=== PATIENT | female | born 1940 | race Caucasian/White ===

== ENCOUNTER 2019-11-30 09:51 | Outpatient (CLI) | payer MEDICARE, OTHER, SELFPAY ==
--- NOTE | ~2019-11-30 | DEXA_ITS ---
Bone Density Report Name: Bree Rocha Age: 79 Sex: Female Ethnicity: White Date of : 1940 Indication: postmenopausal; parental hip fracture; height loss; hysterectomy; Referring Provider: MACY FUENTES Study: Bone densitometry was performed. Exam Date: November 30, 2019 Accession number: [id number] Bone Density: Region BMD T-score Z-score Classification AP Spine (L1-L4) 0.929 -1.1 1.5 Osteopenia Femoral Neck (Left) 0.658 -1.7 0.5 Osteopenia Total Hip (Left) 0.799 -1.2 0.8 Osteopenia Total Hip Bilateral Avg 0.802 -1.2 0.8 Osteopenia Femoral Neck (Right) 0.688 -1.4 0.8 Osteopenia Total Hip (Right) 0.804 -1.1 0.8 Osteopenia World Health Organization criteria for BMD impression classify patients as: Normal (T-score at or above -1.0), Osteopenia (T-score between -1.0 and -2.5), or Osteoporosis (T-score at or below -2.5). 10-year Fracture Risk(1): Major Osteoporotic Fracture 24% Hip Fracture 14% Reported Risk Factors: [place] (), Neck BMD=0.658, BMI=27.4, parental fracture (1) FRAX(R) Version 3.08. Fracture probability calculated for an untreated patient. Fracture probability may be lower if the patient has received treatment. Clinical Information Provided by Patient: Parent has had a hip fracture Has used the following medications: Vitamin D, Calcium Has the following medical conditions: Hysterectomy Patient maximum height was 66 Menopause Age: 58 Drinks caffeinated beverages Onset of menses at age 12 Number of children 1 Impression: The patient has low bone mass, based on the Left Femoral Neck T-score. The patient has an estimated ten-year risk of hip fracture of 14% and an estimated ten-year risk of major fracture of 24%, based on the WHO FRAX algorithm. The patient has risk factors, including: parental hip fracture. Discussion: BONE DENSITY IS LOW AT ONE OR MORE SKELETAL SITES. THE PATIENT'S BMD AND CLINICAL RISK FACTORS CONTRIBUTE TO THIS PATIENT'S HIGH RISK OF FRACTURE. This patient's lowest T-score is low at one or more skeletal sites. It meets the World Health Organization's (WHO) criteria for ?low bone mass? (T-score between -1.0 and -2.5). The patient's 10-year risk of hip fracture and 10 year risk of a major osteoporotic fracture as calculated by FRAX exceeds the threshold where pharmacological therapy is recommended by the National Osteoporosis Foundation (NOF). However, all treatment decisions require clinical judgment and consideration of individual patient factors, including patient preferences, comorbidities, previous drug use, risk factors not captured in the FRAX model (e.g., frailty, falls, vitamin D deficiency, increased bone turnover, interval significant decline in bone density) and possible under or overestimation of fracture risk by FRAX. The patient should follow a
== END 2019-11-30 09:52 | disposition home or self-care (01) ==
PROVIDERS: PCP Internal Medicine; Visit Provider Internal Medicine
DX: Z78.0 Asymptomatic menopausal state (principal); M85.89 Other specified disorders of bone density and structure, multiple sites
CPT/HCPCS: 77080

== ENCOUNTER 2020-01-18 14:49 | Outpatient (NON) | payer MEDICARE, OTHER, SELFPAY ==
[2020-01-20 05:35] LABS: Pan-SARS RNA: POSITIVE (NEGATIVE); SARS-CoV-2 RNA: POSITIVE (NEGATIVE)
== END 2020-01-18 14:50 ==
PROVIDERS: PCP Internal Medicine; Visit Provider Internal Medicine
DX: U07.1 COVID-19 (principal); R68.89 Other general symptoms and signs
CPT/HCPCS: 87635; C9803; U0002

== ENCOUNTER 2020-02-09 08:00 | Outpatient (NON) | payer MEDICARE, OTHER, SELFPAY ==
[2020-02-09 20:59] LABS: SARS-CoV-2 RNA PCR Positive
== END 2020-02-09 08:01 ==
PROVIDERS: PCP Internal Medicine; Visit Provider Internal Medicine
DX: U07.1 COVID-19 (principal)
CPT/HCPCS: 87635; C9803; U0003

== ENCOUNTER 2020-11-17 09:34 | Outpatient (CLI) | payer MEDICARE, OTHER, SELFPAY ==
--- NOTE | ~2020-11-17 | US_ITS ---
EXAMINATION: US soft tissue UE RT EXAM DATE: 11/17/2020 10:06 INDICATION: Right arm lump. Lipoma. TECHNIQUE: Multiple grayscale and Doppler images of the symptomatic right upper arm region were obtai jesusita (by a technologist who performed the scan) and subsequently reviewed. There is no prior study fo r comparison. FINDINGS: Scanning in the right arm/shoulder area of concern with palpable lump demonstrates a well-circumscrib ed mass isoechoic to surrounding subcutaneous fat. This is most likely an encapsulated lipoma. The un derlying shoulder, musculature is unremarkable. IMPRESSION: 1. 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 Reviewed, dictated and finalized at location B. L MACHINE OPERATOR
== END 2020-11-17 09:35 | disposition home or self-care (01) ==
PROVIDERS: PCP Internal Medicine; Visit Provider Nurse Practitioner
DX: D17.20 Benign lipomatous neoplasm of skin and subcutaneous tissue of unspecified limb (principal); M79.89 Other specified soft tissue disorders
CPT/HCPCS: 76882

== ENCOUNTER 2020-11-24 13:47 | Outpatient (CLI) | payer MEDICARE, OTHER, SELFPAY ==
--- NOTE | 2020-11-24 14:32 | ECG_ITS ---
Measurements Intervals [place] Rate: 67 P: 77 FL: 144 QRS: 48 QRSD: 94 T: 51 QT: 408 QTc: 433 Interpretive Statements SINUS RHYTHM CANNOT RULE OUT SEPTAL INFARCT, AGE INDETERMINATE ABNORMAL ECG Electronically Signed On 11-24-2020 14:51:25 [employer] by Flo Sawyer D.O.
== END 2020-11-24 13:48 | disposition home or self-care (01) ==
LOC: ANHCARD 13:56
PROVIDERS: PCP Internal Medicine; Visit Provider Podiatrist Foot & Ankle Surgery
DX: R03.0 Elevated blood-pressure reading, without diagnosis of hypertension (principal); R94.31 Abnormal electrocardiogram [ECG] [EKG]
CPT/HCPCS: 93005

== ENCOUNTER 2020-12-02 10:04 | Outpatient (CLI) | payer MEDICARE, OTHER, SELFPAY ==
--- NOTE | ~2020-12-02 | MM_ITS ---
EXAMINATION: MM screening calderon BI w domenica HISTORY: Screening TECHNIQUE: Craniocaudal and mediolateral oblique 3-D tomosynthesis images were obtained and synthetic 2-D images were generated. CAD analysis was submitted and interpreted. COMPARISON: No prior mammogram is available for comparison at this institution. BREAST PARENCHYMAL COMPOSITION: The breasts are heterogeneously dense, which may obscure small masses . FINDINGS: There is distortion of both breasts, consistent with previous breast reduction surgery. The re is no evidence of suspicious mass, calcification, or architectural distortion to suggest malignanc y in either breast. There has been no suspicious interval change. IMPRESSION: 1. No mammographic evidence of malignancy. 2. Recommend routine screening mammography in one year. BI-RADS Category 2: Benign finding(s). Reviewed, dictated and finalized at location A. GENCY MEDICAL TECHNICIAN BASIC
== END 2020-12-02 10:05 | disposition home or self-care (01) ==
PROVIDERS: PCP Internal Medicine; Visit Provider Nurse Practitioner
DX: Z12.31 Encounter for screening mammogram for malignant neoplasm of breast (principal)
CPT/HCPCS: 77063; 77067

== ENCOUNTER → 2021-07-10 08:57 | Outpatient (CLI) | payer MEDICARE, OTHER, SELFPAY ==
[2021-07-10 17:28] LABS: SARS-CoV-2 RNA PCR Negative
== END ==
PROVIDERS: PCP Internal Medicine; Visit Provider Internal Medicine
DX: R68.89 Other general symptoms and signs (principal); Z20.822 Contact with and (suspected) exposure to COVID-19
CPT/HCPCS: C9803; U0003; U0005

== ENCOUNTER 2022-03-30 15:07 | Outpatient (CLI) | payer MEDICARE, OTHER, SELFPAY ==
--- NOTE | ~2022-03-30 | XR_ITS ---
XR hand RT min 3V DATE: 03/30/2022 15:29 INDICATION: Swelling of left fifth digit for 2 months TECHNIQUE: 3 views COMPARISON: None FINDINGS: There is osteopenia. There is polyarticular osteoarthritis, including triscaphe joint, with mild involvement of metacarpop halangeal joints and to a greater extent interphalangeal joints, most prominent at the distal interph alangeal joints of the second and third and fifth digits. No fracture, dislocation, periosteal reaction or bone destruction. IMPRESSION: Polyarticular osteoarthritis Osteopenia Reviewed, dictated and finalized at location A.
--- NOTE | ~2022-03-30 | XR_ITS ---
XR hand LT min 3V DATE: 03/30/2022 15:28 INDICATION: Swelling of fifth digit for 2 months. Stiffness and hand. TECHNIQUE: 3 views COMPARISON: None FINDINGS: Through fifth metacarpophalangeal and the interphalangeal joints. No fracture or dislocation, periosteal reaction or bone destruction is detected. IMPRESSION: Polyarticular arthritis Osteopenia Reviewed, dictated and finalized at location A.
[2022-03-30 15:49] LABS: CRP < 0.5 mg/dL (<1.0)
== END 2022-03-30 15:08 | disposition home or self-care (01) ==
PROVIDERS: PCP Internal Medicine; Visit Provider Internal Medicine
DX: M79.89 Other specified soft tissue disorders (principal); M19.041 Primary osteoarthritis, right hand; M19.042 Primary osteoarthritis, left hand; M85.841 Other specified disorders of bone density and structure, right hand; M85.842 Other specified disorders of bone density and structure, left hand
CPT/HCPCS: 36415; 73130; 86140

== ENCOUNTER → 2022-06-07 13:53 | Outpatient (CLI) | payer MEDICARE, OTHER, SELFPAY ==
--- NOTE | ~2022-06-07 | DEXA_ITS ---
Bone Density Report Name: KORI DINERO Age: 82 Sex: Female Ethnicity: White Date of : 1940 Indication: postmenopausal; screening for osteoporosis; hysterectomy; Referring Provider: Artemio Antony Study: Bone densitometry was performed. Exam Date: June 07, 2022 Accession number: [id number] Bone Density: Region BMD T-score Z-score Classification AP Spine (L1-L4) 1.077 0.3 3.0 Normal Femoral Neck (Left) 0.688 -1.4 0.9 Osteopenia Total Hip (Left) 0.824 -1.0 1.2 Normal Femoral Neck (Right) 0.718 -1.2 1.2 Osteopenia Total Hip (Right) 0.810 -1.1 1.0 Osteopenia Total Hip Mean 0.817 -1.1 1.1 Osteopenia World Health Organization criteria for BMD impression classify patients as: Normal (T-score at or above -1.0), Osteopenia (T-score between -1.0 and -2.5), or Osteoporosis (T-score at or below -2.5). 10-year Fracture Risk: FRAX not reported because: Treated for osteoporosis Clinical Information Provided by Patient: Is being treated for osteoporosis Has used the following medications: Boniva (i.e. ibandronate), Vitamin D, Calcium Has the following medical conditions: Hysterectomy Patient maximum height was 66 Menopause Age: 56 Drinks caffeinated beverages Onset of menses at age 12 Number of children 1 Impression: The patient has low bone mass, based on the Left Femoral Neck T-score. Discussion: It is important to ask patients whether they are taking their medications and to encourage continued and appropriate compliance with their osteoporosis therapies to reduce fracture risk. It is also important to review their risk factors and encourage appropriate calcium and vitamin D intakes, exercise, fall prevention and other lifestyle measures. Follow-Up: Consider a repeat BMD and Vertebral Fracture Assessment (VFA) exam in 2 years or sooner if medically necessary, to reassess this patient's status. Reported by: YOGESH on 06/07/2022 3:10:00 PM. Reviewed, dictated and finalized at location AZaida NO
== END ==
PROVIDERS: Visit Provider Internal Medicine
DX: Z78.0 Asymptomatic menopausal state (principal); M85.852 Other specified disorders of bone density and structure, left thigh; M85.851 Other specified disorders of bone density and structure, right thigh
CPT/HCPCS: 77080

== ENCOUNTER 2022-07-21 16:09 | Inpatient (IN) | payer MEDICARE, OTHER, SELFPAY ==
--- NOTE | ~2022-07-21 | CT_ITS ---
EXAMINATION: CT abdomen pelvis w con DATE: 07/21/2022 20:09 INDICATION: left lower abdominal pain TECHNIQUE: Computed tomography (CT) of the abdomen and pelvis was performed with 100 mL Omnipaque-350 intravenous contrast. Automated exposure control and iterative reconstruction technique were employe d. The dose-length product was 467.52 mGy-cm. COMPARISON: None. FINDINGS: Lower thorax: Scattered sub-5 mm pulmonary nodules. Senescent change. Bibasilar scar/atelectasis. Liver: Normal. Biliary/Gallbladder: Gallbladder is normal. No bile duct dilation. Pancreas: No mass or duct dilation. Spleen: Normal. Adrenals:No mass. Kidneys: No mass, stone, or hydronephrosis. GI tract: Moderate distal esophageal and gastric wall edema. No small or large bowel dilation. Normal appendix. Scattered diverticuli. Long segment mid sigmoid wall edema with surrounding inflammatory c hange. Somewhat incompletely defined 1 cm fluid density area projecting over the wall of the sigmoid, with surrounding inflammatory change and enhancement. Mesentery/Peritoneum: No ascites, mass, or free air. Retroperitoneum: No mass. Atherosclerotic abdominal aortic and/or arterial calcifications. Pelvis: Pelvic organs are within normal limits. Soft Tissues: Soft tissues and body wall unremarkable. Bones: No acute osseous finding. IMPRESSION: 1. Long segment sigmoid wall edema and inflammation which may represent diverticulitis with a possibl e intramural abscess, noting that infectious, inflammatory, or ischemic colitis could appear similar. 2. Multiple pulmonary nodules which require no additional follow-up, unless the patient is at high r isk for lung cancer, in which case consider optional CT of the chest at 12 months, per [facility] delines. 3. Esophagitis/gastritis. Reviewed, dictated and finalized at location K. IMPRESSION: 1. Long segment sigmoid wall edema and inflammation which may represent diverti culitis with a possible intramural abscess, noting that infectious, inflammator y, or ischemic colitis could appear similar. 2. Multiple pulmonary nodules which require no additional follow-up, unless th e patient is at high risk for lung cancer, in which case consider optional CT o f the chest at 12 months, per Fleischner guidelines. 3. Esophagitis/gastritis.
[2022-07-21 16:17] VITALS: BP 156/82; PULSE 101; RESP 20; TEMP 36.4; O2SAT 98
[2022-07-21 17:24] LABS: Basophils Percent Auto 0.3 % (0.2-1.2); Eosinophils Absolute Auto 0.1 K/mm3 (0-0.3); Eosinophils Percent Auto 0.5 % (0-4.4); Hematocrit 41.2 % (37.0-47.0); Hemoglobin 13.8 g/dL (12.0-15.0); Immature Granulocyte Absolute 0.05 K/mm3 (0.00-0.031); Immature Granulocyte Percent A 0.4 % (0-0.5); Lymphocytes Absolute Auto 1.81 K/mm3 (0.9-3.2); Lymphocytes Percent Auto 15.2 % (18.3-44.2); Mean Corpuscular HGB Conc 33.5 g/dl (32-36); Mean Corpuscular Hemoglobin 29.8 pg (26-34); Mean Platelet Volume 9.7 fl (7.4-10.4); Monocytes Absolute Auto 0.7 K/mm3 (0.1-0.6); Monocytes Percent Auto 6.1 % (2.6-8.5); Neutrophils Absolute Auto 9.2 K/mm3 (1.3-6.7); Neutrophils Percent Auto 77.5 % (45.5-73.1); Platelet Count Result 304 k/mm3 (150-375); Red Blood Count 4.63 M/mm3 (4.2-5.4); Red Cell Distribution Width 13.2 % (11.5-14.5); White Blood Count 11.9 K/mm3 (4.5-10.0)
[2022-07-21 17:29] LABS: Add Urine Microscopic? YES; Appearance Urine Cloudy (Clear); Bilirubin Urine Negative (Negative); Blood Urine Negative (Negative); Color Urine Yellow (Yellow); Glucose Urine UA Negative (Negative); Ketones Urine Negative (Negative); Leukocyte Esterase Ur Negative LEU/UL (Negative); Mucus Urine Rare /lpf; Nitrate Urine Negative (Negative); Protein Urine 1+ mg/dL (Negative); Specific Grav Ur 1.024 (1.001-1.035); Squamous Epithelial Cell Urine Occasional /hpf (Few); Urobilinogen Urine Negative mg/dL (<2.0); WBC Urine 0-3 /hpf
[2022-07-21 17:34] LABS: Lactic Acid Reflex 1.5 mmol/L (0.7-2.0)
[2022-07-21 17:35] LABS: Alanine Aminotransferase 19 U/L (6-35); Albumin Level 4.7 g/dL (3.5-5.1); Alkaline Phosphatase 82 U/L (38-126); Anion Gap 14 mmol/L (8-16); Aspartate Amino Transferase 25 U/L (14-36); Bilirubin,Total 0.7 mg/dL (0.2-1.3); Blood Urea Nitrogen 16 mg/dL (7-17); Calcium 9.5 mg/dL (8.4-10.2); Carbon Dioxide 29 mmol/L (22-30); Chloride 98 mmol/L (98-107); Estimated CRCL calculation 49 ml/min; Estimated Glomerular Filt Rate > 60; Glucose 115 mg/dL (65-110); Lipase 50 U/L (23-300); Potassium 4.5 mmol/L (3.4-5.0); Sodium 141 mmol/L (137-145)
--- NOTE | 2022-07-21 19:21 | ED.ABDPAIN ---
HPI - Abdominal Pain General Chief Complaint: Abdominal Pain Stated Complaint: abd/groin pain Time Seen by Provider: 07/21/22 16:39 Source: patient and RN notes reviewed Mode of arrival: ambulatory Limitations: no limitations History of Present Illness HPI narrative: This is an 82 year old female who presents for evaluation of left pelvic and left lower abdominal pain. She reports intermittent sharp pain that has been occurring for at least 1 month. She had pain just prior to coming to ER, but her pain has currently resolved. Her pain will last a couple minutes and it will resolve spontaneously. She has nausea with severe pain. She is unsure of any exacerbating and alleviating factors regarding her pain. She is unable to get an appointment with her PCP until august. Related Data Home Medications Medication Instructions Recorded Confirmed calcium carbonate 600 mg calcium 600 mg PO BID 11/10/19 04/25/22 (1,500 mg) tablet (Calcium) cholecalciferol (vitamin D3) 25 2,000 unit PO DAILY 11/10/19 04/25/22 mcg (1,000 unit) tablet loratadine 10 mg tablet 10 mg PO DAILY 11/10/19 04/25/22 rosuvastatin 5 mg tablet 5 mg PO DAILY PRN 03/30/22 04/25/22 naproxen sodium 275 mg tablet 275 mg PO Q8H PRN 05/01/22 vitamin B complex (B 1 tablet PO DAILY 05/01/22 Complex-Vitamin B12 tablet) Allergies Allergy/AdvReac Type Severity Reaction Status Date / Time Inhaled Anesthetics (Halogen Allergy Unknown Sneezing Verified 05/01/22 08:31 Based) SHELLFISH AdvReac Mild A LITTLE Uncoded 04/25/22 09:01 ITCH Review of Systems Review of Systems: All systems reviewed & are unremarkable except as noted in HPI and below Constitutional: Constitutional: Denies chills, Denies fatigue and Denies fever(s) Gastrointestinal: Gastrointestinal: Reports abdominal pain, Denies diarrhea, Reports nausea and Denies vomiting Genitourinary: Genitourinary: Denies nocturia, Denies dysuria and Denies flank pain Musculoskeletal: Musculoskeletal: Denies back pain PMFSH Past Medical History Medical History Acquired hallux valgus of left foot Bunion of great toe of right foot Hallux 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 Vitamin D deficiency, unspecified Surgical History Surgical History Status post breast reduction Social History Social History Smoking status: Never smoker Alcohol intake: current Drinks per week: 5 Alcohol use details: social Substance use: never Substance use type: does not use Exam Const: General: healthy appearing, no acute distress and alert Nutritional Appearance: well nourished Orientation/consciousness: patient oriented x3 Limitations: no limitations HENMT: Head: normal to inspection Eyes: EOM: EOMs intact bilaterally Resp: Effort & Inspection: normal respiratory effort Auscultation: clear to auscultation bilaterally Cardio: Rate: regular rate Rhythm: regular rhythm Heart sounds: no murmurs Other: strong bilateral palpable pedal pulses GI: GI Palp: Yes Soft to palpation, Yes Tenderness to palpation present (GI) (LQ), No Guarding due to palpation present (GI) and No Rigid due to palpation Auscultation: normal bowel sounds Back/Spine/Pelvis: Back: no CVA tenderness Skin: General skin exam: normal color Rashes: no rashes Wounds: no wounds Neuro: General: patient oriented x3, moves all extremities and CN's II-XI intact bilaterally Extrem: General: normal to inspection Psych: Mental Status: mental status grossly normal Attitude: cooperative Course Reevaluation(s) Reevaluation #1: I Discussed with patient and family diagnosis. She will be admitted for IV antibiotics. Date: 07/21/22 Time: 21:00 Consultations Consultation #1: I Discussed case with Dr. Kahn and he agrees to co
--- NOTE | 2022-07-21 20:52 | PM.IMHP ---
H&P: HPI History of Present Illness Date/Time: 07/21/22 20:52 Chief Complaint: abdominal pain Narrative: This is an 82-year-old female with past medical history significant for osteoporosis, seasonal allergies, degenerative joint disease,presents to the emergency room due to left lower quadrant pain according to patient she has been having pain for about a month but worsened the last day or so is in the left lower quadrant she denied any nausea or vomiting with did she had a small bowel movement which is not her usual denies any phlegm or blood and it no fevers no rigors no chills has been tolerating her meals well however not much of an appetite in the last day or so. Preliminary workup was significant for CT of abdomen and pelvis shows: IMPRESSION: 1. Long segment sigmoid wall edema and inflammation which may represent diverticulitis with a possible intramural abscess, noting that infectious, inflammatory, or ischemic colitis could appear similar. 2.? Multiple pulmonary nodules which require no additional follow-up, unless the patient is at high risk for lung cancer, in which case consider optional CT of the chest at 12 months, per Fleischner guidelines. 3. Esophagitis/gastritis. Review of Systems Review of Systems: abdominal pain Constitutional: Constitutional: Denies chills, Denies fever(s), Denies malaise, Denies night sweats and Denies weakness Eyes: Eyes: Denies change in vision ENT: Denies dysphagia, Denies vertigo, Denies dizziness and Denies odynophagia Cardiovascular: Cardiovascular: Denies chest pain, Denies syncope, Denies irregular heart rhythm, Denies lightheadedness and Denies palpitations Respiratory: Respiratory: Denies chest congestion, Denies cough, Denies pain on inspiration and Denies dyspnea Gastrointestinal: Gastrointestinal: Reports abdominal pain, Denies dyspepsia, Denies heartburn, Denies nausea and Denies vomiting Genitourinary: Genitourinary: Denies dysuria Musculoskeletal: Musculoskeletal: Denies myalgias Integumentary/Breasts: Skin/Breast: Denies rash Neurologic: Denies vertigo, Denies dizziness, Denies focal weakness and Denies Sensory deficit (Neuro) Psychiatric: Psychiatric: Reports no additional psychiatric complaints and Reports as per HPI Endocrine: Endocrine: Denies cold intolerance, Denies flushing, Denies heat intolerance, Denies polyphagia, Denies polydipsia and Denies palpitations Hematologic/Lymphatic: Hematologic/Lymphatic: Reports no additional hematologic/lymphatic complaints and Reports as per HPI Allergic/Immunologic: Allergic/Immunologic: Reports no additional allergic/immunologic complaints and Reports as per HPI [facility] Past Medical History Medical History (Updated 07/22/22 @ 15:06 by Kathryn Garcia PA-C) Acquired hallux valgus of left foot Bunion of great toe of right foot Hallux 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 Vitamin D deficiency, unspecified Surgical History Surgical History (Updated 07/22/22 @ 13:00 by Darryl Campuzano DO) History of bladder suspension procedure History of vaginal hysterectomy Status post breast reduction Social History Social History Smoking status: Never smoker Alcohol intake: current Drinks per week: 4 Alcohol use details: social Substance use: never Substance use type: does not use Spiritual care concerns: No Meds Home Medications and Allergies Home Medications Medication Instructions Recorded Confirmed Type calcium carbonate 600 mg calcium 600 mg PO BID 11/10/19 07/21/22 History (1,500 mg) tablet (Calcium) cholecalciferol (vitamin D3) 25 2,000 unit PO DAILY 11/10/19 07/21/22 History mcg (1,000 unit) tablet loratadine 10 mg tablet 10 mg PO DAILY 11/10/19 07/21/22 History ibandronate 150 mg tablet (Boniva) 150 mg PO MONTHLY PRN bone health 04/03/22 07/21/22 Rx #4 tabs naproxen sodium 275 mg tablet 275 mg PO
[2022-07-21] MEDS: SODIUM CHLORIDE 0.9% IV 1,000 ML 999 ML IV CONT (20:59)
--- NOTE | 2022-07-21 22:17 | ADMGEN ---
This patient, Bree Rocha, was admitted to Medical Room 348-01. Patient/family oriented to hospital policies and general routines including ID bracelet, bed and alarms, visiting hours, pain management, procedures, bathroom and other care routines, personal items, smoking policy, room service/diet, and visiting hours. Information on how to activate the Rapid Response Team has been discussed. Patient/Family are encouraged to report perceived risks to care and to ask questions if they do not understand what they are told or what they should do.
[2022-07-21 22:27] VITALS: BMI 26.3
[2022-07-21 22:29] VITALS: BP 151/73; PULSE 71; RESP 18; TEMP 36.6; O2SAT 99
[2022-07-21 22:44] VITALS: BP 151/73; PULSE 71; RESP 18; O2SAT 99
[2022-07-22 00:03] VITALS: BMI 26.3
[2022-07-22] MEDS: SODIUM CHLORIDE 0.9% IV 1,000 ML 125 ML IV CONT ×2 (01:46→16:43)
[2022-07-22 01:59] VITALS: PULSE 71; RESP 18; O2SAT 99
[2022-07-22 05:28] VITALS: BP 150/58; PULSE 78; RESP 18; TEMP 36.6; O2SAT 96
[2022-07-22 06:44] LABS: Basophils Percent Auto 0.5 % (0.2-1.2); Eosinophils Absolute Auto 0.2 K/mm3 (0-0.3); Eosinophils Percent Auto 2.2 % (0-4.4); Hematocrit 34.5 % (37.0-47.0); Hemoglobin 11.6 g/dL (12.0-15.0); Immature Granulocyte Absolute 0.02 K/mm3 (0.00-0.031); Immature Granulocyte Percent A 0.2 % (0-0.5); Lymphocytes Absolute Auto 2.02 K/mm3 (0.9-3.2); Lymphocytes Percent Auto 24.9 % (18.3-44.2); Mean Corpuscular HGB Conc 33.6 g/dl (32-36); Mean Corpuscular Hemoglobin 29.2 pg (26-34); Mean Corpuscular Volume 86.9 fl (80-100); Mean Platelet Volume 9.8 fl (7.4-10.4); Monocytes Absolute Auto 0.8 K/mm3 (0.1-0.6); Monocytes Percent Auto 9.9 % (2.6-8.5); Neutrophils Percent Auto 62.3 % (45.5-73.1); Platelet Count Result 247 k/mm3 (150-375); Red Blood Count 3.97 M/mm3 (4.2-5.4); Red Cell Distribution Width 13.1 % (11.5-14.5); White Blood Count 8.1 K/mm3 (4.5-10.0)
[2022-07-22 07:02] LABS: Alanine Aminotransferase 16 U/L (6-35); Albumin Level 3.8 g/dL (3.5-5.1); Alkaline Phosphatase 62 U/L (38-126); Anion Gap 10 mmol/L (8-16); Aspartate Amino Transferase 20 U/L (14-36); Bilirubin,Total 1.1 mg/dL (0.2-1.3); Blood Urea Nitrogen 12 mg/dL (7-17); Calcium 8.4 mg/dL (8.4-10.2); Carbon Dioxide 28 mmol/L (22-30); Chloride 101 mmol/L (98-107); Estimated CRCL calculation 45 ml/min; Estimated Glomerular Filt Rate > 60; Glucose 114 mg/dL (65-110); Potassium 3.9 mmol/L (3.4-5.0); Sodium 139 mmol/L (137-145)
[2022-07-22] MEDS: PANTOPRAZOLE SODIUM IV 40 MG VIAL IV PUSH (09:57)
--- NOTE | 2022-07-22 12:57 | PM.CNGS ---
Assessment and Plan Assessment and plan (1) Diverticulitis large intestine: Qualifiers: Diverticulitis complication: with abscess Code(s): K57.32 - Diverticulitis of large intestine without perforation or abscess without bleeding Status: Acute Assessment and Plan: I have reviewed the CT and discussed the findings with the patient. She has evidence of diverticulitis and there is questionable 1 cm intramural abscess. At this size, this would not likely need percutaneous drainage. Her white blood count has normalized and her pain is improved. She should be able to try clear liquids today. Will repeat labs tomorrow. Continue IV Zosyn. Discussed that surgery would be reserved for failure of medical treatment and worsening signs or symptoms to suggest perforation or sepsis. History of Present Illness Consult details Consult date: 07/22/22 Reason for consult: other ( Diverticulitis) Narrative: this is an 82-year-old woman who presented to the emergency department yesterday with left lower quadrant pain that had been worsening over the past day. She states that she has had pain intermittently for the past month. Prior to this she had never experiencing pains like this in the past. She denies a prior history of diverticulitis. She states that she normally eats very healthy and tries to minimize processed foods. She thinks her last colonoscopy was about 10 years ago or longer. Her pain is currently improved. She denies any fevers or any change in bowel habits. Her CT in the emergency department showed evidence of diverticulitis with a possible 1 cm intramural abscess. She was then admitted for further treatment. Review of Systems Review of Systems: All systems reviewed & are unremarkable except as noted in HPI and below Constitutional: Constitutional: Denies chills and Denies fever(s) Eyes: Eyes: Denies change in vision ENT: Denies hearing loss, Denies neck pain and Denies sore throat Cardiovascular: Cardiovascular: Denies chest pain and Denies dyspnea Respiratory: Respiratory: Denies cough, Denies dyspnea and Denies wheezing Gastrointestinal: Gastrointestinal: Reports as per HPI Genitourinary: Genitourinary: Denies hematuria and Denies dysuria Musculoskeletal: Musculoskeletal: Denies arthralgias, Denies joint swelling and Denies neck pain Allergic/Immunologic: Allergic/Immunologic: Denies wheezing PMFSH Past Medical History Medical History (Updated 07/22/22 @ 06:43 by Sher Garces MD) Acquired hallux valgus of left foot Bunion of great toe of right foot Hallux 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 Vitamin D deficiency, unspecified Surgical History Surgical History (Updated 07/22/22 @ 13:00 by Darryl Campuzano DO) History of bladder suspension procedure History of vaginal hysterectomy Status post breast reduction Social History Social History Smoking status: Never smoker Alcohol intake: current Drinks per week: 4 Alcohol use details: social Substance use: never Substance use type: does not use Spiritual care concerns: No Meds Home Medications and Allergies Home Medications Medication Instructions Recorded Confirmed Type calcium carbonate 600 mg calcium 600 mg PO BID 11/10/19 07/21/22 History (1,500 mg) tablet (Calcium) cholecalciferol (vitamin D3) 25 2,000 unit PO DAILY 11/10/19 07/21/22 History mcg (1,000 unit) tablet loratadine 10 mg tablet 10 mg PO DAILY 11/10/19 07/21/22 History ibandronate 150 mg tablet (Boniva) 150 mg PO MONTHLY PRN bone health 04/03/22 07/21/22 Rx #4 tabs naproxen sodium 275 mg tablet 275 mg PO Q8H PRN muscle spams/ 05/01/22 07/21/22 History bone pain vitamin B complex (B 1 tablet PO DAILY 05/01/22 07/21/22 History Complex-Vitamin B12 tablet) Allergies Allergy/AdvReac Type Severity Reaction Status Date / Time Inhaled Ane
--- NOTE | 2022-07-22 15:00 | PM.IMPN ---
Progress Note: A&P Assessment and Plan (1) Diverticulitis large intestine: Qualifiers: Diverticulitis complication: with abscess Code(s): K57.32 - Diverticulitis of large intestine without perforation or abscess without bleeding Status: Acute Assessment and Plan: Patient presented with left lower quadrant pain ongoing for several weeks. CT of the abdomen/pelvis showed long segment sigmoid wall edema and inflammation which may represent diverticulitis with possible intramural abscess Patient seen and evaluated by General surgery. No indications for surgical intervention at this time. Continue IV Zosyn Advanced to clear liquid diet. Continue to advance diet per General surgery recommendations Continue IV fluids until tolerating diet. Leukocytosis has resolved. Patient is afebrile. She will need outpatient colonoscopy on resolution of acute diverticulitis (2) Gastritis: Code(s): K29.70 - Gastritis, unspecified, without bleeding Status: Acute Assessment and Plan: Gastritis and esophagitis noted on CT of the abdomen/pelvis Begin Protonix 40 mg b.i.d. (3) Pulmonary nodule: Code(s): R91.1 - Solitary pulmonary nodule Status: Acute Assessment and Plan: CT of the abdomen/pelvis showed multiple pulmonary nodules which require no additional follow-up unless patient is at risk for lung cancer. She is a never smoker. Family history of lung cancer is unknown. Subjective Date/time seen: 07/22/22 15:00 Interval history: Date of service: 07/22/2022 Bree Rocha is a healthy 82-year-old female who is seen in follow-up for diverticulitis with questionable intramural abscess. The patient is feeling very well today. Her abdominal pain has resolved entirely. She was previously endorsing left lower quadrant discomfort but this has resolved today. She is passing flatus. States her last bowel movement was yesterday. Denies melena or hematochezia. No fever, chills, nausea, vomiting. She has not had anything to eat today besides a couple of ice chips. She denies shortness breath, cough, chest pain. Denies urinary symptoms. Review of Systems Review of Systems: All systems reviewed & are unremarkable except as noted in HPI and below Exam Narrative: General: Well-nourished, well-appearing 82-year-old female, sitting up in bed, comfortable, NARD Neuro: awake, alert and oriented x4, speech clear, no focal neuro deficits noted HEENMT: normocephalic, atraumatic, EOMI, sclerae anicteric, moist oral mucosa Respiratory: clear to auscultation bilaterally, nonlabored breathing Cardio: regular rate, regular rhythm with S1-S2 Abdomen: nondistended, normoactive bowel sounds, soft, nontender to palpation Extremities: no edema, erythema, or tenderness to palpation, DP pulses 2+ bilaterally Skin: no rashes or lesions, warm and dry Psych: appropriate mood and affect, judgment and insight intact Objective Data Vital Signs Vital Signs: Vital Signs - 24 hr 07/21/22 16:17 07/21/22 22:29 07/21/22 22:44 Temperature 97.6 F 97.8 F Pulse Rate 101 H 71 71 Respiratory Rate 20 18 18 Blood Pressure 156/82 H 151/73 H 151/73 H Pulse Oximetry 98 99 99 Oxygen Delivery Room Air 07/22/22 01:59 07/22/22 05:28 Temperature 97.8 F Pulse Rate 71 78 Respiratory Rate 18 18 Blood Pressure 150/58 H Pulse Oximetry 99 96 Oxygen Delivery Room Air Intake/Output Intake/Output: Intake & Output 07/19/22 07/20/22 07/21/22 07/22/22 23:59 23:59 23:59 23:59 Intake Total 1050 100 Output Total 200 Balance 1050 -100 Meds/Results Medications: Active Medications Generic Name Dose Route Start Last Admin Trade Name Freq PRN Reason Stop Dose Admin Piperacillin/Tazobactam/Dextrose 3.375 gm in 50 mls @ 100 mls/hr 07/22/22 06:00 07/22/22 14:00 Zosyn 3.375 Gm/D5w 50ml Pm IVPB Infused Q6H LISSETTE Infusion Acetaminophen 1,000 mg in 100 mls @ 400 mls/h
[2022-07-22 17:00] VITALS: BP 142/59; PULSE 81; RESP 16; TEMP 36.3; O2SAT 99
[2022-07-22 20:00] VITALS: PULSE 85; RESP 18; O2SAT 99
[2022-07-22] MEDS: PANTOPRAZOLE 40 MG TABLET PO (20:38)
[2022-07-22 21:27] VITALS: BP 158/66; PULSE 85; RESP 18; TEMP 37; O2SAT 99
[2022-07-23 04:13] VITALS: BP 142/60; PULSE 78; RESP 18; TEMP 36.6; O2SAT 98
[2022-07-23] MEDS: SODIUM CHLORIDE 0.9% IV 1,000 ML 125 ML IV CONT (04:18)
[2022-07-23 05:41] LABS: Hematocrit 34.5 % (37.0-47.0); Hemoglobin 11.5 g/dL (12.0-15.0); Mean Corpuscular HGB Conc 33.3 g/dl (32-36); Mean Corpuscular Hemoglobin 29.6 pg (26-34); Mean Corpuscular Volume 88.9 fl (80-100); Mean Platelet Volume 9.9 fl (7.4-10.4); Platelet Count Result 237 k/mm3 (150-375); Red Blood Count 3.88 M/mm3 (4.2-5.4); Red Cell Distribution Width 13.1 % (11.5-14.5); White Blood Count 6.7 K/mm3 (4.5-10.0)
[2022-07-23 05:52] LABS: Anion Gap 7 mmol/L (8-16); Blood Urea Nitrogen 7 mg/dL (7-17); Calcium 7.9 mg/dL (8.4-10.2); Carbon Dioxide 25 mmol/L (22-30); Chloride 108 mmol/L (98-107); Estimated CRCL calculation 51 ml/min; Estimated Glomerular Filt Rate > 60; Glucose 99 mg/dL (65-110); Potassium 3.9 mmol/L (3.4-5.0); Sodium 140 mmol/L (137-145)
[2022-07-23] MEDS: PANTOPRAZOLE 40 MG TABLET PO ×2 (09:11→20:51)
--- NOTE | 2022-07-23 13:25 | PM.IMPN ---
Progress Note: A&P Assessment and Plan (1) Diverticulitis large intestine: Qualifiers: Diverticulitis complication: with abscess Code(s): K57.32 - Diverticulitis of large intestine without perforation or abscess without bleeding Status: Acute Assessment and Plan: Patient presented with left lower quadrant pain ongoing for several weeks. CT of the abdomen/pelvis showed long segment sigmoid wall edema and inflammation which may represent diverticulitis with possible intramural abscess Patient seen and evaluated by General surgery. No indications for surgical intervention at this time. Continue IV Zosyn Tolerating a clear liquid diet without difficulty. Continue to advance diet per General surgery recommendations Continue IV fluids until tolerating diet. Leukocytosis has resolved. Patient is afebrile. She will need outpatient colonoscopy on resolution of acute diverticulitis (2) Gastritis: Code(s): K29.70 - Gastritis, unspecified, without bleeding Status: Acute Assessment and Plan: Gastritis and esophagitis noted on CT of the abdomen/pelvis Begin Protonix 40 mg b.i.d. (3) Pulmonary nodule: Code(s): R91.1 - Solitary pulmonary nodule Status: Acute Assessment and Plan: CT of the abdomen/pelvis showed multiple pulmonary nodules which require no additional follow-up unless patient is at risk for lung cancer. She is a never smoker. Family history of lung cancer is unknown. Time Spent With Patient Time with patient: 15 - 25 minutes Subjective Date/time seen: 07/23/22 1140 This pt. was examined at the bedside today in interval assessment and is doing well and feeling better overall. She endorses no N/V/D, and she is tolerating the clear liquids without difficulty. She has no CP, dyspnea, and complete resolution of pain. She is receiving Zosyn for her continued infection. She has no other symptoms or complaints to voice at this time. Surgery is managing and I anticipate will advance her diet today. If they do and she tolerates, then she could possibly discharge with oral abx tomorrow. Review of Systems Review of Systems: All systems reviewed & are unremarkable except as noted in HPI and below Exam Narrative: General: Well-nourished, well-appearing 82-year-old female, sitting up in bed, comfortable, NARD Neuro: awake, alert and oriented x4, speech clear, no focal neuro deficits noted HEENMT: normocephalic, atraumatic, EOMI, sclerae anicteric, moist oral mucosa Respiratory: clear to auscultation bilaterally, nonlabored breathing Cardio: regular rate, regular rhythm with S1-S2 Abdomen: nondistended, normoactive bowel sounds, soft, nontender to palpation Extremities: no edema, erythema, or tenderness to palpation, DP pulses 2+ bilaterally Skin: no rashes or lesions, warm and dry Psych: appropriate mood and affect, judgment and insight intact Objective Data Vital Signs Vital Signs: Vital Signs - 24 hr 07/22/22 17:00 07/22/22 21:27 07/22/22 20:00 Temperature 97.3 F L 98.6 F Pulse Rate 81 85 85 Respiratory Rate 16 18 18 Blood Pressure 142/59 H 158/66 H Pulse Oximetry 99 99 99 Oxygen Delivery Room Air 07/23/22 04:13 Temperature 97.9 F Pulse Rate 78 Respiratory Rate 18 Blood Pressure 142/60 H Pulse Oximetry 98 Oxygen Delivery Intake/Output Intake/Output: Intake & Output 07/20/22 07/21/22 07/22/22 07/23/22 23:59 23:59 23:59 23:59 Intake Total 1050 1750 1560 Output Total 950 700 Balance 1050 800 860 Meds/Results Medications: Active Medications Generic Name Dose Route Start Last Admin Trade Name Freq PRN Reason Stop Dose Admin Acetaminophen 650 mg 07/22/22 15:08 Acetaminophen 325 Mg Tablet PO Q4H PRN Pain 1-3 Piperacillin/Tazobactam/Dextrose 3.375 gm in 50 mls @ 100 mls/hr 07/22/22 06:00 07/23/22 13:20 Zosyn 3.375 Gm/D5w 50ml Pm IVPB 100 mls/hr Q6H LISSETTE Administration Sodium
--- NOTE | 2022-07-23 13:58 | PM.PNGS ---
Progress Note: A&P Assessment and Plan (1) Diverticulitis large intestine: Qualifiers: Diverticulitis complication: with abscess Code(s): K57.32 - Diverticulitis of large intestine without perforation or abscess without bleeding Status: Acute Assessment and Plan: Clinically improving. WBC count normal and afebrile. Will advance to full liquids. Continue IV Zosyn Plan I have discussed the patient's case and plan of care with Dr. Campuzano. Subjective Subjective Date/Time Seen: 07/23/22 13:00 Patient reports: no new complaints, feels better, pain is less, tolerating liquids well, flatus, no bowel movement and afebrile Interval history: Reports feeling better today. Denies any abdominal pain at the time of my exam. Denies any nausea or bloating. She reports having some abdominal cramping and bloating after eating clear liquids for dinner last night, but this subsided after passing gas and has not returned. No other complaints at this time. She is tolerating activity and walking in the room and in the halls. Review of Systems Review of Systems: All systems reviewed & are unremarkable except as noted in HPI and below Exam Const: General: alert; No acute distress Orientation/consciousness: patient oriented x3 GI: Inspection: non-distended GI Palp: Yes Soft to palpation, Yes Tenderness to palpation present (GI) (very mild TTP in LLQ), No Guarding due to palpation present (GI) and No Rebound tenderness present Auscultation: normal bowel sounds Neuro: General: moves all extremities and no focal motor deficits Extrem: General: normal to inspection Objective Data Vital Signs Vital Signs: Vital Signs - 24 hr 07/22/22 17:00 07/22/22 21:27 07/22/22 20:00 Temperature 97.3 F L 98.6 F Pulse Rate 81 85 85 Respiratory Rate 16 18 18 Blood Pressure 142/59 H 158/66 H Pulse Oximetry 99 99 99 Oxygen Delivery Room Air 07/23/22 04:13 Temperature 97.9 F Pulse Rate 78 Respiratory Rate 18 Blood Pressure 142/60 H Pulse Oximetry 98 Oxygen Delivery Intake/Output Intake/Output: Intake & Output 07/20/22 07/21/22 07/22/22 07/23/22 23:59 23:59 23:59 23:59 Intake Total 1050 1750 1560 Output Total 950 700 Balance 1050 800 860 Meds/Results Medications: Active Medications Generic Name Dose Route Start Last Admin Trade Name Freq PRN Reason Stop Dose Admin Acetaminophen 650 mg 07/22/22 15:08 Acetaminophen 325 Mg Tablet PO Q4H PRN Pain 1-3 Piperacillin/Tazobactam/Dextrose 3.375 gm in 50 mls @ 100 mls/hr 07/22/22 06:00 07/23/22 13:20 Zosyn 3.375 Gm/D5w 50ml Pm IVPB 100 mls/hr Q6H LISSETTE Administration Sodium Chloride 1,000 mls @ 75 mls/hr 07/21/22 21:00 07/23/22 04:18 Normal Saline Iv IV CONT 125 mls/hr .[id number] LISSETTE Administration Ondansetron HCl 4 mg 07/21/22 20:56 Ondansetron Inj 4 Mg/2 Ml Vial IV PUSH Q4H PRN Nausea Pantoprazole Sodium 40 mg 07/22/22 21:00 07/23/22 09:11 Pantoprazole 40 Mg Tablet PO 40 mg Q12HR LISSETTE Administration Radiology Results: ITS Impressions Abdomen/Pelvis CT 07/21/22 20:14 IMPRESSION: 1. Long segment sigmoid wall edema and inflammation which may represent diverticulitis with a possible intramural abscess, noting that infectious, inflammatory, or ischemic colitis could appear similar. 2. Multiple pulmonary nodules which require no additional follow-up, unless the patient is at high risk for lung cancer, in which case consider optional CT of the chest at 12 months, per Fleischner guidelines. 3. Esophagitis/gastritis. Labs Labs: Laboratory Results - last 24 hr 07/23/22 07/23/22 05:33 05:33 WBC 6.7 RBC 3.88 L Hgb 11.5 L Hct 34.5 L MCV 88.9 MCH 29.6 MCHC 33.3 RDW 13.1 Plt Count 237 MPV 9.9 Sodium 140 Potassium 3.9 Chloride 108 H Carbon Dioxide 25 Anion Gap 7 L BUN 7 D Creatinine 0.70 Estim Creat Clear Calc
[2022-07-23 14:55] VITALS: BP 139/65; PULSE 77; RESP 16; TEMP 36.3; O2SAT 99
[2022-07-23] MEDS: polyethylene glycoL 3350 17 GM POWD.PACK PO (19:02)
[2022-07-23 20:00] VITALS: PULSE 81; RESP 18; O2SAT 98
[2022-07-23 21:35] VITALS: BP 139/61; PULSE 81; RESP 18; TEMP 36.6; O2SAT 98
[2022-07-24 04:21] VITALS: BP 155/67; PULSE 86; RESP 18; TEMP 36.6; O2SAT 97
[2022-07-24 05:48] LABS: Hematocrit 32.9 % (37.0-47.0); Hemoglobin 11.2 g/dL (12.0-15.0); Mean Corpuscular Hemoglobin 30.1 pg (26-34); Mean Corpuscular Volume 88.4 fl (80-100); Mean Platelet Volume 10.1 fl (7.4-10.4); Platelet Count Result 237 k/mm3 (150-375); Red Blood Count 3.72 M/mm3 (4.2-5.4); Red Cell Distribution Width 13.2 % (11.5-14.5); White Blood Count 5.7 K/mm3 (4.5-10.0)
[2022-07-24 06:01] LABS: Anion Gap 8 mmol/L (8-16); Blood Urea Nitrogen 5 mg/dL (7-17); Calcium 8.2 mg/dL (8.4-10.2); Carbon Dioxide 24 mmol/L (22-30); Chloride 109 mmol/L (98-107); Estimated CRCL calculation 59 ml/min; Estimated Glomerular Filt Rate > 60; Glucose 97 mg/dL (65-110); Potassium 3.7 mmol/L (3.4-5.0); Sodium 141 mmol/L (137-145)
[2022-07-24] MEDS: PANTOPRAZOLE 40 MG TABLET PO (09:44)
--- NOTE | 2022-07-24 11:04 | PM.PNGS ---
Progress Note: A&P Assessment and Plan (1) Diverticulitis large intestine: Qualifiers: Diverticulitis complication: with abscess Code(s): K57.32 - Diverticulitis of large intestine without perforation or abscess without bleeding Status: Acute Assessment and Plan: Continues to improve. Advance to a low-fiber diet. We will consult the dietitian to educate the patient on a low-fiber diet after discharge. Okay from our standpoint to discharge the patient later today and transition to oral antibiotics if she is tolerating her diet. No follow-up needed with surgery unless having issues. Plan I have discussed the patient's case and plan of care with Dr. Campuzano. Subjective Subjective Date/Time Seen: 07/24/22 10:34 Patient reports: no new complaints, feels better, pain is less, tolerating liquids well, flatus, bowel movement (This morning) and afebrile Interval history: Patient continues to improve daily. She reports feeling better again today. Denies any significant abdominal pain at this time. She does report having some cramping abdominal pain after taking the MiraLax yesterday. No Nausea or vomiting. She is still passing gas and had 1 formed bowel movement this morning. No other complaints at this time. Review of Systems Review of Systems: All systems reviewed & are unremarkable except as noted in HPI and below Exam Const: General: alert; No acute distress Orientation/consciousness: patient oriented x3 GI: Inspection: non-distended GI Palp: Yes Soft to palpation, No Tenderness to palpation present (GI), No Guarding due to palpation present (GI) and No Rebound tenderness present Auscultation: normal bowel sounds Objective Data Vital Signs Vital Signs: Vital Signs - 24 hr 07/23/22 14:55 07/23/22 21:35 07/23/22 20:00 Temperature 97.4 F L 97.9 F Pulse Rate 77 81 81 Respiratory Rate 16 18 18 Blood Pressure 139/65 139/61 Pulse Oximetry 99 98 98 Oxygen Delivery Room Air 07/24/22 04:21 Temperature 98 F Pulse Rate 86 Respiratory Rate 18 Blood Pressure 155/67 H Pulse Oximetry 97 Oxygen Delivery Intake/Output Intake/Output: Intake & Output 07/21/22 07/22/22 07/23/22 07/24/22 23:59 23:59 23:59 23:59 Intake Total 1050 1750 2810 540 Output Total 950 1700 1700 Balance 4775 921 5530 -1160 Meds/Results Medications: Active Medications Generic Name Dose Route Start Last Admin Trade Name Gaviota PRN Reason Stop Dose Admin Acetaminophen 650 mg 07/22/22 15:08 Acetaminophen 325 Mg Tablet PO Q4H PRN Pain 1-3 Piperacillin/Tazobactam/Dextrose 3.375 gm in 50 mls @ 100 mls/hr 07/22/22 06:00 07/24/22 06:20 Zosyn 3.375 Gm/D5w 50ml Pm IVPB Infused Q6H LISSETTE Infusion Ondansetron HCl 4 mg 07/21/22 20:56 Ondansetron Inj 4 Mg/2 Ml Vial IV PUSH Q4H PRN Nausea Pantoprazole Sodium 40 mg 07/22/22 21:00 07/24/22 09:44 Pantoprazole 40 Mg Tablet PO 40 mg Q12HR LISSETTE Administration Polyethylene Glycol 17 gm 07/23/22 14:08 07/23/22 19:02 Polyethylene Glycol 3350 17 Gm Powd.Pack PO 17 gm QAM PRN Administration Constipation Radiology Results: ITS Impressions Abdomen/Pelvis CT 07/21/22 20:14 IMPRESSION: 1. Long segment sigmoid wall edema and inflammation which may represent diverticulitis with a possible intramural abscess, noting that infectious, inflammatory, or ischemic colitis could appear similar. 2. Multiple pulmonary nodules which require no additional follow-up, unless the patient is at high risk for lung cancer, in which case consider optional CT of the chest at 12 months, per Fleischner guidelines. 3. Esophagitis/gastritis. Labs Labs: Laboratory Results - last 24 hr 07/24/22 07/24/22 05:39 05:39 WBC 5.7 RBC 3.72 L Hgb 11.2 L Hct 32.9 L MCV 88.4 MCH 30.1 MCHC 34.0 RDW 13.2 Plt Count 237 MPV 10.1 Sodium 141 Potassium 3.7 Chloride 109 H Carbon Diox
[2022-07-24 13:31] VITALS: O2SAT 95
--- NOTE | 2022-07-24 13:59 | PM.DS ---
DS: Admitting Diagnosis Discharge Date 07/24/2022 1515 Admitting Diagnosis Diverticulitis of large intestine without perforation or abscess without bleeding Left lower quadrant pain DS: Discharge Diagnosis Discharge Diagnosis (1) Diverticulitis large intestine: Qualifiers: Diverticulitis complication: with abscess Code(s): K57.32 - Diverticulitis of large intestine without perforation or abscess without bleeding Status: Acute Assessment and Plan: admit to regular medical floor started on antibiotics 07/21/22 CT abdomen and pelvis reviewed surgery consult increased to low fat diet. (2) Left lower quadrant abdominal pain: Code(s): R10.32 - Left lower quadrant pain Status: Acute Assessment and Plan: likely secondary to diverticulitis supportive care (3) Pulmonary nodule: Code(s): R91.1 - Solitary pulmonary nodule Status: Acute Assessment and Plan: Incidental finding on CT scan. Patient is a non-smoker. DS: Summary Hospital Course Reason for hospitalization: abdominal pain Hospital Course: Bree Rocha is an 82-year-old female with osteoporosis, seasonal allergies, degenerative joint disease presented to the emergency room due to left lower quadrant pain?that had been ongoning for approximately a month. The pain worsened the day prior to admission. She denied nausea or vomiting. She had a small bowel movement prior to going to the ED, She denied any phlegm or blood. No fevers, rigors,or chills. She has been tolerating her meals well, however, she has not had much of an appetite in the last day or so.?Preliminary workup showed CT of abdomen and pelvis with long segment sigmoid wall edema and inflammation suggesting diverticulitis with a possible intramural abscess, noting that infectious, inflammatory, or ischemic colitis could appear similar, multiple pulmonary nodules which require no additional follow-up, unless the patient is at high risk for lung cancer, in which case consider optional CT of the chest at 12 months, per Fleischner guidelines, and esophagitis/gastritis. The patient was admitted to the medical floor and general surgery was consulted. WBC on admission was 11.9, which resolved with antibiotic therapy. The questionable intramural abscess was approximately 1 cm and at that size percutaneous drainage was thought not to be needed. She was treated with IV zosyn and clear liquid diet. Her diet was advanced slowly to low residue diet on 07/24/22 with good tolerance. Analytical Consultant was consulted for education. Her LLQ pain improved and she was transitioned to Augmentin 875/125 mg PO twice daily for 8 more days. She had a bowel movement on the day of discharged that was formed. She was discharged on low fat diet for 2 weeks and then high fiber following. She was also counseled to have a colonoscopy outpatient when feeling better. CT abd/pelvis also demonstrated evidence of esophagitis/gastritis. She was started on PPI therapy, which was continued at discharge. She may also benefit from outpatient EGD. The patient has never smoked. Multiple pulmonary nodules were noted on CT scan. Given her low risk of lung cancer, further monitoring may not be necessary, however, I will defer to her PCP for further discussion and management. Status at Discharge Cognitive/behavioral status at discharge: Alert and oriented x4, cooperative. Functional status at discharge: independent ambulation Overall status at discharge: patient is progressing back to baseline Time Spent with Patient Time attestation: Total time spent providing and/or coordinating discharge services: Time spent: Less than 30 minutes Exam Narrative: General:? Well-nourished, well-appearing 82-year-old female, sitting up in bed, comfortable, NARD Neuro: awake, alert and oriented x4, speech clear, no focal neuro deficits noted HEENMT:? normocephalic, atraumatic, EOMI, sclerae anicteric, moist ora
[2022-07-24 14:00] VITALS: BP 127/55; PULSE 73; RESP 16; TEMP 36.2; O2SAT 99
== END 2022-07-24 17:30 | disposition home or self-care (01) | DRG 392 ==
LOC: ANHED 17:25 → ANH3MED 21:26
PROVIDERS: Nurse Practitioner Family; Physician Assistant; Admitting Provider Internal Medicine; Emergency Provider General Practice; PCP Nurse Practitioner; Visit Provider Nurse Practitioner Family
DX: K57.20 Diverticulitis of large intestine with perforation and abscess without bleeding (principal); K29.70 Gastritis, unspecified, without bleeding; K20.90 Esophagitis, unspecified without bleeding; I83.819 Varicose veins of unspecified lower extremity with pain; E55.9 Vitamin D deficiency, unspecified; R91.1 Solitary pulmonary nodule
CPT/HCPCS: 36415; 74177; 80048; 80053; 81001; 83605; 83690; 85025; 85027; 86140; 96361; 96365; 96375; 99285; A9270; C9113; G0378; J2543; J7030; Q9967

== ENCOUNTER 2022-08-27 00:52 | Day surgery (SDC) | payer MEDICARE, OTHER, SELFPAY ==
[2022-08-21 10:05] VITALS: BMI 26.8
[2022-08-27 09:40] VITALS: BP 161/62; PULSE 82; RESP 16; TEMP 36.3; O2SAT 99; BMI 27.1
--- NOTE | 2022-08-27 09:53 | PM.HPGS ---
History of Present Illness History of Present Illness Consent: Risks, benefits, and alternatives have been discussed and questions answered. Patient agrees to proceed with procedure. Chief complaint: Hx of colon polyps Narrative: Bree Rocha is a 82 year old female Presents for colonoscopy. Patient has a very distant history of colon polyps. Apparently identified some time prior to 2007. Patient reports that 1 month ago was hospitalized with left lower quadrant pain that was diagnosed as diverticulitis. Pain lasted for an month to that point. Finally improved after a course of antibiotics. Patient presents today for follow-up screening colonoscopy. Patient reports her current weight appetite bowel movements are normal per she no longer has abdominal pain. Family history is noncontributory. Review of Systems Review of Systems: Review of systems noncontributory. [facility] Past Medical History Medical History (Updated 08/09/22 @ 09:11 by Denzel Hui APRN) Acquired hallux valgus of left foot Bladder prolapse Bunion of great toe of right foot Hallux 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 Vitamin D deficiency, unspecified Surgical History Surgical History History of bladder suspension procedure History of vaginal hysterectomy Status post breast reduction Social History Social History (Updated 08/09/22 @ 08:46 by Shanna Parnell MA) Smoking status: Former smoker Alcohol intake: current Drinks per week: 5 Alcohol use details: social Substance use: never Substance use type: does not use Lack of Transportation: No Lack of Food: Never True Current Housing: I Have Housing Concerned About Future Housing: No Difficulty Paying Gas/Electric Bills: No Difficulty Paying for Meds: No Currently Unemployed: No Education: Associate Degree Difficulty w/ Childcare or Family Care: No Living arrangements: with family Spiritual care concerns: No Meds Home Medications and Allergies Home Medications Medication Instructions Recorded Confirmed Type calcium carbonate 600 mg calcium 600 mg PO BID 11/10/19 08/27/22 History (1,500 mg) tablet (Calcium) cholecalciferol (vitamin D3) 25 2,000 unit PO DAILY 11/10/19 08/27/22 History mcg (1,000 unit) tablet loratadine 10 mg tablet 10 mg PO DAILY 11/10/19 08/27/22 History ibandronate 150 mg tablet (Boniva) 150 mg PO MONTHLY PRN bone health 04/03/22 08/27/22 Rx #4 tabs vitamin B complex (B 1 tablet PO DAILY 05/01/22 08/27/22 History Complex-Vitamin B12 tablet) naproxen sodium 275 mg tablet 275 mg PO Q8H PRN muscle spams/ 07/24/22 08/27/22 Rx bone pain #7 tabs pantoprazole 40 mg tablet,delayed 40 mg PO DAILY 30 days #30 tabs 07/24/22 08/27/22 Rx release Allergies Allergy/AdvReac Type Severity Reaction Status Date / Time shellfish derived Allergy Mild Itching Verified 08/27/22 09:46 Vital Signs Vital Signs - 24 hr 08/27/22 09:40 Temperature 97.3 F L Pulse Rate 82 Respiratory Rate 16 Blood Pressure 161/62 H Pulse Oximetry 99 Oxygen Delivery Room Air Exam Narrative: Physical exam reveals patient to be alert. Vital signs stable. HEENT exam is unremarkable. Patient is anicteric. Lungs are clear to auscultation and percussion. Heart is without murmur or extra sounds. Abdomen bowel sounds are present soft nontender with no organomegaly. Digital external rectal exam is normal. Assessment and Plan Assessment and plan (1) History of colon polyps: Code(s): Z86.010 - Personal history of colonic polyps Status: Acute Assessment and Plan: Patient has had a very distant history of colon polyps. Recent colonoscopy has been relatively unremarkable in this regard. Surveillance colonoscopy advised at this time will be performed. Further recommendations may be given after endoscopy. (2) Diverticulitis large intestin
[2022-08-27] MEDS: LACTATED RINGERS 1,000 ML 150 ML IV CONT (09:59)
--- NOTE | 2022-08-27 10:46 | WPDANESEPPF ---
Anes - Initial Pre Proc Eval Procedure: Operation Date: 08/27/22 11:00 Proposed Procedures p Screening Colonoscopy - Rufino Guzman MD Date/Time: 08/27/22 10:46 Surgeon: Rufino Guzman MD Pre Op Diagnosis: Hx of colon polyps Patient Data Age: 82 Gender: F Height: 1.65 m Weight: 73.8 kg Last Vital Signs Temp 97.3 F L 08/27/22 09:40 Pulse 82 08/27/22 09:40 Resp 16 08/27/22 09:40 BP 161/62 H 08/27/22 09:40 Pulse Ox 99 08/27/22 09:40 O2 Del Method Room Air 08/27/22 09:40 Allergies Allergy/AdvReac Type Severity Reaction Status Date / Time shellfish derived Allergy Mild Itching Verified 08/27/22 09:46 Home Medications Medication Instructions Recorded Confirmed Type calcium carbonate 600 mg calcium 600 mg PO BID 11/10/19 08/27/22 History (1,500 mg) tablet (Calcium) cholecalciferol (vitamin D3) 25 2,000 unit PO DAILY 11/10/19 08/27/22 History mcg (1,000 unit) tablet loratadine 10 mg tablet 10 mg PO DAILY 11/10/19 08/27/22 History ibandronate 150 mg tablet (Boniva) 150 mg PO MONTHLY PRN bone health 04/03/22 08/27/22 Rx #4 tabs vitamin B complex (B 1 tablet PO DAILY 05/01/22 08/27/22 History Complex-Vitamin B12 tablet) naproxen sodium 275 mg tablet 275 mg PO Q8H PRN muscle spams/ 07/24/22 08/27/22 Rx bone pain #7 tabs pantoprazole 40 mg tablet,delayed 40 mg PO DAILY 30 days #30 tabs 07/24/22 08/27/22 Rx release Patient hx anesthesia problems: none Family hx anesthesia problems: none Results Review: All pre-operative results and documents have been reviewed as part of the pre-operative evaluation. 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 Vitamin D deficiency, unspecified Surgical History Surgical History History of bladder suspension procedure History of vaginal hysterectomy Status post breast reduction Social History Social History (Updated 08/09/22 @ 08:46 by Shanna Parnell MA) Smoking status: Former smoker Alcohol intake: current Drinks per week: 5 Alcohol use details: social Substance use: never Substance use type: does not use Lack of Transportation: No Lack of Food: Never True Current Housing: I Have Housing Concerned About Future Housing: No Difficulty Paying Gas/Electric Bills: No Difficulty Paying for Meds: No Currently Unemployed: No Education: Associate Degree Difficulty w/ Childcare or Family Care: No Living arrangements: with family Spiritual care concerns: No Anes - Eval Final PreProcedure Day of Procedure 08/27/22 10:46 Patient weight: normal Heart: regular rate and rhythm Lungs: clear to auscultation Airway: Mallampati scale class II Neurological: alert and oriented Last oral intake: >/= 8 hours ASA classification: II Emergent: no Anesthetic plan: proceed Anesthesia type and monitoring: general GIVS and standard monitoring Results Review: All pre-operative results and documents have been reviewed as part of the pre-operative evaluation. Informed Consent: The patient's anesthetic plan and its attendant risks and benefits were discussed with the patient/family/POA. Questions were solicited and answers provided to the satisfaction of the patient/family/POA.
[2022-08-27 11:14] VITALS: BP 132/63; PULSE 81; RESP 16; O2SAT 97
[2022-08-27 11:24] VITALS: BP 129/70; PULSE 79; RESP 16; O2SAT 99
[2022-08-27 11:32] VITALS: BP 138/71; PULSE 79; RESP 16; O2SAT 98
== END 2022-08-27 11:48 | disposition home or self-care (01) ==
PROVIDERS: PCP Nurse Practitioner; Visit Provider Internal Medicine Gastroenterology
PROC: 0DJD8ZZ Inspection of Lower Intestinal Tract, Via Natural or Artificial Opening Endoscopic (ICD-10-PCS; CPT 45378; principal; 2022-08-27 11:00)
DX: K63.5 Polyp of colon (principal); K64.8 Other hemorrhoids; E55.9 Vitamin D deficiency, unspecified; Z87.19 Personal history of other diseases of the digestive system
CPT/HCPCS: 45385; 88305; J2704; J7120

== ENCOUNTER 2022-10-08 15:51 | Inpatient (IN) | payer MEDICARE, OTHER, SELFPAY ==
[2022-10-08] VITALS (12 sets, daily range): BP systolic 143–181; BP diastolic 63–73; PULSE 92–107; RESP 18–32; TEMP 36.7–37.6; O2SAT 93–96; BMI 26.9
--- NOTE | ~2022-10-08 | XR_ITS ---
EXAMINATION: XR chest 2V DATE: 10/15/2022 09:25 INDICATION: Cough. TECHNIQUE: Frontal and lateral views of the chest were obtained. COMPARISON: Chest single view 10/13/2022, chest CT 10/08/2022 FINDINGS: There are small pleural effusions. There are patchy airspace opacities in the mid and lower lung zones. There are small nodules in right upper lung zone. No pneumothorax. The heart size is nor mal. IMPRESSION: 1. Diffuse lung disease with mild improvement on the right, consistent with pneumonia. 2. Small pleural effusions. Reviewed, dictated and finalized at location A. CIPLE INDUSTRIAL HYGIENIST IMPRESSION: 1. Diffuse lung disease with mild improvement on the right, consistent with pne umonia. 2. Small pleural effusions.
--- NOTE | ~2022-10-08 | XR_ITS ---
EXAMINATION: XR chest 1V portable DATE: 10/13/2022 06:36 INDICATION: Pneumonia. TECHNIQUE: A single frontal view of the chest was obtained. COMPARISON: Chest 2 views 10/12/2022, chest CT 10/08/2022 FINDINGS: There are patchy airspace opacities in all lung zones bilaterally. There are small pleural effusions. No pneumothorax. The heart size is normal. IMPRESSION: 1. Diffuse lung disease with worsening in right midlung zone, consistent with pneumonia. 2. Small pleural effusions. Reviewed, dictated and finalized at location A. NE PIPEFITTER IMPRESSION: 1. Diffuse lung disease with worsening in right midlung zone, consistent with p neumonia. 2. Small pleural effusions.
--- NOTE | ~2022-10-08 | CT_ITS ---
EXAMINATION: CT diagnostic chest w con DATE: 10/08/2022 18:06 INDICATION: Concern for multilobar pneumonia TECHNIQUE: Computed tomography (CT) of the chest was performed with 100 mL Omnipaque-350 intravenous contrast. Automated exposure control and iterative reconstruction technique were employed. The dose-l ength product was 149.56 mGy-cm. COMPARISON: X-ray chest, same date. FINDINGS: CHEST: Thoracic aorta: No significant dilation or calcification. Lung parenchyma and airways: There is respiratory motion, particularly in the lower lungs. Segmental consolidation in the right middle lobe and left medial lower lobe. Scattered bilateral patchy groundg lass opacities most pronounced in the upper and mid peripheral lungs. Thoracic inlet, axillae and chest wall: No thyroid or soft tissue mass. No axillary lymphadenopathy. Mediastinum: Mediastinal and bilateral hilar lymphadenopathy. Heart and pericardium: Normal heart size. No pericardial effusion. Coronary artery calcifications: Mild. Pleura: No effusion or mass. Upper abdomen: Diffuse fatty infiltration of the liver. Thoracic bones: No acute osseous finding in the chest. IMPRESSION: Pulmonary opacities consistent with atypical/viral infection. Right middle lobe and left medial lower lobe consolidation may reflect atelectasis or additional sites of infection. Mediastinal and hilar l ymphadenopathy. Hepatic steatosis. Reviewed, dictated and finalized at location K. E EXAMINER IMPRESSION: Pulmonary opacities consistent with atypical/viral infection. Right middle lobe and left medial lower lobe consolidation may reflect atelectasis or additional sites of infection. Mediastinal and hilar lymphadenopathy. Hepatic steatosis.
--- NOTE | ~2022-10-08 | XR_ITS ---
Clinical Indication: Pneumonia AP and lateral views of the chest: Comparison: 10/08/2022 Findings: Patchy bilateral airspace disease is unchanged. Minimal pleural effusions are present.. Ca rdiomediastinal silhouette is within normal limits. Bones and soft tissues are unremarkable. Impression: Stable patchy bilateral airspace disease. Correlate for pneumonia versus possibly chronic pulmonary d isease. Minimal pleural effusions. Reviewed, dictated and finalized at location . IGURATION RELEASE MANAGER Impression: Stable patchy bilateral airspace disease. Correlate for pneumonia versus possib ly chronic pulmonary disease. Minimal pleural effusions.
--- NOTE | ~2022-10-08 | XR_ITS ---
EXAMINATION: XR chest 2V Exam Date/Time: 10/08/2022 16:48 TRIMMING DEPARTMENT BLOCKER HISTORY: viral uri symptoms. FAMILY HAS BEEN SICK THE LAST 2-3 WKS Comparison: 01/10/2009. RESULT: Lines, tubes, and devices: None. Lungs and pleura: Increased reticular and reticulonodular opacities, with more focal and somewhat no dular areas of subsegmental opacities in the mid and lower lungs. Cardiomediastinal silhouette: Stable. Other: No acute osseous or upper abdominal finding. IMPRESSION: Pulmonary opacities may represent bronchiolitis, with focal areas of atelectasis or consolidation, pr esumably secondary to atypical/viral infection. Recommend radiographic follow-up after appropriate th erapy and time interval to ensure resolution. Reviewed, dictated and finalized at location K. MING DEPARTMENT BLOCKER IMPRESSION: Pulmonary opacities may represent bronchiolitis, with focal areas of atelectasi s or consolidation, presumably secondary to atypical/viral infection. Recommend radiographic follow-up after appropriate therapy and time interval to ensure r esolution.
--- NOTE | ~2022-10-08 | US_ITS ---
EXAMINATION: US venous doppler [facility] DATE: 10/12/2022 15:52 INDICATION: Respiratory abnormality. Lung disease with small pleural effusions on chest radiograph. TECHNIQUE: Grayscale ultrasound images without and with compression and Doppler ultrasound images of the bilateral lower extremity veins were obtained. COMPARISON: None. FINDINGS: The visualized portions of right common femoral vein, profunda (deep) femoral vein, femoral vein, pop liteal vein, posterior tibial veins, peroneal veins, gastrocnemius vein and greater saphenous vein ou tflow are patent. The visualized portions of left common femoral vein, profunda femoral vein, femoral vein, popliteal v ein, posterior tibial veins, peroneal veins, gastrocnemius vein and greater saphenous vein outflow ar e patent. IMPRESSION: 1. No deep venous thrombosis in either lower limb. Reviewed, dictated and finalized at location A. EL HANDLE ASSEMBLER
--- NOTE | 2022-10-08 16:17 | ECG_ITS ---
Measurements Intervals [place] Rate: 99 P: 62 AR: 112 QRS: 50 QRSD: 94 T: 63 QT: 346 QTc: 444 Interpretive Statements SINUS RHYTHM WITH SHORT AR INTERVAL POSSIBLE LEFT ATRIAL ENLARGEMENT SEPTAL MYOCARDIAL INFARCTION, PROBABLY OLD ST ABNORMALITY INFEROLATERAL LEADS CONSIDER MYOCARDIAL ISCHEMIA ABNORMAL ECG COMPARED TO ECG 11/24/2020 14:40:48 ST ABNORMALITIES ARE NOW PRESENT Electronically Signed On 10-08-2022 17:08:40 RAILROAD DINING CAR STEWARD/STEWARDESS by Leland Bell M.D.
[2022-10-08 16:44] LABS: Basophils Absolute Auto 0.1 K/mm3 (0.0-0.1); Basophils Percent Auto 0.5 % (0.2-1.2); Eosinophils Percent Auto 0.1 % (0-4.4); Hematocrit 38.7 % (37.0-47.0); Hemoglobin 12.9 g/dL (12.0-15.0); Immature Granulocyte Percent A 0.8 % (0-0.5); Lymphocytes Absolute Auto 0.87 K/mm3 (0.9-3.2); Lymphocytes Percent Auto 6.9 % (18.3-44.2); Mean Corpuscular HGB Conc 33.3 g/dl (32-36); Mean Platelet Volume 9.8 fl (7.4-10.4); Monocytes Absolute Auto 1.2 K/mm3 (0.1-0.6); Monocytes Percent Auto 9.8 % (2.6-8.5); Neutrophils Absolute Auto 10.3 K/mm3 (1.3-6.7); Neutrophils Percent Auto 81.9 % (45.5-73.1); Platelet Count Result 379 k/mm3 (150-375); Red Blood Count 4.45 M/mm3 (4.2-5.4); Red Cell Distribution Width 14.1 % (11.5-14.5); White Blood Count 12.6 K/mm3 (4.5-10.0)
[2022-10-08 16:54] LABS: Alanine Aminotransferase 34 U/L (6-35); Alkaline Phosphatase 152 U/L (38-126); Anion Gap 9 mmol/L (8-16); Aspartate Amino Transferase 32 U/L (14-36); Bilirubin,Total 1.4 mg/dL (0.2-1.3); Blood Urea Nitrogen 14 mg/dL (7-17); Calcium 8.7 mg/dL (8.4-10.2); Carbon Dioxide 31 mmol/L (22-30); Chloride 97 mmol/L (98-107); Estimated CRCL calculation 56 ml/min; Estimated Glomerular Filt Rate > 60; Glucose 118 mg/dL (65-110); Potassium 3.6 mmol/L (3.4-5.0); Sodium 137 mmol/L (137-145)
[2022-10-08 16:55] LABS: INR 1.3; Prothrombin Time 15.3 Seconds (11.1-14.7)
[2022-10-08 16:56] LABS: Partial Thromboplastin Time 34.1 SECONDS (22.3-36.8)
[2022-10-08 17:10] LABS: Troponin I 0.066 ng/mL (0.000-0.034)
[2022-10-08 17:18] LABS: Influenza A QL RT-PCR Negative (Negative); Influenza B QL RT-PCR Negative (Negative); SARS-CoV-2 RNA PCR Negative
--- NOTE | 2022-10-08 17:18 | ED.GENADULT ---
HPI - General Adult General Chief complaint: Upper Respiratory Infection Stated complaint: upper respiratory infection symptoms Time Seen by Provider: 10/08/22 16:43 History of Present Illness HPI narrative: 82-year-old female without past medical history presented with cough, chest pain in the setting of vigorous coughing. Per patient she and her recently returned from a trip in [facility] 5 days ago, where antimalarials were not recommended. Towards the end of her trip she has been having cough, subjective fever chills, chest pain only in the setting of vigorous coughing, shortness of breath. Her also has similar upper respiratory symptoms. She denied chest pain without coughing, exertional, radiation, nausea, vomiting, abdominal pain, dysuria, diarrhea. Past medical history: Denied Past surgical history: Hysterectomy Medications: Denied Allergies: No known drug allergies Social: Denied smoking, alcohol, recreational drugs Related Data Home Medications Medication Instructions Recorded Confirmed calcium carbonate 600 mg calcium 600 mg PO BID 11/10/19 08/27/22 (1,500 mg) tablet (Calcium) cholecalciferol (vitamin D3) 25 2,000 unit PO DAILY 11/10/19 08/27/22 mcg (1,000 unit) tablet loratadine 10 mg tablet 10 mg PO DAILY 11/10/19 08/27/22 vitamin B complex (B 1 tablet PO DAILY 05/01/22 08/27/22 Complex-Vitamin B12 tablet) Allergies Allergy/AdvReac Type Severity Reaction Status Date / Time shellfish derived Allergy Mild Itching Verified 10/08/22 17:17 Review of Systems Review of Systems: See HPI [facility] Past Medical History Medical History Acquired hallux valgus of left foot Bladder prolapse Bunion of great toe of right foot Hallux 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 Vitamin D deficiency, unspecified Surgical History Surgical History History of bladder suspension procedure History of vaginal hysterectomy Status post breast reduction Social History Social History Smoking status: Former smoker Alcohol intake: current Drinks per week: 5 Alcohol use details: social Substance use: never Substance use type: does not use Lack of Transportation: No Lack of Food: Never True Current Housing: I Have Housing Concerned About Future Housing: No Difficulty Paying Gas/Electric Bills: No Difficulty Paying for Meds: No Currently Unemployed: No Education: Associate Degree Difficulty w/ Childcare or Family Care: No Spiritual care concerns: No Comments See HPI Exam Narrative: APPEARANCE: Alert, calm and cooperative, no acute distress, phonating, sitting comfortably during visit, intermittent vigorous coughing HEAD: atraumatic EYES: Pupils equal round an reactive to light, extra ocular movements intact, no conjunctival injection NOSE: Normal no drainage NECK: Supple, without meningismus RESPIRATORY: Lungs clear to auscultation bilaterally, no wheezes/rales/rhonchi, breathing comfortably CARDIOVASCULAR: Tachycardia, regular rhythm, no visible jugular venous distension; POCUS hyperdynamic LV, no evidence of right heart strain, no pericardial effusion, IVC completely collapsed, B-lines bilaterally more pronounced on the left side ABDOMINAL: Soft, nontender, nondistended, no guarding, no rebound/peritoneal signs, no costovertebral tenderness to palpation BACK: no midline tenderness to palpation, no step offs EXTREMITIES: No edema, palpable peripheral pulses, warm, well perfused, no tenderness to bilateral calves. NEURO: Alert, moving all extremities symmetrically SKIN:: Warm, dry. Normal color PSYCHIATRIC: Normal affect/mood Course Reevaluation(s) Reevaluation #1: Patient reassessed. Continues to report chest pain only in the setting of vigorous coughing. EKG completed, improvement of ST depress
[2022-10-08 17:20] LABS: NT Pro B Type Natriuretic Pept 1300 pg/mL (5-100)
[2022-10-08] MEDS: SODIUM CHLORIDE 0.9% IV 2,100 ML/1,000 ML BAG 999 ML IV CONT (17:34)
--- NOTE | 2022-10-08 17:47 | ECG_ITS ---
Measurements Intervals [place] Rate: 97 P: 73 [place]: 137 QRS: 49 QRSD: 88 T: 75 QT: 270 QTc: 344 Interpretive Statements SINUS RHYTHM WITH OCCASIONAL SUPRAVENTRICULAR PREMATURE COMPLEXES POSSIBLE LEFT ATRIAL ENLARGEMENT SEPTAL MYOCARDIAL INFARCTION , PROBABLY OLD INFEROLATERAL ST ABNORMALITY, CONSIDER MYOCARDIAL ISCHEMIA ABNORMAL ECG COMPARED TO ECG 10/08/2022 16:32:44 NO SIGNIFICANT CHANGES Electronically Signed On 10-09-2022 17:37:40 QUILL FIXER by Leland Bell M.D.
[2022-10-08 17:58] LABS: INR 1.3; Prothrombin Time 15.4 Seconds (11.1-14.7)
[2022-10-08 17:59] LABS: Partial Thromboplastin Time 33.3 SECONDS (22.3-36.8)
[2022-10-08 18:55] LABS: Lactic Acid Reflex 1.4 mmol/L (0.7-2.0)
[2022-10-08 19:46] LABS: Add Urine Microscopic? YES; Appearance Urine Clear (Clear); Bilirubin Urine Negative (Negative); Blood Urine 1+ (Negative); Glucose Urine UA Negative (Negative); Ketones Urine 1+ mg/dL (Negative); Leukocyte Esterase Ur Negative LEU/UL (Negative); Nitrate Urine Negative (Negative); Protein Urine 2+ mg/dL (Negative); Specific Grav Ur <= 1.005 (1.001-1.035); Urobilinogen Urine 0.2 mg/dL (<2.0)
[2022-10-08 19:48] LABS: Color Urine Yellow (Yellow)
[2022-10-08 19:54] LABS: Mucus Urine Rare /lpf; Squamous Epithelial Cell Urine Rare /hpf (Few); WBC Urine 0-3 /hpf
[2022-10-08 20:08] LABS: CRP 22.3 mg/dL (<1.0); Troponin I 0.071 ng/mL (0.000-0.034)
[2022-10-08] MEDS: ASPIRIN 81 MG CHEWABLE TABLET 324 MG PO (20:21)
--- NOTE | 2022-10-08 20:28 | PC.NURSE ---
Attempted to call report to IMU, receiving RN is busy and will call back when available.
[2022-10-08 20:34] LABS: Procalcitonin 0.5 ng/mL
--- NOTE | 2022-10-08 21:30 | PM.IMHP ---
H&P: HPI History of Present Illness Date/Time: 10/08/22 20:01 Chief Complaint: Weakness, cough, dizziness and chest pain Narrative: 82-year-old female with a past medical history of GERD and osteoporosis, allergic rhinitis and gastritis who presented to the ER from home via private vehicle due to weakness, cough, dizziness and chest pain. The patient had recently returned from a [facility] cruise from September 13 through October 03. She reports that her became ill after someone coughed on him during the cruise. He got better after 7 days or so. But a couple of days before the end of the cruise the patient herself began having upper respiratory symptoms including nasal congestion, rhinorrhea and subjective fever. She had generalized malaise and fatigue. Over time she developed cough that was productive of clear to yellow sputum. She has some mild sore throat that she relates to postnasal drip. Over the last 3 days she has developed soft mushy stools only occurring once or twice a day. She has had marked decreased appetite reports that all food tastes bad. She has had occasional posttussive emesis. Her urine has been darker in color but she denies any changes in frequency or urgency. She has chronic bladder prolapse despite having prior bladder suspension surgery. She reports mucousy drainage from her eyes and dried yellow material is noted on her eyelashes. She reports that she was so sick that when she flew home she laid across a row seat to get some rest on the airplane. She did receive her 1st 2 COVID vaccines but got no other COVID vaccines as she thinks that she developed some swelling in the 1st interphalangeal joints of her hands following the vaccine and thinks that it is due to an allergy. When she was told that she could have viral pneumonia or myocarditis her and her stated that they would not take Remdesivir even if she had COVID. The patient's COVID and influenza PCR was negative in the ER. She denies any prior history of cardiac disease. She reports he had a stress test over 20 years ago that was negative. She states that she still follows with a logistics tech ?just to be careful.? She does not think she has ever had an echocardiogram. She denies any lower extremity swelling. She denies any orthopnea prior to onset of her current symptoms. She has been short of breath with exertion. She denies any true chest pain but states that her right lower ribs her with cough and she had some tenderness in her left chest with palpation that is worse with deep breathing and coughing. The patient never had any hypoxia documented in the ER. She was placed on oxygen for comfort. She is otherwise relatively healthy. Review of Systems Review of Systems: 12 systems were reviewed with pertinent positives and negatives per HPI. Except as documented in the HPI, all other systems were reviewed and are negative. [facility] Past Medical History Medical History (Updated 10/09/22 @ 01:59 by Renee Wetzel DO) Acquired hallux valgus of left foot Bladder prolapse Intolerant to pessary she states that pessary made her vomit. Bunion of great toe of right foot Gastritis Hallux limitus of right foot Mixed hyperlipidemia Osteopenia Varicose veins of leg with pain Vitamin D deficiency, unspecified Surgical History Surgical History (Updated 10/09/22 @ 02:07 by Renee Wetzel DO) History of bladder suspension procedure With subsequent failure of procedure with recurrent bladder prolapse History of colonoscopy with polypectomy (2015) History of vaginal hysterectomy Status post bilateral LASIK surgery Status post breast reduction (~2006) Family History Family History (Updated 10/09/22 @ 02:08 by Renee Wetzel DO) Mother , Age greater than 90 CLL (chronic lymphocytic leukemia) Father , 85 years old CHF (congestive heart failure) Social History Social History (Updated 10/09/22 @ 0
--- NOTE | 2022-10-08 22:01 | ADMGEN ---
This patient, Bree Rocha, was admitted to IMU Room 206-01. Patient/family oriented to hospital policies and general routines including ID bracelet, bed and alarms, visiting hours, pain management, procedures, bathroom and other care routines, personal items, smoking policy, room service/diet, and visiting hours. Information on how to activate the Rapid Response Team has been discussed. Patient/Family are encouraged to report perceived risks to care and to ask questions if they do not understand what they are told or what they should do.
[2022-10-08 23:05] LABS: Troponin I 0.062 ng/mL (0.000-0.034)
[2022-10-09] VITALS (14 sets, daily range): BP systolic 129–160; BP diastolic 49–77; PULSE 60–98; RESP 16–22; TEMP 36.6–37.3; O2SAT 92–96; BMI 27.6
--- NOTE | 2022-10-09 | ECHO_ITS ---
Patient Info Name: Bree Rocha Age: 82 years : 1940 Gender: Female Ht: 65 in Wt: 166 lbs BSA: 1.88 m2 HR: 91 bpm BP: 142 / 77 mmHg Heart Rhythm: Sinus Rhythm Exam Date: 10/09/2022 1:34 PM Exam Location: [facility] Pulmonary Patient Status: Inpatient Admit Date: 10/08/2022 Staff Ordering Physician: Arelis Khanna Prosthetic Aide: Jonathan Armstrong, RORY, RT Attending Provider: Williams Huerta MD Referring Physician: Clemencia BULLOCK; Exam Type: CA echo doppler color flow Study Info Indications R07.9 - Chest pain, unspecified Complete two-dimensional, color flow and Doppler transthoracic echocardiogram is performed. Strain analysis performed. Summary 1. Complete two-dimensional, color flow and Doppler transthoracic echocardiogram is performed. 2. Left ventricular chamber dimension is normal. 3. Left ventricular systolic function is normal, estimated at 60-65%. 4. There is mildly increased left ventricular wall thickness. 5. The left ventricular diastolic function is grade II diastolic dysfunction. 6. Global longitudinal strain is mildly elevated at -16 %. 7. There is no aortic valve stenosis. 8. There is mild mitral valve regurgitation. 9. There is mild tricuspid valve regurgitation. 10. Moderate pulmonary hypertension, estimated pulmonary arterial systolic pressure is 47 mmHg. Left Ventricle Left ventricular chamber dimension is normal. Left ventricular systolic function is normal, estimated at 60-65%. There is mildly increased left ventricular wall thickness. The left ventricular diastolic function is grade II diastolic dysfunction. Global longitudinal strain is mildly elevated at -16 %. Right Ventricle Right ventricular chamber dimension is normal. Right ventricular systolic function is normal. Left Atria Left atrial chamber dimension is mildly enlarged. Right Atria Right atrial chamber dimension is normal. Aortic Valve The aortic valve is trileaflet. There is mild aortic valve sclerosis. There is no aortic valve stenosis. There is trace aortic valve regurgitation. Pulmonic Valve The pulmonic valve is not well visualized. There is mild pulmonic regurgitation. Mitral Valve The mitral valve has normal leaflets. There is mild mitral valve regurgitation. The mitral valve annulus is mildly calcified. Tricuspid Valve The tricuspid valve leaflets are normal. There is mild tricuspid valve regurgitation. Moderate pulmonary hypertension, estimated pulmonary arterial systolic pressure is 47 mmHg. Pericardium/Pleural The pericardium appears normal. There is no pericardial effusion. Inferior Vena Cava Normal inferior vena cava with >50% collapse upon inspiration consistent with normal right atrial pressure, 5 mmHg. Aorta The aortic root size at the sinus of Valsalva is normal. There is mild aortic atherosclerosis. Left Ventricular Outflow Tract Name Value Normal LVOT 2D LVOT Diameter 2.0 cm LVOT Doppler LVOT Peak Gradient 5 mmHg LVOT Mean Gradient 3 mmHg LVOT VTI 22 cm
[2022-10-09] MEDS: CIPROFLOXACIN HCL 0.3% OP SOLN 2.5 ML BTL 1 DROP EACH EYE ×5 (03:49→20:29)
[2022-10-09 05:09] LABS: Basophils Percent Auto 0.3 % (0.2-1.2); Eosinophils Percent Auto 0.4 % (0-4.4); Hematocrit 32.3 % (37.0-47.0); Hemoglobin 10.8 g/dL (12.0-15.0); Lymphocytes Absolute Auto 1.53 K/mm3 (0.9-3.2); Lymphocytes Percent Auto 14.9 % (18.3-44.2); Mean Corpuscular HGB Conc 33.4 g/dl (32-36); Mean Corpuscular Hemoglobin 28.6 pg (26-34); Mean Corpuscular Volume 85.4 fl (80-100); Mean Platelet Volume 9.7 fl (7.4-10.4); Monocytes Absolute Auto 1.2 K/mm3 (0.1-0.6); Monocytes Percent Auto 11.9 % (2.6-8.5); Neutrophils Absolute Auto 7.3 K/mm3 (1.3-6.7); Neutrophils Percent Auto 71.5 % (45.5-73.1); Platelet Count Result 344 k/mm3 (150-375); Red Blood Count 3.78 M/mm3 (4.2-5.4); Red Cell Distribution Width 13.9 % (11.5-14.5); White Blood Count 10.3 K/mm3 (4.5-10.0)
[2022-10-09 05:19] LABS: INR 1.3; Prothrombin Time 15.9 Seconds (11.1-14.7)
[2022-10-09 05:20] LABS: Partial Thromboplastin Time 36.7 SECONDS (22.3-36.8)
[2022-10-09 05:25] LABS: Alanine Aminotransferase 25 U/L (6-35); Albumin Level 3.1 g/dL (3.5-5.1); Alkaline Phosphatase 128 U/L (38-126); Anion Gap 8 mmol/L (8-16); Aspartate Amino Transferase 22 U/L (14-36); Bilirubin,Total 0.7 mg/dL (0.2-1.3); Blood Urea Nitrogen 11 mg/dL (7-17); Calcium 7.7 mg/dL (8.4-10.2); Carbon Dioxide 28 mmol/L (22-30); Chloride 100 mmol/L (98-107); Estimated CRCL calculation 63 ml/min; Estimated Glomerular Filt Rate > 60; Glucose 105 mg/dL (65-110); Lactate Dehydrogenase 158 U/L (120-246); Sodium 136 mmol/L (137-145)
[2022-10-09 05:34] LABS: CRP 23.6 mg/dL (<1.0)
[2022-10-09] MEDS: ENOXAPARIN 40 MG/0.4 ML SYRINGE SUB-Q (09:43)
--- NOTE | 2022-10-09 11:38 | PM.CNCAR ---
Assessment and Plan Assessment and plan (1) Elevated troponin: Code(s): R77.8 - Other specified abnormalities of plasma proteins <Arelis MoyaPRINCESS humphrey - Last Filed: 10/09/22 16:22> Status: Acute <Arelis KhannaPRINCESS - Last Filed: 10/09/22 16:22> Assessment and Plan: Did have a mild troponin elevation. Trend 0.062, 0.071, and 0.062. This trend does not suggest ACS/plaque rupture. Would not pursue an ischemic evaluation at this time, perhaps when she has further recovery from her viral illness. Chest pain atypical and likely related to viral illness and frequent cough. Echo showing normal LVSF with grade II diastolic dysfunction. Repeat EKG. Will start low dose ASA. Check lipid panel. Supportive care for her viral illness. <Arelis SellersZaida PRINCESS Khanna - Last Filed: 10/09/22 16:22> (2) Myocarditis: Qualifiers: Chronicity: acute Myocarditis type: unspecified Qualified Code(s): I40.9 - Acute myocarditis, unspecified <Arelis MoyaPRINCESS humphrey - Last Filed: 10/09/22 16:22> Code(s): I51.4 - Myocarditis, unspecified <Arelis Sharita PRINCESS Khanna - Last Filed: 10/09/22 16:22> Status: Acute <Arelis MoyaPRINCESS humphrey - Last Filed: 10/09/22 16:22> Assessment and Plan: Possible myocarditis given recent and ongoing viral infection, chest pain, elevated troponin, and elevated CPK, ESR. Did not have any ST elevation noted on EKG but did have some subtle ST depression in leads V4-V6. Currently not complaining of any chest pain even with deep breathing or coughing. No pericardial effusion seen on chest CT. No hemodynamic compromise. LV on echo today was normal. Supportive care for now with close monitoring for worsening of symptoms. <PRINCESS Castelan - Last Filed: 10/09/22 16:22> Assessment and Plan: Attending Addendum: I agree with the above documentation and plan of care as outlined. <Leland Bell MD - Last Filed: 10/09/22 17:06> History of Present Illness History of Present Illness Consult date/time: 10/09/22 11:38 <PRINCESS Castelan - Last Filed: 10/09/22 16:22> Requesting physician: Renee Wetzel DO <PRINCESS Castelan - Last Filed: 10/09/22 16:22> Consult reason: chest pain <PRINCESS Castelan - Last Filed: 10/09/22 16:22> Reason For Visit: myocarditis <PRINCESS Castelan - Last Filed: 10/09/22 16:22> Narrative: This is an 82 year old female with no cardiac history who presents to the hospital with complaints of cough and weakness. Patient reports she did not have any chest pain prior to her presentation to the hospital. Did develop some mild right sided and retrosternal chest pain with significant coughing. Patient and her returned from a cruise from [facility] to [facility] and soon after patient began to experience cough. She has tested negative for COVID and influenza. Her workup included a sampling of troponin levels which were mildly elevated and flat. Her EKG showed sinus rhythm with some subtle lateral ST depression. Currently, she is free from any chest pain. Denies any history os exertional angina, shortness of breath, edema, orthopnea or paroxysmal nocturnal dyspnea. <PRINCESS Castelan - Last Filed: 10/09/22 16:22> Review of Systems Constitutional: Constitutional: Reports body ache(s), Denies chills, Reports fever(s), Denies headache(s) and Reports malaise <PRINCESS Castelan - Last Filed: 10/09/22 16:22> Eyes: Eyes: Denies change in vision <PRINCESS Castelan - Last Filed: 10/09/22 16:22> ENT: Reports Normal hearing present, Denies dizziness, Denies headache(s) and Denies hearing loss <PRINCESS Castelan Last Filed: 10/09/22 16:22> Cardiovascular: Cardiovascular: Reports chest pain, Denies chest pain at rest, Denies chest pain with activity, Denies syncope, Denies leg edema, Denies palpitations, Denies dyspnea and Denies dyspnea on exertion <Arelis Khanna,
--- NOTE | 2022-10-09 12:13 | PM.IMPN ---
Progress Note: A&P Assessment and Plan (1) Viral pneumonia: Code(s): J12.9 - Viral pneumonia, unspecified Status: Acute Assessment and Plan: Supportive care COVID, RSV and flu negative Initial concern for the MERS-CoV virus due to recent travel, this was negative, confirmed with lab (2) Elevated troponin: Code(s): R77.8 - Other specified abnormalities of plasma proteins Status: Acute Assessment and Plan: Appreciate cardiology consultation, start low-dose aspirin Echo showed EF of 60-65% with grade 2 diastolic dysfunction, no significant valvular abnormalities nor pulmonary hypertension noted (3) Hepatic steatosis: Code(s): K76.0 - Fatty (change of) liver, not elsewhere classified Status: Acute Assessment and Plan: Check lipid panel, consider liver US (4) Hypokalemia: Code(s): E87.6 - Hypokalemia Status: Acute Assessment and Plan: replete and recheck (5) Elevated erythrocyte sedimentation rate: Code(s): R70.0 - Elevated erythrocyte sedimentation rate Status: Acute Assessment and Plan: trend every 48h, likely elevated d/t viral syndrome, cannot r/u myocarditis (6) Elevated C-reactive protein (CRP): Code(s): R79.82 - Elevated C-reactive protein (CRP) Status: Acute Assessment and Plan: as above Plan DVT prophylaxis with lovenox GI prophylaxis not indicated Code status full code Subjective Date/time seen: 10/09/22 12:13 Interval history: No overnight events noted. No chest pain or shortness of breath. No nausea, vomiting or diarrhea. No fevers or chills. Review of Systems Review of Systems: 12 point review of systems was assessed and was negative except as noted in the HPI Exam Narrative: General: No acute distress, alert and oriented per baseline HEENT: Atraumatic, normocephalic, mucous membranes moist CV: Regular rate and rhythm, S1, S2 Lungs: Clear to auscultation bilaterally, no rales or crackles noted, no wheezes, good air entry Abdomen: Soft, nontender, nondistended Extremities: Normal to inspection Skin: No rashes noted, no lesions or wounds seen Psych: Euthymic, normal affect Objective Data Vital Signs Vital Signs: Vital Signs - 24 hr 10/08/22 16:18 10/08/22 16:45 10/08/22 16:58 Temperature 99.7 F H Pulse Rate 102 H 107 H 99 Respiratory Rate 18 31 H 26 H Blood Pressure 181/67 H 160/73 H Pulse Oximetry 93 Oxygen Delivery Room Air Oxygen Flow Rate 10/08/22 17:00 10/08/22 17:35 10/08/22 17:45 Temperature Pulse Rate 98 96 100 Respiratory Rate 31 H 28 H 31 H Blood Pressure Pulse Oximetry Oxygen Delivery Oxygen Flow Rate 10/08/22 17:47 10/08/22 17:48 10/08/22 19:16 Temperature 98.2 F Pulse Rate 98 97 102 H Respiratory Rate 23 H 30 H 23 H Blood Pressure 152/69 H 153/63 H 162/69 H Pulse Oximetry 94 Oxygen Delivery Oxygen Flow Rate 10/08/22 20:19 10/08/22 21:37 10/08/22 22:00 Temperature 98.1 F Pulse Rate 95 95 92 Respiratory Rate 32 H 20 Blood Pressure 160/71 H 143/63 H Pulse Oximetry 93 96 Oxygen Delivery Oxygen Flow Rate 10/08/22 22:00 10/09/22 00:00 10/09/22 00:00 Temperature 97.8 F Pulse Rate 94 98 92 Respiratory Rate 18 Blood Pressure 129/71 Pulse Oximetry 94 93 Oxygen Delivery Nasal Cannula Oxygen Flow Rate 2 10/09/22 00:00 10/09/22 02:00 10/09/22 04:00 Temperature 99.2 F Pulse Rate 98 94 91 Respiratory Rate 18 16 Blood Pressure 146/62 H Pulse Oximetry 93 96 Oxygen Delivery Room Air Oxygen Flow Rate 10/09/22 04:00 10/09/22 04:00 10/09/22 06:00 Temperature Pulse Rate 90 90 92 Respiratory Rate 16 Blood Pressure Pulse Oximetry 96 Oxygen Delivery Room Air Oxygen Flow Rate 10/09/22 08:00 10/09/22 08:00 10/09/22 08:00 Temperature 98.3 F Pulse Rate 93 82 Respiratory Rate 18 Blood Pressure 160/55 H Pulse Oximetry 95 Ox
[2022-10-09] MEDS: POTASSIUM CHLORIDE 20 MEQ TABLET 40 MEQ PO (13:15)
[2022-10-09 13:27] LABS: CRP 23.2 mg/dL (<1.0)
[2022-10-09 14:18] LABS: Erythrocyte Sedimentation Rate 51 mm/hr (0-20)
[2022-10-09] MEDS: POTASSIUM CHLORIDE 20 MEQ PACKET (FOR LIQUID) PO (15:16)
[2022-10-09 18:09] LABS: Cholesterol 114 mg/dL (0-200); HDL Direct 24 mg/dL; Triglycerides 102 mg/dL (<150)
[2022-10-09 18:20] LABS: LDL Cholesterol Direct 57 mg/dL
[2022-10-10] VITALS (17 sets, daily range): BP systolic 102–159; BP diastolic 55–85; PULSE 78–96; RESP 18–22; TEMP 36.1–37.3; O2SAT 92–100
[2022-10-10] MEDS: CIPROFLOXACIN HCL 0.3% OP SOLN 2.5 ML BTL 1 DROP EACH EYE ×5 (05:57→21:28)
[2022-10-10] MEDS: ASPIRIN 81 MG ENTERIC TABLET PO (09:38)
[2022-10-10] MEDS: ENOXAPARIN 40 MG/0.4 ML SYRINGE SUB-Q (09:38)
--- NOTE | 2022-10-10 11:00 | PM.IMPN ---
Progress Note: A&P Assessment and Plan (1) Viral pneumonia: Code(s): J12.9 - Viral pneumonia, unspecified Status: Acute Assessment and Plan: Supportive care COVID, RSV and flu negative Initial concern for the MERS-CoV virus due to recent travel, this was negative, confirmed with lab CT chest with pulmonary opacities consistent with atypical cells of viral infection. Right middle lobe and left medial lower lobe consolidation may reflect atelectasis or additional side of infection. Mediastinal and hilar lymphadenopathy noted. Procalcitonin was 0.5. Will recheck labs and procalcitonin and CRP today CT chest reviewed Will consult Pulmonary Will add doxycycline for atypical coverage Will continue COVID precaution at this time Will order respiratory pathogen panel if we do a sent out Will recheck CRP and monitor (2) Elevated troponin: Code(s): R77.8 - Other specified abnormalities of plasma proteins Status: Acute Assessment and Plan: Mildly elevated troponin on admission 0.066 with flat trajectory. EKG with nonspecific ST-T changes. Appreciate cardiology consultation, start low-dose aspirin Echo showed EF of 60-65% with grade 2 diastolic dysfunction, no significant valvular abnormalities nor pulmonary hypertension noted (3) Hepatic steatosis: Code(s): K76.0 - Fatty (change of) liver, not elsewhere classified Status: Acute Assessment and Plan: LDL 57., consider liver US Follow-up as an outpatient basis (4) Hypokalemia: Code(s): E87.6 - Hypokalemia Status: Acute Assessment and Plan: replete and recheck (5) Elevated erythrocyte sedimentation rate: Code(s): R70.0 - Elevated erythrocyte sedimentation rate Status: Acute Assessment and Plan: trend every 48h, likely elevated d/t viral syndrome, cannot r/u myocarditis (6) Elevated C-reactive protein (CRP): Code(s): R79.82 - Elevated C-reactive protein (CRP) Status: Acute Assessment and Plan: as above Plan DVT prophylaxis with lovenox GI prophylaxis not indicated Code status full code Subjective Date/time seen: 10/10/22 11:00 Interval history: No overnight events noted. Feels a bit better today. Still has cough with expectoration. Denies any chest pain. No leg swelling. Remains afebrile. Traveled in a cruise recently through [facility] to [facility] Review of Systems Review of Systems: All systems reviewed & are unremarkable except as noted in HPI and below Exam Narrative: General: No acute distress, alert and oriented per baseline HEENT: Atraumatic, normocephalic, mucous membranes moist CV: Regular rate and rhythm, S1, S2 Lungs: Clear to auscultation bilaterally, no rales or crackles noted, no wheezes, good air entry Abdomen: Soft, nontender, nondistended Extremities: Normal to inspection Skin: No rashes noted, no lesions or wounds seen Psych: Euthymic, normal affect Objective Data Vital Signs Vital Signs: Vital Signs - 24 hr 10/09/22 12:00 10/09/22 12:00 10/09/22 12:00 Temperature 98.5 F Pulse Rate 90 92 Respiratory Rate 20 Blood Pressure 142/77 H Pulse Oximetry 94 Oxygen Delivery Room Air Oxygen Flow Rate 10/09/22 14:00 10/09/22 16:00 10/09/22 16:00 Temperature Pulse Rate 94 91 Respiratory Rate Blood Pressure Pulse Oximetry Oxygen Delivery Room Air Oxygen Flow Rate 10/09/22 16:00 10/09/22 18:00 10/09/22 20:17 Temperature 98.0 F 98.7 F Pulse Rate 60 88 88 Respiratory Rate 20 22 H Blood Pressure 146/51 H 149/49 H Pulse Oximetry 95 94 Oxygen Delivery Oxygen Flow Rate 10/09/22 20:00 10/09/22 20:00 10/09/22 22:00 Temperature Pulse Rate 96 96 92 Respiratory Rate 22 H Blood Pressure Pulse Oximetry 94 Oxygen Delivery Room Air Oxygen Flow Rate 10/09/22 23:37 10/10/22 00:00 10/10/22 00:00 Temperature 97.8 F Pulse Rate 84 85 85 Respirato
[2022-10-10 11:35] LABS: Basophils Absolute Auto 0.1 K/mm3 (0.0-0.1); Basophils Percent Auto 0.6 % (0.2-1.2); Eosinophils Absolute Auto 0.1 K/mm3 (0-0.3); Hematocrit 33.7 % (37.0-47.0); Immature Granulocyte Absolute 0.24 K/mm3 (0.00-0.031); Immature Granulocyte Percent A 2.2 % (0-0.5); Lymphocytes Absolute Auto 1.78 K/mm3 (0.9-3.2); Lymphocytes Percent Auto 16.4 % (18.3-44.2); Mean Corpuscular HGB Conc 32.6 g/dl (32-36); Mean Corpuscular Hemoglobin 28.7 pg (26-34); Mean Platelet Volume 9.3 fl (7.4-10.4); Monocytes Absolute Auto 1.5 K/mm3 (0.1-0.6); Monocytes Percent Auto 13.8 % (2.6-8.5); Neutrophils Absolute Auto 7.2 K/mm3 (1.3-6.7); Platelet Count Result 397 k/mm3 (150-375); Red Blood Count 3.83 M/mm3 (4.2-5.4); Red Cell Distribution Width 14.2 % (11.5-14.5); White Blood Count 10.8 K/mm3 (4.5-10.0)
[2022-10-10 11:58] LABS: Alanine Aminotransferase 40 U/L (6-35); Albumin Level 3.3 g/dL (3.5-5.1); Alkaline Phosphatase 122 U/L (38-126); Anion Gap 6 mmol/L (8-16); Aspartate Amino Transferase 59 U/L (14-36); Bilirubin,Total 0.5 mg/dL (0.2-1.3); Blood Urea Nitrogen 13 mg/dL (7-17); CRP 19.4 mg/dL (<1.0); Calcium 8.3 mg/dL (8.4-10.2); Carbon Dioxide 32 mmol/L (22-30); Chloride 98 mmol/L (98-107); Creatine Kinase 42 U/L (30-135); Estimated CRCL calculation 84 ml/min; Estimated Glomerular Filt Rate > 60; Glucose 105 mg/dL (65-110); Magnesium 2.2 mg/dL (1.6-2.3); Potassium 3.7 mmol/L (3.4-5.0); Sodium 136 mmol/L (137-145)
[2022-10-10 12:16] LABS: Procalcitonin 0.4 ng/mL
[2022-10-10] MEDS: DOXYCYCLINE 100 MG/NS 100 ML 100 MG/100 ML BAG IVPB ×2 (12:50→21:28)
[2022-10-10 13:49] LABS: Influenza A QL RT-PCR Negative (Negative); Influenza B QL RT-PCR Negative (Negative); RSV RNA, RT-PCR Negative (Negative); SARS-CoV-2 RNA PCR Negative
--- NOTE | 2022-10-10 14:16 | PM.CNPUL ---
Assessment and Plan Assessment and plan (1) Pneumonia: Code(s): J18.9 - Pneumonia, unspecified organism Status: Acute Assessment and Plan: 82-year-old female with no prior history of lung disease presented with upper respiratory infection, and fatigue following trip abroad. Patient's also had upper respiratory infection approximately 2 weeks ago. On physical exam patient has some rhonchi. She is still on room air and the chest CT is suggestive of atypical pneumonia most likely viral. She has been tested negative for common virus like influenza RSV and COVID on 2 occasions since admission to the hospital. Plan: await sputum culture, MRSA screening. Continue with doxycycline for now. For chest congestion I have added nebulized albuterol and nebulized Pulmicort. continue with DVT prophylaxis. Case was discussed with the hospitalist. (2) Elevated C-reactive protein (CRP): Code(s): R79.82 - Elevated C-reactive protein (CRP) Status: Acute History of Present Illness History of Present Illness Consult date: 10/10/22 Chief complaint: myocarditis Narrative: This 82-year-old female presented with cough and chest congestion of approximately 8 days duration. The patient was in her usual state of health until approximately 8 days ago when she returned from a cruise to [facility]. during the trip her got sick with upper respiratory system symptoms. The patient developed similar symptoms approximately 7 days later. Over the last week or so she has had fatigue, some night sweats chest congestion with sputum yellow color. She has no fever hemoptysis or wheezing. Workup with a chest CT showed no evidence of pulmonary embolism. She had diffuse patchy ground-glass opacities bilaterally suggestive of possible atypical pneumonia. The patient remains on room air she continues to have cough specially when taking deep breaths. PCR testing for influenza RSV and COVID negative on admission and also on repeat testing today. Patient has no prior history of lung disease. She was also evaluated by Cardiology Services for elevated troponin. Review of Systems Review of Systems: All system review is negative except as noted in HPI and below. [facility] Past Medical History Medical History (Updated 10/09/22 @ 16:42 by Rae Odonnell DO) Acquired hallux valgus of left foot Bladder prolapse Intolerant to pessary she states that pessary made her vomit. Bunion of great toe of right foot Gastritis Hallux limitus of right foot Hepatic steatosis Mixed hyperlipidemia Osteopenia Varicose veins of leg with pain Vitamin D deficiency, unspecified Surgical History Surgical History (Updated 10/09/22 @ 02:07 by Renee Wetzel DO) History of bladder suspension procedure With subsequent failure of procedure with recurrent bladder prolapse History of colonoscopy with polypectomy (2016) History of vaginal hysterectomy Status post bilateral LASIK surgery Status post breast reduction (~2006) Family History Family History (Updated 10/09/22 @ 02:08 by Renee Wetzel DO) Mother , Age greater than 90 CLL (chronic lymphocytic leukemia) Father , 85 years old CHF (congestive heart failure) Social History Social History (Updated 10/09/22 @ 02:09 by Renee Wetzel DO) Social History: Code status: Full code Surrogate decision maker: Smoking status: Never smoker Alcohol intake: current Drinks per week: 5 Alcohol use details: social Substance use: never Substance use type: does not use Lack of Transportation: No Lack of Food: Never True Current Housing: I Have Housing Concerned About Future Housing: No Difficulty Paying Gas/Electric Bills: No Difficulty Paying for Meds: No Currently Unemployed: No Education: High School Diploma/GED Difficulty w/ Childcare or Family Care: No Spiritual care concerns: No Meds Home Medicatio
[2022-10-10] MEDS: BUDESONIDE RESPULE NEB 0.5 MG/2 ML AMP INHALATION (20:34)
[2022-10-11] VITALS (15 sets, daily range): BP systolic 131–156; BP diastolic 52–69; PULSE 74–87; RESP 18–24; TEMP 36.3–36.8; O2SAT 92–97
[2022-10-11] MEDS: CIPROFLOXACIN HCL 0.3% OP SOLN 2.5 ML BTL 1 DROP EACH EYE ×5 (05:47→20:58)
[2022-10-11 08:37] LABS: Basophils Absolute Auto 0.1 K/mm3 (0.0-0.1); Basophils Percent Auto 0.6 % (0.2-1.2); Eosinophils Absolute Auto 0.1 K/mm3 (0-0.3); Eosinophils Percent Auto 0.8 % (0-4.4); Hematocrit 31.8 % (37.0-47.0); Hemoglobin 10.8 g/dL (12.0-15.0); Immature Granulocyte Absolute 0.39 K/mm3 (0.00-0.031); Immature Granulocyte Percent A 3.8 % (0-0.5); Lymphocytes Absolute Auto 1.31 K/mm3 (0.9-3.2); Lymphocytes Percent Auto 12.9 % (18.3-44.2); Mean Corpuscular Hemoglobin 28.8 pg (26-34); Mean Corpuscular Volume 84.8 fl (80-100); Mean Platelet Volume 9.3 fl (7.4-10.4); Monocytes Absolute Auto 1.3 K/mm3 (0.1-0.6); Monocytes Percent Auto 12.8 % (2.6-8.5); Neutrophils Percent Auto 69.1 % (45.5-73.1); Platelet Count Result 395 k/mm3 (150-375); Red Blood Count 3.75 M/mm3 (4.2-5.4); Red Cell Distribution Width 13.8 % (11.5-14.5); White Blood Count 10.2 K/mm3 (4.5-10.0)
[2022-10-11 08:46] LABS: Alanine Aminotransferase 42 U/L (6-35); Albumin Level 3.2 g/dL (3.5-5.1); Alkaline Phosphatase 131 U/L (38-126); Anion Gap 6 mmol/L (8-16); Aspartate Amino Transferase 42 U/L (14-36); Bilirubin,Total 0.7 mg/dL (0.2-1.3); Blood Urea Nitrogen 13 mg/dL (7-17); Calcium 8.3 mg/dL (8.4-10.2); Carbon Dioxide 32 mmol/L (22-30); Chloride 99 mmol/L (98-107); Estimated CRCL calculation 75 ml/min; Estimated Glomerular Filt Rate > 60; Glucose 117 mg/dL (65-110); Magnesium 1.9 mg/dL (1.6-2.3); Potassium 3.2 mmol/L (3.4-5.0); Sodium 137 mmol/L (137-145)
[2022-10-11] MEDS: ENOXAPARIN 40 MG/0.4 ML SYRINGE SUB-Q (09:16)
[2022-10-11] MEDS: ASPIRIN 81 MG ENTERIC TABLET PO (09:17)
[2022-10-11] MEDS: DOXYCYCLINE 100 MG/NS 100 ML 100 MG/100 ML BAG IVPB ×2 (09:17→20:57)
[2022-10-11] MEDS: BUDESONIDE RESPULE NEB 0.5 MG/2 ML AMP INHALATION ×2 (09:30→21:12)
--- NOTE | 2022-10-11 12:49 | PM.PNPUL ---
Progress Note: A&P Assessment and Plan (1) Pneumonia: Code(s): J18.9 - Pneumonia, unspecified organism Status: Acute Assessment and Plan: [age] female presented with cough and shortness of breath. She was diagnosed with atypical pneumonia for which she has been on doxycycline. The patient's symptoms were mainly cough with sputum production. Her cough has improved over the last 24 hours while on nebulized short-acting bronchodilators and nebulized Pulmicort. Repeat COVID test negative. Isolation has been discontinued. Plan: continue with current treatment. Repeat chest x-rays in a.m., anticipate DC home if she continues to improve overnight. Subjective Date/time seen: 10/11/22 12:49 Patient stated she is doing little better today. She has less cough. She remains on room air. Afebrile Review of Systems Review of Systems: all system review is negative except as noted in HPI and below Exam Narrative: GENERAL APPEARANCE: Well developed, well nourished, alert and cooperative, and appears to be in no acute distress while on room air SKIN: Inspection of the skin reveals no rashes, ulcerations or petechiae. HEENT: Sclerae anicteric and conjunctivae pink and moist. Extraocular movements were intact and pupils were equal, round, and reactive to light. The oral mucosa, hard and soft palate, tongue and posterior pharynx were normal. NECK: Supple. There was no thyroid enlargement, and no tenderness, or masses were felt. CHEST: Normal AP diameter and normal contour without any kyphoscoliosis. LUNGS: Auscultation of the lungs a few rhonchi bilaterally no wheezing CARDIAC: There was a regular rate and rhythm without any murmurs.. ABDOMEN: Soft and nontender with normal bowel sounds. There was no organomegaly. LYMPH NODES: No lymphadenopathy was appreciated in the neck. EXTREMITIES: No cyanosis, clubbing or edema. NEUROLOGIC: Alert and oriented x 3. Normal affect. Objective Data Vital Signs Vital Signs: Vital Signs - 24 hr 10/10/22 14:00 10/10/22 16:00 10/10/22 16:00 Temperature Pulse Rate 87 93 Respiratory Rate Blood Pressure Pulse Oximetry 94 Oxygen Delivery Nasal Cannula Oxygen Flow Rate 2 10/10/22 16:00 10/10/22 18:00 10/10/22 20:24 Temperature 37.2 C 36.1 C L Pulse Rate 87 96 78 Respiratory Rate 20 20 Blood Pressure 135/57 L 159/65 H Pulse Oximetry 95 96 Oxygen Delivery Oxygen Flow Rate 10/10/22 20:42 10/10/22 20:52 10/10/22 20:00 Temperature Pulse Rate 89 93 88 Respiratory Rate 22 H 22 H Blood Pressure Pulse Oximetry Oxygen Delivery Oxygen Flow Rate 10/10/22 20:00 10/10/22 22:00 10/10/22 23:59 Temperature 36.3 C L Pulse Rate 93 79 92 Respiratory Rate 22 H 22 H Blood Pressure 151/73 H Pulse Oximetry 96 93 Oxygen Delivery Room Air Oxygen Flow Rate 10/11/22 00:00 10/11/22 00:00 10/11/22 02:00 Temperature Pulse Rate 80 79 78 Respiratory Rate Blood Pressure Pulse Oximetry 92 Oxygen Delivery Room Air Oxygen Flow Rate 10/11/22 04:00 10/11/22 04:00 10/11/22 04:49 Temperature 36.3 C L Pulse Rate 74 79 75 Respiratory Rate 20 Blood Pressure 149/69 H Pulse Oximetry 92 94 Oxygen Delivery Room Air Oxygen Flow Rate 10/11/22 06:00 10/11/22 08:00 10/11/22 09:30 Temperature Pulse Rate 75 75 81 Respiratory Rate 20 18 Blood Pressure Pulse Oximetry 94 Oxygen Delivery Room Air Oxygen Flow Rate 10/11/22 08:00 10/11/22 08:00 10/11/22 10:00 Temperature 36.6 C Pulse Rate 81 79 83 Respiratory Rate 20 Blood Pressure 131/61 Pulse Oximetry 94 Oxygen Delivery Oxygen Flow Rate 10/11/22 12:00 Temperature 36.4 C L Pulse Rate 82 Respiratory Rate 24 H Blood Pressure 131/52 L Pulse Oximetry 93 Oxygen Delivery Oxygen Flow Rate Intake/Output Intake/Output: Intake & Output 10/08/22 10/09/22 10/10/22 10/11/22 23:59 23:59 23:59 23:59 I
[2022-10-11] MEDS: POTASSIUM CHLORIDE 20 MEQ TABLET 40 MEQ PO (14:31)
[2022-10-11] MEDS: POTASSIUM CHLORIDE 20 MEQ PACKET (FOR LIQUID) 40 MEQ PO (14:40)
--- NOTE | 2022-10-11 18:24 | PM.IMPN ---
Progress Note: A&P Assessment and Plan (1) Viral pneumonia: Code(s): J12.9 - Viral pneumonia, unspecified Status: Acute Assessment and Plan: Supportive care COVID, RSV and flu negative Initial concern for the MERS-CoV virus due to recent travel, this was negative, confirmed with lab CT chest with pulmonary opacities consistent with atypical cells of viral infection. Right middle lobe and left medial lower lobe consolidation may reflect atelectasis or additional side of infection. Mediastinal and hilar lymphadenopathy noted. Procalcitonin was 0.5. Will recheck labs and procalcitonin and CRP today CT chest reviewed Consulted Pulmonary Added doxycycline for atypical coverage Repeat COVID test came back negative again Respiratory pathogen panel if we do a sent out CRP improving (2) Elevated troponin: Code(s): R77.8 - Other specified abnormalities of plasma proteins Status: Acute Assessment and Plan: Mildly elevated troponin on admission 0.066 with flat trajectory. EKG with nonspecific ST-T changes. Appreciate cardiology consultation, start low-dose aspirin Echo showed EF of 60-65% with grade 2 diastolic dysfunction, no significant valvular abnormalities nor pulmonary hypertension noted (3) Hepatic steatosis: Code(s): K76.0 - Fatty (change of) liver, not elsewhere classified Status: Acute Assessment and Plan: LDL 57., consider liver US Follow-up as an outpatient basis (4) Hypokalemia: Code(s): E87.6 - Hypokalemia Status: Acute Assessment and Plan: replete and recheck (5) Elevated erythrocyte sedimentation rate: Code(s): R70.0 - Elevated erythrocyte sedimentation rate Status: Acute Assessment and Plan: trend every 48h, likely elevated d/t viral syndrome, cannot r/u myocarditis (6) Elevated C-reactive protein (CRP): Code(s): R79.82 - Elevated C-reactive protein (CRP) Status: Acute Assessment and Plan: as above Plan DVT prophylaxis with lovenox GI prophylaxis not indicated Code status full code Subjective Date/time seen: 10/11/22 18:24 Interval history: No overnight events. patient still has cough with expectoration. no chest pain. remains afebrile and denies any shortness of breath Review of Systems Review of Systems: All systems reviewed & are unremarkable except as noted in HPI and below Exam Narrative: General: No acute distress, alert and oriented per baseline HEENT: Atraumatic, normocephalic, mucous membranes moist CV: Regular rate and rhythm, S1, S2 Lungs: Clear to auscultation bilaterally, no rales or crackles noted, no wheezes, good air entry Abdomen: Soft, nontender, nondistended Extremities: Normal to inspection Skin: No rashes noted, no lesions or wounds seen Psych: Euthymic, normal affect Objective Data Vital Signs Vital Signs: Vital Signs - 24 hr 10/10/22 20:24 10/10/22 20:42 10/10/22 20:52 Temperature 96.9 F L Pulse Rate 78 89 93 Respiratory Rate 20 22 H 22 H Blood Pressure 159/65 H Pulse Oximetry 96 Oxygen Delivery 10/10/22 20:00 10/10/22 20:00 10/10/22 22:00 Temperature Pulse Rate 88 93 79 Respiratory Rate 22 H Blood Pressure Pulse Oximetry 96 Oxygen Delivery Room Air 10/10/22 23:59 10/11/22 00:00 10/11/22 00:00 Temperature 97.3 F L Pulse Rate 92 80 79 Respiratory Rate 22 H Blood Pressure 151/73 H Pulse Oximetry 93 92 Oxygen Delivery Room Air 10/11/22 02:00 10/11/22 04:00 10/11/22 04:00 Temperature Pulse Rate 78 74 79 Respiratory Rate Blood Pressure Pulse Oximetry 92 Oxygen Delivery Room Air 10/11/22 04:49 10/11/22 06:00 10/11/22 08:00 Temperature 97.4 F L Pulse Rate 75 75 75 Respiratory Rate 20 20 Blood Pressure 149/69 H Pulse Oximetry 94 94 Oxygen Delivery Room Air 10/11/22 09:30 10/11/22 08:00 10/11/22 08:00 Temperature 98 F Pulse Rate 81 81 79 Respiratory R
[2022-10-12] VITALS (11 sets, daily range): BP systolic 130–161; BP diastolic 59–94; PULSE 70–90; RESP 18–20; TEMP 35.9–36.7; O2SAT 93–97
[2022-10-12] MEDS: BUDESONIDE RESPULE NEB 0.5 MG/2 ML AMP INHALATION ×2 (09:03→21:24)
[2022-10-12] MEDS: ENOXAPARIN 40 MG/0.4 ML SYRINGE SUB-Q (09:26)
[2022-10-12] MEDS: CIPROFLOXACIN HCL 0.3% OP SOLN 2.5 ML BTL 1 DROP EACH EYE ×3 (09:26→21:43)
[2022-10-12] MEDS: ASPIRIN 81 MG ENTERIC TABLET PO (09:26)
[2022-10-12] MEDS: DOXYCYCLINE 100 MG/NS 100 ML 100 MG/100 ML BAG IVPB (09:26)
--- NOTE | 2022-10-12 10:51 | PM.PNPUL ---
Progress Note: A&P Assessment and Plan (1) Pneumonia: Code(s): J18.9 - Pneumonia, unspecified organism Status: Acute Assessment and Plan: [age] female presented with cough and shortness of breath. She was diagnosed with atypical pneumonia for which she has been on doxycycline. The patient's symptoms were mainly cough with sputum production. Her cough has improved on nebulized short-acting bronchodilators and nebulized Pulmicort. Repeat COVID test negative. Isolation has been discontinued. MRSA screening a negative. On physical exam she has a few rare rhonchi than before. Sputum is now clear. Plan: continue with current treatment. Two-view chest x-ray pending. Will consider DC home depending upon the results of chest x-ray. Subjective Date/time seen: 10/12/22 10:51 Had increased chest congestion last night and had to go back on supplemental oxygen. Currently having less cough done last night, sputum clear now. No shortness of breath. Currently on room air. Review of Systems Review of Systems: All systems reviewed & are unremarkable except as noted in HPI and below Exam Narrative: GENERAL APPEARANCE: Well developed, well nourished, alert and cooperative, and appears to be in no acute distress while on room air SKIN: Inspection of the skin reveals no rashes, ulcerations or petechiae. HEENT: Sclerae anicteric and conjunctivae pink and moist. Extraocular movements were intact and pupils were equal, round, and reactive to light. The oral mucosa, hard and soft palate, tongue and posterior pharynx were normal. NECK: Supple. There was no thyroid enlargement, and no tenderness, or masses were felt. CHEST: Normal AP diameter and normal contour without any kyphoscoliosis. LUNGS: Auscultation of the lungs a few rhonchi bilaterally no wheezing CARDIAC: There was a regular rate and rhythm without any murmurs.. ABDOMEN: Soft and nontender with normal bowel sounds. There was no organomegaly. LYMPH NODES: No lymphadenopathy was appreciated in the neck. EXTREMITIES: No cyanosis, clubbing or edema. NEUROLOGIC: Alert and oriented x 3. Normal affect. Objective Data Vital Signs Vital Signs: Vital Signs - 24 hr 10/11/22 12:00 10/11/22 12:00 10/11/22 12:00 Temperature 36.4 C L Pulse Rate 82 81 82 Respiratory Rate 24 H 24 H Blood Pressure 131/52 L Pulse Oximetry 93 93 Oxygen Delivery Room Air Oxygen Flow Rate 10/11/22 14:00 10/11/22 16:00 10/11/22 16:00 Temperature 36.8 C Pulse Rate 81 79 84 Respiratory Rate 24 H Blood Pressure 156/56 H Pulse Oximetry 95 Oxygen Delivery Oxygen Flow Rate 10/11/22 20:00 10/11/22 20:00 10/11/22 21:19 Temperature Pulse Rate 87 87 86 Respiratory Rate 24 H 20 Blood Pressure Pulse Oximetry 95 Oxygen Delivery Room Air Oxygen Flow Rate 10/11/22 21:28 10/12/22 00:00 10/11/22 20:00 Temperature 36.7 C 36.7 C Pulse Rate 82 90 Respiratory Rate 18 20 Blood Pressure 161/94 H Pulse Oximetry 97 Oxygen Delivery Oxygen Flow Rate 10/11/22 20:15 10/12/22 00:00 10/12/22 04:00 Temperature Pulse Rate 79 77 Respiratory Rate Blood Pressure Pulse Oximetry 97 Oxygen Delivery Oxygen Flow Rate 10/12/22 08:00 10/12/22 08:00 10/12/22 08:00 Temperature 36.2 C L Pulse Rate 77 70 Respiratory Rate 20 Blood Pressure 130/59 L Pulse Oximetry 93 95 Oxygen Delivery Nasal Cannula Oxygen Flow Rate 2 10/12/22 08:58 10/12/22 09:05 10/12/22 09:10 Temperature Pulse Rate 74 74 75 Respiratory Rate 18 18 Blood Pressure Pulse Oximetry 96 Oxygen Delivery Room Air Oxygen Flow Rate Intake/Output Intake/Output: Intake & Output 10/09/22 10/10/22 10/11/22 10/12/22 23:59 23:59 23:59 23:59 Intake Total 1020 2300 1940 1030 Output Total 1700 1400 2450 700 Balance -680 900 -510 330 Meds/Results Medications: Active Medications Generic Name Dose Route Start La
[2022-10-12] MEDS: FUROSEMIDE INJ 40 MG/4 ML VIAL 20 MG IV PUSH (12:18)
[2022-10-12 12:31] LABS: NT Pro B Type Natriuretic Pept 607 pg/mL (5-100)
--- NOTE | 2022-10-12 18:21 | PM.IMPN ---
Progress Note: A&P Assessment and Plan (1) Viral pneumonia: Code(s): J12.9 - Viral pneumonia, unspecified Status: Acute Assessment and Plan: Supportive care COVID, RSV and flu negative Initial concern for the MERS-CoV virus due to recent travel, this was negative, confirmed with lab CT chest with pulmonary opacities consistent with atypical cells of viral infection. Right middle lobe and left medial lower lobe consolidation may reflect atelectasis or additional side of infection. Mediastinal and hilar lymphadenopathy noted. Procalcitonin was 0.5. CT chest reviewed Consulted Pulmonary Added doxycycline for atypical coverage has been switched to Levaquin by Pulmonary Repeat COVID test came back negative again Respiratory pathogen panel if we do a sent out CRP improving (2) Elevated troponin: Code(s): R77.8 - Other specified abnormalities of plasma proteins Status: Acute Assessment and Plan: Mildly elevated troponin on admission 0.066 with flat trajectory. EKG with nonspecific ST-T changes. Appreciate cardiology consultation, start low-dose aspirin Echo showed EF of 60-65% with grade 2 diastolic dysfunction, no significant valvular abnormalities nor pulmonary hypertension noted (3) Hepatic steatosis: Code(s): K76.0 - Fatty (change of) liver, not elsewhere classified Status: Acute Assessment and Plan: LDL 57., consider liver US Follow-up as an outpatient basis (4) Hypokalemia: Code(s): E87.6 - Hypokalemia Status: Acute Assessment and Plan: replete and recheck (5) Elevated erythrocyte sedimentation rate: Code(s): R70.0 - Elevated erythrocyte sedimentation rate Status: Acute Assessment and Plan: trend every 48h, likely elevated d/t viral syndrome, cannot r/u myocarditis (6) Elevated C-reactive protein (CRP): Code(s): R79.82 - Elevated C-reactive protein (CRP) Status: Acute Assessment and Plan: as above Plan DVT prophylaxis with lovenox GI prophylaxis not indicated Code status full code Subjective Date/time seen: 10/12/22 18:21 Interval history: No new complaints. Still has cough with expectoration. Off oxygen. Was placed on last night. No chest pain Review of Systems Review of Systems: All systems reviewed & are unremarkable except as noted in HPI and below Exam Narrative: General: No acute distress, alert and oriented per baseline HEENT: Atraumatic, normocephalic, mucous membranes moist CV: Regular rate and rhythm, S1, S2 Lungs: Clear to auscultation bilaterally, no rales or crackles noted, no wheezes, good air entry Abdomen: Soft, nontender, nondistended Extremities: Normal to inspection Skin: No rashes noted, no lesions or wounds seen Psych: Euthymic, normal affect Objective Data Vital Signs Vital Signs: Vital Signs - 24 hr 10/11/22 20:00 10/11/22 20:00 10/11/22 21:19 Temperature Pulse Rate 87 87 86 Respiratory Rate 24 H 20 Blood Pressure Pulse Oximetry 95 Oxygen Delivery Room Air Oxygen Flow Rate 10/11/22 21:28 10/12/22 00:00 10/11/22 20:00 Temperature 98.0 F 98.0 F Pulse Rate 82 90 Respiratory Rate 18 20 Blood Pressure 161/94 H Pulse Oximetry 97 Oxygen Delivery Oxygen Flow Rate 10/11/22 20:15 10/12/22 00:00 10/12/22 04:00 Temperature Pulse Rate 79 77 Respiratory Rate Blood Pressure Pulse Oximetry 97 Oxygen Delivery Oxygen Flow Rate 10/12/22 08:00 10/12/22 08:00 10/12/22 08:00 Temperature 97.1 F L Pulse Rate 77 70 Respiratory Rate 20 Blood Pressure 130/59 L Pulse Oximetry 93 95 Oxygen Delivery Nasal Cannula Oxygen Flow Rate 2 10/12/22 08:58 10/12/22 09:05 10/12/22 09:10 Temperature Pulse Rate 74 74 75 Respiratory Rate 18 18 Blood Pressure Pulse Oximetry 96 Oxygen Delivery Room Air Oxygen Flow Rate 10/12/22 12:00 10/12/22 16:00 10/12/22 16:00 Temper
[2022-10-12 19:09] LABS: Legionella pneumophila Ag Ur Not Detected (Not Detected)
[2022-10-13] VITALS (14 sets, daily range): BP systolic 133–156; BP diastolic 50–62; PULSE 67–84; RESP 16–20; TEMP 36.2–36.6; O2SAT 87–99
[2022-10-13 04:59] LABS: Hematocrit 31.1 % (37.0-47.0); Hemoglobin 10.2 g/dL (12.0-15.0); Mean Corpuscular HGB Conc 32.8 g/dl (32-36); Mean Corpuscular Hemoglobin 28.6 pg (26-34); Mean Corpuscular Volume 87.1 fl (80-100); Mean Platelet Volume 9.1 fl (7.4-10.4); Platelet Count Result 380 k/mm3 (150-375); Red Blood Count 3.57 M/mm3 (4.2-5.4); Red Cell Distribution Width 14.1 % (11.5-14.5); White Blood Count 10.7 K/mm3 (4.5-10.0)
[2022-10-13 05:09] LABS: Alanine Aminotransferase 56 U/L (6-35); Albumin Level 2.9 g/dL (3.5-5.1); Alkaline Phosphatase 110 U/L (38-126); Anion Gap 4 mmol/L (8-16); Aspartate Amino Transferase 49 U/L (14-36); Bilirubin,Total 0.3 mg/dL (0.2-1.3); Blood Urea Nitrogen 12 mg/dL (7-17); Calcium 8.4 mg/dL (8.4-10.2); Carbon Dioxide 32 mmol/L (22-30); Chloride 98 mmol/L (98-107); Estimated CRCL calculation 63 ml/min; Estimated Glomerular Filt Rate > 60; Glucose 106 mg/dL (65-110); Magnesium 1.9 mg/dL (1.6-2.3); Potassium 3.7 mmol/L (3.4-5.0); Sodium 134 mmol/L (137-145)
[2022-10-13] MEDS: CIPROFLOXACIN HCL 0.3% OP SOLN 2.5 ML BTL 1 DROP EACH EYE ×4 (05:19→20:59)
[2022-10-13 05:23] LABS: Band Neutrophils Percent 3 % (0-6); Lymphocytes Absolute Manual 1.92 K/mm3 (1.1-4.5); Metamyelocytes Percent 2 %; Monocytes Absolute Manual 0.85 K/mm3 (0.1-0.90); Monocytes Percent Manual 8 % (3-9); Neutrophils Percent Manual 69 % (46-73); Platelet Estimate Adequate (Adequate); Total Cells Counted 100
[2022-10-13] MEDS: BUDESONIDE RESPULE NEB 0.5 MG/2 ML AMP INHALATION ×2 (07:41→20:19)
[2022-10-13] MEDS: ENOXAPARIN 40 MG/0.4 ML SYRINGE SUB-Q (08:15)
[2022-10-13] MEDS: ASPIRIN 81 MG ENTERIC TABLET PO (08:15)
--- NOTE | 2022-10-13 14:31 | PM.IMPN ---
Progress Note: A&P Assessment and Plan (1) Viral pneumonia: Code(s): J12.9 - Viral pneumonia, unspecified Status: Acute Assessment and Plan: Supportive care COVID, RSV and flu negative Initial concern for the MERS-CoV virus due to recent travel, this was negative, confirmed with lab CT chest with pulmonary opacities consistent with atypical cells of viral infection. Right middle lobe and left medial lower lobe consolidation may reflect atelectasis or additional side of infection. Mediastinal and hilar lymphadenopathy noted. Procalcitonin was 0.5. CT chest reviewed Consulted Pulmonary Added doxycycline for atypical coverage has been switched to Levaquin by Pulmonary Repeat COVID test came back negative again Respiratory pathogen panel if we do a sent out CRP improving Recheck labs in a.m.. Continue IV Levaquin for next 24-48 hour and she clinical response. (2) Elevated troponin: Code(s): R77.8 - Other specified abnormalities of plasma proteins Status: Acute Assessment and Plan: Mildly elevated troponin on admission 0.066 with flat trajectory. EKG with nonspecific ST-T changes. Appreciate cardiology consultation, start low-dose aspirin Echo showed EF of 60-65% with grade 2 diastolic dysfunction, no significant valvular abnormalities nor pulmonary hypertension noted (3) Hepatic steatosis: Code(s): K76.0 - Fatty (change of) liver, not elsewhere classified Status: Acute Assessment and Plan: LDL 57., consider liver US Follow-up as an outpatient basis (4) Hypokalemia: Code(s): E87.6 - Hypokalemia Status: Acute Assessment and Plan: replete and recheck (5) Elevated erythrocyte sedimentation rate: Code(s): R70.0 - Elevated erythrocyte sedimentation rate Status: Acute Assessment and Plan: trend every 48h, likely elevated d/t viral syndrome, cannot r/u myocarditis (6) Elevated C-reactive protein (CRP): Code(s): R79.82 - Elevated C-reactive protein (CRP) Status: Acute Assessment and Plan: as above Plan DVT prophylaxis with lovenox GI prophylaxis not indicated Code status full code Subjective Date/time seen: 10/13/22 14:31 Interval history: No overnight events. Still has cough with expectoration some yellowishness today. Feeling better less cough. Denies shortness of breath. No leg swelling. Review of Systems Review of Systems: All systems reviewed & are unremarkable except as noted in HPI and below Exam Narrative: General: No acute distress, alert and oriented per baseline HEENT: Atraumatic, normocephalic, mucous membranes moist CV: Regular rate and rhythm, S1, S2 Lungs: Clear to auscultation bilaterally, no rales or crackles noted, no wheezes, good air entry Abdomen: Soft, nontender, nondistended Extremities: Normal to inspection Skin: No rashes noted, no lesions or wounds seen Psych: Euthymic, normal affect Objective Data Vital Signs Vital Signs: Vital Signs - 24 hr 10/12/22 16:00 10/12/22 16:00 10/12/22 20:00 Temperature 96.6 F L Pulse Rate 79 78 85 Respiratory Rate 20 20 Blood Pressure 142/59 H Pulse Oximetry 94 94 Oxygen Delivery Room Air Oxygen Flow Rate 10/12/22 21:25 10/12/22 21:25 10/12/22 20:00 Temperature Pulse Rate 85 90 Respiratory Rate 18 Blood Pressure Pulse Oximetry 95 Oxygen Delivery Room Air Oxygen Flow Rate 10/13/22 00:19 10/13/22 00:00 10/12/22 23:27 Temperature 97.2 F L Pulse Rate 84 81 84 Respiratory Rate 20 20 Blood Pressure 156/62 H Pulse Oximetry 94 94 Oxygen Delivery Room Air Oxygen Flow Rate 10/13/22 00:20 10/13/22 04:00 10/13/22 07:35 Temperature Pulse Rate 82 74 Respiratory Rate 20 Blood Pressure Pulse Oximetry 87 L 97 Oxygen Delivery Nasal Cannula Nasal Cannula Oxygen Flow Rate 2 2 10/13/22 07:41 10/13/22 07:41 10/13/22 07:53 Temperature Pulse Rate 68 73 R
[2022-10-14] VITALS (13 sets, daily range): BP systolic 114–134; BP diastolic 48–96; PULSE 70–87; RESP 16–18; TEMP 36.3–36.4; O2SAT 93–96
[2022-10-14] MEDS: CIPROFLOXACIN HCL 0.3% OP SOLN 2.5 ML BTL 1 DROP EACH EYE ×3 (04:01→21:25)
[2022-10-14 04:52] LABS: Basophils Absolute Auto 0.1 K/mm3 (0.0-0.1); Basophils Percent Auto 0.7 % (0.2-1.2); Eosinophils Absolute Auto 0.2 K/mm3 (0-0.3); Eosinophils Percent Auto 2.1 % (0-4.4); Hematocrit 31.3 % (37.0-47.0); Hemoglobin 10.2 g/dL (12.0-15.0); Immature Granulocyte Percent A 5.5 % (0-0.5); Lymphocytes Absolute Auto 1.94 K/mm3 (0.9-3.2); Lymphocytes Percent Auto 17.8 % (18.3-44.2); Mean Corpuscular HGB Conc 32.6 g/dl (32-36); Mean Corpuscular Hemoglobin 28.3 pg (26-34); Mean Corpuscular Volume 86.7 fl (80-100); Mean Platelet Volume 8.9 fl (7.4-10.4); Monocytes Absolute Auto 0.8 K/mm3 (0.1-0.6); Monocytes Percent Auto 7.6 % (2.6-8.5); Neutrophils Absolute Auto 7.2 K/mm3 (1.3-6.7); Neutrophils Percent Auto 66.3 % (45.5-73.1); Platelet Count Result 376 k/mm3 (150-375); Red Blood Count 3.61 M/mm3 (4.2-5.4); Red Cell Distribution Width 13.9 % (11.5-14.5); White Blood Count 10.9 K/mm3 (4.5-10.0)
[2022-10-14 05:16] LABS: Alanine Aminotransferase 56 U/L (6-35); Alkaline Phosphatase 102 U/L (38-126); Anion Gap 3 mmol/L (8-16); Aspartate Amino Transferase 45 U/L (14-36); Bilirubin,Total 0.3 mg/dL (0.2-1.3); Blood Urea Nitrogen 11 mg/dL (7-17); CRP 4.7 mg/dL (<1.0); Calcium 8.3 mg/dL (8.4-10.2); Carbon Dioxide 31 mmol/L (22-30); Chloride 98 mmol/L (98-107); Estimated CRCL calculation 63 ml/min; Estimated Glomerular Filt Rate > 60; Glucose 104 mg/dL (65-110); Sodium 132 mmol/L (137-145)
[2022-10-14] MEDS: ASPIRIN 81 MG ENTERIC TABLET PO (08:33)
[2022-10-14] MEDS: ENOXAPARIN 40 MG/0.4 ML SYRINGE SUB-Q (08:33)
[2022-10-14] MEDS: BUDESONIDE RESPULE NEB 0.5 MG/2 ML AMP INHALATION ×2 (09:37→20:30)
--- NOTE | 2022-10-14 12:51 | PM.IMPN ---
Progress Note: A&P Assessment and Plan (1) Viral pneumonia: Code(s): J12.9 - Viral pneumonia, unspecified Status: Acute Assessment and Plan: Supportive care COVID, RSV and flu negative Initial concern for the MERS-CoV virus due to recent travel, this was negative, confirmed with lab CT chest with pulmonary opacities consistent with atypical cells of viral infection. Right middle lobe and left medial lower lobe consolidation may reflect atelectasis or additional side of infection. Mediastinal and hilar lymphadenopathy noted. Procalcitonin was 0.5. CT chest reviewed Consulted Pulmonary Added doxycycline for atypical coverage has been switched to Levaquin by Pulmonary Repeat COVID test came back negative again Respiratory pathogen panel if we do a sent out CRP improving Continue IV Levaquin for next 24-48 hour and she clinical response. Clinical improvement will recheck chest x-ray in (2) Elevated troponin: Code(s): R77.8 - Other specified abnormalities of plasma proteins Status: Acute Assessment and Plan: Mildly elevated troponin on admission 0.066 with flat trajectory. EKG with nonspecific ST-T changes. Appreciate cardiology consultation, start low-dose aspirin Echo showed EF of 60-65% with grade 2 diastolic dysfunction, no significant valvular abnormalities nor pulmonary hypertension noted (3) Hepatic steatosis: Code(s): K76.0 - Fatty (change of) liver, not elsewhere classified Status: Acute Assessment and Plan: LDL 57., consider liver US Follow-up as an outpatient basis (4) Hypokalemia: Code(s): E87.6 - Hypokalemia Status: Acute Assessment and Plan: replete and recheck (5) Elevated erythrocyte sedimentation rate: Code(s): R70.0 - Elevated erythrocyte sedimentation rate Status: Acute Assessment and Plan: trend every 48h, likely elevated d/t viral syndrome, cannot r/u myocarditis (6) Elevated C-reactive protein (CRP): Code(s): R79.82 - Elevated C-reactive protein (CRP) Status: Acute Assessment and Plan: as above Plan DVT prophylaxis with lovenox GI prophylaxis not indicated Code status full code Subjective Date/time seen: 10/14/22 12:51 Interval history: Feeling better. Remains. Needing oxygen on and off. Particularly at nighttime. Cough with clear expectoration. Review of Systems Review of Systems: All systems reviewed & are unremarkable except as noted in HPI and below Exam Narrative: General: No acute distress, alert and oriented per baseline HEENT: Atraumatic, normocephalic, mucous membranes moist CV: Regular rate and rhythm, S1, S2 Lungs: Clear to auscultation bilaterally, no rales or crackles noted, no wheezes, good air entry Abdomen: Soft, nontender, nondistended Extremities: Normal to inspection Skin: No rashes noted, no lesions or wounds seen Psych: Euthymic, normal affect Objective Data Vital Signs Vital Signs: Vital Signs - 24 hr 10/13/22 16:00 10/13/22 16:00 10/13/22 20:19 Temperature 97.2 F L Pulse Rate 71 76 Respiratory Rate 16 Blood Pressure 133/60 Pulse Oximetry 98 99 Oxygen Delivery Room Air Oxygen Flow Rate 10/13/22 20:19 10/13/22 20:37 10/13/22 20:00 Temperature 98 F Pulse Rate 84 80 77 Respiratory Rate 18 18 Blood Pressure 140/50 L Pulse Oximetry 96 Oxygen Delivery Oxygen Flow Rate 10/13/22 20:00 10/13/22 23:58 10/14/22 04:00 Temperature Pulse Rate 77 84 87 Respiratory Rate 18 Blood Pressure Pulse Oximetry 96 Oxygen Delivery Nasal Cannula Oxygen Flow Rate 2 10/14/22 07:32 10/14/22 08:00 10/14/22 09:00 Temperature 97.4 F L Pulse Rate 70 71 Respiratory Rate 16 Blood Pressure 115/48 L Pulse Oximetry 96 93 Oxygen Delivery Room Air Oxygen Flow Rate 10/14/22 09:38 10/14/22 09:46 10/14/22 12:00 Temperature Pulse Rate 72 75 78 Respiratory Rate 18 18 Blood Pr
[2022-10-14] MEDS: ACETAMINOPHEN 325 MG TABLET 650 MG PO ×2 (17:57→23:15)
[2022-10-15] VITALS (10 sets, daily range): BP systolic 123–125; BP diastolic 55–70; PULSE 65–88; RESP 16–18; TEMP 36.4–36.6; O2SAT 95–96
[2022-10-15] MEDS: ACETAMINOPHEN 325 MG TABLET 650 MG PO (05:15)
[2022-10-15] MEDS: CIPROFLOXACIN HCL 0.3% OP SOLN 2.5 ML BTL 1 DROP EACH EYE ×2 (05:15→09:11)
[2022-10-15 06:00] LABS: Basophils Absolute Auto 0.1 K/mm3 (0.0-0.1); Eosinophils Absolute Auto 0.3 K/mm3 (0-0.3); Eosinophils Percent Auto 2.9 % (0-4.4); Hematocrit 35.4 % (37.0-47.0); Hemoglobin 11.5 g/dL (12.0-15.0); Immature Granulocyte Absolute 0.66 K/mm3 (0.00-0.031); Immature Granulocyte Percent A 6.7 % (0-0.5); Lymphocytes Absolute Auto 2.22 K/mm3 (0.9-3.2); Lymphocytes Percent Auto 22.6 % (18.3-44.2); Mean Corpuscular HGB Conc 32.5 g/dl (32-36); Mean Corpuscular Hemoglobin 28.5 pg (26-34); Mean Corpuscular Volume 87.8 fl (80-100); Mean Platelet Volume 8.9 fl (7.4-10.4); Monocytes Absolute Auto 0.8 K/mm3 (0.1-0.6); Monocytes Percent Auto 7.6 % (2.6-8.5); Neutrophils Absolute Auto 5.8 K/mm3 (1.3-6.7); Neutrophils Percent Auto 59.2 % (45.5-73.1); Platelet Count Result 435 k/mm3 (150-375); Red Blood Count 4.03 M/mm3 (4.2-5.4); Red Cell Distribution Width 13.9 % (11.5-14.5); White Blood Count 9.8 K/mm3 (4.5-10.0)
[2022-10-15 06:07] LABS: Alanine Aminotransferase 59 U/L (6-35); Albumin Level 3.4 g/dL (3.5-5.1); Alkaline Phosphatase 107 U/L (38-126); Anion Gap 5 mmol/L (8-16); Aspartate Amino Transferase 49 U/L (14-36); Bilirubin,Total 0.3 mg/dL (0.2-1.3); Blood Urea Nitrogen 12 mg/dL (7-17); Calcium 8.6 mg/dL (8.4-10.2); Carbon Dioxide 31 mmol/L (22-30); Chloride 104 mmol/L (98-107); Estimated CRCL calculation 63 ml/min; Estimated Glomerular Filt Rate > 60; Glucose 106 mg/dL (65-110); Magnesium 2.2 mg/dL (1.6-2.3); Potassium 4.3 mmol/L (3.4-5.0); Sodium 140 mmol/L (137-145)
[2022-10-15] MEDS: BUDESONIDE RESPULE NEB 0.5 MG/2 ML AMP INHALATION (07:54)
[2022-10-15] MEDS: ENOXAPARIN 40 MG/0.4 ML SYRINGE SUB-Q (09:11)
[2022-10-15] MEDS: ASPIRIN 81 MG ENTERIC TABLET PO (09:11)
--- NOTE | 2022-10-15 09:23 | PCNFU ---
Nutrition Follow-Up Complete: Inadequate oral intake related to loss of appetite, acute illness as evidenced by poor intake and pt report of -5 lb weight loss/1 week Goal:Meet estimated nutrition needs. Pt is meeting goal. Continue with same goal. Pt current nutrition is heart healthy, Ensure Enlive TID w/meals. Nutrition recommendation: Continue with current plan of care. Last recorded weight is 74.8 kg - stable at this time. Bowel Motility: no recorded BM Labs Reviewed: Hgb:11.5, HCT:35.4, Alb:3.4, Cr:0.6 Meds Noted: lovenox Skin: WNL Additional Notes: Pt on a heart healthy diet, intake charted at 75-100%, Ensure Enlive TID in place per recommendation. Continue with current plan of care. Monitoring intakes, weights, labs, plan of care Follow up in 7 days
--- NOTE | 2022-10-15 10:44 | PM.PNPUL ---
Progress Note: A&P Assessment and Plan (1) Pneumonia: Code(s): J18.9 - Pneumonia, unspecified organism Status: Acute Assessment and Plan: 10/15/2022: Patient continues to improve and says the cough is much better. Her shortness of breath is better. She is afebrile. White blood cell count 9.8, chest x-ray today demonstrated improved right lung infiltrate. Patient had an apnea link last night on 2 L nasal cannula that average saturation 97%, low saturation 92%, time with saturation less than or equal to 88% was 0 minutes. Currently she is on room air with saturations 96%. Patient states she feels well and is ready for discharge. From a pulmonary perspective patient is ready for discharge on these pulmonary medications: Levaquin 750 mg PO Q D X 6 days Home O2 for per formal home O2 assessment which I have ordered. If she requires no oxygen at rest or with ambulation would not send her home with oxygen at night and would repeat an overnight oximetry on room air as an outpatient. Patient should have a repeat chest x-ray in 6 weeks to reassess her infiltrates. Discussed with Dr. Hernández, call with questions Subjective Date/time seen: 10/15/22 10:44 Interval history: 10/15/2022: Patient continues to improve and says the cough is much better. Her shortness of breath is better. She is afebrile. White blood cell count 9.8, chest x-ray today demonstrated improved right lung infiltrate. Patient had an apnea link last night on 2 L nasal cannula that average saturation 97%, low saturation 92%, time with saturation less than or equal to 88% was 0 minutes. Currently she is on room air with saturations 96%. DATA: 10/15/2022 EXAMINATION: XR chest 2V INDICATION: Cough. TECHNIQUE: Frontal and lateral views of the chest were obtained. COMPARISON: Chest single view 10/13/2022, chest CT 10/08/2022 FINDINGS: There are small pleural effusions. There are patchy airspace opacities in the mid and lower lung zones. There are small nodules in right upper lung zone. No pneumothorax. The heart size is normal. IMPRESSION: 1. Diffuse lung disease with mild improvement on the right, consistent with pneumonia. 2. Small pleural effusions. 10/08/2022 EXAMINATION: CT diagnostic chest w con INDICATION: Concern for multilobar pneumonia COMPARISON: X-ray chest, same date. FINDINGS: CHEST: Thoracic aorta: No significant dilation or calcification. Lung parenchyma and airways: There is respiratory motion, particularly in the lower lungs. Segmental consolidation in the right middle lobe and left medial lower lobe. Scattered bilateral patchy groundglass opacities most pronounced in the upper and mid peripheral lungs. Thoracic inlet, axillae and chest wall: No thyroid or soft tissue mass. No axillary lymphadenopathy. Mediastinum: Mediastinal and bilateral hilar lymphadenopathy. Heart and pericardium: Normal heart size. No pericardial effusion. Coronary artery calcifications: Mild. Pleura: No effusion or mass. Upper abdomen: Diffuse fatty infiltration of the liver. Thoracic bones: No acute osseous finding in the chest. IMPRESSION: Pulmonary opacities consistent with atypical/viral infection. Right middle lobe and left medial lower lobe consolidation may reflect atelectasis or additional sites of infection. Mediastinal and hilar lymphadenopathy. Hepatic steatosis. Review of Systems Constitutional: Constitutional: Reports no additional constitutional complaints Eyes: Eyes: Reports no additional eye complaints ENT: Reports system reviewed and no additional complaints, except as documented Cardiovascular: Cardiovascular: Reports no additional cardiovascular complaints Respiratory: Respiratory: Reports no additional respiratory complaints Gastrointestinal: Gastrointestinal: Reports no additional gastrointestinal complaints Musculoskeletal: Musculoskeletal: Reports no additional musculoskeletal complai
--- NOTE | 2022-10-15 13:18 | PM.DS ---
DS: Admitting Diagnosis Discharge Date 10/15/2022 Admitting Diagnosis shortness of breath/cough DS: Discharge Diagnosis Discharge Diagnosis (1) Viral pneumonia: Code(s): J12.9 - Viral pneumonia, unspecified Status: Acute (2) Elevated troponin: Code(s): R77.8 - Other specified abnormalities of plasma proteins Status: Acute (3) Hepatic steatosis: Code(s): K76.0 - Fatty (change of) liver, not elsewhere classified Status: Acute (4) Hypokalemia: Code(s): E87.6 - Hypokalemia Status: Acute (5) Elevated erythrocyte sedimentation rate: Code(s): R70.0 - Elevated erythrocyte sedimentation rate Status: Acute (6) Elevated C-reactive protein (CRP): Code(s): R79.82 - Elevated C-reactive protein (CRP) Status: Acute Plan DVT prophylaxis with lovenox GI prophylaxis not indicated Code status full code DS: Summary Hospital Course Hospital Course: # Multifocal pneumonia: suspected viral versus atypical. Supportive care COVID, RSV and flu negative . Initial concern for the MERS-CoV virus due to recent travel, this was negative, confirmed with lab . Repeat COVID test done which came back negative. CT scan pattern was very similar to COVID infection however COVID test came back negative x2. CT chest with pulmonary opacities consistent with atypical cells of viral infection.? Right middle lobe and left medial lower lobe consolidation may reflect atelectasis or additional side of infection.? Mediastinal and hilar lymphadenopathy noted. Procalcitonin was 0.5.? Pulmonary was consulted. Doxycycline was added for atypical coverage. Her cough and shortness of breath remained persistent and eventually was switched to levofloxacin by Pulmonary. CRP started improving. Will continue Levaquin for 6 more days at discharge. Continue on Pulmicort and albuterol p.r.n. at discharge Repeat chest x-ray in 4 6 weeks and follow-up with PCP. No underlying chronic lung problem # elevated troponin: Mildly elevated troponin on admission 0.066 with flat trajectory. EKG with nonspecific ST-T changes. Appreciate cardiology consultation, start low-dose aspirin Echo showed EF of 60-65% with grade 2 diastolic dysfunction, no significant valvular abnormalities nor pulmonary hypertension noted # hepatic steatosis: LDL 57., consider liver US Follow-up as an outpatient basis # hypokalemia: replete and recheck # elevated ESR: trend every 48h, likely elevated d/t viral syndrome, cannot r/u myocarditis # elevated CRP: as above #DVT prophylaxis with lovenox #Code status full code Time Spent with Patient Time attestation: Total time spent providing and/or coordinating discharge services: 35 min Exam Narrative: General: No acute distress, alert and oriented per baseline HEENT: Atraumatic, normocephalic, mucous membranes moist CV: Regular rate and rhythm, S1, S2 Lungs: Clear to auscultation bilaterally, no rales or crackles noted, no wheezes, good air entry Abdomen: Soft, nontender, nondistended Extremities: Normal to inspection Skin: No rashes noted, no lesions or wounds seen Psych: Euthymic, normal affect DS: Data Data Completed and Pending Completed studies during hospitalization: Exam Type: ? ? CA echo doppler color flow Study Info Indications ? ? R07.9 - Chest pain,? unspecified Complete two-dimensional, color flow and Doppler transthoracic echocardiogram is performed. ? Strain analysis performed. Account #: ? ? [id number] Summary ? 1. Complete two-dimensional, color flow and Doppler transthoracic echocardiogram is performed. ? 2. Left ventricular chamber dimension is normal. ? 3. Left ventricular systolic function is normal, estimated at 60-65%. ? 4. There is mildly increased left ventricular wall thickness. ? 5. The left ventricular diastolic function is grade II diastolic dysfunction. ? 6. Global longitudinal strain is mildly elevated at -
--- NOTE | 2022-10-15 14:12 | HOMEO2EVAL ---
Evaluation was performed at [facility] Home Oxygen Evaluation RC: Home Oxygen (O2) Evaluation Start: 10/15/22 09:43 Freq: ONCE Status: Active Protocol: RPE Activity Type Activity Date Activity User E-sign Co-sign Detail Recorded Client Recorded Date Recorded By Document 10/15/22 14:00 KRM [id number] 10/15/22 14:12 KRM Document 10/15/22 14:08 KRM [id number] 10/15/22 14:12 KRM 10/15/22 10/15/22 14:00 14:08 Home O2 Evaluation [Oxygen] -Test Phase Resting Exercise -Oxygen Delivery Room Air Room Air [Pulse Oximetry] -Pulse Oximetry (90-100 %) 96 95 [Pulse Rate] -Pulse Rate (60-100 beats/min) 88 88 [Evaluation] -Activity Tolerance Excellent [Exercise] -Ambulation Distance (feet) 100 -Ambulation Distance (meters) 30.47 [Comments] -Home Oxygen Evaluation Comments NO HOME O2 NEEDED. [Charges] -Treatment Charges O2 Evaluation - Inpatient
--- NOTE | 2022-10-15 14:12 | PCRCNOTE ---
NO HOME O2 NEEDED. PER DR. LOMAX NOTE IF PT. DOES NOT QUALIFY FOR O2 AT REST OR WITH ACTIVITY DO NOT SEND HOME WITH O2 NOC. PT. NEEDS OUTPATIENT OVERNIGHT O2 EVALUATION REPEATED.
[2022-10-17 00:37] LABS: Pneumococcal Antigen Urine Not Detected (Not Detected)
== END 2022-10-15 16:45 | disposition home or self-care (01) | DRG 871 ==
LOC: ANHED 19:07 → ANHIMU 20:08
PROVIDERS: Emergency Medicine; Internal Medicine; Internal Medicine Pulmonary Disease; Nurse Practitioner; Physician Assistant; Admitting Provider Chiropractor; Emergency Provider Emergency Medicine; PCP Nurse Practitioner; Visit Provider Internal Medicine
DX: A41.9 Sepsis, unspecified organism (principal); I40.9 Acute myocarditis, unspecified; J12.9 Viral pneumonia, unspecified; E55.9 Vitamin D deficiency, unspecified; E87.6 Hypokalemia; E78.2 Mixed hyperlipidemia; I83.90 Asymptomatic varicose veins of unspecified lower extremity; K76.0 Fatty (change of) liver, not elsewhere classified; K21.9 Gastro-esophageal reflux disease without esophagitis; M81.0 Age-related osteoporosis without current pathological fracture; M85.80 Other specified disorders of bone density and structure, unspecified site; N81.10 Cystocele, unspecified; R77.8 Other specified abnormalities of plasma proteins; R07.9 Chest pain, unspecified; R70.0 Elevated erythrocyte sedimentation rate; R79.82 Elevated C-reactive protein (CRP); Z28.311 Partially vaccinated for COVID-19; Z90.710 Acquired absence of both cervix and uterus; Z20.822 Contact with and (suspected) exposure to COVID-19; Z87.891 Personal history of nicotine dependence
CPT/HCPCS: 36415; 71045; 71046; 71260; 80053; 80061; 81001; 82550; 82728; 83605; 83615; 83735; 83880; 84145; 84484; 85025; 85610; 85652; 85730; 86140; 86738; 87040; 87070; 87081; 87205; 87254; 87449; 87636; 87637; 87899; 93005; 93306; 93970; 94618; 94640; 94762; 96365; 96367; 96372; 99285; A9270; G0378; J0456; J0696; J1650; J1940; J1956; J7030; Q9967

== ENCOUNTER 2022-11-26 15:18 | Outpatient (CLI) | payer MEDICARE, OTHER, SELFPAY ==
--- NOTE | ~2022-11-26 | XR_ITS ---
EXAMINATION: XR chest 2V DATE: 11/26/2022 15:38 INDICATION: Viral pneumonia follow-up TECHNIQUE: PA and lateral views of the chest are obtained. COMPARISON: 10/15/2022 FINDINGS: Subtle airspace opacities persist but have improved since the prior examination. No pleural effusion or pneumothorax. The cardiomediastinal silhouette is normal. There is moderate thoracic spo ndylosis. IMPRESSION: 1. Persistent but improved diffuse lung disease, consistent with resolving pneumonia. Reviewed, dictated and finalized at location B. [facility] COORDINATOR IMPRESSION: 1. Persistent but improved diffuse lung disease, consistent with resolving pneu monia.
[2022-11-26 16:42] LABS: Alanine Aminotransferase 21 U/L (6-35); Albumin Level 4.4 g/dL (3.5-5.1); Alkaline Phosphatase 73 U/L (38-126); Anion Gap 5 mmol/L (8-16); Aspartate Amino Transferase 30 U/L (14-36); Bilirubin,Total 0.5 mg/dL (0.2-1.3); Blood Urea Nitrogen 15 mg/dL (7-17); Calcium 9.2 mg/dL (8.4-10.2); Carbon Dioxide 30 mmol/L (22-30); Chloride 103 mmol/L (98-107); Cholesterol 214 mg/dL (0-200); Estimated Glomerular Filt Rate > 60; Glucose 86 mg/dL (65-110); HDL Direct 55 mg/dL; Potassium 4.2 mmol/L (3.4-5.0); Sodium 138 mmol/L (137-145); Triglycerides 134 mg/dL (<150)
[2022-11-26 16:53] LABS: LDL Cholesterol Direct 104 mg/dL
[2022-11-26 17:13] LABS: Vitamin D 25 Hydroxy 36.8 ng/mL
== END 2022-11-26 15:19 | disposition home or self-care (01) ==
PROVIDERS: PCP Internal Medicine; Visit Provider Internal Medicine
DX: J12.9 Viral pneumonia, unspecified (principal); Z51.81 Encounter for therapeutic drug level monitoring; Z79.899 Other long term (current) drug therapy; E78.5 Hyperlipidemia, unspecified; E55.9 Vitamin D deficiency, unspecified
CPT/HCPCS: 36415; 71046; 80053; 80061; 82306

== ENCOUNTER 2023-07-18 13:50 | Outpatient (CLI) | payer MEDICARE, OTHER, SELFPAY ==
[2023-07-18 14:20] LABS: Hematocrit 42.4 % (37.0-47.0); Mean Corpuscular Hemoglobin 29.6 pg (26-34); Mean Corpuscular Volume 89.6 fl (80-100); Mean Platelet Volume 10.5 fl (7.4-10.4); Platelet Count Result 243 k/mm3 (150-375); Red Blood Count 4.73 M/mm3 (4.2-5.4); Red Cell Distribution Width 13.7 % (11.5-14.5); White Blood Count 6.7 K/mm3 (4.5-10.0)
[2023-07-18 15:49] LABS: Alanine Aminotransferase 19 U/L (6-35); Albumin Level 4.4 g/dL (3.5-5.1); Alkaline Phosphatase 70 U/L (38-126); Anion Gap 7 mmol/L (8-16); Aspartate Amino Transferase 28 U/L (14-36); Bilirubin,Total 0.8 mg/dL (0.2-1.3); Blood Urea Nitrogen 19 mg/dL (7-17); Calcium 9.7 mg/dL (8.4-10.2); Carbon Dioxide 29 mmol/L (22-30); Chloride 102 mmol/L (98-107); Estimated Glomerular Filt Rate > 60; Glucose 87 mg/dL (65-110); Potassium 4.7 mmol/L (3.4-5.0); Sodium 138 mmol/L (137-145)
[2023-07-18 16:01] LABS: Free T4 Free Thyroxine 0.91 ng/mL (0.78-2.19); Vitamin D 25 Hydroxy 45.1 ng/mL
== END 2023-07-18 13:51 | disposition home or self-care (01) ==
PROVIDERS: PCP Nurse Practitioner; Visit Provider Nurse Practitioner
DX: L65.9 Nonscarring hair loss, unspecified (principal); E55.9 Vitamin D deficiency, unspecified
CPT/HCPCS: 36415; 80053; 82306; 84439; 84443; 85027

== ENCOUNTER 2023-12-11 15:19 | Outpatient (CLI) | payer MEDICARE, OTHER, SELFPAY ==
[2023-12-11 15:49] LABS: Rheumatoid Factor 15.2 IU/ML (<12)
[2023-12-11 16:00] LABS: Erythrocyte Sedimentation Rate 19 mm/hr (0-20)
== END 2023-12-11 15:20 | disposition home or self-care (01) ==
LOC: ANHLAB 15:24
PROVIDERS: PCP Nurse Practitioner; Visit Provider Nurse Practitioner
DX: M25.541 Pain in joints of right hand (principal); M25.542 Pain in joints of left hand
CPT/HCPCS: 36415; 85652; 86430

== ENCOUNTER 2024-05-03 19:33 | Inpatient (IN) | payer MEDICARE, OTHER, SELFPAY ==
--- NOTE | ~2024-05-03 | XR_ITS ---
EXAMINATION: XR chest 1V portable DATE: 05/03/2024 20:05 INDICATION: Chest pain and increasing cough TECHNIQUE: frontal view of the chest was obtained. COMPARISON: Chest radiograph dated 11/26/[address] dated 10/08/2022 FINDINGS: There are new airspace opacities in the left lower lung suspicious for pneumonia. No pleural effusion or pneumothorax. The cardiomediastinal silhouette is normal. IMPRESSION: 1. Opacities in the left lower lung consistent with pneumonia. Reviewed, dictated and finalized at location A.
--- NOTE | 2024-05-03 19:36 | ECG_ITS ---
Test Date: 2024-05-03 19:48:11 Measurements Intervals [place] Rate: 91 P: 77 CO: 134 QRS: 63 QRSD: 96 T: 64 QT: 340 QTc: 420 Interpretive Statements SINUS RHYTHM POSSIBLE LEFT ATRIAL ENLARGEMENT ANTEROSEPTAL MYOCARDIAL INFARCTION , OF INDETERMINATE AGE BORDERLINE ST-T WAVE ABNORMALITY- DIFFUSE LEADS BASELINE ARTIFACT- I, II, III, AVR, AVL, AVF ABNORMAL ECG No previous ECG available for comparison Electronically Signed On 05-03-2024 20:20:38 CDT by Flo Sawyer D.O.
[2024-05-03 19:37] VITALS: BP 151/69; PULSE 98; RESP 18; TEMP 36.3; O2SAT 95; O2SAT 97
[2024-05-03] MEDS: SODIUM CHLORIDE 0.9% IV 1,000 ML 999 ML IV CONT (20:17)
[2024-05-03] MEDS: guaiFENesin/DEXTROMETHORPHAN 10 ML UDC PO (20:18)
[2024-05-03] MEDS: ACETAMINOPHEN 500 MG TABLET 1000 MG PO (20:18)
[2024-05-03 20:32] LABS: Influenza A QL RT-PCR Negative (Negative); Influenza B QL RT-PCR Negative (Negative); SARS-CoV-2 RNA PCR Negative (Negative)
[2024-05-03 20:34] LABS: Basophils Percent Auto 0.3 % (0.2-1.2); Eosinophils Absolute Auto 0.1 K/mm3 (0-0.3); Eosinophils Percent Auto 0.8 % (0-4.4); Hematocrit 39.7 % (37.0-47.0); Hemoglobin 13.2 g/dL (12.0-15.0); Immature Granulocyte Absolute 0.12 K/mm3 (0.00-0.031); Immature Granulocyte Percent A 0.9 % (0-0.5); Lymphocytes Absolute Auto 1.58 K/mm3 (0.9-3.2); Lymphocytes Percent Auto 11.4 % (18.3-44.2); Mean Corpuscular HGB Conc 33.2 g/dl (32-36); Mean Corpuscular Hemoglobin 29.4 pg (26-34); Mean Corpuscular Volume 88.4 fl (80-100); Mean Platelet Volume 9.6 fl (7.4-10.4); Monocytes Absolute Auto 1.2 K/mm3 (0.1-0.6); Monocytes Percent Auto 8.8 % (2.6-8.5); Neutrophils Absolute Auto 10.8 K/mm3 (1.3-6.7); Neutrophils Percent Auto 77.8 % (45.5-73.1); Platelet Count Result 342 k/mm3 (150-375); Red Blood Count 4.49 M/mm3 (4.2-5.4); Red Cell Distribution Width 13.4 % (11.5-14.5); White Blood Count 13.9 K/mm3 (4.5-10.0)
[2024-05-03 20:42] LABS: Alanine Aminotransferase 32 U/L (6-35); Albumin Level 4.3 g/dL (3.5-5.1); Alkaline Phosphatase 133 U/L (38-126); Anion Gap 11 mmol/L (4-12); Aspartate Amino Transferase 36 U/L (14-36); Bilirubin,Total 0.7 mg/dL (0.2-1.3); Blood Urea Nitrogen 11 mg/dL (7-17); Calcium 8.7 mg/dL (8.4-10.2); Carbon Dioxide 30 mmol/L (22-30); Chloride 95 mmol/L (98-107); Estimated CRCL calculation 50 ml/min; Estimated Glomerular Filt Rate > 60; Glucose 156 mg/dL (65-110); Potassium 3.6 mmol/L (3.4-5.0); Sodium 136 mmol/L (137-145)
[2024-05-03 20:43] LABS: Lactic Acid Reflex 1.3 mmol/L (0.7-2.0)
[2024-05-03 20:54] LABS: NT Pro B Type Natriuretic Pept 263 pg/mL (19.9-100); Troponin I < 0.012 ng/mL (0.000-0.034)
--- NOTE | 2024-05-03 21:28 | ED.GENADULT ---
HPI - General Adult General Chief complaint: Upper Respiratory Infection Stated complaint: sick for 10 days Time Seen by Provider: 05/03/24 19:38 History of Present Illness HPI narrative: This is an 83-year-old female presenting for 10 days of URI symptoms. Initially she just had viral symptoms with a cough. However she had developed a burning sided chest pain 2 days ago. Other sxs include n/v/d. No sick contacts at home. No travel history. Related Data Home Medications Medication Instructions Recorded Confirmed calcium carbonate (Calcium 600) 600 mg PO BID 11/10/19 12/11/23 cholecalciferol (vitamin D3) 25 2,000 unit PO DAILY 11/10/19 12/11/23 mcg (1,000 unit) tablet vitamin B complex (B 1 tablet PO DAILY 05/01/22 12/11/23 Complex-Vitamin B12 tablet) loratadine 10 mg tablet 10 mg PO DAILY PRN 10/31/22 12/11/23 Allergies Allergy/AdvReac Type Severity Reaction Status Date / Time shellfish derived Allergy Mild Itching Verified 05/03/24 19:33 PMFSH Past Medical History Medical History Acquired hallux valgus of left foot Bladder prolapse Intolerant to pessary she states that pessary made her vomit. Bunion of great toe of right foot Gastritis Hallux limitus of right foot Hepatic steatosis Mixed hyperlipidemia Osteopenia Varicose veins of leg with pain Vitamin D deficiency, unspecified Surgical History Surgical History History of bladder suspension procedure With subsequent failure of procedure with recurrent bladder prolapse History of colonoscopy with polypectomy (2015) History of vaginal hysterectomy Status post bilateral LASIK surgery Status post breast reduction (~2006) Family History Family History Mother , Age greater than 90 CLL (chronic lymphocytic leukemia) Father , 85 years old CHF (congestive heart failure) Social History Social History Social History: Code status: Full code Surrogate decision maker: Smoking status: Never smoker Alcohol intake: current Drinks per week: 4 Alcohol use details: social Substance use: never Substance use type: does not use Lack of Transportation: No Lack of Food: Never True Current Housing: I Have Housing Concerned About Future Housing: No Difficulty Paying Gas/Electric Bills: No Difficulty Paying for Meds: No Currently Unemployed: No Education: High School Diploma/GED Difficulty w/ Childcare or Family Care: No Living arrangements: with family Spiritual care concerns: No Exam Narrative: APPEARANCE: Patient appears uncomfortable Head: atraumatic. EYES: EOMI, NOSE: Atraumatic NECK: Trachea midline RESPIRATORY: Rhonchi in the left lower lobe, cough on inspiration CARDIOVASCULAR: RRR, no peripheral edema ABDOMINAL: Non-distended MUSCULOSKELETAl: No obvious deformities NEURO: Alert. Moving 4/4 extremities SKIN:: Warm, dry. Normal color PSYCHIATRIC: Normal affect Course Vital Signs Vital signs: Vital Signs Temperature 97.4 F L 05/03/24 19:37 Pulse Rate 98 05/03/24 19:37 Respiratory Rate 18 05/03/24 19:37 Blood Pressure 151/69 H 05/03/24 19:37 Pulse Oximetry 97 05/03/24 19:37 Oxygen Delivery Room Air 05/03/24 19:37 Temperature 97.4 F L 05/03/24 19:37 Pulse Rate 98 05/03/24 19:37 Respiratory Rate 18 05/03/24 19:37 Blood Pressure 151/69 H 05/03/24 19:37 Pulse Oximetry 95 05/03/24 19:37 Oxygen Delivery Room Air 05/03/24 19:37 Medical Decision Making MDM Narrative Medical decision making narrative: -Course: 83-year-old female presenting with 10 days of cough and illness. Rhonchi in the left lower lobe. Pneumonia confirmed with chest x-ray. White count 13.9. Vital signs stable however patient is elderl
[2024-05-03 22:43] VITALS: BP 126/50; PULSE 79; RESP 16; TEMP 36.3; O2SAT 94
--- NOTE | 2024-05-03 23:05 | ECG_ITS ---
Test Date: 2024-05-03 23:04:38 Measurements Intervals [place] Rate: 80 P: 73 RI: 144 QRS: 61 QRSD: 89 T: 57 QT: 379 QTc: 439 Interpretive Statements SINUS RHYTHM POSSIBLE LEFT ATRIAL ENLARGEMENT ANTEROSEPTAL MYOCARDIAL INFARCTION , OF INDETERMINATE AGE BORDERLINE ST ABNORMALITY- INF/LAT LEADS BASELINE ARTIFACT- I, II, III, AVR, AVL, AVF ABNORMAL ECG Compared to ECG 05/03/2024 19:48:11 No significant changes Electronically Signed On 05-04-2024 06:32:30 CDT by Flo Sawyer D.O.
[2024-05-03 23:30] VITALS: BP 108/89; PULSE 59; RESP 18; TEMP 36.9; O2SAT 97; BMI 21.2
[2024-05-03 23:32] LABS: Troponin I < 0.012 ng/mL (0.000-0.034)
--- NOTE | 2024-05-04 03:04 | PM.IMHP ---
H&P: HPI History of Present Illness Date/Time: 05/04/24 03:04 Chief Complaint: Increasing cough, left-sided chest pain Narrative: 83-year-old female with past medical history of osteoporosis, seasonal allergic rhinitis, gastritis, mixed hyperlipidemia, hepatic steatosis and prior post viral pneumonia 09/2022 presented to the ER with worsening upper respiratory symptoms. Patient has been having 10 days of upper respiratory symptoms. Symptoms initially started with postnasal drip, nonproductive cough and sore throat. Within a couple of days the patient had a increasing cough that was nonproductive of copious amounts of clear sputum. She had some associated cough induced emesis. She had tried taking aspirin and Tums to help with associated nausea. The 1st few days of illness she also had a couple of days of grossly watery diarrhea. She reports that yesterday she also had 1 episode of watery diarrhea. Both episodes the stool was brown. She became more concerned when 2 days ago she developed burning left-sided chest pain worse with deep breathing. She reports subjective fever feeling warm on a couple of different days but never checked her temperature. She never had any associated chills. She has been afebrile since presentation. White count in the ER was mildly elevated at 13.9, sodium was mildly low at 136 BMP was minimally elevated to 63. She has not been having any orthopnea paroxysmal nocturnal dyspnea or lower extremity swelling. Review of Systems Review of Systems: 12 systems were reviewed with pertinent positives and negatives per HPI. Except as documented in the HPI, all other systems were reviewed and are negative. She has chronic bladder prolapse with associated frequency. She denies dysuria. She has not had any hematuria. [facility] Past Medical History Medical History Acquired hallux valgus of left foot Bladder prolapse Intolerant to pessary she states that pessary made her vomit. Bunion of great toe of right foot Gastritis Hallux limitus of right foot Hepatic steatosis Mixed hyperlipidemia Osteopenia Varicose veins of leg with pain Vitamin D deficiency, unspecified Surgical History Surgical History History of bladder suspension procedure With subsequent failure of procedure with recurrent bladder prolapse History of colonoscopy with polypectomy (2015) History of vaginal hysterectomy Status post bilateral LASIK surgery Status post breast reduction (~2006) Family History Family History Mother , Age greater than 90 CLL (chronic lymphocytic leukemia) Father , 85 years old CHF (congestive heart failure) Social History Social History Social History: Code status: Full code Surrogate decision maker: Smoking status: Never smoker Alcohol intake: current Drinks per week: 5 Alcohol use details: social Substance use: never Substance use type: does not use Do You Feel Safe in your Home?: Yes Lack of Transportation: No Lack of Food: Never True Current Housing: I Have Housing Concerned About Future Housing: No Difficulty Paying Gas/Electric Bills: No Difficulty Paying for Meds: No Currently Unemployed: No Education: High School Diploma/GED Difficulty w/ Childcare or Family Care: No Living arrangements: with family Spiritual care concerns: No Meds Home Medications and Allergies Home Medications Medication Instructions Recorded Confirmed Type calcium carbonate (Calcium 600) 600 mg PO BID 11/10/19 05/03/24 History cholecalciferol (vitamin D3) 25 2,000 unit PO DAILY 11/10/19 05/03/24 History mcg (1,000 unit) tablet vitamin B complex (B 1 tablet PO DAILY 05/01/22 05/03/24 History Complex-Vitamin B12 tablet) dipesh
[2024-05-04] MEDS: DOXYCYCLINE 100 MG/NS 100 ML 100 MG/100 ML BAG IVPB ×2 (04:36→16:20)
[2024-05-04 06:00] VITALS: BP 143/59; PULSE 84; RESP 16; TEMP 37; O2SAT 100
[2024-05-04] MEDS: CALCIUM CARBONATE (OSCAL) 500 MG TABLET PO ×2 (08:55→16:21)
[2024-05-04] MEDS: CHOLECALCIFEROL 1,000 UNITS TABLET 2000 UNITS PO (08:55)
[2024-05-04] MEDS: guaiFENesin 600 MG/DEXTROMETHORPHAN 30 MG SR TAB 12 HR 1 TAB PO ×2 (08:55→21:03)
--- NOTE | 2024-05-04 09:06 | P.PNCROSS_ITS ---
Event Note Event Note Event Note: Patient still coughing. Advised to continue guaifenesin dextromethorphan. Con tinue ceftriaxone and doxycycline. Patient still complains of burning and rib pain when she coughs especially on the left side. Check white count tomorrow. Full code. Lovenox.
--- NOTE | 2024-05-04 13:26 | PC.NURSE ---
Patient refused lovenox administration. made aware. SCD's ordered
[2024-05-04 14:00] VITALS: BP 134/61; PULSE 84; RESP 16; TEMP 37.2; O2SAT 98
[2024-05-04 14:29] VITALS: O2SAT 94
[2024-05-04 17:43] LABS: MRSA (PCR) NOT DETECTED (NOT DETECTE)
[2024-05-04 22:00] VITALS: BP 131/52; PULSE 89; RESP 12; TEMP 36.6; O2SAT 97
[2024-05-04 23:52] VITALS: BP 105/56; PULSE 64; RESP 14; TEMP 36.1; O2SAT 96
[2024-05-05] MEDS: DOXYCYCLINE 100 MG/NS 100 ML 100 MG/100 ML BAG IVPB ×2 (02:57→14:55)
[2024-05-05 06:00] VITALS: BP 146/86; PULSE 90; RESP 18; TEMP 36.6; O2SAT 98
[2024-05-05 06:24] LABS: Hematocrit 35.1 % (37.0-47.0); Hemoglobin 11.8 g/dL (12.0-15.0); Mean Corpuscular HGB Conc 33.6 g/dl (32-36); Mean Corpuscular Hemoglobin 29.9 pg (26-34); Mean Corpuscular Volume 88.9 fl (80-100); Mean Platelet Volume 9.8 fl (7.4-10.4); Platelet Count Result 309 k/mm3 (150-375); Red Blood Count 3.95 M/mm3 (4.2-5.4); Red Cell Distribution Width 13.2 % (11.5-14.5); White Blood Count 13.1 K/mm3 (4.5-10.0)
[2024-05-05 06:35] LABS: Anion Gap 10 mmol/L (4-12); Blood Urea Nitrogen 6 mg/dL (7-17); Calcium 8.7 mg/dL (8.4-10.2); Carbon Dioxide 28 mmol/L (22-30); Chloride 97 mmol/L (98-107); Estimated CRCL calculation 55 ml/min; Estimated Glomerular Filt Rate > 60; Glucose 129 mg/dL (65-110); Potassium 3.8 mmol/L (3.4-5.0); Sodium 135 mmol/L (137-145)
[2024-05-05] MEDS: guaiFENesin 600 MG/DEXTROMETHORPHAN 30 MG SR TAB 12 HR 1 TAB PO ×2 (09:44→19:29)
[2024-05-05] MEDS: CHOLECALCIFEROL 1,000 UNITS TABLET 2000 UNITS PO (09:44)
[2024-05-05] MEDS: CALCIUM CARBONATE (OSCAL) 500 MG TABLET PO ×2 (09:44→17:26)
--- NOTE | 2024-05-05 11:32 | PM.IMPN ---
Progress Note: A&P Assessment and Plan (1) Pneumonia: Qualifiers: Laterality: left Lung location: lower lobe of lung Pneumonia type: due to unspecified organism Qualified Code(s): J18.9 - Pneumonia, unspecified organism Code(s): J18.9 - Pneumonia, unspecified organism Status: Acute Plan H&P via Renee Wetzel MD 83-year-old female with past medical history of osteoporosis, seasonal allergic rhinitis, gastritis, mixed hyperlipidemia, hepatic steatosis and prior post viral pneumonia 09/2022 presented to the ER with worsening upper respiratory symptoms. Patient has been having 10 days of upper respiratory symptoms. Symptoms initially started with postnasal drip, nonproductive cough and sore throat. Within a couple of days the patient had a increasing cough that was nonproductive of copious amounts of clear sputum. She had some associated cough induced emesis. She had tried taking aspirin and Tums to help with associated nausea. The 1st few days of illness she also had a couple of days of grossly watery diarrhea. She reports that yesterday she also had 1 episode of watery diarrhea. Both episodes the stool was brown. She became more concerned when 2 days ago she developed burning left-sided chest pain worse with deep breathing. She reports subjective fever feeling warm on a couple of different days but never checked her temperature. She never had any associated chills. She has been afebrile since presentation. White count in the ER was mildly elevated at 13.9, sodium was mildly low at 136 BMP was minimally elevated to 63. She has not been having any orthopnea paroxysmal nocturnal dyspnea or lower extremity swelling. ----- May 05: Patient's shortness of breath and cough of slightly improved. Still has pleuritic chest pain. WBC slightly improved only. Recheck tomorrow along with procalcitonin. Pending pneumococcal and Legionella antigen. MRSA PCR in the nares not detected F/E/N: saline lock IV, replace lytes as needed, heart healthy diet GI prophylaxis: Not indicated DVT prophylaxis: Patient refuse Lovenox, continue SCDs Lines: Peripheral IV Code Status: Patient wishes to be full code Dispo: Anticipate discharge to home Note to the patient: The Cures Act makes medical notes like these available to patients in the interest of transparency. Please be advised this is a medical document. It is intended for mbzh-ic-vabn communication. It is written in medical language and may contain unfamiliar abbreviations or verbiage. Components may appear blunt or direct. Medical documents are intended to carry relevant information, facts as evident, and the clinical opinion of the practitioner at the time of the encounter. This note was generated by a speech recognition system and may contain inherent errors or omissions not intended by the user. Grammatical errors, random word insertions, deletions, pronoun errors and incomplete sentences are occasional consequences of this technology due to software limitations. Not all errors are caught or corrected. If there are questions or concerns about the content of this note or information contained within the body of this dictation they should be addressed directly with author for clarification. The file time of this note does not necessarily represent the time the patient was seen. Subjective Date/time seen: 05/05/24 11:32 Interval history: Still has cough albeit improved. Still has sharp pain on the left lower ribcage when taking a deep breath. Denies fever. Denies chest pain otherwise. Review of Systems Review of Systems: All systems reviewed & are unremarkable except as noted in HPI and below (Subjective) Exam Const: General: comfortable and no acute distress Eyes: Pupils: Equal, round and reactive pupils present Neck: Neck: supple Resp: Effort & Inspection: normal respiratory effort Auscultation: clear to auscultation bilaterally
[2024-05-05 16:00] VITALS: BP 138/44; PULSE 84; RESP 16; TEMP 36.9; O2SAT 96
[2024-05-05 19:38] VITALS: BP 139/58; PULSE 77; RESP 16; TEMP 37; O2SAT 96
[2024-05-06] MEDS: DOXYCYCLINE 100 MG/NS 100 ML 100 MG/100 ML BAG IVPB (03:08)
[2024-05-06] MEDS: NAPROXEN SODIUM 275 MG TABLET PO (03:09)
[2024-05-06] MEDS: CALCIUM CARBONATE (TUMS) 500 MG (200 MG ELEMENTAL) PO (03:09)
[2024-05-06 05:28] VITALS: BP 140/58; PULSE 78; RESP 18; TEMP 36.2; O2SAT 95
[2024-05-06 06:02] LABS: Basophils Percent Auto 0.4 % (0.2-1.2); Eosinophils Absolute Auto 0.2 K/mm3 (0-0.3); Eosinophils Percent Auto 2.1 % (0-4.4); Hematocrit 34.4 % (37.0-47.0); Hemoglobin 11.5 g/dL (12.0-15.0); Immature Granulocyte Absolute 0.19 K/mm3 (0.00-0.031); Immature Granulocyte Percent A 1.7 % (0-0.5); Lymphocytes Absolute Auto 1.95 K/mm3 (0.9-3.2); Lymphocytes Percent Auto 17.5 % (18.3-44.2); Mean Corpuscular HGB Conc 33.4 g/dl (32-36); Mean Corpuscular Hemoglobin 29.5 pg (26-34); Mean Corpuscular Volume 88.2 fl (80-100); Mean Platelet Volume 9.3 fl (7.4-10.4); Monocytes Percent Auto 8.7 % (2.6-8.5); Neutrophils Absolute Auto 7.8 K/mm3 (1.3-6.7); Neutrophils Percent Auto 69.6 % (45.5-73.1); Platelet Count Result 292 k/mm3 (150-375); Red Cell Distribution Width 13.2 % (11.5-14.5); White Blood Count 11.2 K/mm3 (4.5-10.0)
[2024-05-06 06:17] LABS: Anion Gap 7 mmol/L (4-12); Blood Urea Nitrogen 9 mg/dL (7-17); Calcium 8.5 mg/dL (8.4-10.2); Carbon Dioxide 29 mmol/L (22-30); Chloride 100 mmol/L (98-107); Estimated CRCL calculation 65 ml/min; Estimated Glomerular Filt Rate > 60; Glucose 101 mg/dL (65-110); Potassium 3.9 mmol/L (3.4-5.0); Sodium 136 mmol/L (137-145)
[2024-05-06 06:35] LABS: Procalcitonin 0.1 ng/mL
[2024-05-06] MEDS: CALCIUM CARBONATE (OSCAL) 500 MG TABLET PO (08:14)
[2024-05-06] MEDS: guaiFENesin 600 MG/DEXTROMETHORPHAN 30 MG SR TAB 12 HR 1 TAB PO (08:14)
[2024-05-06] MEDS: CHOLECALCIFEROL 1,000 UNITS TABLET 2000 UNITS PO (08:14)
--- NOTE | 2024-05-06 11:35 | PM.DS ---
DS: Admitting Diagnosis Discharge Date May 06, 2024 Admitting Diagnosis Cough DS: Discharge Diagnosis Discharge Diagnosis (1) Pneumonia: Qualifiers: Laterality: left Lung location: lower lobe of lung Pneumonia type: due to unspecified organism Qualified Code(s): J18.9 - Pneumonia, unspecified organism Code(s): J18.9 - Pneumonia, unspecified organism Status: Acute DS: Summary Hospital Course Hospital Course: H&P via Renee Wetzel MD 83-year-old female with past medical history of osteoporosis, seasonal allergic rhinitis, gastritis, mixed hyperlipidemia, hepatic steatosis and prior post viral pneumonia 09/2022 presented to the ER with worsening upper respiratory symptoms. Patient has been having 10 days of upper respiratory symptoms. Symptoms initially started with postnasal drip, nonproductive cough and sore throat. Within a couple of days the patient had a increasing cough that was nonproductive of copious amounts of clear sputum. She had some associated cough induced emesis. She had tried taking aspirin and Tums to help with associated nausea. The 1st few days of illness she also had a couple of days of grossly watery diarrhea. She reports that yesterday she also had 1 episode of watery diarrhea. Both episodes the stool was brown. She became more concerned when 2 days ago she developed burning left-sided chest pain worse with deep breathing. She reports subjective fever feeling warm on a couple of different days but never checked her temperature. She never had any associated chills. She has been afebrile since presentation. White count in the ER was mildly elevated at 13.9, sodium was mildly low at 136 BMP was minimally elevated to 63. She has not been having any orthopnea paroxysmal nocturnal dyspnea or lower extremity swelling. ----- May 06. Patient's shortness of breath, cough, pleuritic chest pain on the left side have greatly improved. She believe she is ready for discharge to home. White blood cell count is improved and procalcitonin is negative. Patient's condition has improved and she is stable for discharge home on 05/06/2024. She received ceftriaxone and doxycycline for 3 days. Prescription made for Augmentin [id number] 1 tab p.o. b.i.d. for another 5 doses. Patient educated on warning signs of recurrent infection and to return to the ER if so. Adverse effects, risk and benefits of medication discussed to which she understood and agreed. Patient advised follow the PCP within 1 week post discharge. MRSA in the nares negative. She has already received 2 pneumonia vaccines. Pending pneumococcal and Legionella antigen. Patient was full code. ----- Note to the patient: The 21st Century Cures Act makes medical notes like these available to patients in the interest of transparency. Please be advised this is a medical document. It is intended for mhih-my-gayh communication. It is written in medical language and may contain unfamiliar abbreviations or verbiage. Components may appear blunt or direct. Medical documents are intended to carry relevant information, facts as evident, and the clinical opinion of the practitioner at the time of the encounter. This note was generated by a speech recognition system and may contain inherent errors or omissions not intended by the user. Grammatical errors, random word insertions, deletions, pronoun errors and incomplete sentences are occasional consequences of this technology due to software limitations. Not all errors are caught or corrected. If there are questions or concerns about the content of this note or information contained within the body of this dictation they should be addressed directly with author for clarification. The file time of this note does not necessarily represent the time the patient was seen. Time Spent with Patient Time attestation: Total time spent providing and/or coordinating discharge services: Exam Const: Gen
[2024-05-08 20:18] LABS: Pneumococcal Antigen Urine NOT DETECTED
[2024-05-12 02:58] LABS: Legionella pneumophila Ag Ur NOT DETECTED
== END 2024-05-06 12:50 | disposition home or self-care (01) | DRG 194 ==
LOC: ANHED 21:36 → ANH3MED 22:50
PROVIDERS: Admitting Provider Internal Medicine; Emergency Provider Emergency Medicine; PCP Family Medicine; Visit Provider General Practice
DX: J18.9 Pneumonia, unspecified organism (principal); E87.1 Hypo-osmolality and hyponatremia; K76.0 Fatty (change of) liver, not elsewhere classified; E78.2 Mixed hyperlipidemia; M81.0 Age-related osteoporosis without current pathological fracture; I83.90 Asymptomatic varicose veins of unspecified lower extremity; E55.9 Vitamin D deficiency, unspecified; Z20.822 Contact with and (suspected) exposure to COVID-19; Z90.710 Acquired absence of both cervix and uterus
CPT/HCPCS: 36415; 71045; 80048; 80053; 83605; 83735; 83880; 84145; 84484; 85025; 85027; 87040; 87449; 87636; 87641; 87899; 93005; 96361; 96374; 96375; 99285; A9270; G0378; J0696; J7030

== ENCOUNTER 2024-05-25 12:20 | Outpatient (CLI) | payer MEDICARE, OTHER, SELFPAY ==
[2024-05-25 13:00] LABS: Basophils Percent Auto 0.5 % (0.2-1.2); Eosinophils Absolute Auto 0.2 K/mm3 (0-0.3); Eosinophils Percent Auto 3.7 % (0-4.4); Hematocrit 41.3 % (37.0-47.0); Hemoglobin 13.6 g/dL (12.0-15.0); Immature Granulocyte Absolute 0.02 K/mm3 (0.00-0.031); Immature Granulocyte Percent A 0.3 % (0-0.5); Lymphocytes Absolute Auto 1.72 K/mm3 (0.9-3.2); Mean Corpuscular HGB Conc 32.9 g/dl (32-36); Mean Corpuscular Hemoglobin 29.4 pg (26-34); Mean Corpuscular Volume 89.4 fl (80-100); Mean Platelet Volume 10.4 fl (7.4-10.4); Monocytes Absolute Auto 0.6 K/mm3 (0.1-0.6); Monocytes Percent Auto 9.8 % (2.6-8.5); Neutrophils Absolute Auto 3.5 K/mm3 (1.3-6.7); Neutrophils Percent Auto 57.7 % (45.5-73.1); Platelet Count Result 250 k/mm3 (150-375); Red Blood Count 4.62 M/mm3 (4.2-5.4); Red Cell Distribution Width 14.6 % (11.5-14.5); White Blood Count 6.1 K/mm3 (4.5-10.0)
[2024-05-25 13:17] LABS: Alanine Aminotransferase 17 U/L (6-35); Albumin Level 4.4 g/dL (3.5-5.1); Alkaline Phosphatase 80 U/L (38-126); Anion Gap 10 mmol/L (4-12); Aspartate Amino Transferase 24 U/L (14-36); Bilirubin,Total 0.8 mg/dL (0.2-1.3); Blood Urea Nitrogen 13 mg/dL (7-17); Calcium 9.4 mg/dL (8.4-10.2); Carbon Dioxide 29 mmol/L (22-30); Chloride 101 mmol/L (98-107); Cholesterol 190 mg/dL (0-200); Estimated Glomerular Filt Rate > 60; Glucose 110 mg/dL (65-110); HDL Direct 57 mg/dL; Potassium 4.3 mmol/L (3.4-5.0); Sodium 140 mmol/L (137-145); Triglycerides 115 mg/dL (<150)
[2024-05-25 13:27] LABS: Hemoglobin A1C 5.8 % (<5.7)
[2024-05-25 13:31] LABS: LDL Cholesterol Direct 91 mg/dL
[2024-05-25 13:39] LABS: Free T4 Free Thyroxine 1.04 ng/mL (0.78-2.19)
== END 2024-05-25 12:21 | disposition home or self-care (01) ==
LOC: ANHLAB 12:28
PROVIDERS: PCP Family Medicine; Visit Provider Nurse Practitioner Family
DX: M21.611 Bunion of right foot (principal); R70.0 Elevated erythrocyte sedimentation rate; R76.8 Other specified abnormal immunological findings in serum; R79.82 Elevated C-reactive protein (CRP); R07.0 Pain in throat; R91.1 Solitary pulmonary nodule; K76.0 Fatty (change of) liver, not elsewhere classified; Z79.899 Other long term (current) drug therapy; Z09 Encounter for follow-up examination after completed treatment for conditions other than malignant neoplasm
CPT/HCPCS: 36415; 80053; 80061; 83036; 84439; 84443; 85025

== ENCOUNTER 2024-06-17 14:57 | Outpatient (CLI) | payer MEDICARE, OTHER, SELFPAY | END 2024-06-17 14:58 | disposition home or self-care (01) | LOC: ANHLAB 15:02 | PROVIDERS: PCP Family Medicine; Visit Provider Family Medicine | DX: R70.0 Elevated erythrocyte sedimentation rate (principal); R79.82 Elevated C-reactive protein (CRP); R76.8 Other specified abnormal immunological findings in serum | CPT/HCPCS: 36415; 86038; 86039 ==

== ENCOUNTER 2025-01-11 11:22 | Outpatient (CLI) | payer MEDICARE, OTHER, SELFPAY ==
[2025-01-11 11:43] LABS: Mean Corpuscular HGB Conc 33.3 g/dl (32-36); Mean Corpuscular Hemoglobin 29.2 pg (26-34); Mean Corpuscular Volume 87.5 fl (80-100); Mean Platelet Volume 10.4 fl (7.4-10.4); Platelet Count Result 222 k/mm3 (150-375); White Blood Count 5.1 K/mm3 (4.5-10.0)
[2025-01-11 12:15] LABS: Vitamin D 25 Hydroxy 40.6 ng/mL
--- OUTSIDE RECORDS SUMMARY | 2025-01-11 12:52 | XMS_ITS | Clinical Summary ---
Author Organization [facility] Address [address] [place] [address] Care Team Providers Care Corporate Manager Name Role Phone Edwin Smith MD Primary Care Provider +1 [phone] Allergies Active Allergy Reactions Criticality Noted Date Comments Shellfish Rash Medium 09/12/2011 Medications cyanocobalamin (Vitamin B-12) 1,000 mcg tabletIndicatio ns:Prevention of Vitamin B12 Deficiency Take 1 tablet (1,000 mcg total) by mouth daily Active calcium carbonate-vitam in D3 (Caltrate with Vitamin D3) 1,500 mg (600mg elemental) -800 unit per tablet Take 1 tablet by mouth daily 3 Active cetirizine (ZyrTEC) 10 mg tablet Take 1 tablet (10 mg total) by mouth as needed 3 Active naproxen (NAPROSYN) 250 mg tablet Take 1 tablet (250 mg total) by mouth as needed 4 Active celecoxib (CeleBREX) 100 mg capsuleIndicati ons:Postoperati ve Acute Pain Take 100 mg by mouth 2 (two) times a day. 12/01/19 18 Discontinu ed( ) Active Problems Problem Noted Date Diagnosed Date Pain of toe of right foot 02/28/2024 Cocked-up toe, right 02/28/2024 Acquired absence of both cervix and uterus 12/31 Broncholithiasis 01/01/2024 Cervicalgia 01/01/2024 Depressive disorder 01/01/2024 Dysphagia, unspecified 01/01/2024 Finding of above normal blood pressure 4 Other emphysema 01/01/2024 Pulmonary nodule 01/01/2024 Sensorineural hearing loss 01/01/2024 Sinusitis 01/01/2024 Stress incontinence 01/01/2024 Osteoarthritis of knee 01/01/2024 Prolapse of vaginal wall 01/01/2024 Vitamin D deficiency 01/01/2024 Sciatica 08/23/2023 Osteoporosis 11/24/2020 Assessment & Plan (11/24/2020 1:26 PM ADULT SCHOOL COUNSELOR): Followed by her PCP and controlled on Boniva. 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 Patient reports pain to a small varicose vein to the anterior medial portion of her left lower extremity. Patient also has reticular veins throughout her left lower extremity. Patient is noncompliant with utilizing compression stockings. Plan: No surgical interventions indicated at this time. -discussed with the patient in length that undergoing stab phlebectomy to her small varicose vein of her left lower extremity we will not be covered with insurance. Patient has multiple reticular veins and spider veins throughout her left lower extremity and recommend evaluation for sclerotherapy. -recommend patient to continue utilizing compression stockings. -patient to follow-up on an as-needed basis. Assessment & Plan (11/24/2020 1:28 PM ADULT SCHOOL COUNSELOR): Patient had ablation of her left great saphenous vein which is ablated. She has a small varicose vein on her left leg below her knee as well as multiple spider veins all over her leg. These veins would be good for sclerotherapy but we do not do that in our office unfortunately. I had a long discussion with the patient that these veins are not going to cause her any problems her harm her any way but she can undergo sclerotherapy if she would like to for cosmetic purposes. I told her that she needs to continue wearing her compression stockings. We will refer her for sclerotherapy and she can call if she has any other questions or concerns. Carotid disease, bilateral 08/21/2017 Overview (11/21/2018): Overview: 2016 Mild by Life Line screening Pure hypercholesterolemia 08/21/2017 Overview (01/01/2024): Overview: 08/20/17 FLP TC 191, trig 114, HDL 55, LDL 119 Luis 10 yr ASCVD risk 25.4%. Overview: 08/20/17 FLP TC 191, trig 114, HDL 55, LDL 119 Luis 10 yr ASCVD risk 25.4%. 08/12/18 FLP TC 230, trig 71, HDL 72, LDL 150 Luis 10 yr ASCVD 24.2% 08/20/17 FLP TC 191, trig 114, HDL 55, LDL 119 Luis 10 yr ASCVD risk 25.4%. 08/12/18 FLP TC 230, trig 71, HDL 72, LDL 150 Luis 10 yr ASCVD 24.2% 08/26/19 FLP TC 219, trig 102, HDL 63, LDL 147 Luis 10 yr ASCVD risk 27.8%. Pt willing to start Crestor 5 mg. 08/05/20 FLP TC 175, trig 94, HDL 65, LDL 97 On atorvastatin 10 mg. Assessment & Plan (08/21/2023 4:17 PM ADULT SCHOOL COUNSELOR): Impression: Chronic and stable. Plan: Continue atorvastatin. Assessment & Plan (11/24/2020 1:26 PM ADULT SCHOOL COUNSELOR): Followed by her PCP and controlled on a statin. Carotid artery plaque, left 08/21/2017 Overview (01/01/2024): 2017 Mild by Life Line screening 2019 Carotid doppler- small amount of plaque within the left carotid bulb. Nl right internal carotid artery. See scanned report Knee pain 08/20/2017 Hyperlipidemia 06/25/2016 Cyst of finger 12/27/2015 Surgical History Surgery Date Site/Laterality Comments REDUCTION MAMMAPLASTY 10/14/2006 - 10/13/2007 N/A FOOT SURGERY 10/14/2020 - 10/13/2021 Right TONSILLECTOMY AND ADENOIDECTOMY 10/14/1947 - 10/13/1948 N/A LASIK 10/14/2006 - 10/13/2007 Bilateral Medical History Medical History Date Comments Varicose veins of left lower extremity 2016 Bilateral Vitamin D deficiency Bunion of great toe of right foot 2020 HL (hearing loss) Family History Medical History Relation Name Comments Heart disease Father Family history of cardiac disorder - (Added by TW Conv) Hypertension Father Family history of hypertension - (Added by TW Conv) Stroke Father Family history of cerebrovascular accident (CVA) - (Added by TW Conv) Arthritis Mother Family history of arthritis - (Added by TW Conv) Relation Name Status Comments Father Mother Social History Tobacco Use Types Packs/Day Years Used Date Smoking Tobacco: Never AUDIT-C Answer Date Recorded Q1: How often do you have a drink containing alc ohol? 2-3 times a week 04/13/2024 Q2: How many drinks containi ng alcohol do you have on a typical day when you are drinking? 1 or 2 04/13/2024 Q3: How often do you have si x or more drinks on one occasion? Never 04/13/2024 Personal Safety Answer Date Recorded Have you ever been in or are you currently in a harmful physical or emotional relationship or is someone making you feel afraid or unsafe? Denies 04/13/2024 Comments No Sex and Gender Information Value Date Recorded Sex Assigned at Not on file Legal Sex Female 7:12 AM ADULT SCHOOL COUNSELOR Gender Identity Not on file Sexual Orientation Not on file Obstetrics History Last Filed Vital Signs Vital Sign Reading Time Taken Comments Blood Pressure 150/90 04/13/2024 12:35 PM CDT Pulse 64 04/13/2024 12:35 PM CDT Temperature 36.2 C (97.2 F) 04/13/2024 12:35 PM CDT Respiratory Rate 16 04/13/2024 12:35 PM CDT Oxygen Saturation 99% 04/13/2024 12:35 PM CDT Inhaled Oxygen Concentration - - Weight 70.8 kg (156 lb) 09/14/2024 1:19 PM ADULT SCHOOL COUNSELOR Height 167.6 cm (5' 6 ) 09/14/2024 1:19 PM ADULT SCHOOL COUNSELOR Body Mass Index 25.18 09/14/2024 1:19 PM ADULT SCHOOL COUNSELOR Plan of Treatment Health Maintenance Due Date Last Done Comments Depression Screening 1940 Osteoporosis Screening-Bone Density Scan 1940 Well Visit 65+ 2006 Zoster Vaccine (2 of 3) 07/26/2009 05/31/2009 Covid-19 Vaccine (3 - 2023-2 5 season) 2024 04/24/2021, 04/03/2021 Fall Risk Assessment 04/13/2025 04/13/2024 DTaP/Tdap/Td Vaccine (3 - Td or Tdap) 08/12/2034 08/12/2024, 09/25/2013, 01/24/2010 Pneumococcal vaccine 65+ Completed 11/08/2015, 06/2015 Hepatitis B Screening Completed 05/08/2016 , 12/09/2015, 11/08/2015 Influenza Vaccine Completed 08/12/2024, , 07/21/2021, Additional history exists Insurance [address] [id number] MEDICARE MEDICARE [employer] MEDICARE [facility] MEDICARE FOR LIFE Care Teams Corporate Manager Relationship Specialty Start Date End Date Edwin Smith MD [address] [place] [address] PCP - General Family Practice 09/14/24
--- OUTSIDE RECORDS SUMMARY | 2025-01-11 12:52 | XMS_ITS | Clinical Summary ---
Author Organization [facility] Address [address] [place] [id number] Care Team Providers Care Mine Equipment Design Engineer Name Role Phone Unavailable Primary Care Provider Unavailabl e Social History Tobacco Use Types Packs/Day Years Used Date Smoking Tobacco: Never Assessed Comments Unknown Sex and Gender Information Value Date Recorded Sex Assigned at Not on file Legal Sex Female 2:48 PM FLOODPLAIN MANAGER Gender Identity Not on file Sexual Orientation Not on file Plan of Treatment Health Maintenance Due Date Last Done Comments DEXA Bone Density 1940 Hepatitis C Virus (HCV) Screening 1941 TdaP Immunization 1941 Pneumococcal Immunization (5 0+ years) (1 of 1 - PCV) 1991 Zoster Immunization (1 of 2) 1991 Respiratory Syncytial Virus (RSV) Immunization (Adult) (1 - 1-dose 75+ series) 2016 Influenza Immunization (#1) 2024 SARS-COV-2 Immunization ( - 2023- season) 2024 Hepatitis B Immunization Aged Out No longer eligible based on patient's age to complete this topic Meningococcal Immunization (ACWY) Aged Out No longer eligible based on patient's age to complete this topic Rotavirus Immunization Aged Out No lo nger eligible based on patient's age to complete this topic
--- OUTSIDE RECORDS SUMMARY | 2025-01-11 12:52 | XMS_ITS | Clinical Summary ---
Author Organization [facility] Address [address] [place] [address] Care Team Providers Care Ware Dresser Name Role Phone Unavailable Primary Care Provider Unavailabl e Social History Tobacco Use Types Packs/Day Years Used Date Smoking Tobacco: Never Assessed Comments Unknown Sex and Gender Information Value Date Recorded Sex Assigned at Not on file Legal Sex Female 7:15 PM CDT Gender Identity Not on file Sexual Orientation Not on file Plan of Treatment Health Maintenance Due Date Last Done Comments DTaP, Tdap and Td Vaccines ( 1 - Tdap) 1960 Zoster Vaccines (1 of 2) 1991 Dexa Scan (General) 2006 Pneumococcal Vaccine: 65+ Ye ars (1 of 1 - PCV) 2006 RSV Immunization or 60+ Years (1 - 1-dose 75+ series) 2016 COVID-19 Vaccine (2023-2 5 season) 2024 Influenza Adult (#1) 2024 Meningococcal B Vaccine Aged Out No l onger eligible based on patient's age to complete this topic Meningococcal Vaccine Aged Out No gustavo lorraine eligible based on patient's age to complete this topic RSV Immunizations Under 20 Months Aged Out No longer eligible based on patient's age to complete this topic
--- OUTSIDE RECORDS SUMMARY | 2025-01-11 12:52 | XMS_ITS | Clinical Summary ---
Author Organization [facility] Address [address] [place] [address] Care Team Providers Care Tilesetter Name Role Phone Shawn Girard MD Primary Care Provider +1- [phone] Source Comments [facility],non-owned Affiliates and Associated Physician Practices is amultiple site organization consisting of ambulatory clinics and hospital sitesin [place], [place], [place] and [place]. This disclosure is being madepursuant to the Care Everywhere program and may not contain all information available regarding this patient. Last updated 18.[facility] Allergies No known active allergies Medications * Be aware that medications may not be up to date on this document. Alwaysverify current medications with the patient. Medication Sig Dispensed Refills Start Date End Date Status calcium 500 mg TABS tablet Take 600 mg by mouth 2 times daily with morning and evening meal Active Vitamin D, Cholecalciferol, 1000 UNITS CAPS Take 1,000 mg by mouth Active cyanocobalamin (VITAMIN B-12) 1000 MCG tablet Take 1,000 mcg by mouth once daily Active naproxen sodium (ANAPROX) 275 MG tablet Take 275 mg by mouth 2 times daily Active Loratadine 10 MG Take 10 mg by mouth Active atorvastatin (LIPITOR) 10 MG tabletIndications:Pur e hypercholesterolemia, Carotid artery plaque, left Take 1 tablet by mouth once daily 90 tablet 4 08/08/2020 Active Active Problems Patient Care Coordination No te Formatting of this note migh t be different from the original. PCP is Dr. Nagi Vasquez at [facility] Problem Noted Date Diagnosed Date Pure hypercholesterolemia 08/21/2017 Overview (08/08/2020): 08/20/17 FLP TC 191, trig 114, HDL [...] 65, LDL 97 On atorvastatin 10 mg. Carotid artery plaque, left 08/21/2017 Overview (08/31/2019): 2017 Mild by Life Line screening 2019 Carotid doppler- small amount of plaque within the left carotid bulb. Nl right internal carotid artery. See scanned report Family History Medical History Relation Name Comments Cardiomyopathy Father Cancer - Other Mother Relation Name Status Comments Father Mother Social History Tobacco Use Types Packs/Day Years Used Date Smoking Tobacco: Never Smokeless Tobacco: Never Alcohol Use Standard Drinks/Week Comments Yes 0 (1 standard drink = 0.6 oz pur e alcohol) Sex and Gender Information Value Date Recorded Sex Assigned at Not on file Gender Identity Not on file Sexual Orientation Not on file Last Filed Vital Signs Vital Sign Reading Time Taken Comments Blood Pressure 132/68 08/08/2020 2:00 PM CDT Pulse 80 08/07/2019 1:33 PM CDT Temperature 26.7 C (80 F) 08/08/2020 2:00 PM CDT Respiratory Rate 12 08/08/2020 2:00 PM CDT Oxygen Saturation - - Inhaled Oxygen Concentration - - Weight 74.8 kg (165 lb) 08/08/2020 2:00 PM CDT Height 167.6 cm (5' 6 ) 08/08/2020 2:00 PM CDT Body Mass Index 26.63 08/08/2020 2:00 PM CDT Plan of Treatment Health Maintenance Due Date Last Done Comments BONE DENSITY TESTING 1940 MEDICARE AWV 12 MONTHS 1941 DTAP/TDAP/TD VACCINES (1 - Tdap) 1960 PNEUMOCOCCAL VACCINE 50+ (1 of 1 - PCV) 1991 ZOSTER VACCINE (1 of 2) 1991 Respiratory Syncytial Virus (RSV) Vaccine Pt: or over 60 yrs (1 - 1-dose 75+ series) 2016 COVID-19 VACCINE (2023-2 5 season) 2024 INFLUENZA VACCINE (#1) 2024 DEPRESSION SCREENING 10/14/2024 HEPATITIS B VACCINE Aged Out No longe r eligible based on patient's age to complete this topic HIB VACCINE Aged Out No longer eligi ble based on patient's age to complete this topic HPV VACCINE Aged Out No longer eligi ble based on patient's age to complete this topic MENINGOCOCCAL (Group B) VACC INE SHARED DECISION-MAKING Aged Out No longer eligibl e based on patient's age to complete this topic MENINGOCOCCAL GROUPS A/C/Y/W VACCINE Aged Out No longer eligible b ased on patient's age to complete this topic Care Teams Tilesetter Relationship Specialty Start Date End Date Shawn Girard MD [facility] [address] [place] [address] PCP - General 08/28/22
--- OUTSIDE RECORDS SUMMARY | 2025-01-11 12:52 | XMS_ITS | Referral Summary ---
Author Organization [facility] Address [address] [place] [address] Care Team Providers Care Aircraft Engine Technician Name Role Phone Edwin Smith MD Primary Care Provider +1 -[phone] Allergies Active Allergy Reactions Criticality Noted Date [...] 11/24/2020 Assessment & Plan (11/24/2020 1:26 PM PLASTIC OUTFITTER): Followed by her PCP and controlled on Boniva. Varicose veins of both lower extremities with pa in 11/16/2020 Assessment & Plan (08/21/2023 4:19 PM PLASTIC OUTFITTER): Impression: Patient has a history of EVLT [...] basis. Assessment & Plan (11/24/2020 1:28 PM PLASTIC OUTFITTER): Patient had ablation of her left great [...] mg. Assessment & Plan (08/21/2023 4:17 PM PLASTIC OUTFITTER): Impression: Chronic and stable. Plan: Continue atorvastatin. Assessment & Plan (11/24/2020 1:26 PM PLASTIC OUTFITTER): Followed by her PCP and controlled on a statin. Carotid artery plaque, left 08/21/2017 Overview (01/01/2024): 2017 Mild by Life Line screening 2019 Carotid doppler- small amount of plaque within the left carotid bulb. Nl right internal carotid artery. See scanned report Knee pain 08/20/2017 Hyperlipidemia 06/25/2016 Cyst of finger 12/27/2015 Social History Tobacco Use Types Packs/Day Years [...] on file Legal Sex Female 7:12 AM PLASTIC OUTFITTER Gender Identity Not on file Sexual Orientation [...] 70.8 kg (156 lb) 09/14/2024 1:19 PM PLASTIC OUTFITTER Height 167.6 cm (5' 6 ) 09/14/2024 1:19 PM PLASTIC OUTFITTER Body Mass Index 25.18 09/14/2024 1:19 PM PLASTIC OUTFITTER Plan of Treatment Not on file Insurance MEDICARE MEDICARE FOR LIFE MEDICARE FOR LIFE MEDICARE FOR LIFE Care Teams Aircraft Engine Technician Relationship Specialty Start Date End Date Edwin Smith MD [address] [place] [address] PCP - General Family Practice 09/14/24
[2025-01-11 13:10] LABS: Alanine Aminotransferase 20 U/L (6-35); Albumin Level 4.4 g/dL (3.5-5.1); Alkaline Phosphatase 76 U/L (38-126); Anion Gap 6 mmol/L (4-12); Aspartate Amino Transferase 31 U/L (14-36); Bilirubin,Total 0.9 mg/dL (0.2-1.3); Blood Urea Nitrogen 14 mg/dL (7-17); Calcium 9.4 mg/dL (8.4-10.2); Carbon Dioxide 27 mmol/L (22-30); Chloride 106 mmol/L (98-107); Estimated Glomerular Filt Rate > 60; Glucose 95 mg/dL (65-110); Potassium 4.5 mmol/L (3.4-5.0); Sodium 139 mmol/L (137-145)
[2025-01-11 13:55] LABS: Hemoglobin A1C 5.4 % (<5.7)
[2025-01-12 08:09] LABS: CRP, High Sensitivity 1.1 mg/L
[2025-01-15 11:58] LABS: Apolipoprotein B 90 mg/dL
== END 2025-01-11 11:23 | disposition home or self-care (01) ==
PROVIDERS: PCP Family Medicine; Visit Provider Family Medicine
DX: E78.2 Mixed hyperlipidemia (principal); Z79.899 Other long term (current) drug therapy; M85.80 Other specified disorders of bone density and structure, unspecified site; E55.9 Vitamin D deficiency, unspecified; K76.0 Fatty (change of) liver, not elsewhere classified; E87.6 Hypokalemia; Z00.00 Encounter for general adult medical examination without abnormal findings; R73.03 Prediabetes
CPT/HCPCS: 36415; 80053; 82172; 82306; 82607; 83036; 85027; 86141

== ENCOUNTER 2025-01-28 21:59 | Emergency (ER) | payer MEDICARE, OTHER, SELFPAY ==
--- OUTSIDE RECORDS SUMMARY | 2025-01-28 22:02 | XMS_ITS | Referral Summary ---
Author Organization [facility] Address [address] [place] [address] Care Team Providers Care Supervisor Pipeline Maintenance Name Role Phone Edwin Smith MD Primary Care Provider +1 -[phone] Allergies Active Allergy Reactions Criticality Noted Date [...] 11/24/2020 Assessment & Plan (11/24/2020 1:26 PM GREEN END DEPARTMENT SUPERVISOR): Followed by her PCP and controlled on Boniva. Varicose veins of both lower extremities with pa in 11/16/2020 Assessment & Plan (08/21/2023 4:19 PM GREEN END DEPARTMENT SUPERVISOR): Impression: Patient has a history of EVLT [...] basis. Assessment & Plan (11/24/2020 1:28 PM GREEN END DEPARTMENT SUPERVISOR): Patient had ablation of her left great [...] mg. Assessment & Plan (08/21/2023 4:17 PM GREEN END DEPARTMENT SUPERVISOR): Impression: Chronic and stable. Plan: Continue atorvastatin. Assessment & Plan (11/24/2020 1:26 PM GREEN END DEPARTMENT SUPERVISOR): Followed by her PCP and controlled on [...] on file Legal Sex Female 7:12 AM GREEN END DEPARTMENT SUPERVISOR Gender Identity Not on file Sexual Orientation [...] 70.8 kg (156 lb) 09/14/2024 1:19 PM GREEN END DEPARTMENT SUPERVISOR Height 167.6 cm (5' 6 ) 09/14/2024 1:19 PM GREEN END DEPARTMENT SUPERVISOR Body Mass Index 25.18 09/14/2024 1:19 PM GREEN END DEPARTMENT SUPERVISOR Plan of Treatment Not on file Insurance MEDICARE MEDICARE FOR LIFE MEDICARE FOR LIFE MEDICARE FOR LIFE Care Teams Supervisor Pipeline Maintenance Relationship Specialty Start Date End Date Edwin Smith MD [address] [place] [address] PCP - General Family Practice 09/14/24
--- OUTSIDE RECORDS SUMMARY | 2025-01-28 22:02 | XMS_ITS | Clinical Summary ---
Author Organization [facility] Address [address] [place] [address] Care Team Providers Care Landscape Account Manager Name Role Phone Edwin Smith MD Primary Care Provider [phone] -[phone] Allergies Active Allergy Reactions Criticality Noted Date [...] 11/24/2020 Assessment & Plan (11/24/2020 1:26 PM DIRECTOR CHEMISTRY): Followed by her PCP and controlled on Boniva. Varicose veins of both lower extremities with pa in 11/16/2020 Assessment & Plan (08/21/2023 4:19 PM DIRECTOR CHEMISTRY): Impression: Patient has a history of EVLT [...] basis. Assessment & Plan (11/24/2020 1:28 PM DIRECTOR CHEMISTRY): Patient had ablation of her left great [...] mg. Assessment & Plan (08/21/2023 4:17 PM DIRECTOR CHEMISTRY): Impression: Chronic and stable. Plan: Continue atorvastatin. Assessment & Plan (11/24/2020 1:26 PM DIRECTOR CHEMISTRY): Followed by her PCP and controlled on [...] on file Legal Sex Female 7:12 AM DIRECTOR CHEMISTRY Gender Identity Not on file Sexual Orientation [...] 70.8 kg (156 lb) 09/14/2024 1:19 PM DIRECTOR CHEMISTRY Height 167.6 cm (5' 6 ) 09/14/2024 1:19 PM DIRECTOR CHEMISTRY Body Mass Index 25.18 09/14/2024 1:19 PM DIRECTOR CHEMISTRY Plan of Treatment Health Maintenance Due Date [...] , 07/21/2021, Additional history exists Insurance [address] [id number] MEDICARE MEDICARE [employer] MEDICARE [facility] MEDICARE FOR LIFE Care Teams Landscape Account Manager Relationship Specialty Start Date End Date Edwin Smith MD [address] [place] [address] PCP - General Family Practice 09/14/24
--- OUTSIDE RECORDS SUMMARY | 2025-01-28 22:02 | XMS_ITS | Clinical Summary ---
Author Organization [facility] Address [address] [place] [id number] Care Team Providers Care Physician General Practice Name Role Phone Unavailable Primary Care Provider Unavailabl e Social History Tobacco Use Types Packs/Day Years Used Date Smoking Tobacco: Never Assessed Comments Unknown Sex and Gender Information Value Date Recorded Sex Assigned at Not on file Legal Sex Female 2:48 PM MECHANIC INDUSTRIAL TRUCK Gender Identity Not on file Sexual Orientation [...]
--- OUTSIDE RECORDS SUMMARY | 2025-01-28 22:02 | XMS_ITS | Clinical Summary ---
Author Organization [facility] Address [address] [place] [address] Care Team Providers Care Melangeur Operator Name Role Phone Unavailable Primary Care Provider [...] Td Vaccines ( 1 - Tdap) 1960 Pneumococcal Vaccine: 50+ Ye ars (1 of 1 - PCV) 1991 Zoster Vaccines (1 of 2) 1991 Dexa Scan (General) 2006 RSV Immunization or 60+ Years (1 - 1-dose 75+ series) 2016 COVID-19 Vaccine (2023-2 5 season) 2024 Meningococcal B Vaccine Aged Out No l onger eligible based on patient's age to complete this topic Meningococcal Vaccine Aged Out No gustavo lorraine eligible based on patient's age to complete this topic RSV Immunizations Under 20 Months Aged Out No longer eligible based on patient's age to complete this topic
--- OUTSIDE RECORDS SUMMARY | 2025-01-28 22:02 | XMS_ITS | Continuity of Care Document ---
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 It does not include entries that were removed or entered in error. Problem Status Onset Date Problem Type Date of Resolution Comments Source Hyperlipidemia Active 06/25/2016 Condition [facility] Depressive disorder Active Condition 00 [facility] Osteoarthritis of knee Active Condition [facility] Osteoporosis Active Condition [facility] Sensorineural hearing loss Active Condition [facility] Vitamin D deficiency Active Condition 0 [facility] Medications Combined list of outpatient medications from Department of Defense and Veterans Affairs facilities.Medications provided include 1) outpatient medications from the last 15 months, and 2) patient-reported medications. Medication Details Route Status Patient Instructions Prescription Expires Prescription Number Last Dispense Date Ordering Provider Order Date Order Qty Source amoxicillin -clav 875 mg-125 mg tablet 875 mg, Oral, every 12 hr, # 5 EA, 0 total refill(s ), Hard Stop Oral (given by mouth) Complet ed 05/09/2024 4 2023 5.0 Ambulat ory Pharmac y atorvastati n 10 mg tablet 10 mg, Oral, Daily, # 90 EA, 3 total refill(s ), Hard Stop Oral (given by mouth) Complet ed 08/25/2024 3 2023 90.0 Ambulat ory Pharmac y Caltrate 600 + D oral tablet 1 tab(s), Oral, BID, # 60 tab(s), 0 total refill(s ), Maintena nce Oral (given by mouth) Ordered 2022 60.0 [facility] cetirizine 10 mg oral tablet 1 tab(s), Oral, Daily, PRN allergy symptoms , # 90 tab(s), 3 total refill(s ), Betoa nce, Pharmacy : [facility] Oral (given by mouth) Ordered 4 2022 90.0 [facility] fexofenadin e 180 mg tablet See Instruct ions, # 60 EA, 0 total refill(s ), Hard Stop Complet ed 09/26/2024 4 2023 60.0 Ambulat ory Pharmac y hydrOXYzine hydrochlori de 25 mg tablet See Instruct ions, # 90 EA, 0 total refill(s ), Hard Stop Complet ed 11/25/2024 4 2024 90.0 Ambulat ory Pharmac y ibandronate 150 mg oral tablet TAKE ONE TABLET BY MOUTH EVERY MONTH NEEDED FOR [facility] DIRECTED BY PROVIDER , # 3 EA, 3 total refill(s ), Acute Complet ed 04/02/2023 2 2022 3.0 Ambulat ory Pharmac y meloxicam 15 mg oral tablet TAKE ONE TABLET BY MOUTH EVERY DAY *TAKE WITH A MEAL*, # 30 EA, 3 total refill(s ), Acute Complet ed 04/01/2023 2 2022 30.0 Ambulat ory Pharmac y montelukast 10 mg tablet 10 mg, Oral, Daily, # 30 EA, 0 total refill(s ), Soft Stop Oral (given by mouth) Ordered 5 2024 30.0 Ambulat ory Pharmac y naproxen 250 mg oral tablet 1 tab(s), Oral, BID, PRN fever/mi ld pain, # 60 tab(s), 3 total refill(s ), Acute, 07/06/24 12:00:00 AM CDT, Pharmacy : [facility] Oral (given by mouth) Complet ed 07/06/2024 4 2023 60.0 [facility] spironolact one 25 mg tablet 25 mg, Oral, BID, # 90 EA, 0 total refill(s ), Soft Stop Oral (given by mouth) Ordered 5 2024 90.0 Ambulat ory Pharmac y triamcinolo ne 0.5% cream [15g] See Instruct ions, # 15 g, 1 total refill(s ), Hard Stop Complet ed 12/10/2024 4 2024 15.0 Ambulat ory Pharmac y Vitamin B-12 1000 mcg oral tablet 1 tab(s), Oral, Daily, # 30 tab(s), 0 total refill(s ), Maintena nce Oral (given by mouth) Ordered 2022 30.0 [facility] Vitamin D3 25 mcg (1000 intl units) oral capsule 1 cap(s), Oral, Daily, # 90 cap(s), 0 total refill(s ), Maintena nce Oral (given by mouth) Ordered 2022 90.0 [facility]55[facility] Allergies, Adverse Reactions, Alerts Combined list of allergies from Department of Defense and Veterans Affairs facilities. It does not include entries that were removed or entered in error. Substance Category Reaction Severity Reaction type Status Date Reported Comments Source shellfish Propensity to adverse reactions to food Rash Active 1 Unknown Organization Immunizations Combined list of available immunizations from the Department of Defense and Veterans Affairs facilities. Immunization Series Date Given Administered By Site Reaction Lot Number CVX Code Drug Technical Service Rep Status Comments Source RSV vaccine, preF A-preF B, recombinant 2023 ETHANJPOCKLIN GTON Shoul sue, left (delt oid) [id number] [employer] complet ed RSV vaccine, preF A-preF B, recombina nt 08/20/24 Given [facility]55[facility] tetanus-dipht h toxoids (Td) adult/adol 2023 JOSHUARWASHIN GTON Shoul sue, right (delt oid) [id number] sanofi pasteur complet ed tetanus-d iphth toxoids (Td) adult/ado l 08/12/24 Given [facility]55C[facility] influenza virus vaccine, inactivated 2023 JOSHUARWASHIN GTON Shoul sue, left (delt oid) [id number] 135 sanofi pasteur complet ed influenza virus vaccine, inactivat ed 08/12/24 Given 0055C-[address] [facility] influenza, injectable, quadrivalent- pf 2020 zzLef t Arm [id number] 150 GlaxoSmithKli ne complet ed influenza , injectabl e, quadrival ent-pf 07/21/21 Given Ambulat ory Pharmac y COVID Vaccine Pfizer 2020 TRANSCR IBED 208 PFIZER complet ed COVID Vaccine Pfizer 04/24/21 Given Ambulat ory Pharmac y COVID-19 (PFIZER), MRNA, LNP-S, PF, 30 MCG/0.3 ML DOSE 2 2020 208 complet ed PFR; [id number]; 1 [facility] COVID-19 (PFIZER), MRNA, LNP-S, PF, 30 MCG/0.3 ML DOSE 1 2020 208 complet ed PFR; [id number]; 1 [facility] COVID Vaccine Pfizer 2020 TRANSCR IBED 208 PFIZER complet ed COVID Vaccine Pfizer 04/03/21 Given Ambulat ory Pharmac y influenza virus vaccine, inactivated 2019 zzRig ht Arm [id number] [employer] complet ed influenza virus vaccine, inactivat ed 08/05/20 Given Ambulat ory Pharmac y influenza, injectable, quadrivalent- pf 2018 zzLef t Arm [id number] 150 [employer] complet ed influenza , injectabl e, quadrival ent-pf 08/26/19 Given Ambulat ory Pharmac y influenza, injectable, quadrivalent- pf 2017 zzLef t Arm [id number] 150 [employer] complet ed influenza , injectabl e, quadrival ent-pf 07/25/18 Given Ambulat ory Pharmac y influenza, injectable, quadrivalent- pf 2016 zzLef t Arm [id number] 150 GlaxoSmithKli ne complet ed influenza , injectabl e, quadrival ent-pf 07/23/17 Given Ambulat ory Pharmac y influenza, injectable, quadrivalent 2015 zzRig ht Arm [id number] 158 [employer] complet ed influenza , injectabl e, quadrival ent 07/20/16 Given Ambulat ory Pharmac y hepatitis A-hepatitis B vaccine 2015 zzLef t Arm [id number] 104 GlaxoSmithKl ne complet ed hepatitis A-hepatit is B vaccine 05/08/16 Given Ambulat ory Pharmac y hepatitis A-hepatitis B vaccine 2015 [facility] [id number] 104 GlaxoSmithKli ne complet ed hepatitis A-hepatit is B vaccine 12/09/15 Given Ambulat ory Pharmac y pneumococcal polysaccharid e, 23 valent 2015 zzLef t Arm [id number] [employer] complet ed pneumococ nelson polysacch aride, 23 valent 11/08/15 Given Ambulat ory Pharmac y hepatitis A-hepatitis B vaccine 2015 [facility] [id number] GlaxoSmithKl ne complet ed hepatitis A-hepatit is B vaccine 11/08/15 Given Ambulat ory Pharmac y influenza, injectable, quadrivalent- pf 2014 z[facility]Lef t Arm [id number] [facility] , injectabl e, quadrival ent-pf 08/08/15 Given Ambulat ory Pharmac y pneumococcal 13-valent conjugate (PCV13) 2014 zzLef t Arm [id number] [employer] complet ed pneumococ nelson 13-valent conjugate (PCV13) 10/22/14 Given Ambulat ory Pharmac y influenza, seasonal, injectable-pf 2013 zzLef t Arm [id number] 140 [employer] complet ed influenza , seasonal, injectabl e-pf 07/10/14 Given Ambulat ory Pharmac y tetanus, diphtheria, acellular pertu is 2012 zzLef t Arm [id number] 115 GlaxoSmithKli ne complet ed tetanus, diphtheri a, acellular pertussis 09/25/13 Given Ambulat ory Pharmac y influenza, seasonal, injectable-pf 2012 zzLef t Arm [id number] 140 sanofi pasteur complet ed influenza , seasonal, injectabl e-pf 07/21/13 Given Ambulat ory Pharmac y influenza, seasonal, injectable-pf 2011 [facility] Arm [id number] 140 sanofi pasteur complet ed influenza , seasonal, injectabl e-pf 08/06/12 Given Ambulat ory Pharmac y influenza, seasonal, injectable 2010 [facility] [id number] 141 sanofi pasteur complet ed influenza , seasonal, injectabl e 06/22/11 Given Ambulat ory Pharmac y influenza virus vaccine,split 2009 zzLef t Arm [id number] 15 [employer] complet ed influenza virus vaccine,s plit 07/20/10 Given Ambulat ory Pharmac y tetanus-dipht h toxoids (Td) adult/adol 2009 zzLef t Arm [id number] 09 sanofi pasteur complet ed tetanus-d iphth toxoids (Td) adult/ado l 01/24/10 Given Ambulat ory Pharmac y zoster vaccine live 2008 zzLef t Arm [id number] 121 [employer] complet ed zoster vaccine live 05/31/09 Given Ambulat ory Pharmac y influenza virus vaccine,split 2005 zzLef t Arm [id number] 15 [employer] complet ed influenza virus vaccine,s plit 09/20/06 Given Ambulat ory Pharmac y influenza virus vaccine,split 2004 zzLef t Arm [id number] 15 sanofi pasteur complet ed influenza virus vaccine,s plit 08/31/05 Given Ambulat ory Pharmac y influenza virus vaccine,split 2003 [facility] Arm [id number] 15 sanofi pasteur complet ed influenza virus vaccine,s plit 10/12/04 Given Ambulat ory Pharmac y influenza virus vaccine, whole virus 2002 zzLef t Arm [id number] 16 sanofi pasteur complet ed influenza virus vaccine, whole virus 08/04/03 Given Ambulat ory Pharmac y influenza virus vaccine, whole virus 1998 [id number] 16 [employer] complet ed influenza virus vaccine, whole virus 07/29/99 Given Ambulat ory Pharmac y Results Combined list of recent chemistry, hematology and other laboratory results from Department of Defense and Veterans Affairs, ranging from 15 months to all on record, depending upon the facility. Order Name Results Value Reference Range Date Interpretation Specimen Comments Source Chemistry LDL 156 mg/dL 100 - 130 08/19 H Interpretive Data: AGES 0-19: Desirable: < 110 mg/dL Borderline High: 110-129 mg/dL High: >/= 130 mg/dL ADULTS: Desirable: <100 mg/dL Near/above optimal: 100-130 mg/dL Borderline High: 131-159 mg/dL High: 160-189 mg/dL Very High: 190 mg/dL [address] [place] [address] Chemistry HDL Cholesterol 71 mg/dL 40 - 59 08/19 H Interpretive Data: HDL (HIGH DENSITY LIPOPROTEIN) : ADULTS: Low: < 40 mg/dL High: >/= 60 mg/dL AGES 0 -19: Low: < 40 mg/dL Borderline Low: 40 - 45 mg/dL Acceptable: > 45 mg/dL [address] [place] [address] Chemistry Cholesterol Total 239 mg/dL 08/19 H Interpretive Data: According to the [place] [employer]: AGES 0-19: Desirable: < 170 mg/dL Borderline High: 170-199 mg/dL High Blood Cholesterol: >/= 200 mg/dL ADULTS: Desirable < 200 mg/dL Borderline High: 200-239 mg/dL High Blood Cholesterol: >/= 240 mg/dL [address] [place] [address] Chemistry Chol/HDL 3 mg/dL 08/[address] [place] [address] Chemistry Triglycerid es 92 mg/dL 7 - 149 08/19 N Interpretive Data: AGES 0-9: Desirable: < 75 mg/dL Borderline High: 75-99 mg/dL High: >/= 100 mg/dL AGES 10-19: Desirable: < 90 mg/dL Borderline High: 90-129 mg/dL High: >/= 130 mg/dL ADULTS: Desirable: < 150 mg/dL Borderline High: 150-199 mg/dL High: >/= 240 mg/dL Very High: >/= 500 mg/dL [address] [place] [address] Chemistry LDL/HDL 2 08/[address] [place] [address] Vital Signs Combined list of inpatient and outpatient Vital Signs from Department of Defense and Veterans Affairs, ranging from 12 months to all on record, depending upon the facility. Vital Sign Value Date Comments Source Respiratory Rate 16 br/min 08/19/2023 20:19:00 - [facility] Systolic Blood Pressure 125 mm[Hg] 08/19/2023 20:19:00 [facility] Diastolic Blood Pressure 68 mm[Hg] 08/19/2023 20:19:00 [facility] Blood Pressure Manual Automatic 08/19/2023 20:19:00 [facility] Peripheral Pulse Rate 69 bpm 08/19/2023 20:19:00 [facility] BP Site Left arm 08/19/2023 20:19:00 [facility] Temperature Oral 36.1 Mi 08/19/2023 20:19:00 [facility] Mean Arterial Pressure, Calc 87 mm[Hg] 08/19/2023 20:19:00 [facility] Encounters Combined list of: 1) Encounters from Department of Veterans Affairs facilities going backup to the last 18 months, not all [place] inpatient encounters are included; 2) Encounters from the Department of [facility] facilities going backup to 280 months. Location Location Details Encounter Type Encounter Number Reason For Visit Attending Provider ADM Date DC Date Status Disposition Source [facility] [id number] STUART THOMSON 08/12 Discharge Disposition: Home or Self Care [facility] [id number] STUART THOMSON 08/20 Discharge Disposition: Home or Self Care [facility] [place] Between Visit [id number] 01/25 Discharge Disposition: Home or Self Care [facility] Procedures Combined list of: 1) Procedures from Department of Veterans Affairs facilities going back up to thelast 18 months, not all [place] non-surgical procedures are included; 2) All procedures from the Department of [facility] facilities. Procedure Procedure Type Code Date Perfomer Comments Sourc e No data available for this section Ambulatory P harmacy Social History Combined list of available smoking, tobacco, and other social history from Department of [facility] and Veterans Affairs facilities. Social History Type Response Date Comment Sourc e Sex Representation Female (finding) 12/06/2022 Unknown Organization Sexual Orientation Ambula tory Pharmacy Gender identity Ambulator y Pharmacy Assessment and Plan Combined list of future care activities from Department of Defense and Veterans Affairs facilities (e.g., assessment and plan notes, appointments, orders, and referrals). Additional future care activities may be listed in the Plan of Care section. Result Assessment and Plan Date Source Assessment and Plan Extracted from:Title : Imms Note Author: YADIRA ZAHIDA R, EMT Date: 08/12/24 SCREENING CHECKLIST FOR CONTRAINDICATIONS TO VACCINES FOR A DULTS Patient here to receive vaccines recommended p er ACIP/CDC guideline standing orders . Patient read the following screening information and truthfully answered all of the required questions. Questions answered YES required further explanation, but are not necessarily a contraindication to vaccination. There were no contraindications to vaccines provided in clinic today. If the patient is receiving the RSV vaccine, the CDC recommends adults 60 years and older may receive a single dose of RSV vaccine, based on discussions between the patient and health care provider. 1. Are you sick today? N o 2 . Do you have allergies to medications, food, a vaccine ingredient, or latex? N o 3 . Have you ever had a serious reaction after receiving a vaccine? N o 4 . Do you have a long-term health problem with heart, lung, kidney, or metabolic disease (e.g., diabetes), asthma, a blood clotting disorder, no spleen, complement component deficiency, a cochlear implant, or a spinal fluid leak? Are you on long-term aspirin therapy? N o 5 . Do you have cancer, leukemia, HIV/AIDS, or any other immune system problem? N o 6 . D o you have a parent, brother, or sister with an immune system problem? N o 7 . I n the past 3 months, have you taken medications that affect your immune system, such as prednisone, other steroids, or anticancer drugs; drugs for the treatment of rheumatoid arthritis, Crohn s disease, or psoriasis; or have you had radiation treatments? Y es Prednisone 5day [id number] ended 8 . Have you had a seizure or a brain or other nervous system problem? N o 9 . During the past year, have you received a transfusion of blood or blood products or been given immune (gamma) globulin or an antiviral drug? N o 1 0. For women: Are you or is there a chance you could become during the next month? N o 1 1. Have you received any vaccinations in the past 4 weeks? N o 12. VIS was provided before r eceiving vaccines. Y es It was recommended that the patient remain in the clinic for 15 minutes for monitoring of potential unexpected side effects. The patient left WITHOUT apparent unexpected effects from the vaccine(s). If PPD was placed, the pt was informed on proper care of IPPD site and need for 48-72hr follow-up. Patient given proof of vaccination via p rinted record, patient can also access records via patient portal. P atient to follow-up with PCM/prescribing provider for further questions. Diagnosis: Encounter for immunization Comment: Ordered: RSV vaccine, preF A-preF B, recombinant (Abrysvo) [60 yr+ or 32-36 wks ] PF IM injection; 0.5 mL, IntraMuscular, Injection, Vaccine, First Dose: 08/12/2024 14:39:00 CDT, 08/12/2024 14:39:00 CDT by STUART HULL MD Tenivac (Td); 0.5 mL, IntraMuscular, Suspension-Injection, Vaccine, First Dose: 08/12/2024 14:39:00 CDT, 08/12/2024 14:39:00 CDT influenza vaccine (Fluzone High-Dose) [65 yr+] PF [id number] IM suspension; 0.5 mL, IntraMuscular, Suspension-Injection, Vaccine, First Dose: 08/12/2024 14:39:00 CDT, 08/12/2024 14:39:00 CDT Other status: Imadm Prq Id Subq/Im Njxs Ea Vaccine [id number]; 08/12/2024 14:38:00 CDT (Completed) by STUART HULL MD Diagnosis: Vaccination given Comment: Ordered: RSV vaccine, preF A-preF B, recombinant (Abrysvo) [60 yr+ or 32-36 wks ] PF IM injection; 0.5 mL, IntraMuscular, Injection, Vaccine, First Dose: 08/12/2024 14:39:00 CDT, 08/12/2024 14:39:00 CDT by STUART HULL MD End of Orders Extracted from:Title: [facility] - Left-sided sciatica Author: DAVID MORRELL MD Date: 08/19/23 1. S ciatica She reports a couple of weeks of left-sided back and leg pain that sounds consistent with sciatica. Pain is significantly improved with a normal exam. No gait problems, especially considering expected age related changes (zero problems with the get up and go test). -Offered PT but she would like to wait on this at this time -Continue conservative management with OTC pain mediations -No indication for imaging at this time Patient encouraged to return to clinic, present to UCC or ER for persistent worsening or development of other concerning symptoms. Patient cites understanding and agrees with plan of care. A total of 20 minutes was spent on this visit reviewing previous notes, counseling the patient on the listed diagnoses, reviewing/ordering tests, adjusting medications, and documenting the findings in this note. David Morrell MD [facility], [address], [facility] Internal Medicine Staff Physician 01/29/2025 [facility] Functional Status Combined list of recent functional and cognitive assessments recorded at Department of Defense and Veterans Affairs (VA).VA Functional [place] Measurement (FIM) Scale: 1 = Total Assistance (Subject = 0% +), 2 = Maximal Assistance (Subject = 25% +), 3 = Moderate Assistance (Subject = 50% +), 4 = Minimal Assistance (Subject = 75% +), 5 = Supervision, 6 = Modified [place] (Device), 7 = Complete [place] (Timely, Safely). Assessment Date/Time Source Assessment Type Assessment Skill Assessment Score Assessment Details No data available for this section
--- OUTSIDE RECORDS SUMMARY | 2025-01-28 22:02 | XMS_ITS | Continuity of Care Document ---
Author Organization [facility] Address [address] [place] [address] Phone Care Team Providers Care Coroner Name Role Phone Maco Slater MD, Ravindra Unavailable Unavailable Allergies, Adverse Reactions, Alerts Substance Reaction Status Criticality No Known Allergies Active No Inform ation Medications Medication Instructions Dosage Effective Dates (start - stop) Status Comments NAPROXEN (unknown strength) take 1 tablet by oral route 2 times every day with food Not Available - Active Procedures Procedure Date RADEX FOOT COMPL MINIMUM 3 VIEWS 2022 OFFICE/OUTPATIENT VISIT NEW Advance Directives Directive Yes / No Effective Date File Name Other Directive No N/A N/A WARNING:The information contained in this section is historical and is provided for information only and does not constitute a legal document or any assurance that the information is still accurate. Please verify the information with the barba of the legal document before using it for clinical purposes. Encounters Encounter Description Practice Location Reason(s) For Visit Diagnoses Date Provider Providers Copied on Encounter OFFICE/OUTPAT IENT VISIT NEW [facility] , [address], [place], [address], [phone] [facility] Pain in right footHallux rigidus, right foot 3 Maco Waite. [address], [place], [place], [id number] . tel: [phone] Referring Provider: Denzel Gallo, [address], [place], [address]. tel:[phone] Family History Family Member Type Diagnosis Age At Onset Sister Problem Kidney cancer Father Problem Hypertension Mother Problem (finding) Sister Problem Thyroid disorder Payers Payer name Insurance type Covered green party ID Dejon thorne(s) Medicare E2 OT [id number] For Life OT [id number] Social History Type Description Quantity Date Captured Comments Alcohol Use Details 4-5 drinks weekly Caffeine Use Details Unknown Tobacco Use Status Current non-smoker Smoking Status Never smoker Non-Smoking Tobacco Use Details : No Details Available : No Details Available Sex Female Vital Signs Date / Time: Height Weight BMI Pulse Rate Blood Pressure Temperature Respiratory Rate Body Surface Area Head Circumference Head Circ. Percentile Wt./Jeremias. Percentile BMI percentile Pulse Ox Inhaled Ox 7:28 AM 71.00 in 70.307 kg (155.00 lbs) 21.6 2 kg/m eter (2) Chief Complaint And Reason For Visit No Information Reason For Referral Reason For Referral No Information Plan Of Treatment Date Type Action Status Referral Ordered: RADEX FOOT COMPL MINIMUM 3 VIEWS RT ordered History Of Present Illness Encounter Date Complaint History Of Prese nt Illness No Information Functional Status Date Functional Assessmen t No Information Instructions Date Instruction Additional Infor mation No Information Assessments Type Assessment Date assessment Pain in right foot assessment Hallux rigidus, right foot Patient Care Teams Name Effective Dates (start - stop) Status Members No Information
--- OUTSIDE RECORDS SUMMARY | 2025-01-28 22:02 | XMS_ITS | Clinical Summary ---
Author Organization [facility] Address [address] [facility] [place] [address] Care Team Providers Care Practice Assistant Name Role Phone Shawn Girard MD Primary Care Provider [phone]- [phone] Source Comments [facility],non-owned Affiliates and Associated Physician Practices is amultiple site organization consisting of ambulatory clinics and hospital sitesin [place], [place], [place] and [place]. This disclosure is being madepursuant to the Care Everywhere program and may not contain all information available regarding this patient. Last updated 18.[facility] Allergies No known active allergies Medications * Be aware that medications may not be up to date on this document. Alwaysverify current medications with the patient. calcium 500 mg TABS tablet Take 600 mg by mouth 2 times daily with morning and evening meal Active Vitamin D, Cholecalciferol , 1000 UNITS CAPS Take 1,000 mg by mouth Active cyanocobalamin (VITAMIN B-12) 1000 MCG tablet Take 1,000 mcg by mouth once daily Active naproxen sodium (ANAPROX) 275 MG tablet Take 275 mg by mouth 2 times daily Active Loratadine 10 MG Take 10 mg by mouth Active atorvastatin (LIPITOR) 10 MG tabletIndicatio ns:Pure hypercholestero lemia,Carotid artery plaque, left Take 1 tablet by mouth once daily 90 tablet 4 08/08/2020 Active Active Problems Patient Care Coordination No te Formatting of this note migh t be different from the original. PCP is Dr. Nagi Vasquez at 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 Gender Identity Not on file Sexual Orientation [...] Last Done Comments BONE DENSITY TESTING 1941 DTAP/TDAP/TD VACCINES (1 - Tdap) 1960 PNEUMOCOCCAL VACCINE 50+ (1 of 1 - PCV) 1991 ZOSTER VACCINE (1 of 2) 1991 Respiratory Syncytial Virus (RSV) Vaccine Pt: or over 60 yrs (1 - 1-dose 75+ series) 2016 COVID-19 VACCINE (2023-2 5 season) 2024 DEPRESSION SCREENING 10/14/2024 INFLUENZA VACCINE (Season Ended) 2025 HEPATITIS B VACCINE Aged Out No longe [...] on patient's age to complete this topic Insurance MEDICARE [facility] MEDICARE Care Teams Practice Assistant Relationship Specialty Start Date End Date Shawn Girard MD [facility] [address] [place] [address] PCP - General 08/28/22
[2025-01-28 22:13] VITALS: BP 163/87; PULSE 85; RESP 17; TEMP 36.6; O2SAT 97
--- OUTSIDE RECORDS SUMMARY | 2025-01-29 06:50 | XMS_ITS | Clinical Summary ---
Author Organization [facility] Address [address] [place] [address] Care Team Providers Care Kst Operator Name Role Phone Unavailable Primary Care [...]
--- OUTSIDE RECORDS SUMMARY | 2025-01-29 06:50 | XMS_ITS | Clinical Summary ---
Author Organization [facility] Address [address] [place] [address] Care Team Providers Care Sterile Process Tech Name Role Phone Edwin Smith MD Primary Care Provider [phone] [phone] Allergies Active Allergy Reactions Criticality Noted Date [...] 11/24/2020 Assessment & Plan (11/24/2020 1:26 PM LIBRARIAN SCHOOL): Followed by her PCP and controlled on Boniva. Varicose veins of both lower extremities with pa in 11/16/2020 Assessment & Plan (08/21/2023 4:19 PM LIBRARIAN SCHOOL): Impression: Patient has a history of EVLT [...] basis. Assessment & Plan (11/24/2020 1:28 PM LIBRARIAN SCHOOL): Patient had ablation of her left great [...] mg. Assessment & Plan (08/21/2023 4:17 PM LIBRARIAN SCHOOL): Impression: Chronic and stable. Plan: Continue atorvastatin. Assessment & Plan (11/24/2020 1:26 PM LIBRARIAN SCHOOL): Followed by her PCP and controlled on [...] on file Legal Sex Female 7:12 AM LIBRARIAN SCHOOL Gender Identity Not on file Sexual Orientation [...] 70.8 kg (156 lb) 09/14/2024 1:19 PM LIBRARIAN SCHOOL Height 167.6 cm (5' 6 ) 09/14/2024 1:19 PM LIBRARIAN SCHOOL Body Mass Index 25.18 09/14/2024 1:19 PM LIBRARIAN SCHOOL Plan of Treatment Health Maintenance Due Date [...] , 07/21/2021, Additional history exists Insurance [address] [id number] MEDICARE MEDICARE [employer] MEDICARE [facility] MEDICARE FOR LIFE Care Teams Sterile Process Tech Relationship Specialty Start Date End Date Edwin Smith MD [address] [place] [address] PCP - General Family Practice 09/14/24
--- OUTSIDE RECORDS SUMMARY | 2025-01-29 06:50 | XMS_ITS | Continuity of Care Document ---
Author Name [facility] Organization [facility] Care Team Providers Care Clearing House Clerk Name Role Phone [facility] Unavailable Unavailable Problems Combined list of problems [...] by mouth) Ordered 2022 60.0 0055C[facility] cetiriz[facility] 10 mg oral tablet 1 tab(s), Oral, Daily, PRN allergy symptoms , # 90 tab(s), 3 total refill(s ), Betoa nce, Pharmacy : [facility] Oral (given by mouth) Ordered 4 2022 90.0 0055C-3 [facility] fexofenadin e 180 mg tablet See [...] 4 2023 60.0 0055C[facility]3 [facility] spironolact one 25 mg tablet 25 [...] by mouth) Ordered 2022 30.0 0055C-3 75[facility] Vitamin D3 25 mcg (1000 intl units) oral capsule 1 cap(s), Oral, Daily, # 90 cap(s), 0 total refill(s ), Maintena nce Oral (given by mouth) Ordered 2022 90.0 0055C-3 75[facility] Allergies, Adverse Reactions, Alerts Combined list [...] Site Reaction Lot Number CVX Code Drug Building Maintenance Engineer Status Comments Source RSV vaccine, preF A-preF B, recombinant 2023 ETHANJPOCKLIN GTON Shoul sue, left (delt oid) [id number] [employer] complet ed RSV vaccine, preF A-preF B, recombina nt 08/20/24 Given 0055C-3 75th [facility] [place] tetanus-dipht h toxoids (Td) adult/adol 2023 JOSHUARWASHIN GTON Shoul sue, right (delt oid) [id number] sanofi pasteur complet ed tetanus-d iphth toxoids (Td) adult/ado l 08/12/24 Given 0055C-3 75th [facility] influenza virus vaccine, inactivated 2023 JOSHUARWASHIN GTON Shoul sue, left (delt oid) [id number] 135 sanofi pasteur complet ed influenza virus vaccine, inactivat ed 08/12/24 Given 0055C-3 75th [facility] influenza, injectable, quadrivalent- pf 2020 zzLef t Arm [id number] 150 GlaxoSmithKli ne complet ed influenza , injectabl e, quadrival ent-pf 07/21/21 Given Ambulat ory Pharmac y COVID Vaccine Pfizer 2020 TRANSCR IBED 208 PFIZER complet ed COVID Vaccine Pfizer 04/24/21 Given Ambulat ory Pharmac y COVID-19 (PFIZER), MRNA, LNP-S, PF, 30 MCG/0.3 ML DOSE 2 2020 208 complet ed PFR; [id number]; [address] COVID-19 (PFIZER), MRNA, LNP-S, PF, 30 MCG/0.3 ML DOSE 1 2020 208 complet ed PFR; [id number]; 1 [facility] COVID Vaccine Pfizer 2020 TRANSCR IBED 208 PFIZER complet ed COVID Vaccine Pfizer 04/03/21 Given Ambulat ory Pharmac y influenza virus vaccine, inactivated 2019 zzRig ht Arm [id number] Se[employer] complet ed influenza virus vaccine, inactivat ed 08/05/20 Given Ambulat ory Pharmac y influenza, injectable, quadrivalent- pf 2018 zzLef t Arm [id number] 150 Se[employer]irus complet ed influenza , injectabl e, quadrival ent-pf 08/26/19 Given Ambulat ory Pharmac y influenza, injectable, quadrivalent- pf 2017 zzLef t Arm [id number] 150 Se[employer]irus complet ed influenza , injectabl [...] Pharmac y hepatitis A-hepatitis B vaccine [facility] [id number] 104 GlaxoSmithKli ne complet ed hepatitis A-hepatit is B vaccine 12/09/15 Given Ambulat ory Pharmac y pneumococcal polysaccharid e, 23 valent 2015 zzLef t Arm [id number] [employer] complet ed pneumococ nelson polysacch aride, 23 valent 11/08/15 Given Ambulat ory Pharmac y hepatitis A-hepatitis B vaccine [facility] [id number] GlaxoSmithKl ne complet ed hepatitis A-hepatit is B vaccine 11/08/15 Given Ambulat ory Pharmac y influenza, injectable, quadrivalent- pf 2014 zzLef t Arm [id number] 150 [facility] complet ed influenza , injectabl e, quadrival ent-pf 08/08/15 Given Ambulat ory Pharmac y pneumococcal 13-valent conjugate (PCV13) 2014 zzLef t Arm [id number] 133 [employer] complet ed pneumococ nelson 13-valent conjugate (PCV13) 10/22/14 Given Ambulat ory Pharmac y influenza, seasonal, injectable-pf 2013 zzLef t Arm [id number] 140 Novartis [employer] ls complet ed influenza , seasonal, injectabl e-pf 07/10/14 Given Ambulat ory Pharmac y tetanus, diphtheria, acellular pertu is 2012 zzLef t Arm [id number] 115 GlaxoSmithKli ne complet ed tetanus, diphtheri a, acellular pertussis 09/25/13 Given Ambulat ory Pharmac y influenza, seasonal, injectable-pf 2012 zzLef t Arm [id number] 140 sanofi pasteur complet ed influenza , seasonal, injectabl e-pf 07/21/13 Given Ambulat ory Pharmac y influenza, seasonal, injectable-pf 2011 [facility] [id number] 140 sanofi pasteur complet ed influenza , seasonal, injectabl e-pf 08/06/12 Given Ambulat ory Pharmac y influenza, seasonal, injectable 2010 [facility] [id number] 141 sanofi pasteur complet ed influenza , seasonal, injectabl e 06/22/11 Given Ambulat ory Pharmac y influenza virus vaccine,split 2009 zzLef t Arm [id number] 15 CSL Behring complet ed influenza virus vaccine,s plit 07/20/10 Given Ambulat ory Pharmac y tetanus-dipht h toxoids (Td) adult/adol 2009 zzLef t Arm [id number] 09 sanofi pasteur complet ed tetanus-d iphth toxoids (Td) adult/ado l 01/24/10 Given Ambulat ory Pharmac y zoster vaccine live 2008 zzLef t Arm [id number] 121 [employer] complet ed zoster vaccine live 05/31/09 Given Ambulat ory Pharmac y influenza virus vaccine,split 2005 zzLef t Arm [id number] 15 Brand [employer]inity TechnologiesK[employer] ne complet ed influenza virus vaccine,s plit 09/20/06 Given Ambulat ory Pharmac y influenza virus vaccine,split 2004 zzLef t Arm [id number] 15 sanofi pasteur complet ed influenza virus vaccine,s plit 08/31/05 Given Ambulat ory Pharmac y influenza virus vaccine,split 2003 [facility] [id number] 15 sanofi pasteur complet ed influenza virus vaccine,s plit 10/12/04 Given Ambulat ory Pharmac y influenza virus vaccine, whole virus 2002 zzLef t Arm [id number] 16 sanofi pasteur complet ed influenza virus vaccine, whole virus 08/04/03 Given Ambulat ory Pharmac y influenza virus vaccine, whole virus 1998 [id number] 16 [employer] complet ed influenza virus vaccine, whole virus [...] High: 160-189 mg/dL Very High: 190 mg/dL [address] [place] [address] Chemistry HDL Cholesterol 71 mg/dL 40 - 59 08/19 H Interpretive Data: HDL (HIGH DENSITY LIPOPROTEIN) : ADULTS: Low: < 40 mg/dL High: >/= 60 mg/dL AGES 0 -19: Low: < 40 mg/dL Borderline Low: 40 - 45 mg/dL Acceptable: > 45 mg/dL [address] [place] [address] Chemistry Cholesterol Total 239 mg/dL 08/19 H Interpretive Data: According to the [place] [employer]: AGES 0-19: Desirable: < 170 mg/dL Borderline High: 170-199 mg/dL High Blood Cholesterol: >/= 200 mg/dL ADULTS: Desirable < 200 mg/dL Borderline High: 200-239 mg/dL High Blood Cholesterol: >/= 240 mg/dL [address] [place] [address] Chemistry Chol/HDL 3 mg/dL 08/[address] [place] [address] Chemistry Triglycerid es 92 mg/dL 7 - 149 08/19 N Interpretive Data: AGES 0-9: Desirable: < 75 mg/dL Borderline High: 75-99 mg/dL High: >/= 100 mg/dL AGES 10-19: Desirable: < 90 mg/dL Borderline High: 90-129 mg/dL High: >/= 130 mg/dL ADULTS: Desirable: < 150 mg/dL Borderline High: 150-199 mg/dL High: >/= 240 mg/dL Very High: >/= 500 mg/dL [address] [place] [address] Chemistry LDL/HDL 2 08/[address] [place] [address] Vital Signs Combined list of inpatient and outpatient Vital Signs from Department of Defense and Veterans Affairs, ranging from 12 months to all on record, depending upon the facility. Vital Sign Value Date Comments Source Respiratory Rate 16 br/min 08/19/2023 20:19:00 - [facility] Systolic Blood Pressure 125 mm[Hg] 08/19/2023 [...] to the last 18 months, not all [place] inpatient encounters are included; 2) Encounters from the Department of [facility] facilities going backup to 280 months. Location Location Details Encounter Type Encounter Number Reason For Visit Attending Provider ADM Date DC Date Status Disposition Source [facility] [id number] STUART THOMSON 08/12 Discharge Disposition: Home or Self Care 0055C-[facility] [place] [facility] [id number] STUART THOMSON 08/20 Discharge Disposition: Home or Self Care 0055C-3 [facility] [place] [facility]55A-[facility] Between Visit [id number] 01/25 Discharge Disposition: Home or Self Care 0055A-3 [facility] [place] Procedures Combined list of: 1) Procedures from [facility] of Veterans Affairs facilities going back up to thelast 18 months, not all [place] non-surgical procedures are included; 2) All procedures from the Department of [facility] facilities. Procedure Procedure Type Code Date Perfomer Comments Sourc e No data available for this section Ambulatory P harmacy Social History Combined list of available smoking, tobacco, and other social history from [facility] of [facility] and [facility] Affairs facilities. Social History Type [...] had radiation treatments? Y es Prednisone 5day [id number] ended 8 . Have you had a [...] influenza vaccine (Fluzone High-Dose) [65 yr+] PF [id number] IM suspension; 0.5 mL, IntraMuscular, Suspension-Injection, Vaccine, First Dose: 08/12/2024 14:39:00 CDT, 08/12/2024 14:39:00 CDT Other status: Imadm Prq Id Subq/Im Njxs Ea Vaccine [id number]; 08/12/2024 14:38:00 CDT (Completed) by STUART HULL [...] findings in this note. David Morrell MD [facility], [address], [facility] Internal Medicine Staff Physician 01/29/2025 [id number] Functional Status Combined list of recent functional and cognitive assessments recorded at Department of Defense and Veterans Affairs (VA).VA Functional [place] Measurement (FIM) Scale: 1 = Total Assistance (Subject = 0% +), 2 = Maximal Assistance (Subject = 25% +), 3 = Moderate Assistance (Subject = 50% +), 4 = Minimal Assistance (Subject = 75% +), 5 = Supervision, 6 = Modified [place] (Device), 7 = Complete [place] (Timely, Safely). Assessment Date/Time Source Assessment Type Assessment Skill Assessment Score Assessment Details No data available for this section
--- OUTSIDE RECORDS SUMMARY | 2025-01-29 06:50 | XMS_ITS | Clinical Summary ---
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
--- OUTSIDE RECORDS SUMMARY | 2025-01-29 06:50 | XMS_ITS | Referral Summary ---
Author Organization [facility] Address [address] [place] [address] Care Team Providers Care Chemical Milling Processor Name Role Phone Edwin Smith MD Primary Care Provider [phone] Allergies Active Allergy Reactions Criticality Noted Date [...] 11/24/2020 Assessment & Plan (11/24/2020 1:26 PM YARD WORKER): Followed by her PCP and controlled on Boniva. Varicose veins of both lower extremities with pa in 11/16/2020 Assessment & Plan (08/21/2023 4:19 PM YARD WORKER): Impression: Patient has a history of EVLT [...] basis. Assessment & Plan (11/24/2020 1:28 PM YARD WORKER): Patient had ablation of her left great [...] mg. Assessment & Plan (08/21/2023 4:17 PM YARD WORKER): Impression: Chronic and stable. Plan: Continue atorvastatin. Assessment & Plan (11/24/2020 1:26 PM YARD WORKER): Followed by her PCP and controlled on [...] on file Legal Sex Female 7:12 AM YARD WORKER Gender Identity Not on file Sexual Orientation [...] 70.8 kg (156 lb) 09/14/2024 1:19 PM YARD WORKER Height 167.6 cm (5' 6 ) 09/14/2024 1:19 PM YARD WORKER Body Mass Index 25.18 09/14/2024 1:19 PM YARD WORKER Plan of Treatment Not on file Insurance MEDICARE MEDICARE FOR LIFE MEDICARE FOR LIFE MEDICARE FOR LIFE Care Teams Chemical Milling Processor Relationship Specialty Start Date End Date Edwin Smith MD [address] [place] [address] PCP - General Family Practice 09/14/24
--- OUTSIDE RECORDS SUMMARY | 2025-01-29 06:50 | XMS_ITS | Continuity of Care Document ---
Author Organization [facility] Address [address] [place] [address] Phone Care Team Providers Care Road Oiler Name Role Phone Maco Slater MD, Ravindra [...] OFFICE/OUTPAT IENT VISIT NEW [facility] , [address] [facility] [facility] [address], [place], [address], tel:[phone] [facility] Pain in right footHallux rigidus, right foot 3 [address]. [address], [place], [place], [address] . tel: [phone] Referring Provider: Denzel Gallo, [address], [place], [address]. tel:[phone] Family History Family Member Type Diagnosis Age At Onset Sister Problem Kidney cancer Father Problem Hypertension Mother Problem (finding) Sister Problem Thyroid disorder Payers Payer name Insurance type Covered alliance party ID Dejon thorne(s) Medicare E2 OT [id number] For Life OT [id number] Social History Type Description Quantity Date Captured [...]
--- OUTSIDE RECORDS SUMMARY | 2025-01-29 06:50 | XMS_ITS | Clinical Summary ---
Author Organization [facility] [employer] Address [address] [place] [address] Care Team Providers Care Rn Lab Name Role Phone Shawn Girard MD Primary Care Provider [phone]- [phone] Source Comments [facility] [employer],non-owned Affiliates and Associated Physician Practices is amultiple site organization consisting of ambulatory clinics and hospital sitesin [place], [place] and [place]. This disclosure is being madepursuant to the Care Everywhere program and may not contain all information available regarding this patient. Last updated 18.[facility] [employer] Allergies No known active allergies Medications * [...] original. PCP is Dr. 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
== END 2025-01-29 07:02 | disposition home or self-care (01) ==
LOC: ANHED 01-29 06:49
PROVIDERS: Emergency Provider Emergency Medicine; PCP Family Medicine
DX: S60.851A Superficial foreign body of right wrist, initial encounter (principal); W45.8XXA Other foreign body or object entering through skin, initial encounter
CPT/HCPCS: 10120; 99283; A9270

== ENCOUNTER 2025-04-30 14:33 | Emergency (ER) | payer MEDICARE, OTHER, SELFPAY ==
--- NOTE | ~2025-04-30 | XR_ITS ---
EXAM: XR hip LT 2V w AP pelvis DATE: 04/30/2025 16:58 HISTORY: L hip pain radiating down lateral thigh . COMPARISON: None available. FINDINGS: Osteopenia. Lumbar degenerative disc disease. Bilateral hip osteoarthritis. Mild scattered pelvic and hip enthesopathy. Medial gluteal calcific tendinitis. No fracture or dislocation. No lyti c or blastic lesion. IMPRESSION: No acute osseous finding in the pelvis or left hip. Reviewed, dictated and finalized at location K.
[2025-04-30 14:37] VITALS: BP 149/77; PULSE 81; RESP 18; TEMP 36.6; O2SAT 97
--- OUTSIDE RECORDS SUMMARY | 2025-04-30 14:37 | XMS_ITS | Clinical Summary ---
Author Organization [facility] [employer] Address [address] [facility] [place] [address] Care Team Providers Care Software Developer Name Role Phone Shawn Girard MD Primary Care Provider [phone]- [phone] Source Comments [facility],non-owned Affiliates and Associated Physician Practices is amultiple site organization consisting of ambulatory clinics and hospital sitesin [place], [place], [place] and [place]. This disclosure is being madepursuant to the Care Everywhere program and may not contain all information available regarding this patient. Last updated 18.[facility] Allergies No known active allergies Medications * [...] original. PCP is Dr. 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
--- OUTSIDE RECORDS SUMMARY | 2025-04-30 14:37 | XMS_ITS | Continuity of Care Document ---
Author Name [facility] Organization [facility] Care Team Providers Care Clinical Transplant Coordinator Name Role Phone [facility] Unavailable Unavailable Problems Combined list of problems from Department of Defense and Veterans Affairs facilities. It does not include entries that were removed or entered in error. Problem Status Onset Date Problem Type Date of Resolution Comments Source Hyperlipidemia Active 6 Condition [facility] Hyperlipidemia, unspecified Active 6 Condition DoD Encounter for issue of repeat prescription Active 6 Condition DoD Depressive disorder Active Condition 00 55C[facility] Osteoarthritis of knee Active Condition [facility] Osteoporosis Active Condition [facility] Sensorineural hearing loss Active Condition 00[facility] Vitamin D deficiency Active Condition 0 055C[facility] Dysphagia, unspecified Active Condition DoD Unilateral primary osteoarthritis, left knee Active Condition DoD Encounter for screening for malignant neoplasm, site unspecified Active Condition DoD Encounter for other specified special examinations Active Condition DoD SINUSITIS ACUTE Inactive Condition DoD ACUTE BRONCHITIS Inactive Condition DoD SINUSITIS Active Condition DoD spinning dizziness (vertigo) Inactive Condition DoD recently having problems with in-laws Inactive Condition DoD DEPRESSION Active Condition DoD Blood Pressure Isolated Elevated Active Condition DoD visit for: laboratory Inactive Condition DoD 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 DoD visit for: postsurgical exam Active Condition DoD Laboratory Studies Inactive Condition Do D Anticipatory Guidance: Osteoporosis Active Condition DoD NORMAL ROUTINE HISTORY AND PHYSICAL SENIOR CITIZEN (65-80) Inactive Condition DoD visit for: single system exam gynecological Inactive Condition DoD VITAMIN D DEFICIENCY Active Condition D oD STRESS INCONTINENCE Active Condition Do D UTERINE PROLAPSE Active Condition DoD CYSTOCELE Active Condition DoD Mammogram Screening Inactive Condition D oD VAGINAL WALL PROLAPSE CYSTOCELE, MIDLINE Active Condition DoD ROUTINE GYNECOLOGICAL EXAM WITH CERVICAL PAP SMEAR Inactive Condition DoD SENSORINEURAL HEARING LOSS Active Condition DoD PULMONARY NODULE Active Condition DoD EMPHYSEMA Active Condition DoD BRONCHOLITHIASIS Active Condition DoD HYPERLIPIDEMIA Active Condition DoD Breast Surgery Reduction Procedure Elective Active Condition Scheduled at [facility], pulm clearance given. DoD OSTEOPENIA Active Condition [facility] NORMAL ROUTINE HISTORY AND PHYSICAL Inactive Condition [facility] CERVICALGIA Active Condition [facility] visit for: administrative purpose Inactive Condition [facility] Cervix Sample Taken For Pap Smear Active Condition [facility] visit for: screening exam for malignant neoplasm cervix Active Condition [facility] Medications Combined list of outpatient medications from [...] 60 tab(s), 0 total refill(s ), Maintena ncliberty Oral (given by mouth) Ordered 2022 60.0 0055C[facility] cetirizine 10 mg oral tablet 1 tab(s), Oral, Daily, PRN allergy symptoms , # 90 tab(s), 3 total refill(s ), Maintena abdirizak, Pharmacy : [facility] Oral (given by mouth) Discont inued 04/20/2025 4 2024 90.0 [facility]55C[facility] [place] cetirizine 10 mg tablet See Instruct ions, Oral, # 90 EA, 1 total refill(s ), Soft Stop Oral (given by mouth) Ordered 5 2024 90.0 Ambulat ory Pharmac y fexofenadin e 180 mg tablet See Instruct [...] ory Pharmac y montelukast 10 mg tablet = 1 tab(s), Oral, Daily, # 30 EA, 0 total refill(s ), Soft Stop Oral (given by mouth) Ordered 5 2024 30.0 Ambulat ory Pharmac y naproxen 250 mg oral tablet 1 tab(s), Oral, BID, PRN fever/mi ld pain, # 60 tab(s), 3 total refill(s ), Acute, 07/06/24 12:00:00 AM CDT, Pharmacy : [facility] Oral (given by mouth) Complet ed 07/06/2024 4 2023 60.0 0055C-[address] [place] [address] naproxen 275 mg tablet = 1 tab(s), Oral, every 8 hr, # 90 EA, 0 total refill(s ), Soft Stop Oral (given by mouth) Ordered 5 2024 90.0 Ambulat ory Pharmac y spironolact one 25 mg tablet = 1 tab(s), Oral, BID, # 90 EA, 0 total [...] (given by mouth) Ordered 2022 30.0 0055C-3 [facility] Vitamin D3 25 mcg (1000 intl units) oral capsule 1 cap(s), Oral, Daily, # 90 cap(s), 0 total refill(s ), Maintena nce Oral (given by mouth) Ordered 2022 90.0 0055C-3 [facility] Allergies, Adverse Reactions, Alerts Combined list of allergies from Department of Defense and Veterans Affairs facilities. It does not include entries that were removed or entered in error. Substance Category Reaction Severity Reaction type Status Date Reported Comments Source shellfish Propensity to adverse reactions to food Rash Active 1 Unknown Organization [facility] {Cla } Food allergy (disorder) Rash active [address] [facility] [place] ([facility]) Immunizations Combined list of available immunizations from the Department of Defense and Veterans Affairs facilities. Immunization Series Date Given Administered By Site Reaction Lot Number CVX Code Drug Industrial Chemicals Supervisor Status Comments Source zoster vaccine, inactivated 2024 JOSHUARWASHIN GTON Shoul sue, left (delt oid) [id number] GlaxoSmithKli ne complet ed zoster vaccine, inactivat ed 04/13/25 Given 0055C-3 [facility] RSV vaccine, preF A-preF B, recombinant 2023 ETHANJPOCKLIN GTON Shoul sue, left (delt oid) [id number] Pfizer [employer] complet ed RSV vaccine, preF A-preF B, recombina nt 08/20/24 Given 0055C-3 [facility] tetanus-dipht h toxoids (Td) adult/adol 2023 JOSHUARWASHIN GTON Shoul sue, right (delt oid) [id number] sanofi pasteur complet ed tetanus-d iphth toxoids (Td) adult/ado l 08/12/24 Given [facility] influenza virus vaccine, inactivated 2023 JOSHUARWASHIN GTON Shoul sue, left (delt oid) [id number] sanofi pasteur complet ed influenza virus vaccine, inactivat ed 08/12/24 Given 5C-3 75th [facility] influenza, adjuvanted quadrivalent, PF 2022 JOSHUARWASHIN GTON 205 complet ed Result Comment: Route: Unknown Manufactu rer: OTH (SEQ) 5C-3 75th MED[facility] influenza, high-dose seasonal, quad, pf 2021 JOSHUARWASHIN GTON 197 complet ed Result Comment: Route: Unknown Manufactu rer: OTH (PMC) -3 [facility] [place] influenza, injectable, quadrivalent- pf 2020 Raquel t Arm [id number] 150 GlaxoSmSourceDogg.comKli ne complet ed influenza , injectabl e, quadrival ent-pf 07/21/21 Given Ambulat ory Pharmac y Influenza, injectable, quadrivalent, preservative free 1 2020 Unknown, Provider [id number] [facility] Influenza , injectabl e, quadrival ent, preservat greta free DoD COVID Vaccine Pfizer 2020 TRANSCR IBED 208 PFIZER complet ed COVID Vaccine Pfizer 04/24/21 Given Ambulat ory Pharmac y COVID-19 (PFIZER), MRNA, LNP-S, PF, 30 MCG/0.3 ML DOSE 2 2020 208 complet ed PFR; [id number]; [address] [facility] SARS-COV-2 (COVID-19) vaccine, mRNA, spike protein, LNP, preservative free, 30 mcg/0.3mL dose 2 2020 Unknown, Provider 208 Pfizer, Inc (PFR) complet ed SARS-COV- 2 (COVID-19 ) vaccine, mRNA, spike protein, LNP, preservat greta free, 30 mcg/0.3mL dose DoD COVID-19 (PFIZER), MRNA, LNP-S, PF, 30 MCG/0.3 ML DOSE 1 2020 208 complet ed PFR; [id number]; 1 [facility] COVID Vaccine Pfizer 2020 TRANSCR IBED 208 PFIZER complet ed COVID Vaccine Pfizer 04/03/21 Given Ambulat ory Pharmac y SARS-COV-2 (COVID-19) vaccine, mRNA, spike protein, LNP, preservative free, 30 mcg/0.3mL dose 1 2020 Unknown, Provider 208 Pfizer, Inc (PFR) complet ed SARS-COV- 2 (COVID-19 ) vaccine, mRNA, spike protein, LNP, preservat greta free, 30 mcg/0.3mL dose DoD influenza virus vaccine, inactivated 2019 [facility] Arm [id number] Seqirus complet ed influenza virus vaccine, inactivat ed 08/05/20 Given Ambulat ory Pharmac y Influenza vaccine, quadrivalent, adjuvanted (Fluad) 1 2019 Unknown, Provider [id number] 205 Seqirus (SEQ) complet ed Influenza vaccine, quadrival ent, adjuvante d (Fluad) DoD influenza, injectable, quadrivalent- pf [address] [facility] [id number] 150 Seqirus complet ed influenza , injectabl e, quadrival ent-pf 08/26/19 Given Ambulat ory Pharmac y Influenza, injectable, quadrivalent, preservative free 1 2018 Unknown, Provider [id number] 150 Seqirus (SEQ) complet ed Influenza , injectabl e, quadrival ent, preservat greta free DoD influenza, injectable, quadrivalent- pf [address] Arm [id number] 150 Seqirus complet ed influenza , injectabl e, quadrival ent-pf 07/25/18 Given Ambulat ory Pharmac y Influenza, injectable, quadrivalent, preservative free 1 2017 Unknown, Provider [id number] 150 Seqirus (SEQ) complet ed Influenza , injectabl e, quadrival ent, preservat greta free DoD influenza, injectable, quadrivalent- pf [address] [facility] [facility] Arm [id number] 150 GlaxoSmithKl ne complet ed influenza , injectabl e, quadrival ent-pf 07/23/17 Given Ambulat ory Pharmac y Influenza, injectable, quadrivalent, preservative free 1 2016 Unknown, Provider [id number] 150 Macoine (SKB) complet ed Influenza , injectabl e, quadrival ent, preservat greta free DoD influenza, injectable, quadrivalent [facility] [id number] 158 [employer] complet ed influenza , injectabl e, quadrival ent 07/20/16 Given Ambulat ory Pharmac y influenza, injectable, quadrivalent, contains preservative 1 2015 Unknown, Provider [id number] (IDB) complet ed influenza , injectabl e, quadrival ent, contains preservat greta DoD hepatitis A-hepatitis B vaccine 2015 zzLef t Arm [id number] 104 GlaxoSmithKli ne complet ed hepatitis A-hepatit is B vaccine 05/08/16 Given Ambulat ory Pharmac y hepatitis A and hepatitis B vaccine 1 2015 Unknown, Provider [id number] 104 [employer]oine (SKB) complet ed hepatitis A and hepatitis B vaccine DoD hepatitis A-hepatitis B vaccine 2015 [facility] [id number] 104 GlaxoSmithKli ne complet ed hepatitis A-hepatit is B vaccine 12/09/15 Given Ambulat ory Pharmac y hepatitis A and hepatitis B vaccine 1 2015 Unknown, Provider [id number] 104 [employer]oine (SKB) complet ed hepatitis A and hepatitis B vaccine DoD pneumococcal polysaccharid e, 23 valent 2015 zzLef t Arm [id number] Merck & Company Inc complet ed pneumococ nelson polysacch aride, 23 valent 11/08/15 Given Ambulat ory Pharmac y hepatitis A-hepatitis B vaccine 2015 [facility] [id number] 104 GlaxoSmithKli ne complet ed hepatitis A-hepatit is B vaccine 11/08/15 Given Ambulat ory Pharmac y pneumococcal polysaccharid e vaccine, 23 valent 1 2015 Unknown, Provider [id number] Merck (MSD) complet ed pneumococ nelson polysacch aride vaccine, 23 valent DoD hepatitis A and hepatitis B vaccine 1 2015 Unknown, Provider [id number] 104 Macoine (SKB) complet ed hepatitis A and hepatitis B vaccine DoD influenza, injectable, quadrivalent- pf 2014 zzLef t Arm [id number] 150 [facility] complet ed influenza , injectabl e, quadrival ent-pf 08/08/15 Given Ambulat ory Pharmac y Influenza, injectable, quadrivalent, preservative free 1 2014 Unknown, Provider [id number] 150 [facility] (PAYAM) complet ed Influenza , injectabl e, quadrival ent, preservat greta free DoD pneumococcal 13-valent conjugate (PCV13) 2014 zzLef t Arm [id number] 133 [facility] complet ed pneumococ nelson 13-valent conjugate (PCV13) 10/22/14 Given Ambulat ory Pharmac y pneumococcal conjugate vaccine, 13 valent 1 2014 Unknown, Provider [id number] [facility] ([facility]) complet ed pneumococ nelson conjugate vaccine, 13 valent DoD influenza, seasonal, injectable-pf 2013 zzLef t Arm [id number] 140 Novartis Pharmaceutica complet ed influenza , seasonal, injectabl e-pf 07/10/14 Given Ambulat ory Pharmac y Influenza, seasonal, injectable, preservative free 1 2013 Unknown, Provider [id number] 140 Novartis Pharmaceutica l [place]. (NOV) complet ed Influenza , seasonal, injectabl e, preservat greta free DoD tetanus, diphtheria, acellular pertu is 2012 [facility] t [facility] [id number] [facility] tetanus, diphtheri a, acellular pertussis 09/25/13 Given Ambulat ory Pharmac y tetanus toxoid, reduced diphtheria toxoid, and acellular pertu is vaccine, adsorbed 1 2012 Unknown, Provider [id number] 115 [facility] (PAYAM) complet ed tetanus toxoid, reduced diphtheri a toxoid, and acellular pertussis vaccine, adsorbed DoD influenza, seasonal, injectable-pf 2012 zzLef t Arm [id number] 140 sanofi pasteur complet ed influenza , seasonal, injectabl e-pf 07/21/13 Given Ambulat ory Pharmac y Influenza, seasonal, injectable, preservative free 1 2012 Unknown, Provider [id number] 140 Sanofi Pasteur ([facility]) complet ed Influenza , seasonal, injectabl e, preservat greta free DoD influenza, seasonal, injectable-pf 2011 [facility] Arm [id number] 140 sanofi pasteur complet ed influenza , seasonal, injectabl e-pf 08/06/12 Given Ambulat ory Pharmac y Influenza, seasonal, injectable, preservative free 8 2011 Unknown, Provider [id number] 140 Sanofi Pasteur ([facility]) complet ed Influenza , seasonal, injectabl e, preservat greta free DoD influenza, seasonal, injectable 2010 [facility] [id number] 141 sanofi pasteur complet ed influenza , seasonal, injectabl e 06/22/11 Given Ambulat ory Pharmac y Influenza, seasonal, injectable 7 2010 Unknown, Provider [id number] 141 Sanofi Pasteur ([facility]) complet ed Influenza , seasonal, injectabl e DoD influenza virus vaccine,split 2009 zef t Arm [id number] 15 CSL Behring complet ed influenza virus vaccine,s plit 07/20/10 Given Ambulat ory Pharmac y influenza virus vaccine, split virus (incl. purified surface antigen)-reti red CODE 1 2009 Unknown, Provider [id number] 15 CSL [employer] (CSL) complet ed influenza virus vaccine, split virus (incl. purified surface antigen)- retired CODE DoD tetanus-dipht h toxoids (Td) adult/adol 2009 zzLef t Arm [id number] 09 sanofi pasteur complet ed tetanus-d iphth toxoids (Td) adult/ado l 01/24/10 Given Ambulat ory Pharmac y tetanus and diphtheria toxoids, adsorbed, preservative free, for adult use (2 Lf of tetanus toxoid and 2 Lf of diphtheria toxoid) 1 2009 Unknown, Provider [id number] 09 Sanofi Pasteur ([facility]) complet ed tetanus and diphtheri a toxoids, adsorbed, preservat greta free, for adult use (2 Lf of tetanus toxoid and 2 Lf of diphtheri a toxoid) DoD zoster vaccine live 2008 zzLef t Arm [id number] 121 [employer] complet ed zoster vaccine live 05/31/09 Given Ambulat ory Pharmac y zoster vaccine, live 1 2008 Unknown, Provider [id number] Merck (MSD) complet ed zoster vaccine, live DoD influenza virus vaccine,split 2005 zzLef t Arm [id number] 15 GlaxoSmithKli ne complet ed influenza virus vaccine,s plit 09/20/06 Given Ambulat ory Pharmac y influenza virus vaccine, split virus (incl. purified surface antigen)-reti red CODE 1 2005 Unknown, Provider [id number] 15 [employer] Systemsine (SKB) complet ed influenza virus vaccine, split virus (incl. purified surface antigen)- retired CODE DoD influenza virus vaccine,split 2004 zzLef t Arm [id number] 15 sanofi pasteur complet ed influenza virus vaccine,s plit 08/31/05 Given Ambulat ory Pharmac y influenza virus vaccine, split virus (incl. purified surface antigen)-reti red CODE 1 2004 Unknown, Provider [id number] 15 Sanofi Pasteur ([facility]) complet ed influenza virus vaccine, split virus (incl. purified surface antigen)- retired CODE DoD influenza virus vaccine,split 2003 [facility] [id number] 15 sanofi pasteur complet ed influenza virus vaccine,s plit 10/12/04 Given Ambulat ory Pharmac y influenza virus vaccine, split virus (incl. purified surface antigen)-reti red CODE 1 2003 Unknown, Provider [id number] 15 Sanofi Pasteur ([facility]) complet ed influenza virus vaccine, split virus (incl. purified surface antigen)- retired CODE DoD influenza virus vaccine, whole virus 2002 [facility] Arm [id number] 16 sanofi pasteur complet ed influenza virus vaccine, whole virus 08/04/03 Given Ambulat ory Pharmac y influenza virus vaccine, whole virus 1 2002 Unknown, Provider [id number] 16 Sanofi Pasteur ([facility]) complet ed influenza virus vaccine, whole virus DoD influenza virus vaccine, whole virus 1998 [id number] 16 [employer] complet ed influenza virus vaccine, whole virus 07/29/99 Given Ambulat ory Pharmac y influenza virus vaccine, whole virus 1 1998 Unknown, Provider [id number] 16 EdvinSandoval ([facility]) complet ed influenza virus vaccine, whole virus DoD Results Combined list of recent chemistry, hematology and other laboratory results from Department of Defense and Veterans Affairs, ranging from 15 months to all on record, depending upon the facility. Order Name Results Value Reference Range Date Interpretation Specimen Comments Source Chemistry LDL 156 mg/dL 100 - 130 11/06 /2023 H Interpretive Data: AGES 0-19: Desirable: < 110 mg/dL Borderline High: 110-129 mg/dL High: >/= 130 mg/dL ADULTS: Desirable: <100 mg/dL Near/above optimal: 100-130 mg/dL Borderline High: 131-159 mg/dL High: 160-189 mg/dL Very High: 190 mg/dL [address] [place] [address] Chemistry HDL Cholesterol 71 mg/dL 40 - 59 08/19 H Interpretive Data: HDL (HIGH DENSITY LIPOPROTEIN) : ADULTS: Low: < 40 mg/dL High: >/= 60 mg/dL AGES 0 -19: Low: < 40 mg/dL Borderline Low: 40 - 45 mg/dL Acceptable: > 45 mg/dL [address] [place] [address] Chemistry Cholesterol Total 239 mg/dL 08/19 H Interpretive Data: According to the [place] [employer]: AGES 0-19: Desirable: < 170 mg/dL Borderline High: 170-199 mg/dL High Blood Cholesterol: >/= 200 mg/dL ADULTS: Desirable < 200 mg/dL Borderline High: 200-239 mg/dL High Blood Cholesterol: >/= 240 mg/dL [address] [place] [address] Chemistry Chol/HDL 3 mg/dL 08/[address] [place] [address] Chemistry Triglycerid es 92 mg/dL 7 - 149 08/19 N Interpretive Data: AGES 0-9: Desirable: < 75 mg/dL Borderline High: 75-99 mg/dL High: >/= 100 mg/dL AGES 10-19: Desirable: < 90 mg/dL Borderline High: 90-129 mg/dL High: >/= 130 mg/dL ADULTS: Desirable: < 150 mg/dL Borderline High: 150-199 mg/dL High: >/= 240 mg/dL Very High: >/= 500 mg/dL [address] [place] [address] Chemistry LDL/HDL 2 08/[address] [place] [address] Vital Signs Combined list of inpatient and outpatient Vital Signs from Department of Defense and Veterans Affairs, ranging from 12 months to all on record, depending upon the facility. Vital Sign Value Date Comments Source Respiratory Rate 16 br/min 08/19/2023 20:19:00 [facility] Systolic Blood Pressure 125 mm[Hg] 08/19/2023 20:19:00 [facility] Diastolic Blood Pressure 68 mm[Hg] 08/19/2023 [...] to the last 18 months, not all VA inpatient encounters are included; 2) Encounters from the Department of Defense facilities going backup to 280 months. Location Location Details Encounter Type Encounter Number Reason For Visit Attending Provider ADM Date DC Date Status Disposition Source [facility] [place] [facility] tt Internal Medicine Tm) OUTPATIENT [id number] KELLY Dotson 06/28 Released w/o Limitations [facility])(S cott Interna l Medicin e Tm) Medical [facility] [place] [facility]) OUTPATIENT [id number] f/u CT 4 mm nod ORZECHOWSK I, ZYGMUNT 06/29 Released w/o Limitations [facility] [place] [facility])(P ulmonar y) [address] [place] [address] [place] [facility])(Uto tt Internal Medicine Tm) TELE CONSULT [id number] ABBY DUARTE 07/18[facility] [place] [facility]S cott Interna l Medicin e Tm) [address] [place] [address] [place] [facility]) OUTPATIENT [id number] f/u ORZECHOWSK I, ZYGMUNT 07/25 Released w/o Limitations [facility] [place] [facility])(P ulmonar y) [employer] ([facility])([facility] tt Internal Medicine Tm) TELE CONSULT [id number] ABBY De Souza 12/20 [facility] [employer] [place] [facility] ([facility])(S cott Interna l Medicin e Tm) [employer] ([facility])([facility] tt Internal Medicine Tm) OUTPATIENT [id number] readdre ss breast reducti on TIFFANY, ASSY 01/04 Released w/o Limitations [employer] [place] [facility] ([facility])(S cott Interna l Medicin e Tm) [employer] ([facility])(Pul monary) OUTPATIENT [id number] F/U LUNG NODULE ORZECHOWSK I, ZYGMUNT 02/14 Released w/o Limitations [employer] ([facility])(P ulmonar y) [facility] Medical [facility] [employer] ([facility])(Pul monary) OUTPATIENT [id number] f/u ORZECHOWSK I, ZYGMUNT 05/01 Released w/o Limitations [employer] ([facility])(P ulmonar y) [facility] [employer] ([facility])(Pul monary) OUTPATIENT [id number] f/u SPN ORZECHOWSK I, ZYGMUNT 09/10 Released w/o Limitations [employer] ([facility])(P ulmonar y) [facility] Medical [facility] [employer] ([facility])(Pul monary) OUTPATIENT [id number] needs lipids ORZECHOWSK I, ZYGMUNT 09/11 Released w/o Limitations [employer] ([facility])(P ulmonar y) [facility] [employer] ([facility])(Pul monary) OUTPATIENT [id number] Pas entered the order ORZECHOWSK I, ZYGMUNT 09/25 Released w/o Limitations [employer] ([facility])(P ulmonar y) [facility] [employer] ([facility])(Aud iology) OUTPATIENT [id number] Hearing test DAMIAN CAIN 03/30 Released w/o Limitations [employer] [place] [employer] ([facility])(A udiolog y) [facility] [employer] ([facility])(Obgyn Hospitalist Physician ecology) OUTPATIENT [id number] annual wwe- [id number] BHANU COX 09/27 Released w/o Limitations [facility] [employer] ([facility])(G ynecolo gy) [employer] [employer] ([facility])(Aud iology) OUTPATIENT [id number] Hearing test DAMIAN CAIN 09/27 Released w/o Limitations [employer] ([facility])(A udiolog y) [employer] [place] B ([facility])(Obgyn Hospitalist Physician ecology) TELE CONSULT [id number] Discuss bone density results BHANU COX 09/28 [employer] ([facility])(G ynecolo gy) [employer] ([facility])(Ob/ Obgyn Hospitalist Physician) TELE CONSULT [id number] Discuss lab results . NAOMY COXBRISA Sellers 10/17 [employer] ([facility])(O b/Obgyn Hospitalist Physician) [employer] ([facility])(Obgyn Hospitalist Physician ecology) OUTPATIENT [id number] VAGINAL WALL PROLAPS E CYSTOCE LE, MIDLINE THIERNOSUKUMAR MICHAEL L 11/25 Released w/o Limitations [employer] ([facility])(G ynecolo gy) [employer] ([facility])(Obgyn Hospitalist Physician ecology) OUTPATIENT [id number] pessary fitting - jason from Dec 21 THIERNOSUKUMAR MICHAEL L 12/15 Released w/o Limitations [employer] ([facility])(G ynecolo gy) [employer] ([facility])(Ob/ Obgyn Hospitalist Physician) TELE CONSULT [id number] Pain with Pessory . THIERNOSUKUMAR MICHEAL L 12/19 [employer] ([facility])(O b/Obgyn Hospitalist Physician) [employer] ([facility])(Obgyn Hospitalist Physician ecology) OUTPATIENT [id number] pessary fitting THIERNOSUKUMAR MICHAEL L 01/06 Released w/o Limitations [employer] ([facility])(G ynecolo gy) [employer] ([facility])(Ob/ Obgyn Hospitalist Physician) TELE CONSULT [id number] Discuss Lab result BHANU COX 02/[address] [facility] [employer] ([facility])(O b/Obgyn Hospitalist Physician) [facility] [employer] ([facility])(Obgyn Hospitalist Physician ecology) OUTPATIENT [id number] annual wwe, @1030 , [id number] BHANU COX 12/22 Released w/o Limitations [address] [place] [address] [employer] ([facility])(G ynecolo gy) [address] [place] [address] [employer] ([facility])(Obgyn Hospitalist Physician ecology) TELE CONSULT [id number] Discuss lab results MAXIMILIAN JAIME 12/22 Referred for Appointment [address] [place] [address] [employer] ([facility])(G ynecolo gy) [address] [place] [address] [employer] ([facility])(Obgyn Hospitalist Physician ecology) TELE CONSULT [id number] Discuss laborat ory results MAXIMILIAN JAIME 12/[address] [place] [address] [employer] ([facility])(G ynecolo gy) [address] [place] [address] [employer] ([facility])(Obgyn Hospitalist Physician ecology) OUTPATIENT [id number] Cystoce le KURTIS, SUKUMAR L 01/09 Released w/o Limitations [address] [place] [address] [employer] ([facility])(G ynecolo gy) [facility] Medical [facility] [employer] ([facility])(Obgyn Hospitalist Physician ecology) OUTPATIENT [id number] surgery consult per martir on PARIALEC, SUKUMAR L 04/24 Released w/o Limitations [address] [place] [address] [employer] ([facility])(G ynecolo gy) [facility] Medical [facility] [employer] ([facility])(Ob/ Obgyn Hospitalist Physician) TELE CONSULT [id number] schedul e surgery PARIALEC, SUKUMAR L 05/[address] [place] [address] [employer] ([facility])(O b/Obgyn Hospitalist Physician) [facility] Medical [facility] [employer] ([facility])(Obgyn Hospitalist Physician ecology) OUTPATIENT [id number] pre op hystere ctomy PARIALEC, SUKUMAR L 06/22 Released w/o Limitations [address] [place] [address] [employer] ([facility])(G ynecolo gy) [facility] [employer] ([facility])(Obgyn Hospitalist Physician ecology) TELE CONSULT [id number] Discuss lab results BHANU COX 06/[address] [place] [address] [employer] ([facility])(G ynecolo gy) [facility] Medical [facility] [employer] ([facility])(Obgyn Hospitalist Physician ecology) TELE CONSULT [id number] Reina dailey about surgery PARINI, SUKUMAR L 08/[address] [place] [address] [employer] ([facility])(G ynecolo gy) [facility] [employer] ([facility])(Ob/ Obgyn Hospitalist Physician) TELE CONSULT [id number] follow- up appt SUKUMAR HULL 08/[address] [place] [address] [employer] ([facility])(O b/Obgyn Hospitalist Physician) [address] [place] [address] [employer] ([facility])(Obgyn Hospitalist Physician ecology) OUTPATIENT [id number] Post Op SUKUMAR HULL 09/12 Released w/o Limitations [address] [place] [address] [employer] ([facility])(G ynecolo gy) [address] [place] [address] [employer] ([facility])(Obgyn Hospitalist Physician ecology) OUTPATIENT [id number] post op - [id number] SUKUMAR HULL 10/02 Released w/o Limitations [address] [place] [address] [employer] ([facility])(G ynecolo gy) [address] [place] [address] [employer] ([facility])(Obgyn Hospitalist Physician ecology) OUTPATIENT [id number] well woman [id number] BHANU COX 11/09 Released w/o Limitations [address] [place] [address] [employer] ([facility])(G ynecolo gy) [address] [place] [address] [employer] ([facility])(Obgyn Hospitalist Physician ecology) TELE CONSULT [id number] Notes Entered by: Quan PYLE 21 Nov 2011 0753 ------- ------- ------- ------- -- Vitamin D MICHAELA HOLLAND 11/[address] [place] [address] [employer] ([facility])(G ynecolo gy) [address] [place] [address] [employer] ([facility])(Obgyn Hospitalist Physician ecology) TELE CONSULT [id number] Notes Entered by: BHANU KLEIN 29 Nov 2011 1731 ------- ------- ------- ------- -- Discuss lab results MICHAELA HOLLAND 11/[address] [place] [address] [employer] ([facility])(G ynecolo gy) [address] [place] [address] [employer] ([facility])(Obgyn Hospitalist Physician ecology) OUTPATIENT [id number] [employer] and medicat ion refGLORIA Hu 11/13 Released w/o Limitations [address] [place] [address] [employer] ([facility])(G ynecolo gy) [address] [place] [address] [facility])([facility] Internal [facility] ) OUTPATIENT [id number] saida navarro ng 5-6 days [id number] LENNOX FODR 08/07 Released w/o Limitations [address] [place] [address])(S cott Interna l Medicin e Tm) [address] [place] [address])([facility] ) TELE CONSULT [id number] Notes Entered by: MARCIN MICHELE 21 Oct 2013 0744 ------- ------- ------- ------- -- SX - Multipl e symptom s/Jesús/6 18.010. 4833 SILKE FOSTER 10/[address] [place] [address])(S cott Interna l Medicin e Tm) [address] [place] [address])([facility] ) OUTPATIENT [id number] Chest congest ion, yel product greta cough LENNOX FORD 10/21 Released w/o Limitations [address] [place] [address])(S cott Interna l Medicin e Tm) [address] [place] [address])([facility] ) OUTPATIENT [id number] congest ion swollen glands- X 1 week - [id number] GAVIN BRAR 11/17 Released w/o Limitations [address] [place] [address])(S cott Interna l Medicin e Tm) [address] [place] [address])([facility] ) OUTPATIENT [id number] growth under L finger cuticle x 6 months [id number] SIMBA HIGHTOWER V 10/21 Released w/o Limitations [address] [place] [address])(S cott Interna l Medicin e Tm) [address] [place] [address])(Sue matology) OUTPATIENT [id number] anomali es of nails AZEEM GRACE 01/10 Released w/o Limitations [address] [place] [address])(Judy ermatol ogy) [address] [place] [address])(Sue matology) OUTPATIENT [id number] Notes Entered by: Oralia LEMONS 24 Jan 2015 0909 ------- ------- ------- ------- -- suture removal AZEEM GRACE 01/24 Released w/o Limitations [facility] [employer] [facility] ([facility])(D ermatol ogy) [address] [place] [address])([facility] ) OUTPATIENT [id number] f/u bone scan - pt has questio ns for PCM [id number] HIGHTOWER SIMBA V 01/31 Released w/o Limitations [address] [place] [address])(S cott Interna l Medicin e Tm) [address] [place] [address])([facility] ) OUTPATIENT [id number] injecti on HIGHTOWERCARYNLY V 02/08 Released w/o Limitations [address] [place] [address])(S cott Interna l Medicin e Tm) [address] [place] [address])([facility] ) OUTPATIENT [id number] injecti on HIGHTOWERERICASIMBA V 02/17 Released w/o Limitations [address] [place] [address] ([facility])(S cott Interna l Medicin e Tm) [address] [place] [address])([facility]) OUTPATIENT [id number] f/u nails and palms AZEEM GRACE 03/21 Released w/o Limitations [address] [place] [address] ([facility])(D ermatol ogy) [address] [place] [address])([facility]) OUTPATIENT [id number] Notes Entered by: DON DAVID 30 Mar 2015 1128 ------- ------- ------- ------- -- PreD Class BILL DAVID 03/30 Released w/o Limitations [address] [place] [address] [employer] ([facility])(N utritio nal Medicin e) [address] [place] [address] [facility])([facility] OUTPATIENT [id number] Notes Entered by: Oralia LEMONS 04 Apr 2015 0949 ------- ------- ------- ------- -- suture removal AZEEM GRACE 04/04 Released w/o Limitations [address] [place] [address])(Judy bill) [address] [place] [address])([facility] ) TELE CONSULT [id number] Notes Entered by: SARABJIT AVALOS 13 May 2015 0805 ------- ------- ------- ------- -- DME LEVI Whitfield 05/13 Referred for Appointment [address] [place] [address])(S cott Interna l Medicin e Tm) [address] [place] [address])([facility] ) TELE CONSULT [id number] Notes Entered by: AMRCIN MICHELE 19 Aug 2015 1413 ------- ------- ------- ------- -- SX - L knee pain/ko ndowe/6 18.380. 1647* SILKE FOSTER 08/[address] [place] [address])(S cott Interna l Medicin e Tm) [address] [place] [address])([facility] ) TELE CONSULT [id number] Notes Entered by: Aarti LOVELACE 29 Aug 2015 1520 ------- ------- ------- ------- -- X-ray results from Andlisa hank [facility] FLACO Arcos 08/[address] [place] [address])(S cott Interna l Medicin e Tm) [address] [place] [address])([facility] ) OUTPATIENT [id number] f/u L Knee Pain (post [facility] Visit) KAVYA LIZARRAGA V 09/20 Released w/o Limitations [address] [place] [address])(S cott Interna l Medicin e Tm) [address] [place] [address])([facility] ) TELE CONSULT [id number] Notes Entered by: JULIO POTTS 03 Oct 2015 1359 ------- ------- ------- ------- -- Network Results - Optomet ry 5 NGA CUTLER 10/[address] [place] [address])(S cott Interna l Medicin e Tm) [address] [place] [address])([facility] ) OUTPATIENT [id number] f/u Varicos e VaKAVYA Damon V 10/18 Released w/o Limitations [address] [place] [address])(S cott Interna l Medicin e Tm) [address] [place] [address])(Sue matology) OUTPATIENT [id number] re-eval L hand 3rd fingern ail MARINO PICKENS 11/07 Released w/o Limitations [address] [place] [address])(D ermatocelso bill) [address] [place] [address])([facility] ) TELE CONSULT [id number] Notes Entered by: COREY HODGES 27 Dec 2015 1332 ------- ------- ------- ------- -- Network Results ORTHOPE DICS 12/26/15 NGA HERZOG 12/[address] [place] [address])(S cott Interna l Medicin e Tm) [address] [place] [address])([facility] ) TELE CONSULT [id number] Notes Entered by: HELEN CASTILLO 17 Jan 2016 1525 ------- ------- ------- ------- -- Network results Surgery 016 NGA NAIR 01/[address] [place] [address] [facility])(S cott Interna l Medicin e Tm) [address] [place] [address])([facility] ) TELE CONSULT [id number] Notes Entered by: COREY HODGES 27 Jan 2016 0719 ------- ------- ------- ------- -- Network Results ORTHOPE DICS 01/18/16 [facility]/[address] [place] [address] [facility])(S cott Interna l Medicin e Tm) [address] [place] [address] [facility])([facility] ) TELE CONSULT [id number] Notes Entered by: COREY HODGES 17 Feb 201648 ------- ------- ------- ------- -- Network Results ORTHOPE DICS 02/06/16 [facility]/[address] [place] [address] [facility])(S cott Interna l Medicin e Tm) [address] [place] [address])([facility] ) OUTPATIENT [id number] [facility]//3 44.2873 [facility] NGA 06/22 Released w/o Limitations [address] [place] [address] ([facility])(S cott Interna l Medicin e Tm) [address] [place] [address])([facility] ) TELE CONSULT [id number] Notes Entered by: Aarti LOVELACE 30 Aug 2016 1315 ------- ------- ------- ------- -- SILKE Garnica 08/[address] [place] [address] [facility])(S cott Interna l Medicin e Tm) [address] [place] [address] [employer] [facility])(Sue matology) OUTPATIENT [id number] AZEEM Adorno 08/31 Released w/o Limitations [address] [place], [place] [address]B ([facility])(Judy bill) [address] [place], [place] [address]B [facility])([facility] ) TELE CONSULT [id number] Notes Entered by: JUAN URBANO 03 Sep 2016 0818 ------- ------- ------- ------- -- Network Results -GASTRO ENTEROL OGY 6 COLONOS COPY [facility] STERN, DACRE 09/[address] [place] [address])(S cott Interna l Medicin e Tm) [address] [place] [address])([facility] ) TELE CONSULT [id number] Notes Entered by: JUAN URBANO 11 Sep 2016 1426 ------- ------- ------- ------- -- Network Results -GASTRO ENTEROL OGY 6 [facility] LEENA, DACDANIELLE 09/[address] [place] [address])(S cott Interna l Medicin e Tm) [address] [place] [address])([facility]) OUTPATIENT [id number] 2 punch bx hand AZEEM GRACE 09/27 Released w/o Limitations [address] [place] [address])(D ermatol ogy) [address] [place] [address])([facility] ) TELE CONSULT [id number] Notes Entered by: COREY HODGES 02 Oct 2016 1234 ------- ------- ------- ------- -- Network Results SURGERY 6 [facility] LEENA, [facility] 10/[address] [place] [address])(S cott Interna l Medicin e Tm) [address] [place] [address])([facility]) OUTPATIENT [id number] Notes Entered by: NELLY PUTNAM 11 Oct 2016 1053 ------- ------- ------- ------- -- suture removal AZEEM GRACE 10/11 Released w/o Limitations [address] [place] [address])(D ermatol ogy) [address] [place] [address])([facility] ) TELE CONSULT [id number] Notes Entered by: QUOC DHALIWAL 07 Nov 2016 1425 ------- ------- ------- ------- -- Network Results - Optomet ry 6 ND STERNKARISSA 11/[address] [place] [address])(S cott Interna l Medicin e Tm) [address] [place] [address])([facility] ) TELE CONSULT [id number] Notes Entered by: MARCIN MICHELE 14 Dec 2016 1507 ------- ------- ------- ------- -- SX - L knee pain/kn ight/61 8.344.2 873 mnm SILKE FOSTER 12/[address] [place] [address])(S cott Interna l Medicin e Tm) [address] [place] [address])([facility] ) OUTPATIENT [id number] Lt knee x yr or more did not use PT appt KAVYA LIZARRAGA V 12/27 Released w/o Limitations [address] [place] [address])(S cott Interna l Medicin e Tm) [address] [place] [address])([facility] ) TELE CONSULT [id number] Notes Entered by: HELEN CASTILLO 08 Jan 2017 1027 ------- ------- ------- ------- -- Network results Physica l Therapy 017 KAVYA LEMOS V 01/[address] [place] [address])(S cott Interna l Medicin e Tm) [address] [place] [address])([facility] ) TELE CONSULT [id number] Notes Entered by: JULIO POTTS 05 Feb 2017 1611 ------- ------- ------- ------- -- Network results Occupat ional/P hysical Therapy 7 KAVYA MORENO V 02/[address] [place] [address])(S cott Interna l Medicin e Tm) [address] [place] [address] [facility] ([facility])([facility] ) OUTPATIENT [id number] f/u knee pain and fatigue KAVYA LIZARRAGA V 03/04 Released w/o Limitations [address] [place] [address] [facility])(S cott Interna l Medicin e Tm) [address] [place] [address] [facility])([facility] ) TELE CONSULT [id number] Notes Entered by: Quan COLEMAN 02 Apr 2017 1116 ------- ------- ------- ------- -- Network Results - Orthope dic Surgery 03/19/17 KAVYA LINARES V 04/[address] [place] [address] [facility])(S cott Interna l Medicin e Tm) [address] [place] [address])([facility] ) OUTPATIENT [id number] Left leg pain / test results [id number] JORDAN YANEZ 06/04 Released w/o Limitations [address] [place] [address] [facility])(S cott Interna l Medicin e Tm) [address] [place] [address] [facility])([facility] ) TELE CONSULT [id number] Notes Entered by: Quan COLEMAN 28 Aug 2017 0935 ------- ------- ------- ------- -- Network results Cardiol ogy 7 KAVYA LINARES V 08/[address] [place] [address] [facility])(S cott Interna l Medicin e Tm) [address] [place] [address])([facility] ) TELE CONSULT [id number] Notes Entered by: REMINGTON ALCAZAR 14 Sep 2017 1102 ------- ------- ------- ------- -- Network Results -Orthop edics 08/21/17 KARISSA STERN 09/[address] [place] [address] [facility] ([facility])(S cott Interna l Medicin e Tm) [address] [place] [address])([facility] ) OUTPATIENT [id number] 6 mo f/u and med refill KARISSA STERN 10/23 Released w/o Limitations [address] [place] [address])(S cott Interna l Medicin e Tm) [address] [place] [address])([facility] ) OUTPATIENT [id number] Annual check up, vein in Left leg, 344.287 3 KARISSA STERN 02/11 Released w/o Limitations [address] [place] [address])(S cott Interna l Medicin e Tm) [address] [place] [address])([facility] ) TELE CONSULT [id number] Notes Entered by: Aarti LOVELACE 03 Jun 2018 1056 ------- ------- ------- ------- -- Med refill x 1 gwp SILKE FOSTER 06/03 Medication Refill Forwarded [address] [place] [address])(S cott Interna l Medicin e Tm) [address] [place] [address])([facility] ) TELE CONSULT [id number] Notes Entered by: CHELSIE DHALIWAL 25 Sep 2018 1133 ------- ------- ------- ------- -- Medicat ion macey /chelsea / CHIKI Polk 09/25 Referred for Appointment [address] [place] [address])(S cott Interna l Medicin e Tm) [address] [place] [address])([facility] ) OUTPATIENT [id number] Annual lab/med review CLARITA TODD 10/02 Released w/o Limitations [address] [place] [address])(S cott Interna l Medicin e Tm) [address] [place] [address])([facility] ) TELE CONSULT [id number] Notes Entered by: CHELSIE DHALIWAL 22 Dec 2018 1437 ------- ------- ------- ------- -- Medicat ion renewal /sosniya / MATTIE Stephens 12/22 Medication Refill Forwarded [address] [place] [address])(S cott Interna l Medicin e Tm) [address] [place] [address])([facility] ) TELE CONSULT [id number] Notes Entered by: Aarti LOVELACE 29 Apr 2019 1416 ------- ------- ------- ------- -- Med refill x 1 / JOSÉ ANTONIO [place] 04/29 Referred for Appointment [address] [place] [address] Group [facility])(S cott Interna l Medicin e Tm) [address] [place] [address])([facility] ) TELE CONSULT [id number] Notes Entered by: DAVIS ADAN 04 May 2019 1302 ------- ------- ------- ------- -- Call Back Request /Chelsea / CHIKI KHAN 05/04 Referred for Appointment [address] [place] [address])(S [facility] Interna l Medicin e Tm) [address] [place] [address])([facility] ) TELE CONSULT [id number] Notes Entered by: PRASANTH CHANDLER 20 Jan 2020 1219 ------- ------- ------- ------- -- Dx with CoVid19 SILKE FOSTER 01/19 Released to [employer] [address] [place] [address])(S cott Interna l Medicin e Tm) [address] [place] [address])([facility] ) TELE CONSULT [id number] Notes Entered by: HERMINIA HARDING 10 Mar 2020 1031 ------- ------- ------- ------- -- Med Renewal / Sosniya / - sgj CLARITA TODD 03/[address] [place] [address])(S cott Interna l Medicin e Tm) [address] [place] [address])([facility] ) TELE CONSULT [id number] Notes Entered by: Aarti LOVELACE 01 Apr 2020 0949 ------- ------- ------- ------- -- pt request ing lab results ? / gwp CLARITA TODD 04/[address] [place] [address])(S cott Interna l Medicin e Tm) [address] [place] [address])([facility] ) TELE CONSULT [id number] Notes Entered by: CHELSIE DHALIWAL 02 Aug 2020 1044 ------- ------- ------- ------- -- med renewal /carmen/ [phone] SILKE Reyna 08/02 Medication Refill Forwarded [address] [place] [address])(S cott Interna l Medicin e Tm) [address] [place] [address])([facility] ) OUTPATIENT [id number] [facility] annual and lab review ONEL RAMOS 08/04 Released w/o Limitations [address] [place] [address])([facility] [address] [place] [address])([facility] ) TELE CONSULT [id number] Notes Entered by: MI NIX 17 Aug 2020 0853 ------- ------- ------- ------- -- Network Results CARDIOL OGY 0 ONEL RAMOS 08/[address] [place] [address])([facility] [address] [place] [address])([facility] Internal Medicine ) TELE CONSULT [id number] Notes Entered by: SILKE FOSTER 16 Nov 2020 1517 ------- ------- ------- ------- -- 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 for emmett BAYAislinnOLGA PALMER Celso 11/16 Other Not Elsewhere Classified [address] [place] [address])([facility] [address] [place] [address])([facility] Medicine ) TELE CONSULT [id number] Notes Entered by: CHELSIE DHALIWAL 03 Feb 2021 1027 ------- ------- ------- ------- -- med refills /[facility] [phone] JOSÉ ANTONIO Orellana 02/03 Other Not Elsewhere Classified [address] [place] [address])([facility] [address] [place] [address])([facility] ) TELE CONSULT [id number] Notes Entered by: LEONARD FISHER 28 Apr 2021 1427 ------- ------- ------- ------- -- Med Renewal Request / [facility] - ANALISA De La Cruz 04/28 Medication Refill Forwarded [address] [place] [address])([facility]) [address] [place] [address])([facility] ) OUTPATIENT [id number] 1 Annual/ labs/nd ANGEL Roldan 11/13 Released w/o Limitations [address] [place] [address])([facility] [address] [place] [address])([facility] ) TELE CONSULT [id number] Notes Entered by: CHELSIE DHALIWAL 10 Jan 2022 0946 ------- ------- ------- ------- -- med refill/ [phone] JOSÉ ANTONIO Orellana 01/10 Other Not Elsewhere Classified [address] [place] [address])([facility] [address] [place] [address])([facility] ) TELE CONSULT [id number] Notes Entered by: Marlo SINGH 27 Apr 2022 1532 ------- ------- ------- ------- -- Med refill REBAERICK STEELE Celso 04/27 Medication Refill Forwarded [address] [place] [address])([facility] [address] [place] [address])([facility] ) TELE CONSULT [id number] 8 Notes Entered by: Oralia DAWN 26 Dec 20221121 ------- ------- ------- ------- -- RX Renewal /[facility]/[phone] or MARSHALL REDDY 12/26 Medication Refill Forwarded [address] [place] [address])([facility]) [phone] [facility] [id number] STUART THOMSON 08/12 Discharge Disposition: Home or Self Care 0055C-[address] [facility] [place] 0055C-375 [facility] [id number] STUART THOMSON 08/20 Discharge Disposition: Home or Self Care 0055C-3 [facility] [facility] [place] [facility] [id number] 01/25 Discharge Disposition: Home or Self Care 0055A-3 [address] [facility] [place] 0055C-375 [facility] [id number] STUART THOMSON 04/13 Discharge Disposition: Home or Self Care 0055C-3 [facility] [place] Procedures Combined list of: 1) Procedures from Department of Veterans Affairs facilities going back up to thelast 18 months, not all VA non-surgical procedures are included; 2) All procedures from the Department of Defense facilities. Procedure Procedure Type Code Date Perfomer Elder koenig No data available for this section [facility] Pharmacy TELE ASSESS & MGT SRV PROV QUAL NONPHYS HLTH CARE PRO TO EST PAT,PARENT,GUARD NOT ORIG REL ASSESS & MGT SRV PROV W/IN PREV 7 DAYS NOR LEAD ASSESS & MGT SRV/PX W/IN NXT 24H/SOON APT; 11-20 MIN MED DIS 023 DoD WAIVER SERVICES; NOT OTHERWISE SPECIFIED (NOS) 022 DoD TELE ASSESS & MGT SRV PROV QUAL NONPHYS HLTH CARE PRO TO EST PAT,PARENT,GUARD NOT ORIG REL ASSESS & MGT SRV PROV W/IN PREV 7 DAYS NOR LEAD ASSESS & MGT SRV/PX W/IN NXT 24 HR/SOON APT;5-10 MIN MED DIS 021 DoD WAIVER SERVICES; NOT OTHERWISE SPECIFIED (NOS) 020 DoD TELE ASSESS & MGT SRV PROV QUAL NONPHYS HLTH CARE PRO TO EST PAT,PARENT,GUARD NOT ORIG REL ASSESS & MGT SRV PROV W/IN PREV 7 DAYS NOR LEAD ASSESS & MGT SRV/PX W/IN NXT 24 HR/SOON APT;5-10 MIN MED DIS 018 DoD TELE ASSESS & MGT SRV PROV QUAL NONPHYS HLTH CARE PRO TO EST PAT,PARENT,GUARD NOT ORIG REL ASSESS & MGT SRV PROV W/IN PREV 7 DAYS NOR LEAD ASSESS & MGT SRV/PX W/IN NXT 24 HR/SOON APT;5-10 MIN MED DIS 017 DoD POSTOPERATIVE FOLLOW-UP VISIT, NORMALLY INCLUDED IN THE SURGICAL PACKAGE, INDICATE THAT EVALUATION & MANAGEMENT SERVICE WAS PERFORMED DURING A POSTOPERATIVE PERIOD REASON RELATED ORIGINAL PROCEDURE [facility] BIOPSY OF SKIN, SUBCUTANEOUS TISSUE AND/OR MUCOUS MEMBRANE (INCLUDING SIMPLE CLOSURE),UNLESS OTHERWISE LISTED (SEPARATE PROCEDURE); EACH SEPARATE/ADD LESION (LIST SEP IN ADD TO CODE FOR PRIMARY PROC) 016 DoD TELE ASSESS & MGT SRV PROV QUAL NONPHYS HLTH CARE PRO TO EST PAT,PARENT,GUARD NOT ORIG REL ASSESS & MGT SRV PROV W/IN PREV 7 DAYS NOR LEAD ASSESS & MGT SRV/PX W/IN NXT 24 HR/SOON APT;5-10 MIN MED DIS 016 DoD TELE ASSESS & MGT SRV PROV QUAL NONPHYS HLTH CARE PRO TO EST PAT,PARENT,GUARD NOT ORIG REL ASSESS & MGT SRV PROV W/IN PREV 7 DAYS NOR LEAD ASSESS & MGT SRV/PX W/IN NXT 24 HR/SOON APT;5-10 MIN MED DIS 015 DoD TELE ASSESS & MGT SRV PROV QUAL NONPHYS HLTH CARE PRO TO EST PAT,PARENT,GUARD NOT ORIG REL ASSESS & MGT SRV PROV W/IN PREV 7 DAYS NOR LEAD ASSESS & MGT SRV/PX W/IN NXT 24 HR/SOON APT;5-10 MIN MED DIS 015 DoD POSTOPERATIVE FOLLOW-UP VISIT, NORMALLY INCLUDED IN THE SURGICAL PACKAGE, INDICATE THAT EVALUATION & MANAGEMENT SERVICE WAS PERFORMED DURING A POSTOPERATIVE PERIOD REASON RELATED ORIGINAL PROCEDURE DoD MEDICAL NUTRITION THERAPY; GROUP (2 OR MORE INDIVIDUAL(S)), EACH 30 MINUTES DoD BIOPSY OF SKIN, SUBCUTANEOUS TISSUE AND/OR MUCOUS MEMBRANE (INCLUDING SIMPLE CLOSURE), UNLESS OTHERWISE LISTED; SINGLE LESION DoD THERAPEUTIC, PROPHYLACTIC, OR DIAGNOSTIC INJECTION (SPECIFY SUBSTANCE OR DRUG); SUBCUTANEOUS OR INTRAMUSCULAR [facility] INJECTION, VITAMIN B-12 CYANOCOBALAMIN, UP TO 1000 MCG DoD POSTOPERATIVE FOLLOW-UP VISIT, NORMALLY INCLUDED IN THE SURGICAL PACKAGE, INDICATE THAT EVALUATION & MANAGEMENT SERVICE WAS PERFORMED DURING A POSTOPERATIVE PERIOD REASON RELATED ORIGINAL PROCEDURE DoD BIOPSY OF SKIN, SUBCUTANEOUS TISSUE AND/OR MUCOUS MEMBRANE (INCLUDING SIMPLE CLOSURE), UNLESS OTHERWISE LISTED; SINGLE LESION DoD TELE ASSESS & MGT SRV PROV QUAL NONPHYS HLTH CARE PRO TO EST PAT,PARENT,GUARD NOT ORIG REL ASSESS & MGT SRV PROV W/IN PREV 7 DAYS NOR LEAD ASSESS & MGT SRV/PX W/IN NXT 24 HR/SOON APT;5-10 MIN MED DIS 014 DoD TELE ASSESS & MGT SRV PROV QUAL NONPHYS HLTH CARE PRO TO EST PAT,PARENT,GUARD NOT ORIG REL ASSESS & MGT SRV PROV W/IN PREV 7 DAYS NOR LEAD ASSESS & MGT SRV/PX W/IN NXT 24 HR/SOON APT;5-10 MIN MED DIS 012 DoD POSTOPERATIVE FOLLOW-UP VISIT, NORMALLY INCLUDED IN THE SURGICAL PACKAGE, INDICATE THAT EVALUATION & MANAGEMENT SERVICE WAS PERFORMED DURING A POSTOPERATIVE PERIOD REASON RELATED ORIGINAL PROCEDURE 011 DoD POSTOPERATIVE FOLLOW-UP VISIT, NORMALLY INCLUDED IN THE SURGICAL PACKAGE, INDICATE THAT EVALUATION & MANAGEMENT SERVICE WAS PERFORMED DURING A POSTOPERATIVE PERIOD REASON RELATED ORIGINAL PROCEDURE 011 DoD POSTOPERATIVE FOLLOW-UP VISIT, NORMALLY INCLUDED IN THE SURGICAL PACKAGE, INDICATE THAT EVALUATION & MANAGEMENT SERVICE WAS PERFORMED DURING A POSTOPERATIVE PERIOD REASON RELATED ORIGINAL PROCEDURE 011 DoD CYSTOURETHROSCOPY (SEPARATE PROCEDURE) 011 [facility] SIMPLE CYSTOMETROGRAM (CMG) (EG, SPINAL MANOMETER) 011 [facility] FITTING AND INSERTION OF PESSARY OR OTHER INTRAVAGINAL SUPPORT DEVICE 010 DoD ACOUSTIC REFLEX TESTING; DECAY 009 DoD SCREENING [place]AP[place] SMEAR; OBTAINING, PREPARING AND CONVEYANCE OF CERVICAL OR VAGINAL SMEAR TO LABORATORY 009 DoD ACOUSTIC REFLEX TESTING; DECAY 008 DoD SCREENING [place] SMEAR; OBTAINING, PREPARING AND CONVEYANCE OF CERVICAL OR VAGINAL SMEAR TO LABORATORY 005 DoD RESPIRATORY FLOW VOLUME LOOP 004 DoD THORACIC GAS VOLUME 004 DoD THORACIC GAS VOLUME 004 [facility] MEDICAL NUTRITION THERAPY; GROUP (2 OR MORE INDIVIDUAL(S)), EACH 30 MINUTES 004 [facility] MEDICAL NUTRITION THERAPY; GROUP (2 OR MORE INDIVIDUAL(S)), EACH 30 MINUTES 004 [facility] MEDICAL NUTRITION THERAPY; GROUP (2 OR MORE INDIVIDUAL(S)), EACH 30 MINUTES 004 [facility] SCREENING [place] SMEAR; OBTAINING, PREPARING AND CONVEYANCE OF CERVICAL OR VAGINAL SMEAR TO LABORATORY 004 [facility] ELECTROCARDIOGRAM, ROUTINE ECG WITH AT LEAST 12 LEADS; WITH INTERPRETATION AND REPORT 003 [facility] Non-Physician Phone Call To Patient/Provider Brief (5-10min) Non-Physician Phone Call To Patient/Provider Brief (5-10min) [id number] SILKE FOSTER [facility] Non-Physician Phone Call To Patient/Provider Brief (5-10min) Non-Physician Phone Call To Patient/Provider Brief (5-10min) [phone] SILKE FOSTER [facility] Postoperative Visit, Without Charge Postoperative Visit, Without Charge [id number] AZEEM GRACE Biopsy Skin Biopsy Skin 71624 AZEEM GRACE Biopsy Skin Each Additional Lesion Biopsy Skin Each Additional Lesion 17286 AZEEM GRACE Non-Physician Phone Call To Patient/Provider Brief (5-10min) Non-Physician Phone Call To Patient/Provider Brief (5-10min) [id number] SILKE FOSTER [facility] Non-Physician Phone Call To Patient/Provider Brief (5-10min) Non-Physician Phone Call To Patient/Provider Brief (5-10min) [phone] FLACO BARR Non-Physician Phone Call To Patient/Provider Brief (5-10min) Non-Physician Phone Call To Patient/Provider Brief (5-10min) [phone] LEVI AVALOS [facility] Medical Nutrition Therapy Group (2 or More Individual(s)) Medical Nutrition Therapy Group (2 or More Individual(s)) [phone] BILL DAVID [facility] Postoperative Visit, Without Charge Postoperative Visit, Without Charge 55418 015 AZEEM GRACE Biopsy Skin Biopsy Skin [address] Supervised Injection Intramuscular Supervised Injection Intramuscular [id number] [phone] FLACO BRAR Injection, vitamin B-12 cyanocobalamin, up to 1,000 [address] Supervised Injection Intramuscular Supervised Injection Intramuscular [phone] FLACO BRAR Injection, vitamin B-12 cyanocobalamin, up to 1,000 mcg 015 FLACO BRAR Postoperative Visit, Without Charge Postoperative Visit, Without Charge 20062 015 AZEEM GRACE Biopsy Skin Biopsy Skin 76808 AZEEM GRACE Non-Physician Phone Call To Patient/Provider Brief (5-10min) Non-Physician Phone Call To Patient/Provider Brief (5-10min) [phone] SILKE FOSTER [facility] Non-Physician Phone Call To Patient/Provider Brief (5-10min) Non-Physician Phone Call To Patient/Provider Brief (5-10min) [phone] MAURICIO HOLLANDMarlo Owens [facility] Postoperative Visit, Without Charge Postoperative Visit, Without Charge 26571 011 SUKUMAR HULL Postoperative Visit, Without Charge Postoperative Visit, Without Charge 65805 011 SUKUMAR HULL Simple Bladder Cystometrogram Simple Bladder Cystometrogram 09917 011 SUKUMAR HULL [facility] Gynecologic Services Insertion of [place] [facility] Insertion of Pessary 75314 010 SUKUMAR HULL Urethral Catheterization (Diag) Post Void Residual ___ ml Urethral Catheterization (Diag) Post Void Residual ___ ml 76252 010 SUKUMAR HULL Acoustic Reflex Decay Test Acoustic Reflex Decay Test 05754 009 DAMIAN CAIN Acoustic Reflex Testing 009 DAMIAN CAIN Audiologic Impedance Testing Audiologic Impedance Testing 59351 009 DAMIAN CAIN Comprehensive Audiometry Comprehensive Audiometry 97082 009 DAMIAN CAIN Cervical or vaginal cancer screening; pelvic and clinical breast examination 009 BHANU COX Screening papanicolaou smear; obtaining, preparing and conveyance of cervical or vaginal smear to laboratory 009 BHANU COX Acoustic Reflex Decay Test Acoustic Reflex Decay Test 40779 008 DAMIAN CAIN Acoustic Reflex Testing 008 DAMIAN CAIN Evoked Otoacoustic Milly ions Comprehensive 008 DAMIAN CAIN Audiologic Impedance Testing Audiologic Impedance Testing 43490 008 DAMIAN CAIN Comprehensive Audiometry Comprehensive Audiometry 45054 008 DAMIAN CAIN A Alvin Screening papanicolaou smear; obtaining, preparing and conveyance of cervical or vaginal smear to laboratory 005 RACHEL MILLS DoD Waiver services; not otherwise specified (NOS) CARMEN ONEL Marlo [facility] Non-Physician Phone Call To Patient/Provider Brief (5-10min) Non-Physician Phone Call To Patient/Provider Brief (5-10min) 57811 OLGA NAVARRETE [facility] Non-Physician Phone Call To Pt/Provider Intermed (11-20 min) Non-Physician Phone Call To Pt/Provider Intermed (11-20 min) 18660 MARSHALL REDDY [facility] Social History Combined list of available smoking, tobacco, and other social history from Department of Defense and Veterans Affairs facilities. Social History Type Response Date Comment Sour e Sex Representation Female (finding) 12/06/2022 Unknown Organization Sexual Orientation Ambula tory Pharmacy Gender identity Ambulator y Pharmacy This section is an empty social history section. [facility] Assessment and Plan Combined list of future care activities from Department of Defense and Veterans Affairs facilities (e.g., assessment and plan notes, appointments, orders, and referrals). Additional future care activities may be listed in the Plan of Care section. Result Assessment and Plan Date Source Assessment and Plan Extracted from:Title : Imms Note Author: ZAHIDA MAY, EMT Date: 04/13/25 SCREENING CHECKLIST FOR CONTRAINDICATIONS TO VACCINES FOR A DULTS (Model based on DD Form 311, December 2024) Patient presents to clinic to receive vaccines recommended per ACIP/CDC guideline standing orders (that are reviewed and approved by [facility]). Patient read the following screening information and truthfully answered all of the required questions. Questions answered YES required further explanation, but are not necessarily a contraindication to vaccination. There were no contraindications to vaccines provided in clinic today. Routine Immunization Screening Questionnaire: Adult (using DD Form 311, December 2024 Model) 1. Are you sick today?No 2. Have you ever had a serious reaction after receiving a vaccination?No 3. Do you have allergies to medication, food, a vaccine component, or latex?No 4. Have you had a seizure or brain or other nervous system problem?No 5. Have you had a health problem involving heart, lung (e.g. asthma), kidney, or metabolic disease (e.g., diabetes), anemia, or other blood disorder?No 6. Do you, or a close family member, have cancer, leukemia, HIV/AIDS, or any other immune system problems?No 7. In the past 3 months, have you taken medications that weaken your immune system, such as prednisone or other steroids; anticancer drugs; biologic drugs for autoimmune diseases such as rheumatoid arthritis, Crohn's disease, or psoriasis or had radiation treatments?No 8. During the past year, have you received a transfusion of blood or blood products, or been given immune (gamma) globulin, or an anti-viral drug? 10. Have you ever passed out (vasovagal syncope) during or after a previous immunization or blood draw?No 11. Have you received any vaccinations in the past 4 weeks?No 12. Are you or is there a chance that you could become in the next month?Not Applicable More details of the vaccination administered can be found in the patient s Immunization History under the Immunizations tab. Diagnosis: Encounter for immunization Comment: Other status: Shingrix; 0.5 mL, IntraMuscular, Injection, Vaccine, First Dose: 04/13/2025 12:17:00 CDT, 04/13/2025 12:17:00 CDT (Completed) by STUART HULL MD Imadm Prq Id Subq/Im Njxs 1 Vaccine [id number]; 04/13/2025 12:17:00 CDT, Encounter for immunization (Completed) by STUART HULL MD End of Orders Extracted from:Title: Imms Note Author: ZAHIDA MAY, EMT Date: 08/12/24 SCREENING CHECKLIST FOR CONTRAINDICATIONS [...] had radiation treatments? Y es Prednisone 5day [id number] ended 8 . Have you had a [...] 08/12/2024 14:39:00 CDT by STUART HULL MD [facility] (Td); 0.5 mL, IntraMuscular, Suspension-Injection, Vaccine, First Dose: 08/12/2024 14:39:00 CDT, 08/12/2024 14:39:00 CDT influenza vaccine (Fluzone High-Dose) [65 yr+] PF IM suspension; 0.5 mL, IntraMuscular, Suspension-Injection, Vaccine, First Dose: 08/12/2024 14:39:00 CDT, 08/12/2024 14:39:00 CDT Other status: Imadm Prq Id Subq/Im Njxs Ea Vaccine [id number]; 08/12/2024 14:38:00 CDT (Completed) by STUART HULL [...] findings in this note. David Morrell MD Capt, [address], [facility] Internal Medicine Staff Physician Future Appointments Appointment Date: 06/08/2025 01:10:00 PM Scheduled Provider: IBETH ARITA Location: [address] [place] [address] Appointment Type: IMMUN FTR 04/30/[phone] Functional Status Combined list of recent functional and cognitive assessments recorded at Department of Defense and Veterans Affairs ([place]VA Functional [place] Measurement (FIM) Scale: 1 = Total Assistance (Subject = 0% +), 2 = Maximal Assistance (Subject = 25% +), 3 = Moderate Assistance (Subject = 50% +), 4 = Minimal Assistance (Subject = 75% +), 5 = Supervision, 6 = Modified [place] (Device), 7 = Complete [place] (Timely, Safely). Assessment Date/Time Source Assessment Type Assessment Skill Assessment Score Assessment Details No data available for this section
--- OUTSIDE RECORDS SUMMARY | 2025-04-30 14:38 | XMS_ITS | Referral Summary ---
Author Organization [facility] Address [address] [place] [address] Care Team Providers Care String Top Sealer Name Role Phone Edwin Smith MD Primary Care Provider [phone] Allergies Active Allergy Reactions Criticality Noted Date [...] 11/24/2020 Assessment & Plan (11/24/2020 1:26 PM ELECTROMECHANISMS DESIGN DRAFTER): Followed by her PCP and controlled on Boniva. Varicose veins of both lower extremities with pa in 11/16/2020 Assessment & Plan (08/21/2023 4:19 PM ELECTROMECHANISMS DESIGN DRAFTER): Impression: Patient has a history of EVLT [...] basis. Assessment & Plan (11/24/2020 1:28 PM ELECTROMECHANISMS DESIGN DRAFTER): Patient had ablation of her left great [...] mg. Assessment & Plan (08/21/2023 4:17 PM ELECTROMECHANISMS DESIGN DRAFTER): Impression: Chronic and stable. Plan: Continue atorvastatin. Assessment & Plan (11/24/2020 1:26 PM ELECTROMECHANISMS DESIGN DRAFTER): Followed by her PCP and controlled on [...] on file Legal Sex Female 7:12 AM ELECTROMECHANISMS DESIGN DRAFTER Gender Identity Not on file Sexual Orientation [...] 70.8 kg (156 lb) 09/14/2024 1:19 PM ELECTROMECHANISMS DESIGN DRAFTER Height 167.6 cm (5' 6) 09/14/2024 1:19 PM ELECTROMECHANISMS DESIGN DRAFTER Body Mass Index 25.18 09/14/2024 1:19 PM ELECTROMECHANISMS DESIGN DRAFTER Plan of Treatment Not on file Insurance MEDICARE [facility] Address: [facility] [address] [place] [address] MEDICARE FOR LIFE MEDICARE FOR LIFE MEDICARE FOR LIFE Care Teams String Top Sealer Relationship Specialty Start Date End Date Edwin Smith MD [address] [place] [address] PCP - General Family Practice 09/14/24
--- OUTSIDE RECORDS SUMMARY | 2025-04-30 14:38 | XMS_ITS | Clinical Summary ---
Author Organization [facility] Address [address] [place] [address] Care Team Providers Care Systems Software Specialist Name Role Phone Edwin Smith MD Primary Care Provider [phone] Allergies Active Allergy Reactions Criticality Noted Date [...] 11/24/2020 Assessment & Plan (11/24/2020 1:26 PM PROCUREMENT PROFESSIONAL): Followed by her PCP and controlled on Boniva. Varicose veins of both lower extremities with pa in 11/16/2020 Assessment & Plan (08/21/2023 4:19 PM PROCUREMENT PROFESSIONAL): Impression: Patient has a history of EVLT [...] basis. Assessment & Plan (11/24/2020 1:28 PM PROCUREMENT PROFESSIONAL): Patient had ablation of her left great [...] mg. Assessment & Plan (08/21/2023 4:17 PM PROCUREMENT PROFESSIONAL): Impression: Chronic and stable. Plan: Continue atorvastatin. Assessment & Plan (11/24/2020 1:26 PM PROCUREMENT PROFESSIONAL): Followed by her PCP and controlled on [...] on file Legal Sex Female 7:12 AM PROCUREMENT PROFESSIONAL Gender Identity Not on file Sexual Orientation [...] 70.8 kg (156 lb) 09/14/2024 1:19 PM PROCUREMENT PROFESSIONAL Height 167.6 cm (5' 6) 09/14/2024 1:19 PM PROCUREMENT PROFESSIONAL Body Mass Index 25.18 09/14/2024 1:19 PM PROCUREMENT PROFESSIONAL Plan of Treatment Health Maintenance Due Date [...] , 07/21/2021, Additional history exists Insurance [address] [id number] MEDICARE MEDICARE [employer] MEDICARE [facility] MEDICARE FOR LIFE Care Teams Systems Software Specialist Relationship Specialty Start Date End Date Edwin Smith MD [address] [place] [address] PCP - General Family Practice 09/14/24
--- OUTSIDE RECORDS SUMMARY | 2025-04-30 14:38 | XMS_ITS | Clinical Summary ---
Author Organization [facility] Address [address] [place] [address] Care Team Providers Care Baker Pastry Name Role Phone Unavailable Primary Care Provider [...]
--- OUTSIDE RECORDS SUMMARY | 2025-04-30 14:38 | XMS_ITS | Continuity of Care Document ---
Author Organization [facility] Address [address] [place] [address] Phone Care Team Providers Care Carrier Operator Name Role Phone Maco Slater MD, Ravindra [...] OFFICE/OUTPAT IENT VISIT NEW [facility] , [address] [facility] [address], [place], [address], [phone] [facility] Pain in right footHallux rigidus, right foot 3 Maco Wa[address]. [address], [place], [place], [id number] . tel: [phone] Referring Provider: Denzel Gallo, [address], [place], [address]. tel:[phone] Family History Family Member Type Diagnosis Age At Onset Sister Problem Kidney cancer Father Problem Hypertension Mother Problem (finding) Sister Problem Thyroid disorder Payers Payer name Insurance type Covered libertarian ID Dejon thorne(s) Medicare E2 OT [id number] For Life OT [id number] Social History Type Description Quantity Date Captured [...]
--- OUTSIDE RECORDS SUMMARY | 2025-04-30 14:38 | XMS_ITS | Clinical Summary ---
Author Organization 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
--- NOTE | 2025-04-30 16:08 | PC.NURSE ---
patient family member to the desk, asking when someone will be in to see the patient. Educated that a doctor will be in to see them as soon as they are able, asked if they needed anything at this time, and family member declined. patient family member stated the last time we were here she waited 8 hours to see a doctor and it already has left a bad taste
[2025-04-30] MEDS: ACETAMINOPHEN 500 MG TABLET 1000 MG PO (17:03)
[2025-04-30] MEDS: KETOROLAC 30 MG/ML VIAL (*BKC) IM (17:03)
[2025-04-30] MEDS: LIDOCAINE 5% PATCH 1 PATCH TRANSDERM (17:05)
--- OUTSIDE RECORDS SUMMARY | 2025-04-30 17:36 | XMS_ITS | Continuity of Care Document ---
Author Organization [facility] Address [address] [place] [address] Phone Care Team Providers Care Supervisor Litharge Name Role Phone Maco Slater MD, Ravindra [...] OFFICE/OUTPAT IENT VISIT NEW [facility] , [address] [facility] [address], [place], [address], [phone] [facility] Pain in right footHallux rigidus, right foot 3 Maco Waite. [address], [place], [place], [id number] . tel: [phone] Referring Provider: Denzel Gallo, [address], [place], [address]. tel:[phone] Family History Family Member Type Diagnosis Age At Onset Sister Problem Kidney cancer Father Problem Hypertension Mother Problem (finding) Sister Problem Thyroid disorder Payers Payer name Insurance type Covered green party ID Dejon thorne(s) Medicare E2 OT [id number] For Life OT [id number] Social History Type Description Quantity Date Captured [...]
--- OUTSIDE RECORDS SUMMARY | 2025-04-30 17:37 | XMS_ITS | Referral Summary ---
Author Organization [facility] Address [address] [place] [address] Care Team Providers Care Baker Head Name Role Phone Edwin Smith MD Primary Care Provider [phone] Allergies Active Allergy Reactions Criticality Noted Date [...] 11/24/2020 Assessment & Plan (11/24/2020 1:26 PM ADJUNCT SOCIOLOGY PROFESSOR): Followed by her PCP and controlled on Boniva. Varicose veins of both lower extremities with pa in 11/16/2020 Assessment & Plan (08/21/2023 4:19 PM ADJUNCT SOCIOLOGY PROFESSOR): Impression: Patient has a history of EVLT [...] basis. Assessment & Plan (11/24/2020 1:28 PM ADJUNCT SOCIOLOGY PROFESSOR): Patient had ablation of her left great [...] mg. Assessment & Plan (08/21/2023 4:17 PM ADJUNCT SOCIOLOGY PROFESSOR): Impression: Chronic and stable. Plan: Continue atorvastatin. Assessment & Plan (11/24/2020 1:26 PM ADJUNCT SOCIOLOGY PROFESSOR): Followed by her PCP and controlled on [...] on file Legal Sex Female 7:12 AM ADJUNCT SOCIOLOGY PROFESSOR Gender Identity Not on file Sexual Orientation [...] 70.8 kg (156 lb) 09/14/2024 1:19 PM ADJUNCT SOCIOLOGY PROFESSOR Height 167.6 cm (5' 6) 09/14/2024 1:19 PM ADJUNCT SOCIOLOGY PROFESSOR Body Mass Index 25.18 09/14/2024 1:19 PM ADJUNCT SOCIOLOGY PROFESSOR Plan of Treatment Not on file Insurance MEDICARE [facility] Address: [facility] [address] [place] [address] MEDICARE FOR LIFE MEDICARE FOR LIFE MEDICARE FOR LIFE Care Teams Baker Head Relationship Specialty Start Date End Date Edwin Smith MD [address] [place] [address] PCP - General Family Practice 09/14/24
--- OUTSIDE RECORDS SUMMARY | 2025-04-30 17:37 | XMS_ITS | Clinical Summary ---
Author Organization [facility] Address [address] [facility] [place] [address] Care Team Providers Care Security Sales Manager Name Role Phone Shawn Girard MD Primary Care Provider [phone] Source Comments [facility],non-owned Affiliates and Associated Physician Practices is amultiple site organization consisting of ambulatory clinics and hospital sitesin [place], [place], [place] and [place]. This disclosure is being madepursuant to the Care Everywhere program and may not contain all information available regarding this patient. Last updated 18.[facility] Allergies No known active allergies Medications * [...] Dr. 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
--- OUTSIDE RECORDS SUMMARY | 2025-04-30 17:37 | XMS_ITS | Clinical Summary ---
Author Organization [facility] Address [address] [place] [id number] Care Team Providers Care Chief Substation Operator Name Role Phone Unavailable Primary Care [...]
--- OUTSIDE RECORDS SUMMARY | 2025-04-30 17:37 | XMS_ITS | Continuity of Care Document ---
Author Name [facility] Organization [facility] Care Team Providers Care Oracle Engineer Name Role Phone [facility] Unavailable Unavailable Problems Combined list of problems from Department of Defense and Veterans Affairs facilities. It does not include entries that were removed or entered in error. Problem Status Onset Date Problem Type Date of Resolution Comments Source Hyperlipidemia, unspecified Active 6 Condition DoD Encounter for issue of repeat prescription Active 6 Condition DoD Hyperlipidemia Active 6 Condition -375 [facility] Dysphagia, unspecified Active Condition DoD [...] Reduction Procedure Elective Active Condition Scheduled at [facility], pul clearance given. DoD OSTEOPENIA Active Condition DoD NORMAL ROUTINE HISTORY AND PHYSICAL Inactive Condition DoD CERVICALGIA Active Condition DoD visit for: administrative purpose Inactive Condition DoD Cervix Sample Taken For Pap Smear Active Condition DoD visit for: screening exam for malignant neoplasm cervix Active Condition DoD Depressive disorder Active Condition 00 55C-375 th [facility] Osteoarthritis of knee Active Condition 0055C-375 [facility] Osteoporosis Active Condition -375 [facility] Sensorineural hearing loss Active Condition 5C-375 [facility] Vitamin D deficiency Active Condition 0 055C-375 [facility] Medications Combined list of outpatient medications from [...] by mouth) Ordered 2022 60.0 0055C-3 [facility] cetirizine 10 mg oral tablet 1 tab(s), Oral, Daily, PRN allergy symptoms , # 90 tab(s), 3 total refill(s ), Maintena nce, Pharmacy : [facility] Oral (given by mouth) Discont inued 04/20/2025 4 2024 90.0 0055C-3 [facility] [place] cetirizine 10 mg tablet See Instruct [...] Complet ed 07/06/2024 4 2023 60.0 0055C-[address] [place] [address] naproxen 275 mg tablet = 1 tab(s), [...] (given by mouth) Ordered 2022 30.0 0055C-3 [facility] ADI Montero Vitamin D3 25 mcg (1000 [...] } Food allergy (disorder) Rash active 1 [facility] [place] [facility]UNGB ([facility]) Immunizations Combined list of available immunizations from the Department of Defense and Veterans Affairs facilities. Immunization Series Date Given Administered By Site Reaction Lot Number CVX Code Drug Production Sampler Status Comments Source zoster vaccine, inactivated 2024 JOSHUARWASHIN GTON Shoul sue, left (delt oid) [id number] GlaxoSmithKli ne complet ed zoster vaccine, inactivat ed 04/13/25 Given 0055C-3 [facility] ADI Montero RSV vaccine, preF A-preF B, recombinant 2023 ETHANJPOCKLIN GTON Shoul sue, left (delt oid) [id number] Pfizer [employer] complet ed RSV vaccine, preF A-preF B, recombina nt 08/20/24 Given 0055C-3 [facility] ADI Montero tetanus-dipht h toxoids (Td) adult/adol 2023 JOSHUARWASHIN GTON Shoul sue, right (delt oid) [id number] sanofi pasteur complet ed tetanus-d iphth toxoids (Td) adult/ado l 08/12/24 Given 0055C[facility] influenza virus vaccine, inactivated 2023 JOSHUARWASHIN GTON Shoul sue, left (delt oid) [id number] 135 sanofi pasteur complet ed influenza [...] pf 2020 Raquel t Arm [id number] 150 GlaxoSmAcademicaKli ne complet ed influenza , injectabl e, quadrival ent-pf 07/21/21 Given Ambulat ory Pharmac y Influenza, injectable, quadrivalent, preservative free 1 2020 Unknown, Provider [id number] Influenza , injectabl e, quadrival ent, preservat greta free DoD COVID Vaccine Pfizer 2020 TRANSCR [id number] 208 PFIZER complet ed COVID Vaccine Pfizer 04/24/21 Given Ambulat ory Pharmac y COVID-19 (PFIZER), MRNA, LNP-S, PF, 30 MCG/0.3 ML DOSE 2 2020 208 complet ed PFR; [id number]; [address] [facility] SARS-COV-2 (COVID-19) vaccine, mRNA, spike protein, LNP, preservative free, 30 mcg/0.3mL dose 2 2020 Unknown, Provider 208 Pfizer, Inc (PFR) complet ed SARS-COV- 2 (COVID-19 ) vaccine, mRNA, spike protein, LNP, preservat greta free, 30 mcg/0.3mL dose DoD COVID-19 (PFIZER), MRNA, LNP-S, PF, 30 MCG/0.3 ML DOSE 1 2020 208 complet ed PFR; [id number]; 1 [facility] COVID Vaccine Pfizer 2020 TRANSCR [...] dose DoD influenza virus vaccine, inactivated 2019 [facility] Arm [id number] Seqirus complet ed influenza virus vaccine, inactivat ed 08/05/20 Given Ambulat ory Pharmac y Influenza vaccine, quadrivalent, adjuvanted (Fluad) 1 2019 Unknown, Provider [id number] 205 Seqirus (SEQ) complet ed Influenza vaccine, quadrival ent, adjuvante d (Fluad) DoD influenza, injectable, quadrivalent- pf [facility] [id number] 150 Seqirus complet ed influenza , injectabl e, quadrival ent-pf 08/26/19 Given Ambulat ory Pharmac y Influenza, injectable, quadrivalent, preservative free 1 2018 Unknown, Provider [id number] 150 Seqirus (SEQ) complet ed Influenza , injectabl e, quadrival ent, preservat greta free DoD influenza, injectable, quadrivalent- pf [facility] [id number] 150 Seqirus complet ed influenza , injectabl e, quadrival ent-pf 07/25/18 Given Ambulat ory Pharmac y Influenza, injectable, quadrivalent, preservative free 1 2017 Unknown, Provider [id number] 150 Seqirus (SEQ) complet ed Influenza , injectabl e, quadrival ent, preservat greta free DoD influenza, injectable, quadrivalent- pf [facility] [id number] 150 GlaxoSmithKl ne complet ed influenza , injectabl e, quadrival ent-pf 07/23/17 Given Ambulat ory Pharmac y Influenza, injectable, quadrivalent, preservative free 1 2016 Unknown, Provider [id number] 150 [employer] (SKB) complet ed Influenza , injectabl e, quadrival ent, preservat greta free DoD influenza, injectable, quadrivalent [facility] [id number] [employer] complet ed [...] vaccine DoD hepatitis A-hepatitis B vaccine [facility] [id number] 104 GlaxoSmithKli ne complet ed hepatitis A-hepatit is B vaccine 12/09/15 Given Ambulat ory Pharmac y hepatitis A and hepatitis B vaccine 1 2015 Unknown, Provider [id number] 104 [employer] (SKB) complet ed hepatitis A and hepatitis B vaccine DoD pneumococcal polysaccharid e, 23 valent 2015 zzLef t Arm [id number] Merck & Company Inc complet ed pneumococ nelson polysacch aride, 23 valent 11/08/15 Given Ambulat ory Pharmac y hepatitis A-hepatitis B vaccine [facility] [id number] 104 GlaxoSmithKli ne complet ed hepatitis A-hepatit is B vaccine 11/08/15 Given Ambulat ory Pharmac y pneumococcal polysaccharid e vaccine, 23 valent 1 2015 Unknown, Provider [id number] Merck (MSD) complet ed pneumococ nelson polysacch aride vaccine, 23 valent DoD hepatitis A and hepatitis B vaccine 1 2015 Unknown, Provider [id number] 104 [employer]oine (SKB) complet ed hepatitis A and hepatitis B vaccine DoD influenza, injectable, quadrivalent- pf 2014 zzLef t Arm [id number] 150 [facility] complet ed influenza , injectabl e, quadrival ent-pf 08/08/15 Given Ambulat ory Pharmac y Influenza, injectable, quadrivalent, preservative free 1 2014 Unknown, Provider [id number] 150 [facility] (PAYAM) complet ed Influenza , injectabl e, quadrival ent, preservat greta free DoD pneumococcal 13-valent conjugate (PCV13) 2014 zzLef t Arm [id number] 133 [facility] complet ed pneumococ nelson 13-valent conjugate (PCV13) 10/22/14 Given Ambulat ory Pharmac y pneumococcal conjugate vaccine, 13 valent 1 2014 Unknown, Provider [id number] [facility] ([facility]) complet ed pneumococ nelson conjugate vaccine, 13 valent DoD influenza, seasonal, injectable-pf 2013 zzLef t Arm [id number] 140 Novartis Pharmaceutica complet ed influenza , seasonal, injectabl e-pf 07/10/14 Given Ambulat ory Pharmac y Influenza, seasonal, injectable, preservative free 1 2013 Unknown, Provider [id number] 140 Novartis Pharmaceutica l [place]. (NOV) complet ed Influenza , seasonal, injectabl e, preservat greta free DoD tetanus, diphtheria, acellular pertu is 2012 zzLef t Arm [id number] 115 [facility] ed tetanus, diphtheri a, acellular pertussis 09/25/13 Given Ambulat ory Pharmac y tetanus toxoid, reduced diphtheria toxoid, and acellular pertu is vaccine, adsorbed 1 2012 Unknown, Provider [id number] 115 [facility] ([place]) complet ed tetanus toxoid, reduced diphtheri a toxoid, and acellular pertussis vaccine, adsorbed DoD influenza, seasonal, injectable-pf 2012 zzLef t Arm [id number] 140 sanofi pasteur complet ed influenza , seasonal, injectabl e-pf 07/21/13 Given Ambulat ory Pharmac y Influenza, seasonal, injectable, preservative free 1 2012 Unknown, Provider [id number] 140 Sanofi Pasteur ([facility]) complet ed Influenza , seasonal, injectabl e, preservat greta free DoD influenza, seasonal, injectable-pf 2011 [facility] Arm [id number] 140 sanofi pasteur complet ed influenza , seasonal, injectabl e-pf 08/06/12 Given Ambulat ory Pharmac y Influenza, seasonal, injectable, preservative free 8 2011 Unknown, Provider [id number] 140 Sanofi Pasteur ([facility]) complet ed Influenza , seasonal, injectabl e, preservat greta free DoD influenza, seasonal, injectable 2010 [facility] [id number] 141 sanofi pasteur complet ed influenza , seasonal, injectabl e 06/22/11 Given Ambulat ory Pharmac y Influenza, seasonal, injectable 7 2010 Unknown, Provider [id number] 141 Sanofi Pasteur ([facility]) complet ed Influenza , seasonal, injectabl e DoD influenza virus vaccine,split 2009 zef t Arm [id number] 15 CSL Behring complet ed influenza virus vaccine,s plit 07/20/10 Given Ambulat ory Pharmac y influenza virus vaccine, split virus (incl. purified surface antigen)-reti red CODE 1 2009 Unknown, Provider [id number] 15 CSL [employer] (CSL) complet ed influenza virus vaccine, split virus (incl. purified surface antigen)- retired CODE DoD tetanus-dipht h toxoids (Td) adult/adol 2009 zzLef t Arm [id number] 09 sanofi pasteur complet ed tetanus-d iphth toxoids (Td) adult/ado l 01/24/10 Given Ambulat ory Pharmac y tetanus and diphtheria toxoids, adsorbed, preservative free, for adult use (2 Lf of tetanus toxoid and 2 Lf of diphtheria toxoid) 1 2009 Unknown, Provider [id number] 09 Sanofi Pasteur ([facility]) complet ed tetanus and diphtheri a toxoids, adsorbed, preservat greta free, for adult use (2 Lf of tetanus toxoid and 2 Lf of diphtheri a toxoid) DoD zoster vaccine live 2008 zzLef t Arm [id number] [employer] complet ed zoster vaccine live 05/31/09 [...] 1 2005 Unknown, Provider [id number] 15 [employer] (SKB) complet ed influenza virus vaccine, split virus (incl. purified surface antigen)- retired CODE DoD influenza virus vaccine,split 2004 zzLef t Arm [id number] 15 sanofi pasteur complet ed influenza virus vaccine,s plit 08/31/05 Given Ambulat ory Pharmac y influenza virus vaccine, split virus (incl. purified surface antigen)-reti red CODE 1 2004 Unknown, Provider [id number] 15 Sanofi Pasteur ([facility]) complet ed influenza virus vaccine, split virus (incl. purified surface antigen)- retired CODE DoD influenza virus vaccine,split 2003 [facility] [id number] 15 sanofi pasteur complet ed influenza virus vaccine,s plit 10/12/04 Given Ambulat ory Pharmac y influenza virus vaccine, split virus (incl. purified surface antigen)-reti red CODE 1 2003 Unknown, Provider [id number] 15 Sanofi Pasteur ([facility]) complet ed influenza virus vaccine, split virus (incl. purified surface antigen)- retired CODE DoD influenza virus vaccine, whole virus 2002 [facility] Arm [id number] 16 sanofi pasteur complet ed influenza virus vaccine, whole virus 08/04/03 Given Ambulat ory Pharmac y influenza virus vaccine, whole virus 1 2002 Unknown, Provider [id number] 16 Sanofi Pasteur ([facility]) complet ed influenza virus vaccine, whole virus DoD influenza virus vaccine, whole virus 1998 [id number] 16 [employer] complet ed influenza virus vaccine, whole virus 07/29/99 Given Ambulat ory Pharmac y influenza virus vaccine, whole virus 1 1998 Unknown, Provider [id number] 16 EdvinSandoval ([facility]) complet ed influenza virus vaccine, whole [...] High: 160-189 mg/dL Very High: 190 mg/dL [address] [place] [address] Chemistry HDL Cholesterol 71 mg/dL 40 - 59 08/19 H Interpretive Data: HDL (HIGH DENSITY LIPOPROTEIN) : ADULTS: Low: < 40 mg/dL High: >/= 60 mg/dL AGES 0 -19: Low: < 40 mg/dL Borderline Low: 40 - 45 mg/dL Acceptable: > 45 mg/dL [address] [place] [address] Chemistry Cholesterol Total 239 mg/dL 08/19 H Interpretive Data: According to the [place] [employer]: AGES 0-19: Desirable: < 170 mg/dL Borderline High: 170-199 mg/dL High Blood Cholesterol: >/= 200 mg/dL ADULTS: Desirable < 200 mg/dL Borderline High: 200-239 mg/dL High Blood Cholesterol: >/= 240 mg/dL [address] [place] [address] Chemistry Chol/HDL 3 mg/dL 08/[address] [place] [address] Chemistry Triglycerid es 92 mg/dL 7 - 149 08/19 N Interpretive Data: AGES 0-9: Desirable: < 75 mg/dL Borderline High: 75-99 mg/dL High: >/= 100 mg/dL AGES 10-19: Desirable: < 90 mg/dL Borderline High: 90-129 mg/dL High: >/= 130 mg/dL ADULTS: Desirable: < 150 mg/dL Borderline High: 150-199 mg/dL High: >/= 240 mg/dL Very High: >/= 500 mg/dL [address] [place] [address] Chemistry LDL/HDL 2 08/[address] [place] [address] Vital Signs Combined list of inpatient and [...] DC Date Status Disposition Source [facility] [place] [facility] tt Internal Medicine Tm) OUTPATIENT [id number] KELLY Dotson 06/28 Released w/o Limitations [facility])(S cott Interna l Medicin e Tm) Medical [facility] [place] [facility] OUTPATIENT [id number] f/u CT 4 mm nod ORZECHOWSK I, ZYGMUNT 06/29 Released w/o Limitations [facility] [place] B [facility])(P ulmonar y) [address] [place] [address] [place] [facility])(Ilo tt Internal Medicine Tm) TELE CONSULT [id number] ABBY DUARTE 07/18[facility] [place] [facility])(S cott Interna l Medicin e Tm) [address] [place] [address] [place] B [facility] OUTPATIENT [id number] f/u ORZECHOWSK I, ZYGMUNT 07/25 Released w/o Limitations [facility] [place] [facility])(P ulmonar y) [employer] ([facility])([facility] tt Internal Medicine Tm) TELE CONSULT [id number] ABBY De Souza 12/20 [employer] [employer] [place] B ([facility])(S cott Interna l Medicin e Tm) [employer] ([facility])([facility] tt Internal Medicine Tm) OUTPATIENT [id number] readdre ss breast reducti on TIFFANY, ASSY 01/04 Released w/o Limitations [employer] [place] B ([facility])(S cott Interna l Medicin e Tm) [employer] ([facility])(Pul monary) OUTPATIENT [id number] F/U LUNG NODULE ORZECHOWSK I, ZYGMUNT 02/14 Released w/o Limitations [employer] ([facility])(P ulmonar y) [facility] Medical [facility] [employer] ([facility])(Pul monary) OUTPATIENT [id number] f/u ORZECHOWSK I, ZYGMUNT 05/01 Released w/o Limitations [employer] ([facility])(P ulmonar y) [facility] [employer] ([facility])(Pul monary) OUTPATIENT [id number] f/u SPN ORZECHOWSK I, ZYGMUNT 09/10 Released w/o Limitations [employer] ([facility])(P ulmonar y) [facility] Medical [facility] [employer] ([facility])(Pul monary) OUTPATIENT [id number] needs lipids ORZECHOWSK I, ZYGMUNT 09/11 Released w/o Limitations [employer] ([facility])(P ulmonar y) [facility] [employer] ([facility])(Pul monary) OUTPATIENT [id number] Pas entered the order ORZECHOWSK I, ZYGMUNT 09/25 Released w/o Limitations [employer] ([facility])(P ulmonar y) [facility] [employer] ([facility])(Aud iology) OUTPATIENT [id number] Hearing test DAMIAN CAIN 03/30 Released w/o Limitations [employer] ([facility])(A udiolog y) [facility] [employer] ([facility])(Senior Data Scientist ecology) OUTPATIENT [id number] annual wwe- [id number] BHANU COX 09/27 Released w/o Limitations [employer] ([facility])(G ynecolo gy) [employer] ([facility])(Aud iology) OUTPATIENT [id number] Hearing test DAMIAN CAIN 09/27 Released w/o Limitations [employer] ([facility])(A udiolog y) [employer] [place] B ([facility])(Senior Data Scientist ecology) TELE CONSULT [id number] Discuss bone density results BHANU COX 09/28 [employer] ([facility])(G ynecolo gy) [employer] ([facility])(Ob/ Senior Data Scientist) TELE CONSULT [id number] Discuss lab results . NAOMY COXBRISA Sellers 10/17 [employer] ([facility])(O b/Senior Data Scientist) [employer] ([facility])(Senior Data Scientist ecology) OUTPATIENT [id number] VAGINAL WALL PROLAPS E CYSTOCE LE, MIDLINE THIERNOSUKUMAR MICHAEL L 11/25 Released w/o Limitations [employer] [place] B ([facility])(G ynecolo gy) [employer] ([facility])(Senior Data Scientist ecology) OUTPATIENT [id number] pessary fitting - jason from Dec 21 THIERNOSUKUMAR MICHAEL L 12/15 Released w/o Limitations [employer] ([facility])(G ynecolo gy) [employer] [place] [facility] ([facility])(Ob/ Senior Data Scientist) TELE CONSULT [id number] Pain with Pessory . THIERNOSUKUMAR MICHAEL L 12/19 [employer] ([facility])(O b/Senior Data Scientist) [employer] ([facility])(Senior Data Scientist ecology) OUTPATIENT [id number] pessary fitting THIERNOSUKUMAR MICHAEL L 01/06 Released w/o Limitations [employer] ([facility])(G ynecolo gy) [employer] ([facility])(Ob/ Senior Data Scientist) TELE CONSULT [id number] Discuss Lab result BHANU COX 02/03 [facility] [employer] ([facility])(O b/Senior Data Scientist) [facility] [employer] ([facility])(Senior Data Scientist ecology) OUTPATIENT [id number] annual wwe, @1030 , [id number] BHANU COX 12/22 Released w/o Limitations [address] [place] [address] [employer] ([facility])(G ynecolo gy) [address] [place] [address] [employer] ([facility])(Senior Data Scientist ecology) TELE CONSULT [id number] Discuss lab results MAXIMILIAN JAIME 12/22 Referred for Appointment [address] [place] [address] [employer] ([facility])(G ynecolo gy) [address] [place] [address] [employer] ([facility])(Senior Data Scientist ecology) TELE CONSULT [id number] Discuss laborat ory results MAXIMILIAN JAIME 12/[address] [place] [address] [employer] ([facility])(G ynecolo gy) [address] [place] [address] [employer] ([facility])(Senior Data Scientist ecology) OUTPATIENT [id number] Cystoce le KURTIS, SUKUMAR L 01/09 Released w/o Limitations [address] [place] [address] [employer] ([facility])(G ynecolo gy) [facility] Medical [facility] [employer] ([facility])(Senior Data Scientist ecology) OUTPATIENT [id number] surgery consult per martir on PARIALCE, SUKUMAR L 04/24 Released w/o Limitations [address] [place] [address] [employer] ([facility])(G ynecolo gy) [facility] Medical [facility] [employer] ([facility])(Ob/ Senior Data Scientist) TELE CONSULT [id number] schedul e surgery PARIALEC, SUKUMAR L 05/[address] [place] [address] [employer] ([facility])(O b/Senior Data Scientist) [facility] Medical [facility] [employer] ([facility])(Senior Data Scientist ecology) OUTPATIENT [id number] pre op hystere ctomy PARIALEC, SUKUMAR L 06/22 Released w/o Limitations [address] [place] [address] [employer] ([facility])(G ynecolo gy) [facility] [employer] ([facility])(Senior Data Scientist ecology) TELE CONSULT [id number] Discuss lab results BHANU COX 06/[address] [place] [address] [employer] ([facility])(G ynecolo gy) [facility] Medical [facility] [employer] ([facility])(Senior Data Scientist ecology) TELE CONSULT [id number] Reina dailey about surgery PARINI, SUKUMAR L 08/[address] [place] [address] [employer] ([facility])(G ynecolo gy) [facility] [employer] ([facility])(Ob/ Senior Data Scientist) TELE CONSULT [id number] follow- up appt SUKUMAR HULL 08/[address] [place] [address] [employer] ([facility])(O b/Senior Data Scientist) [address] [place] [address] [employer] ([facility])(Senior Data Scientist ecology) OUTPATIENT [id number] Post Op SUKUMAR HULL 09/12 Released w/o Limitations [address] [place] [address] [employer] ([facility])(G ynecolo gy) [address] [place] [address] [employer] ([facility])(Senior Data Scientist ecology) OUTPATIENT [id number] post op - [id number] SUKUMAR HULL 10/02 Released w/o Limitations [address] [place] [address] [employer] ([facility])(G ynecolo gy) [address] [place] [address] [employer] ([facility])(Senior Data Scientist ecology) OUTPATIENT [id number] well woman [id number] BHANU COX 11/09 Released w/o Limitations [address] [place] [address] [employer] ([facility])(G ynecolo gy) [address] [place] [address] [employer] ([facility]Senior Data Scientist ecology) TELE CONSULT [id number] Notes Entered by: Quan PYLE 21 Nov 2011 0753 ------- ------- ------- ------- -- Vitamin D MICHAELA HOLLAND 11/[address] [place] [address] [employer] ([facility])(G ynecolo gy) [address] [place] [address] [employer] ([facility])(Senior Data Scientist ecology) TELE CONSULT [id number] Notes Entered by: BHANU KLEIN 29 Nov 2011 1731 ------- ------- ------- ------- -- Discuss lab results MICHAELA HOLLAND 11/[address] [place] [address] [employer] ([facility])(G ynecolo gy) [address] [place] [address] [employer] ([facility])(Senior Data Scientist ecology) OUTPATIENT [id number] WWE and medicat ion refGLORIA Hu 11/13 Released w/o Limitations [address] [place] [address] [employer] ([facility])(G ynecolo gy) [address] [place] [address] [employer] [facility])([facility] ) OUTPATIENT [id number] saida navarro ng 5-6 days [id number] LENNOX FORD 08/07 Released w/o Limitations [address] [place] [address])(S cott Interna l Medicin e Tm) [address] [place] [address])([facility] ) TELE CONSULT [id number] Notes Entered by: MARCIN MICHELE 21 Oct 2013 0744 ------- ------- ------- ------- -- SX - Multipl e symptom s/Jesús/6 [phone] SILKE FOSTER 10/[address] [place] [address])(S cott Interna l Medicin e Tm) [address] [place] [address])([facility] ) OUTPATIENT [id number] Chest congest ion, yel product greta cough LENNOX FORD 10/21 Released w/o Limitations [address] [place] [address])(S cott Interna l Medicin e Tm) [address] [place] [address])([facility] ) OUTPATIENT [id number] congest ion swollen glands- X 1 week - [id number] GAVIN BRAR 11/17 Released w/o Limitations [address] [place] [address])(S cott Interna l Medicin e Tm) [address] [place] [address])([facility] ) OUTPATIENT [id number] growth under L finger cuticle x 6 months [id number] SIMBA HIGHTOWER V 10/21 Released w/o Limitations [address] [place] [address])(S cott Interna l Medicin e Tm) [address] [place] [address])(Sue matology) OUTPATIENT [id number] anomali es of nails AZEEM GRACE 01/10 Released w/o Limitations [address] [place] [address])(Judy ermatol ogy) [address] [place] [address])(Sue matology) OUTPATIENT [id number] Notes Entered by: Oralia LEMONS 24 Jan 2015 0909 ------- ------- ------- ------- -- suture removal AZEEM GRACE 01/24 Released w/o Limitations [facility] ([facility])(D ermatol ogy) [address] [place] [address])([facility] ) OUTPATIENT [id number] f/u bone scan - pt has questio ns for PCM [id number] HIGHTOWER SIMBA V 01/31 Released w/o Limitations [address] [place] [address])(S cott Interna l Medicin e Tm) [address] [place] [address])([facility] ) OUTPATIENT [id number] injecti on HIGHTOWERCARYNLY V 02/08 Released w/o Limitations [address] [place] [address])(S cott Interna l Medicin e Tm) [address] [place] [address])([facility] ) OUTPATIENT [id number] injecti on HIGHOTWERERICASIMBA V 02/17 Released w/o Limitations [address] [place] [address] ([facility])(S cott Interna l Medicin e Tm) [address] [place] [address])([facility]) OUTPATIENT [id number] f/u nails and palms AZEEM GRACE 03/21 Released w/o Limitations [address] [place] [address] ([facility])(D ermatol ogy) [address] [place] [address])([facility]) OUTPATIENT [id number] Notes Entered by: DON DAVID 30 Mar 2015 1128 ------- ------- ------- ------- -- PreD Class BILL DAVID 03/30 Released w/o Limitations [address] [place] [address] [employer] ([facility])(N utritio nal Medicin e) [address] [place] [address] [employer] [facility])([facility] OUTPATIENT [id number] Notes Entered by: Oralia LEMONS 04 Apr 2015 0949 ------- ------- ------- ------- -- suture removal AZEEM GRACE 04/04 Released w/o Limitations [address] [place] [address])(Judy bill) [address] [place] [address])([facility] ) TELE CONSULT [id number] Notes Entered by: SARABJIT AVALOS 13 May 2015 0805 ------- ------- ------- ------- -- DME LEVI Whitfield 05/13 Referred for Appointment [address] [place] [address])([facility] cott Interna l Medicin e Tm) [address] [place] [address])([facility] ) TELE CONSULT [id number] Notes Entered by: MARCIN MICHELE 19 Aug 2015 1413 ------- ------- ------- ------- -- SX - L knee pain/ko ndowe/6 [id number]. [id number]* SILKE FOSTER 08/[address] [place] [address])([facility] cott Interna l Medicin e Tm) [address] [place] [address])([facility] ) TELE CONSULT [id number] Notes Entered by: Aarti LOVELACE 29 Aug 2015 1520 ------- ------- ------- ------- -- [facility] FLACO Arcos 08/[address] [place] [address])([facility] cott Interna l Medicin e Tm) [address] [place] [address])([facility] ) OUTPATIENT [id number] f/u L Knee Pain (post [facility] Visit) KAVYA LIZARRAGA V 09/20 Released w/o Limitations [address] [place] [address])(S cott Interna l Medicin e Tm) [address] [place] [address])([facility] ) TELE CONSULT [id number] Notes Entered by: JULIO POTTS 03 Oct 2015 1359 ------- ------- ------- ------- -- Network Results - Optomet ry 5 NGA CUTLER 10/[address] [place] [address])([facility] cott Interna l Medicin e Tm) [address] [place] [address])([facility] ) OUTPATIENT [id number] f/u Varicos e VaKAVYA Damon V 10/18 Released w/o Limitations [address] [place] [address])(S cott Interna l Medicin e Tm) [address] [place] [address])(Sue matology) OUTPATIENT [id number] re-eval L hand 3rd fingern ail MARINO PICKENS 11/07 Released w/o Limitations [address] [place] [address])(D ermatocelso bill) [address] [place] [address])([facility] ) TELE CONSULT [id number] Notes Entered by: COREY HODGES 27 Dec 2015 1332 ------- ------- ------- ------- -- Network Results ORTHOPE DICS 12/26/15 NGA HERZOG 12/[address] [place] [address])([facility] cott Interna l Medicin e Tm) [address] [place] [address])([facility] ) TELE CONSULT [id number] Notes Entered by: HELEN CASTILLO 17 Jan 2016 1525 ------- ------- ------- ------- -- Network results Surgery 016 NGA NAIR 01/[address] [place] [address] [employer] [facility])(S cott Interna l Medicin e Tm) [address] [place] [address])([facility] ) TELE CONSULT [id number] Notes Entered by: COREY HODGES 27 Jan 2016 0719 ------- ------- ------- ------- -- Network Results ORTHOPE DICS 01/18/16 [facility] [place] [address] [employer] [facility])(S cott Interna l Medicin e Tm) [address] [place] [address] [employer] [facility])([facility] ) TELE CONSULT [id number] Notes Entered by: COREY HODGES 17 Feb 201648 ------- ------- ------- ------- -- Network Results ORTHOPE DICS 02/06/16 [facility] [place] [address] [employer] [facility])(S cott Interna l Medicin e Tm) [address] [place] [address])([facility] ) OUTPATIENT [id number] [facility]//[address] [facility] NGA 06/22 Released w/o Limitations [address] [place] [address] ([facility])(S cott Interna l Medicin e Tm) [address] [place] [address])([facility] ) TELE CONSULT [id number] Notes Entered by: Aarti LOVELACE 30 Aug 2016 1315 ------- ------- ------- ------- -- SILKE Garnica 08/[address] [place] [address] [place] [facility])(S cott Interna l Medicin e Tm) [address] [place] [address] [employer] [facility])(Sue matology) OUTPATIENT [id number] AZEEM Adorno 08/31 Released w/o Limitations [address] [place], [place] [address]B ([facility])(Judy bill) [address] [place], [place] [address]B [facility])([facility] ) TELE CONSULT [id number] Notes Entered by: JUAN URBANO 03 Sep 2016 0818 ------- ------- ------- ------- -- Network Results -GASTRO ENTEROL OGY 6 COLONOS [facility], DACRE 09/[address] [place] [address])(S cott Interna l Medicin e Tm) [address] [place] [address])([facility] ) TELE CONSULT [id number] Notes Entered by: JUAN URBANO 11 Sep 2016 1426 ------- ------- ------- ------- -- Network Results -GASTRO ENTEROL OGY 6 [facility] L[facility], DACDANIELLE 09/[address] [place] [address])(S cott Interna l Medicin e Tm) [address] [place] [address])([facility]) OUTPATIENT [id number] 2 punch bx hand AZEEM GRACE 09/27 Released w/o Limitations [address] [place] [address])(D ermatol ogy) [address] [place] [address])([facility] ) TELE CONSULT [id number] Notes Entered by: COREY HODGES 02 Oct 2016 1234 ------- ------- ------- ------- -- Network Results SURGERY 6 [facility], [facility] 10/[address] [place] [address])(S cott Interna l Medicin e Tm) [address] [place] [address])([facility]) OUTPATIENT [id number] Notes Entered by: NELLY PUTNAM 11 Oct 2016 1053 ------- ------- ------- ------- -- suture removal AZEEM GRACE 10/11 Released w/o Limitations [address] [place] [address])(D ermatol ogy) [address] [place] [address])([facility] ) TELE CONSULT [id number] Notes Entered by: QUOC DHALIWAL 07 Nov 2016 1425 ------- ------- ------- ------- -- Network Results - Optomet ry 6 ND STERNKARISSA 11/[address] [place] [address])(S cott Interna l Medicin e Tm) [address] [place] [address])([facility] ) TELE CONSULT [id number] Notes Entered by: MARCIN MICHELE 14 Dec 2016 1507 ------- ------- ------- ------- -- SX - L knee pain/kn ight/61 8.344.2 873 mnm SILKE FOSTER 12/[address] [place] [address])(S cott Interna l Medicin e Tm) [address] [place] [address])([facility] ) OUTPATIENT [id number] Lt knee x yr or more did not use PT appt KAVYA LIZARRAGA V 12/27 Released w/o Limitations [address] [place] [address])(S cott Interna l Medicin e Tm) [address] [place] [address])([facility] ) TELE CONSULT [id number] Notes Entered by: HELEN CASTILLO 08 Jan 2017 1027 ------- ------- ------- ------- -- Network results Physica l Therapy 017 KAVYA LEMOS V 01/[address] [place] [address])(S cott Interna l Medicin e Tm) [address] [place] [address])([facility] ) TELE CONSULT [id number] Notes Entered by: JULIO POTTS 05 Feb 2017 1611 ------- ------- ------- ------- -- Network results Occupat ional/P hysical Therapy 7 KAYVA MORENO V 02/[address] [place] [address])(S cott Interna l Medicin e Tm) [address] [place] [address] [place] [facility] ([facility])([facility] ) OUTPATIENT [id number] f/u knee pain and fatigue KAVYA LIZARRAGA V 03/04 Released w/o Limitations [address] [place] [address] [place] [facility])(S cott Interna l Medicin e Tm) [address] [place] [address] [employer] [facility])([facility] ) TELE CONSULT [id number] Notes Entered by: Quan COLEMAN 02 Apr 2017 1116 ------- ------- ------- ------- -- Network Results - Orthope dic Surgery 03/19/17 KAVYA LINARES V 04/[address] [place] [address] [place] [facility])(S cott Interna l Medicin e Tm) [address] [place] [address])([facility] ) OUTPATIENT [id number] Left leg pain / test results [id number] JORDAN YANEZ 06/04 Released w/o Limitations [address] [place] [address] [place] [facility])(S cott Interna l Medicin e Tm) [address] [place] [address] [place] [facility])([facility] ) TELE CONSULT [id number] Notes Entered by: Quan COLEMAN 28 Aug 2017 0935 ------- ------- ------- ------- -- Network results Cardiol ogy 7 KAVYA LINARES V 08/[address] [place] [address] [place] [facility])(S cott Interna l Medicin e Tm) [address] [place] [address])([facility] ) TELE CONSULT [id number] Notes Entered by: REMINGTON ALCAZAR 14 Sep 2017 1102 ------- ------- ------- ------- -- Network Results -Orthop edics 08/21/17 KARISSA STERN 09/[address] [place] [address] [place] [facility] ([facility])(S cott Interna l Medicin e Tm) [address] [place] [address])([facility] ) OUTPATIENT [id number] 6 mo f/u and med refill KARISSA STERN 10/23 Released w/o Limitations [address] [place] [address])(S cott Interna l Medicin e Tm) [address] [place] [address])([facility] ) OUTPATIENT [id number] Annual check up, vein in Left leg, 344.287 3 KARISSA STERN 02/11 Released w/o Limitations [address] [place] [address])(S cott Interna l Medicin e Tm) [address] [place] [address])([facility] ) TELE CONSULT [id number] Notes Entered by: Aarti LOVELACE 03 Jun 2018 1056 ------- ------- ------- ------- -- Med refill x 1 gwp SILKE FSOTER 06/03 Medication Refill Forwarded [address] [place] [address])(S cott Interna l Medicin e Tm) [address] [place] [address])([facility] ) TELE CONSULT [id number] Notes Entered by: CHELSIE DHALIWAL 25 Sep 2018 1133 ------- ------- ------- ------- -- Medicat ion macey /chelsea / CHIKI Polk 09/25 Referred for Appointment [address] [place] [address])(S cott Interna l Medicin e Tm) [address] [place] [address])([facility] ) OUTPATIENT [id number] Annual lab/med review CLARITA TODD 10/02 Released w/o Limitations [address] [place] [address])(S cott Interna l Medicin e Tm) [address] [place] [address])([facility] ) TELE CONSULT [id number] Notes Entered by: CHELSIE DHALIWAL 22 Dec 2018 1437 ------- ------- ------- ------- -- Medicat ion renewal /sosniya / MATTIE Stephens 12/22 Medication Refill Forwarded [address] [place] [address])(S cott Interna l Medicin e Tm) [address] [place] [address])([facility] ) TELE CONSULT [id number] Notes Entered by: Aarti LOVELACE 29 Apr 2019 1416 ------- ------- ------- ------- -- Med refill x 1 / JOSÉ ANTONIO Gilmore 04/29 Referred for Appointment [address] [place] [address] Group [facility])(S cott Interna l Medicin e Tm) [address] [place] [address])([facility] ) TELE CONSULT [id number] Notes Entered by: DAVIS ADAN 04 May 2019 1302 ------- ------- ------- ------- -- Call Back Request /Chelsea / CHIKI KHAN 05/04 Referred for Appointment [address] [place] [address])(S [facility] Interna l Medicin e Tm) [address] [place] [address])([facility] ) TELE CONSULT [id number] Notes Entered by: PRASANTH CHANDLER 20 Jan 2020 1219 ------- ------- ------- ------- -- Dx with CoVid19 SILKE FOSTER 01/19 Released to Self Care [address] [place] [address])(S cott Interna l Medicin e Tm) [address] [place] [address])([facility] ) TELE CONSULT [id number] Notes Entered by: HERMINIA HARDING 10 Mar 2020 1031 ------- ------- ------- ------- -- Med Renewal / Sosniya / - sgj CLARITA TODD 03/[address] [place] [address])(S cott Interna l Medicin e Tm) [address] [place] [address])([facility] ) TELE CONSULT [id number] Notes Entered by: Aarti LOVELACE 01 Apr 2020 0949 ------- ------- ------- ------- -- pt request ing lab results ? / gwp CLARITA TODD 04/[address] [place] [address])(S cott Interna l Medicin e Tm) [address] [place] [address])([facility] ) TELE CONSULT [id number] Notes Entered by: CHELSIE DHALIWAL 02 Aug 2020 1044 ------- ------- ------- ------- -- med renewal /carmen/ [phone] SILKE Reyna 08/02 Medication Refill Forwarded [address] [place] [address])(S cott Interna l Medicin e Tm) [address] [place] [address])([facility] ) OUTPATIENT [id number] [facility] annual and lab review ONEL RAMOS 08/04 Released w/o Limitations [address] [place] [address])(S cott Interna l Medicin e Tm) [address] [place] [address])([facility] ) TELE CONSULT [id number] Notes Entered by: MI NIX 17 Aug 2020 0853 ------- ------- ------- ------- -- Network Results CARDIOL OGY 0 ONEL RAMOS 08/[address] [place] [address])(S cott Interna l Medicin e Tm) [address] [place] [address])([facility] ) TELE CONSULT [id number] Notes Entered by: SILKE FOSTER 16 Nov 2020 1517 ------- ------- ------- ------- -- 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 BAYAislinnOLGA PALMER Celso 11/16 Other Not Elsewhere Classified [address] [place] [address])(S cott Interna l Medicin e Tm) [address] [place] [address])([facility] ) TELE CONSULT [id number] Notes Entered by: CHELSIE DHALIWAL 03 Feb 2021 1027 ------- ------- ------- ------- -- med refills /[facility] [phone] JOSÉ ANTONIO Orellana 02/03 Other Not Elsewhere Classified [address] [place] [address])(S cott Interna l Medicin e Tm) [address] [place] [address])([facility] ) TELE CONSULT [id number] Notes Entered by: LEONARD FISHER 28 Apr 2021 1427 ------- ------- ------- ------- -- Med Renewal Request / [facility] - ANALISA De La Cruz 04/28 Medication Refill Forwarded [address] [place] [address])(S cott Interna l Medicin e Tm) [address] [place] [address])([facility] ) OUTPATIENT [id number] Annual/ labs/va ANGEL Roldan 11/13 Released w/o Limitations [address] [place] [address])(S cott Interna l Medicin e Tm) [address] [place] [address])([facility] ) TELE CONSULT [id number] Notes Entered by: CHELSIE DHALIWAL 10 Jan 2022 0946 ------- ------- ------- ------- -- med refill/ [phone] JOSÉ ANTONIO Orellana 01/10 Other Not Elsewhere Classified [address] [place] [address])(S cott Interna l Medicin e Tm) [address] [place] [address])([facility] ) TELE CONSULT [id number] Notes Entered by: Marlo SINGH 27 Apr 2022 1532 ------- ------- ------- ------- -- Med refill REBAERICK STEELE Celso 04/27 Medication Refill Forwarded [address] [place] [address])(S cott Interna l Medicin e Tm) [address] [place] [address])([facility] ) TELE CONSULT [id number] Notes Entered by: Oralia DAWN 26 Dec 20221121 ------- ------- ------- ------- -- RX Renewal /Rodrig [facility]/[id number] [phone] or MARSHALL REDDY 12/26 Medication Refill Forwarded [address] [place] [address])(S cott Interna l Medicin e Tm) [id number] [facility] [id number] STUART THOMSON 08/12 Discharge Disposition: Home or Self Care 0055C-3 [facility] [facility] [place] [facility]55[id number] STUART THOMSON 08/20 Discharge Disposition: Home or Self Care 0055C-3 [facility] [facility] [place] [facility]55[facility] [id number] 01/25 Discharge Disposition: Home or Self Care 0055A-3 [address] [facility] [place] 0055C-[facility] [id number] STUART THOMSON 04/13 Discharge Disposition: Home or Self Care 0055C-3 [facility] [place] Procedures Combined list of: 1) Procedures from Department of Veterans Affairs facilities going back up to thelast 18 months, not all VA non-surgical procedures are included; 2) All procedures from the Department of Defense facilities. Procedure Procedure Type Code Date Perfomer Comments Sourc e TELE ASSESS & MGT SRV PROV QUAL [...] A POSTOPERATIVE PERIOD REASON RELATED ORIGINAL PROCEDURE 016 [facility] BIOPSY OF SKIN, SUBCUTANEOUS TISSUE AND/OR [...] (2 OR MORE INDIVIDUAL(S)), EACH 30 MINUTES [facility] BIOPSY OF SKIN, SUBCUTANEOUS TISSUE AND/OR MUCOUS MEMBRANE (INCLUDING SIMPLE CLOSURE), UNLESS OTHERWISE LISTED; SINGLE LESION DoD THERAPEUTIC, PROPHYLACTIC, OR DIAGNOSTIC INJECTION (SPECIFY SUBSTANCE OR DRUG); SUBCUTANEOUS OR INTRAMUSCULAR [facility] INJECTION, VITAMIN B-12 CYANOCOBALAMIN, UP TO 1000 MCG DoD POSTOPERATIVE FOLLOW-UP VISIT, NORMALLY INCLUDED IN THE SURGICAL PACKAGE, INDICATE THAT EVALUATION & MANAGEMENT SERVICE WAS PERFORMED DURING A POSTOPERATIVE PERIOD REASON RELATED ORIGINAL PROCEDURE [facility] BIOPSY OF SKIN, SUBCUTANEOUS TISSUE AND/OR MUCOUS MEMBRANE (INCLUDING SIMPLE CLOSURE), UNLESS OTHERWISE LISTED; SINGLE LESION 015 DoD TELE ASSESS & MGT SRV [...] PROCEDURE 011 DoD CYSTOURETHROSCOPY (SEPARATE PROCEDURE) 011 [facility] SIMPLE CYSTOMETROGRAM (CMG) (EG, SPINAL MANOMETER) 011 DoD FITTING AND INSERTION OF PESSARY OR OTHER [...] VOLUME 004 DoD THORACIC GAS VOLUME 004 DoD MEDICAL NUTRITION THERAPY; GROUP (2 OR MORE INDIVIDUAL(S)), EACH 30 MINUTES 004 DoD MEDICAL NUTRITION THERAPY; GROUP (2 OR MORE INDIVIDUAL(S)), EACH 30 MINUTES 004 [facility] MEDICAL NUTRITION THERAPY; GROUP (2 OR MORE INDIVIDUAL(S)), EACH 30 MINUTES 004 [facility] SCREENING PAPANICOLAOU SMEAR; OBTAINING, PREPARING AND CONVEYANCE OF CERVICAL OR VAGINAL SMEAR TO LABORATORY 004 [facility] ELECTROCARDIOGRAM, ROUTINE ECG WITH AT LEAST 12 LEADS; WITH INTERPRETATION AND REPORT 003 DoD Non-Physician Phone Call To Patient/Provider Brief (5-10min) Non-Physician Phone Call To Patient/Provider Brief (5-10min) [phone] SILKE FOSTER [facility] Non-Physician Phone Call To Patient/Provider Brief (5-10min) Non-Physician Phone Call To Patient/Provider Brief (5-10min) [id number] SILKE FOSTER [facility] Postoperative Visit, Without Charge Postoperative Visit, Without Charge [id number] [id number] AZEEM GRACE Biopsy Skin Biopsy Skin [id number] [phone] AZEEM GRACE Biopsy Skin Each Additional Lesion Biopsy Skin Each Additional Lesion [id number] [id number] AZEEM GRACE Non-Physician Phone Call To Patient/Provider Brief (5-10min) Non-Physician Phone Call To Patient/Provider Brief (5-10min) [id number] SILKE FOSTER [facility] Non-Physician Phone Call To Patient/Provider Brief (5-10min) Non-Physician Phone Call To Patient/Provider Brief (5-10min) [id number] FLACO BRAR Non-Physician Phone Call To Patient/Provider Brief (5-10min) Non-Physician Phone Call To Patient/Provider Brief (5-10min) [id number] [phone] LEVI AVALOS [facility] Medical Nutrition Therapy Group (2 or More Individual(s)) Medical Nutrition Therapy Group (2 or More Individual(s)) [phone] BILL DAVID [facility] Postoperative Visit, Without Charge Postoperative Visit, Without Charge [phone] AZEEM GRACE Biopsy Skin Biopsy Skin [id number] Supervised Injection Intramuscular Supervised Injection Intramuscular 70714 015 FLACO BRAR Injection, vitamin B-12 cyanocobalamin, up to 1,000 mcg [address] Supervised Injection Intramuscular Supervised Injection Intramuscular 77090 015 FLACO BRAR Injection, vitamin B-12 cyanocobalamin, up to 1,000 mcg 015 FLACO BRAR Postoperative Visit, Without Charge Postoperative Visit, Without Charge [id number] 015 AZEEM GRACE Biopsy Skin Biopsy Skin [phone] AZEEM GRACE Non-Physician Phone Call To Patient/Provider Brief (5-10min) Non-Physician Phone Call To Patient/Provider Brief (5-10min) [phone] SILKE FOSTER [facility] Non-Physician Phone Call To Patient/Provider Brief (5-10min) Non-Physician Phone Call To Patient/Provider Brief (5-10min) [phone] MICHAELA HOLLAND [facility] Postoperative Visit, Without Charge Postoperative Visit, Without Charge [id number] THIERNOALEC SUKUMAR [facility] Postoperative Visit, Without Charge Postoperative Visit, Without Charge [id number] SUKUMAR HULL [facility] Simple Bladder Cystometrogram Simple Bladder Cystometrogram 40515 011 SUKUMAR HULL [facility] Gynecologic Services Insertion of [place] [facility] Insertion of Pessary 62851 010 SUKUMAR HULL [facility] Urethral Catheterization (Diag) Post Void Residual ___ ml Urethral Catheterization (Diag) Post Void Residual ___ ml 30428 010 SUKUMAR HULL Acoustic Reflex Decay Test Acoustic Reflex Decay Test 03673 009 DAMIAN CAIN Acoustic Reflex Testing 009 DAMIAN CAIN DoD Audiologic Impedance Testing Audiologic Impedance Testing 66325 009 DAMIAN CAIN DoD Comprehensive Audiometry Comprehensive Audiometry 86559 009 DAMIAN CAIN Cervical or vaginal cancer screening; pelvic and clinical breast examination 009 BHANU COX Screening papanicolaou smear; obtaining, preparing and conveyance of cervical or vaginal smear to laboratory 009 BHANU COX Acoustic Reflex Decay Test Acoustic Reflex Decay Test 73979 008 DAMIAN CAIN Acoustic Reflex Testing 008 DAMIAN CAIN Evoked Otoacoustic Milly ions Comprehensive 008 DAMIAN CAIN Audiologic Impedance Testing Audiologic Impedance Testing 82999 008 DAMIAN CAIN Comprehensive Audiometry Comprehensive Audiometry 91162 008 DAMIAN CAIN Screening papanicolaou smear; obtaining, preparing and conveyance of cervical or vaginal smear to laboratory 005 [place] DoD Waiver services; not otherwise specified (NOS) ONEL RAMOS [facility] Non-Physician Phone Call To Patient/Provider Brief (5-10min) Non-Physician Phone Call To Patient/Provider Brief (5-10min) [id number] OLGA NAVARRETE [facility] Non-Physician Phone Call To Pt/Provider Intermed (11-20 min) Non-Physician Phone Call To Pt/Provider Intermed (11-20 min) [id number] MARSHALL REDDY [facility] No data available for this section Ambulato ry Pharmacy Social History Combined list of available smoking, tobacco, and other social history from Department of Defense and Veterans Affairs facilities. Social History Type Response Date Comment Sour e Sex Representation Female (finding) 12/06/2022 Unknown Organization This section is an empty social history section. [facility] Sexual Orientation Ambula tory Pharmacy Gender identity [...] orders (that are reviewed and approved by [facility]). Patient read the following screening information and [...] Imadm Prq Id Subq/Im Njxs 1 Vaccine [id number]; 04/13/2025 12:17:00 CDT, Encounter for immunization (Completed) [...] had radiation treatments? Y es Prednisone 5day [id number] ended 8 . Have you had a [...] 08/12/2024 14:39:00 CDT by STUART HULL MD [facility] (Td); 0.5 mL, IntraMuscular, Suspension-Injection, Vaccine, First Dose: 08/12/2024 14:39:00 CDT, 08/12/2024 14:39:00 CDT influenza vaccine (Fluzone High-Dose) [65 yr+] PF IM suspension; 0.5 mL, IntraMuscular, Suspension-Injection, Vaccine, First Dose: 08/12/2024 14:39:00 CDT, 08/12/2024 14:39:00 CDT Other status: Imadm Prq Id Subq/Im Njxs Ea Vaccine [id number]; 08/12/2024 14:38:00 CDT (Completed) by STUART HULL [...] note. David Morrell MD Capt, [address], [facility] Internal Medicine Staff Physician Future Appointments Appointment Date: 06/08/2025 01:10:00 PM Scheduled Provider: IBETH ARITA Location: [address] [place] [address] Appointment Type: IMMUN FTR 04/30/[phone] Functional Status Combined list of recent functional and cognitive assessments recorded at Department of Defense and [facility] Affairs ([place] Functional [place] Measurement (FIM) Scale: 1 = Total Assistance (Subject = 0% +), 2 = Maximal Assistance (Subject = 25% +), 3 = Moderate Assistance (Subject = 50% +), 4 = Minimal Assistance (Subject = 75% +), 5 = Supervision, 6 = Modified Rusk (Device), 7 = Complete Rusk (Timely, Safely). Assessment Date/Time Source Assessment Type Assessment Skill Assessment Score Assessment Details No data available for this section
--- OUTSIDE RECORDS SUMMARY | 2025-04-30 17:37 | XMS_ITS | Clinical Summary ---
Author Organization [facility] Home Care Serv [facility] Address [address] [place] [address] Care Team Providers Care Checker And Packer Name Role Phone Edwin Smith MD Primary Care Provider [phone] Allergies Active Allergy Reactions Criticality Noted Date [...] 11/24/2020 Assessment & Plan (11/24/2020 1:26 PM SALOONKEEPER): Followed by her PCP and controlled on Boniva. Varicose veins of both lower extremities with pa in 11/16/2020 Assessment & Plan (08/21/2023 4:19 PM SALOONKEEPER): Impression: Patient has a history of EVLT [...] basis. Assessment & Plan (11/24/2020 1:28 PM SALOONKEEPER): Patient had ablation of her left great [...] mg. Assessment & Plan (08/21/2023 4:17 PM SALOONKEEPER): Impression: Chronic and stable. Plan: Continue atorvastatin. Assessment & Plan (11/24/2020 1:26 PM SALOONKEEPER): Followed by her PCP and controlled on [...] on file Legal Sex Female 7:12 AM SALOONKEEPER Gender Identity Not on file Sexual Orientation [...] 70.8 kg (156 lb) 09/14/2024 1:19 PM SALOONKEEPER Height 167.6 cm (5' 6) 09/14/2024 1:19 PM SALOONKEEPER Body Mass Index 25.18 09/14/2024 1:19 PM SALOONKEEPER Plan of Treatment Health Maintenance Due Date [...] , 07/21/2021, Additional history exists Insurance [address] [id number] MEDICARE MEDICARE [employer] MEDICARE [facility] MEDICARE FOR LIFE Care Teams Checker And Packer Relationship Specialty Start Date End Date Edwin Smith MD [address] [place] [address] PCP - General Family Practice 09/14/24
--- OUTSIDE RECORDS SUMMARY | 2025-04-30 17:37 | XMS_ITS | Clinical Summary ---
Author Organization [facility] Address [address] [place] [id number] Care Team Providers Care Special Officer Automat Name Role Phone Unavailable Primary Care Provider Unavailabl e Social History Tobacco Use Types Packs/Day Years Used Date Smoking Tobacco: Never Assessed Comments Unknown Sex and Gender Information Value Date Recorded Sex Assigned at Not on file Legal Sex Female 2:48 PM DOG WARDEN Gender Identity Not on file Sexual Orientation [...]
--- NOTE | 2025-04-30 17:39 | ED.GENADULT ---
HPI - General Adult General Chief complaint: Extremity Problem,Nontraumatic Stated complaint: L knee pain up to the hip pain Time Seen by Provider: 04/30/25 15:25 History of Present Illness HPI narrative: This is an 84-year-old female presenting ED with chief complaint of left hip and thigh pain. Patient says the pain is been ongoing for 5 days. It is a sharp pain that is lacerated by movement and standing. Pain occurred after the patient dug up a large [place] planned in her backyard. She has taken naproxen with minimal relief. No fevers, falls, weakness the leg. No other symptoms. Related Data Home Medications ?Medication ?Instructions ?Recorded ?Confirmed ?Last Taken ?Type calcium carbonate (Calcium 600) 600 mg PO BID 11/10/19 08/17/24 07/20/22 09:00 History cholecalciferol (vitamin D3) 25 2,000 unit PO DAILY 11/10/19 08/17/24 07/20/22 09:00 History mcg (1,000 unit) tablet vitamin B complex (B 1 tablet PO DAILY 05/01/22 08/17/24 07/20/22 09:00 History Complex-Vitamin B12 tablet) Allergies Allergy/AdvReac Type Severity Reaction Status Date / Time shellfish derived Allergy Mild Itching Verified 01/28/25 22:14 REPLACED BY [facility] Past Medical History Medical History (Updated 04/30/25 @ 17:42 by Adi Hui MD) Mixed hyperlipidemia Hepatic steatosis Osteopenia Bladder prolapse Intolerant to pessary she states that pessary made her vomit. Gastritis Hallux limitus of right foot Acquired hallux valgus of left foot Bunion of great toe 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 Vitamin D deficiency, unspecified Surgical History Surgical History Status post bilateral LASIK surgery History of colonoscopy with polypectomy (2016) History of bladder suspension procedure With subsequent failure of procedure with recurrent bladder prolapse History of vaginal hysterectomy Status post breast reduction (~2006) Family History Family History Mother , Age greater than 90 CLL (chronic lymphocytic leukemia) Father , 85 years old CHF (congestive heart failure) Social History Social History (Reviewed 08/17/24 @ 11:06 by HENRY Pak Social History: Code status: Full code Surrogate decision maker: Smoking status: Never smoker Alcohol intake: current Drinks per week: 5 Alcohol use details: social Substance use: never Substance use type: does not use Do You Feel Safe in your Home?: Yes Lack of Transportation: No Lack of Food: Never True Current Housing: I Have Housing Concerned About Future Housing: No Difficulty Paying Gas/Electric Bills: No Difficulty Paying for Meds: No Currently Unemployed: No Education: High School Diploma/GED Difficulty w/ Childcare or Family Care: No Living arrangements: with family Occupation/Education: retired Gender identity (if verbalized by the patient): Female Sexual Orientation (if Verbalized by the Patient): Straight or Heterosexual Spiritual care concerns: No Agree to blood products: Yes Exam Narrative: APPEARANCE: No apparent distress. Head: atraumatic. EYES: EOMI, NOSE: Atraumatic NECK: Trachea midline RESPIRATORY: No increased rate of breathing CTAB CARDIOVASCULAR: RRR, no peripheral edema ABDOMINAL: Non-distended soft nontender MUSCULOSKELETAl: No obvious deformity. Patient is able to bear weight with some pain. Pain is along the lateral part of thigh. Leg is neurovascularly intact. NEURO: Alert. Moving 4/4 extremities SKIN:: Warm, dry. Normal color PSYCHIATRIC: Normal affect Course Vital Signs Vital signs: Vital Signs Temperature 97.9 F 04/30/25 14:37 Pulse Rate 81 04/30/25 14:37 Respiratory Rate 18 04/30/25 14:37 Blood Pressure 149/77 H 04/30/25 14:37 Pulse Oximetry 97 04/30/25 14:37 Oxygen Delivery Room Air 04/30/25 14:37 Temperature 97.9 F 04/30/25 14:37 Pulse Rate 81 04/30/25 14:37 Respiratory Rate 18 04/30/25 14:37 Blood Pressure 149/77 H 04/30/25 14:37 Pulse Oximetry 97 04/30/25 14:37 Oxygen Delivery Room Air 04/30/25 14:37 Medical Decision Making MDM Narrative Medical decision making narrative: -Course: 84-year-old female presenting with nontraumatic left hip pain. It is worse with movement. It occurred after she dug up a large plan. X-rays of the hip and pelvis were negative for fracture. I suspect this is musculoskeletal pain. She will be treated with Motrin Tylenol and Robaxin. Patient will follow-up with primary care physician early next week. -DDX includes but is not limited to: Muscle strain, muscle spasm, call fracture Vital Signs Vital Signs: Vital Signs Temperature 97.9 F 04/30/25 14:37 Pulse Rate 81 04/30/25 14:37 Respiratory Rate 18 04/30/25 14:37 Blood Pressure 149/77 H 04/30/25 14:37 Pulse Oximetry 97 04/30/25 14:37 Oxygen Delivery Room Air 04/30/25 14:37 Temperature 97.9 F 04/30/25 14:37 Pulse Rate 81 04/30/25 14:37 Respiratory Rate 18 04/30/25 14:37 Blood Pressure 149/77 H 04/30/25 14:37 Pulse Oximetry 97 04/30/25 14:37 Oxygen Delivery Room Air 04/30/25 14:37 Discharge Plan Discharge Clinical Impression: Acute leg pain Patient Disposition: Home Condition: Stable Instructions: Antibiotic Form, Leg Pain (ED) Additional Instructions: Using emergency department for leg pain. Please take Motrin Tylenol and Robaxin for your pain. Please follow-up with your primary care physician early next week. If you develop fevers, skin changes, severe pain or weakness your leg please return to the ED for re-evaluation. Patient Language: [place] Prescriptions: New acetaminophen 500 mg tablet 1,000 mg PO TID PRN (Reason: marie) 7 Days Qty: 42 0RF ibuprofen 600 mg tablet 600 mg PO TID Qty: 30 0RF methocarbamol 750 mg tablet 750 mg PO TID Qty: 30 0RF No Action calcium carbonate [Calcium 600] 600 mg calcium (1,500 mg) tablet 600 mg PO BID cholecalciferol (vitamin D3) 25 mcg (1,000 unit) tablet 2,000 unit PO DAILY vitamin B complex [B Complex-Vitamin B12] Tablet 1 tablet PO DAILY spironolactone 25 mg tablet 25 mg PO BID Qty: 90 0RF montelukast [Singulair] 10 mg tablet 10 mg PO DAILY Qty: 30 0RF RSVPreF3 antigen-AS01E (PF) 120 mcg/0.5 mL suspension for reconstitution 0.5 ml IM ONCE Qty: 10 0RF Rx Instructions: as a single dose naproxen sodium 275 mg tablet 275 mg PO Q8H PRN (Reason: Pain (Scale Score 1-3)) Qty: 90 0RF Rx Instructions: Take with food to prevent stomach upset. Would try to limit use due to gastritis. cetirizine 10 mg tablet 10 mg PO DAILY PRN (Reason: allergy symptoms) Qty: 90 1RF Follow-up/Referrals: Edwin Smith MD [Primary Care Provider] -
--- NOTE | 2025-04-30 17:49 | PC.NURSE ---
took discharge paperwork into the room for the patient and family member, spouse requested to speak to the physician again about results of the imaging done. EDP aware.
[2025-04-30 17:57] VITALS: BP 132/80; PULSE 76; RESP 16; TEMP 36.6; O2SAT 100
== END 2025-04-30 17:58 | disposition home or self-care (01) ==
PROVIDERS: Emergency Provider Emergency Medicine; PCP Family Medicine
DX: M25.552 Pain in left hip (principal); M79.652 Pain in left thigh; E78.2 Mixed hyperlipidemia; E55.9 Vitamin D deficiency, unspecified; M85.80 Other specified disorders of bone density and structure, unspecified site; Z86.0100 Personal history of colon polyps, unspecified; Z90.710 Acquired absence of both cervix and uterus
CPT/HCPCS: 73502; 96372; 99283; A9270; J1885

== ENCOUNTER 2025-07-05 14:04 | Outpatient (CLI) | payer MEDICARE, OTHER, SELFPAY ==
--- NOTE | ~2025-07-05 | MM_ITS ---
EXAMINATION: MM screening calderon BI w domenica HISTORY: Screening TECHNIQUE: Craniocaudal and mediolateral oblique 3-D tomosynthesis images were obtained and synthetic 2-D images were generated. CAD analysis was submitted and interpreted. COMPARISON: No prior mammogram is available for comparison at this institution. BREAST PARENCHYMAL COMPOSITION: The breasts are extremely dense, which lowers the sensitivity of mammography. FINDINGS: No suspicious calcifications or masses. Focal asymmetry in the lower inner quadrant of the right breast, anterior to middle depth, with questionable architectural distortion. Focal asymmetry in the lower inner quadrant of the left breast, middle to posterior depth, with questionable architectural distortion. IMPRESSION: 1. Focal asymmetry in the lower inner quadrant of the right breast, anterior to middle depth, with questionable architectural distortion. The study is incomplete. A diagnostic mammogram and a diagnostic ultrasound are recommended. 2.Focal asymmetry in the lower inner quadrant of the left breast, middle to posterior depth, with questionable architectural distortion. The study is incomplete. A diagnostic mammogram and a diagnostic ultrasound are recommended. BI-RADS 0: Incomplete-Need additional imaging evaluation. Reviewed, dictated and finalized at location Q. IMPRESSION: 1. Focal asymmetry in the lower inner quadrant of the right breast, anterior to middle depth, with questionable architectural distortion. The study is incompl ete. A diagnostic mammogram and a diagnostic ultrasound are recommended. 2.Focal asymmetry in the lower inner quadrant of the left breast, middle to pos terior depth, with questionable architectural distortion. The study is incomple te. A diagnostic mammogram and a diagnostic ultrasound are recommended. BI-RADS 0: Incomplete-Need additional imaging evaluation.
--- NOTE | ~2025-07-05 | DEXA_ITS ---
Bone Density Report Name: KORI DINERO Age: 85 Sex: Female Ethnicity: White Date of : 1940 Indication: osteopenia; hysterectomy; Referring Provider: GAVIN PAULINO Study: Bone densitometry was performed. Exam Date: July 05, 2025 Accession number: [id number] Bone Density: Region BMD T-score Z-score Classification AP Spine(L1, L2, L3) 0.919 -0.9 1.9 Normal Femoral Neck (Left) 0.661 -1.7 0.8 Osteopenia Total Hip (Left) 0.755 -1.5 0.8 Osteopenia Femoral Neck (Right) 0.671 -1.6 0.9 Osteopenia Total Hip (Right) 0.719 -1.8 0.5 Osteopenia Total Hip Mean 0.737 -1.7 0.7 Osteopenia World Health Organization criteria for BMD impression classify patients as: Normal (T-score at or above -1.0), Osteopenia (T-score between -1.0 and -2.5), or Osteoporosis (T-score at or below -2.5). 10-year Fracture Risk(1): Major Osteoporotic Fracture 14% Hip Fracture 3.9% Reported Risk Factors: [place] (), Neck BMD=0.661, BMI=26.0 (1) FRAX(R) Version 3.08. Fracture probability calculated for an untreated patient. Fracture probability may be lower if the patient has received treatment. Previous Exams: -- Region Exam Age BMD T-score BMD Change BMD Change Date g/cm2 vs Baseline vs Previous -- AP Spine (L1-L3) 07/05/2025 85 0.919 -0.9 -11.7%* -11.7%* 06/07/2022 82 1.041 0.2 Total Hip(Left) 07/05/2025 85 0.755 -1.5 -8.4%* -8.4%* 06/07/2022 82 0.824 -1.0 Total Hip(Right) 07/05/2025 85 0.719 -1.8 -11.2%* -11.2%* 06/07/2022 82 0.810 -1.1 -- *Denotes significance at 95% confidence level, LSC for AP Spine = 0.022 g/cm2, LSC for Total Hip = 0.027 g/cm2 Clinical Information Provided by Patient: Has used the following medications: Fosamax (i.e. alendronate), HRT (i.e. estrogen/hormone therapy), Prolia (i.e. denosumab), Vitamin D, Calcium Has the following medical conditions: Hysterectomy Patient maximum height was 66 Menopause Age: 56 No regular weight bearing exercise Drinks caffeinated beverages Onset of menses at age 12 Number of children 1 Impression: The patient has low bone mass, based on the Right Total Hip T-score. The patient has an estimated ten-year risk of hip fracture of 3.9% and an estimated ten-year risk of major fracture of 14%, based on the WHO FRAX algorithm. The BMD for the AP Spine (L1-L3) decreased, changing by -11.7% since the last DXA exam. The BMD for the Total Hip(Left) decreased, changing by -8.4% since the last DXA exam. The BMD for the Total Hip(Right) decreased, changing by -11.2% since the last DXA exam. Discussion: BONE DENSITY IS LOW AT ONE OR MORE SKELETAL SITES. THE PATIENT'S BMD AND CLINICAL RISK FACTORS CONTRIBUTE TO THIS PATIENT'S INCREASED RISK OF FRACTURE. This patient's lowest T-score is low at one or more skeletal sites. It meets the World Health Organization's (WHO) criteria for ?low bone mass? (T-score between -1.0 and -2.5). The patient's 10-year risk of hip fracture as calculated by FRAX exceeds the threshold where pharmacological therapy is recommended by the National Osteoporosis Foundation (NOF). However, all treatment decisions require clinical judgment and consideration of individual patient factors, including patient preferences, comorbidities, previous drug use, risk factors not captured in the FRAX model (e.g., frailty, falls, vitamin D deficiency, increased bone turnover, interval significant decline in bone density) and possible under or overestimation of fracture risk by FRAX. The patient should follow a healthful lifestyle (good nutrition with adequate calcium and vitamin D, and appropriate weight-bearing exercise). Follow-Up: Consider a repeat BMD and Vertebral Fracture Assessment (VFA) exam in 2 years or sooner if medically necessary, to reassess this patient's status. Reported by: ERIC on 07/05/2025 2:35:00 PM. Reviewed, dictated and finalized at location A.
== END 2025-07-05 14:05 | disposition home or self-care (01) ==
LOC: MICIMG 14:05
PROVIDERS: PCP Family Medicine; Visit Provider Family Medicine
DX: Z12.31 Encounter for screening mammogram for malignant neoplasm of breast (principal); Z78.0 Asymptomatic menopausal state; M85.852 Other specified disorders of bone density and structure, left thigh; M85.851 Other specified disorders of bone density and structure, right thigh
CPT/HCPCS: 77063; 77067; 77080